=== PATIENT | male | born 1935 | race Caucasian/White ===

== ENCOUNTER → 2016-09-16 | Outpatient (CLI) | payer OTHER ==
[~2016-09-16] MED LIST: ALBU0.5N2 NEB; ASPEC81 PO; ASTNS; ATRINSX INH; FISHOIL PO; LPT40 PO; MAGN400T6 PO; MULT-506 PO; PRLSR20 PO
--- NOTE | 2016-09-16 09:44 | DIAGNOSTIC IMAGING REPORT ---
CHEST 2 VIEWS ROUTINE CLINICAL HISTORY: Cough COMPARISON STUDY: Outside chest x-ray dated 07/06/2016 FINDINGS: The cardiac and mediastinal contours are normal. There is no evidence of focal pulmonary consolidation. There is no evidence of failure. No pleural effusions are visualized.[ There is a calcified left lower lobe granuloma. IMPRESSION: No active disease in the chest. Electronically signed by: Gallito Salinas M.D. 09/16/2016 9:43 AM Dictated Date/Time: 09/16/2016 9:42 AM
== END | disposition home or self-care (01) ==
LOC: C.RAD1850 09:28
PROVIDERS: ATTEND Internal Medicine Pulmonary Disease
DX: R05 Cough (principal)

== ENCOUNTER → 2016-10-13 | Outpatient (CLI) | payer OTHER ==
--- NOTE | 2016-10-28 03:53 | PULMONARY FUNCTION TEST ---
INTERPRETATION: Spirometry shows severe obstructive ventilatory disease with significant reversibility based off FVC. Lung volumes: Signs of hyperinflation with RV at 222% as well as total lung capacity of 159% predicted. Diffusion capacity: Within normal limits.
== END | disposition home or self-care (01) ==
LOC: C.RC 09:42
PROVIDERS: ATTEND Internal Medicine Pulmonary Disease
DX: R05 Cough (principal)

== ENCOUNTER → 2016-12-05 | Outpatient (CLI) | payer OTHER ==
[~2016-12-05] MED LIST changes: +ACET-749 PO; +ARTISOL OPB; +ATOR-24 PO; +AZEL0.15 NAE; +CYCL0.052 OPB; +GABA-113 PO; +IPRA1AER2 INH; +IPRASOL4 INH; +LORA-741 PO; +OXGN; +SYMIN160 INH
[2016-12-05 12:24] LABS: BLOOD UREA NITROGEN 13 mg/dl (7-18); GLUCOSE 102 mg/dl (70-99)
[2016-12-05 12:28] LABS: ESTIMATED AVERAGE GLUCOSE 117 mg/dl; HA1C FLAG Normal (Normal)
[2016-12-05 12:34] LABS: RHEUMATOID FACTOR < 10.0 U/mL (0-15)
--- NOTE | 2016-12-09 12:51 | CODING QUERY MEDICAL NECESSITY ---
CQSUPPORTING DIAGNOSIS NEEDED A supporting diagnosis is required for the test/procedure performed on this patient in order for us to be reimbursed by the patient's insurance. Please provide a supporting diagnosis for the following test/procedure listed below next to the test name along with your signature. *If there is no additional diagnosis for this patient that would support the following test/procedure please document that below next to the test/procedure. Test(s)/Procedure(s) that require a supporting diagnosis: DOS 12/05/16 BLOOD GLUCOSE VITAMIN B12 GLYCATED HEMOGLOBIN Provider Signature: Date: Thank you Asia Lucas [facility] Information Management Once completed, please kindly fax back to [phone] For questions please call [phone]
== END | disposition home or self-care (01) ==
LOC: C.LAB1850 10:53
PROVIDERS: ATTEND Podiatrist Foot & Ankle Surgery
DX: L03.032 Cellulitis of left toe (principal); L03.031 Cellulitis of right toe; M79.675 Pain in left toe(s); M79.674 Pain in right toe(s); B35.1 Tinea unguium; M79.672 Pain in left foot; M79.671 Pain in right foot

== ENCOUNTER → 2016-12-23 | Outpatient (CLI) | payer OTHER | END | disposition home or self-care (01) | LOC: C.LABSPEC 16:55 | PROVIDERS: ATTEND Podiatrist Foot & Ankle Surgery | DX: L60.0 Ingrowing nail (principal) ==

== ENCOUNTER → 2017-01-26 | Day surgery (SDC) | payer OTHER ==
[2017-01-26] VITALS (14 sets, daily range): BP systolic 121–193; BP diastolic 67–98; PULSE 54–71; TEMP 36.5–36.8; O2SAT 93–99; Ht 177.8 cm; Wt 90.0 kg
[~2017-01-26] VITALS: Ht 177.8 cm; Wt 90.0 kg
[~2017-01-26] MED LIST changes: -ACET-749 PO; -ARTISOL OPB; -ATOR-24 PO; -AZEL0.15 NAE; -CYCL0.052 OPB; +FENTANYL CITRATE 100 MCG 2 ML CARP IV ONE; +FENTANYL CITRATE INJ 50 MCG/1 ML 2 ML VIAL IV ONE; -GABA-113 PO; -IPRA1AER2 INH; -IPRASOL4 INH; +LIDOCAINE HCL 2% LOCAL 50ML VIAL INFIL ONE; -LORA-741 PO; +MIDAZOLAM HCL 5 MG/ML 1 ML VIAL IV ONE; +MIDAZOLAM HCL 5 MG/ML 2ML VIAL IV ONE; +NURSING VERBAL MED ORDER ONE; -OXGN; -SYMIN160 INH
--- NOTE | 2017-01-26 09:39 | History and Physical ---
History & Physical Date Jan 26, 2017. Chief Complaint Chronic Bronchiectasis History of Present Illness The patient is a 81 year old male with complaints of chronic bronchiectasis with sputum production: 81y/o male with sever COPD FEV1: 36% and recent stent in pulmonary rehab but continues to have difficulty clearing increasing mucus secretions. We have decided to move forward with bronchoscopy for mechanical clearance and to help determine a possible secondary etiology of his chronic cough/progressive sputum production such as infection or foreign body. Active Problems 1. Actinic keratosis 2. Anxiety 3. Benign colonic polyp 4. Benign prostatic hypertrophy with urinary obstruction 5. Candidiasis of mouth 7. Chronic obstructive pulmonary disease (FEV1: 36%)) 8. Cough -9-.- -K-m-l-r-e-n-t- -d-n-m-k-e-r- 11. Diverticulitis of colon 12. Dry eye syndrome -1-3-.- -F-p-d-m-e-r- -j-c-t-k-e-r- 14. GERD without esophagitis 15. History of basal cell carcinoma 16. Hyperlipidemia 17. Hypertension 18. Impaired fasting glucose 19. Impingement syndrome of left shoulder 20. Lyme disease 21. Myalgia and myositis 22. Neoplasm of uncertain behavior of skin 23. Oxygen desaturation during sleep 24. Peripheral edema 25. Peripheral neuropathy 26. Restless legs syndrome 27. Rhinitis 28. Seborrheic keratosis 30. Solitary pulmonary nodule Surgical History 1. Complete Colonoscopy 2. Hemorrhoidectomy 3. Hernia Repair 4. Prostate Surgery 5. Repair Of Forearm 6. Sinus Surgery 7. Transurethral Resection Of Prostate (TURP) Family History 1. Family history of Mother At Age 84 2. Family history of Father At Age 83 3. Family history of Colon Cancer Social History Being A Social Drinker Current smoker Former smoker Marital History - Currently Retired From Work Uses Safety Equipment - Seatbelts Current Meds 1. LORazepam 0.5 MG Oral Tablet; TAKE 1 TABLET BY MOUTH 3 TIMES A DAY NEEDED ; 2. Nystatin 562407 UNIT/ML SWISH AND SWALLOW 5 ML 3 Last Rx:[id number] Ordered 3. Magnesium Oxide 400 MG Oral Tablet; TAKE 1 TABLET DAILY; 4. Combivent Respimat 20-100 MCG/ACT EVERY 4 HOURS NOT TO EXCEED 6 PUFFS IN 24 HOURS 5. Ipratropium-Albuterol NEBULIZER EVERY 4 HOURS NEEDED 6. Symbicort 160-4.5 MCG/ACT Inhalation Aerosol; INHALE 2 PUFFS TWICE DAILY. 7. Sodium Chloride 7 % Inhalation Nebulization Solution; 7 % NORMAL SALINE. USE 1 8. Azelastine HCl - 0.1 % Nasal Solution; SPRAY 2 SPRAYS IN EACH NOSTRIL TWICE A 9. Restasis 0.05 % Ophthalmic Emulsion 10. Omeprazole 20 MG Oral Capsule Delayed Release; TAKE 2 CAPSULE DAILY 11. Atorvastatin Calcium 40 MG Oral Tablet; Take 1 tablet daily; 12. Gabapentin 100 MG Oral Capsule; TAKE 2 CAPSULE Bedtime; 13. Cheratussin AC 100-10 MG/5ML Oral Syrup; TAKE 5 ML EVERY 4 HOURS NEEDED 14. Mometasone Furoate 50 MCG/ACT Nasal Suspension; USE 2 SPRAYS 15. Multiple Vitamin TABS; TAKE 1 TABLET DAILY 16. Oxygen; 2 LPM at night time 17. Tears Naturale Free 0.1-0.3 % Ophthalmic Solution; INSTILL 1 DROP IN THE AFFECTED Allergies 1. Penicillins 2. Ciprofloxacin HCl TABS 3. Erythromycin Derivatives 4. Gabapentin TABS 5. Mirapex ER TB24 6. Protonix TBEC 7. Requip TABS Past Medical/Surgical History Medical Problems: (1) COPD (chronic obstructive pulmonary disease) Additional History Hepatic Disease: No Endocrine Disorder: No Kidney Disease: No Hypertension: Yes Heart Disease: No Bleeding Tendencies: No Infectious Diseases: No Allergies Coded Allergies: Ciprofloxacin (Verified Allergy, Unknown, SWELLING, 01/26/17) Erythromycin (Verified Allergy, Unknown, HIVES, 01/26/17) Lisinopril (Verified Allergy, Unknown, COUGH, 01/26/17) Penicillins (Verified Allergy, Unknown, 01/26/17) Pramipexole (Verified Allergy, Unknown, RASH, 01/26/17) Ropinirole (Verified Allergy, Unknown, RASH, 01/26/17) Pantoprazole (Verified Adverse Reaction, Intermediate, GI SYMPTOMS, 01/26/17 ) Gabapentin (Verified Adverse Reaction, Unknown, SYNCOPE, 01/26/17) Home Medications Scheduled Albuterol 0.5% Soln (Ventolin 0.5% Soln), 1 INHA NEB UD Aspirin Enteric Coated (Ecotrin Or Generic *), 81 MG PO DAILY Atorvastatin (Atorvastatin Calcium), 40 MG PO DAILY Azelastine Hcl (Astelin Nasal [place] *), 2 SPRAYS NA BID Fish Oil ([employer]-3), 1 CAP PO DAILY Ipratropium [place] (Atrovent 0.02% Soln), 2.5 ML INH TID Magnesium Oxide (Mag-Ox), 400 MG PO DAILY Multivitamin (Multivitamin), 1 TAB PO DAILY Omeprazole (Prilosec), 20 MG PO DAILY Physical Examination Skin: warm/dry, no rash Eyes: normal inspection, EOMI, sclerae normal ENT: normal ENT inspection, pharynx normal Head: normocephalic, atraumatic Neck: supple, no adenopathy, trachea midline Respiratory/Chest: + pertinent finding (mild rhonchi bilaterally ) Cardiovascular: regular rate, rhythm, no edema, no murmur Abdomen / GI: normal bowel sounds, non tender Back: normal inspection Extremities: normal inspection, normal range of motion Neurologic/Psych: no motor/sensory deficits, alert, normal reflexes, oriented x 3 Diagnosis Chronic Bronchitis ASA Classification: ASA Class III Plan of Treatment Bronchoscopy with BAL
--- NOTE | 2017-01-26 09:52 | History & Physical Bridge Note ---
H&P Re-Evaluation Bridge Note: I have examined the patient, reviewed the History & Physical and in the interval since the performance of the History & Physical I have noted the following changes of clinical significance: No changes noted
--- NOTE | 2017-01-26 09:53 | Procedure Note ---
Pre-Mod Sedation Assessment General Date of Moderate Sedation: Jan 26, 2017. Vital Signs: Vital Signs Past 12 Hours Date Time Temp Pulse Resp B/P (MAP) Pulse Ox O2 Delivery O2 Flow Rate FiO2 01/26/17 09:15 36.5 22 177/91 96 Room Air 01/26/17 09:05 36.5 59 22 177/91 (119) 96 Room Air Review Cardiovascular: regular rate, rhythm, no edema, no gallop, no JVD, no murmur, normal peripheral pulses Abdomen: normal bowel sounds, non tender, soft, no organomegaly, no pulsatile mass Lungs: chest non-tender, lungs clear, normal breath sounds, no respiratory distress, no accessory muscle use Airway Class: II Pre-Sedation Airway Assessment Oral Cavity: Dentures Able to Visualize Vocal Cords: Yes Short Thick Neck: Yes Hx of Sleep Apnea: Yes Smoking Status: Former Smoker Mallampati Classification: Class II ASA Classification: Class II Procedure Planning Contraindications-for Mod Sed: None Yes Notes The planned sedation has been discussed with the patient and consent obtained. I have identified the patient, determined the appropriateness of sedation and have assessed the patient immediately prior to the procedure. All medicine(s) and interventions are by my order.
--- NOTE | 2017-01-26 10:47 | Discharge Instructions ---
Discharge Instructions Date of Service Jan 26, 2017. Admission Reason for Admission: *David To Do* Chronic Bronchitis,Copd,Sob Discharge Discharge Diagnosis / Problem: Chronic Bronchiectasis Discharge Goals Goal(s): Improve function, Diagnostic testing Activity Recommendations Activity Limitations: resume your previous activity . Instructions / Follow-Up Instructions / Follow-Up Follow-Up at the [facility] Current Hospital Diet Patient's current hospital diet: Discharge Diet Recommended Diet: Regular Diet Procedures Procedures Performed: Bornchoscopy with Bronchial Lavage of the left upper lobe Pending Studies Studies pending at discharge: no Laboratory Results Hemoglobin A1c Test 12/05/16 10:59 Range/Units Estimated Average Glucose 117 mg/dl Hemoglobin A1c 5.7 H 4.5-5.6 % Medical Emergencies . Who to Call and When: Medical Emergencies: If at any time you feel your situation is an emergency, please call 911 immediately. . Non-Emergent Contact Non-Emergency issues call your: Alumni Relations Manager Call Non-Emergent contact if: temperature is above 101.5 . . "Provider Documentation" section prepared by Filippo Hernandez. . VTE Core Measure Inpt VTE Proph given/why not?: Treatment not indicated
--- NOTE | 2017-01-26 10:53 | Bronchoscopy Procedure Note ---
Bronchoscopy Procedure Note Procedure: Bronchoscopy, conscious sedation, BAL (SUNNY) Consent: Obtained through the patient placed into the chart Pre-procedural diagnosis: Chronic Bronchiectasis Post-procedural diagnosis: Chronic Bronchiectasis with acute flare Start time: 1022 End time: 1039 Total time: 16 minutes Analgesia: 2% liquid lidocaine: Via nebulizer 4% gel lidocaine: Via right naris 2% liquid lidocaine: Via bronchoscopy Sedation: Versed IV: 4 mg Fentanyl IV: 100 g Procedure: The Olympus video bronchoscope was used for this procedure and passed down through the right naris Initially the bronchoscope was passed through the oral cavity and retro-flexed off the soft palate Bilateral Posterior Batsheva: notable erythema and edema of the turbinates The bronchoscope was then passed through the right naris Right naris/posterior naris/posterior oropharynx: Anatomically within normal limits Glottis: Anatomically within normal limits Vocal cords: Proper abduction and abduction, anatomically within normal limits Subglottis/trachea/Nadia: Anatomically within normal limits, but a large mucus string crossing over the nadia and passing into the right and left mainstem Right bronchial tree: Right mainstem bronchus: Anatomically within normal limits Right upper lobe: Anatomically within normal limits Bronchus intermedius: Anatomically within normal limits Right middle lobe: Anatomically within normal limits Right lower lobe: Anatomically within normal limits Findings: moderate diffuse secretions Left bronchial tree: Left mainstem bronchus: Anatomically within normal limits Left upper lobe: Anatomically within normal limits Lingula: Anatomically within normal limits Left lower lobe: Anatomically within normal limits Findings: moderate diffuse secretions Bronchial alveolar lavage: SUNNY EBL: none Complications: None Follow-up: In the [facility]
--- NOTE | 2017-01-26 10:53 | Procedure Note ---
Post-Moderate Sedation Plan General Date of Moderate Sedation Jan 26, 2017. Vital Signs: Vital Signs Past 12 Hours Date Time Temp Pulse Resp B/P (MAP) Pulse Ox O2 Delivery O2 Flow Rate FiO2 01/26/17 10:45 65 20 127/80 96 Mask 8.0 01/26/17 10:40 65 19 130/91 95 Mask 8.0 01/26/17 10:35 66 19 143/83 95 Mask 8.0 01/26/17 10:30 64 18 121/81 97 Mask 8.0 01/26/17 10:25 61 20 148/82 97 Mask 8.0 01/26/17 10:20 62 20 182/88 99 Mask 8.0 01/26/17 10:02 54 22 193/98 99 Mask 10.0 01/26/17 09:15 36.5 22 177/91 96 Room Air 01/26/17 09:05 36.5 59 22 177/91 (119) 96 Room Air Review - Discharge Plan Post Moderate Sedation Plan: On clinical assessment, the patient appears to have tolerated the conscious sedation without complications. Patient is recovering as anticipated. Patient will continue to be monitored by nursing and may be discharged when conscious sedation discharge criteria are met.
== END | disposition home or self-care (01) ==
LOC: C.ACU 08:05
PROVIDERS: ATTEND Internal Medicine Critical Care Medicine
DX: J47.9 Bronchiectasis, uncomplicated (principal); J44.9 Chronic obstructive pulmonary disease, unspecified; K21.9 Gastro-esophageal reflux disease without esophagitis; F41.9 Anxiety disorder, unspecified; N40.1 Benign prostatic hyperplasia with lower urinary tract symptoms; N13.8 Other obstructive and reflux uropathy; I10 Essential (primary) hypertension; E78.5 Hyperlipidemia, unspecified; G25.81 Restless legs syndrome; G62.9 Polyneuropathy, unspecified; Z99.81 Dependence on supplemental oxygen; Z79.899 Other long term (current) drug therapy

== ENCOUNTER → 2017-05-17 | Day surgery (SDC) | payer OTHER ==
[2017-05-16 12:19] VITALS: Ht 177.8 cm; Wt 84.1 kg
[~2017-05-17] VITALS: Ht 177.8 cm; Wt 84.1 kg
[~2017-05-17] MED LIST changes: +ACET-749 PO; +ACETAMINOPHEN/CODEINE 300/30MG TAB PO PRN; +ARTISOL OPB; -ASPEC81 PO; -ASTNS; +ATOR-24 PO; +ATROPINE SULFATE 0.1 MG/ML 5ML SYR IV PRN; +AZEL0.15 NAE; +BUPIVACAINE 0.5 % 5 MG/1 ML MPF 30ML VIAL ONE; +CEFAZOLIN 1000MG IV PUSH 5 ML IV SCH; +CEFAZOLIN 2000MG IV PUSH 10 ML IV SCH; +CEFAZOLIN SOD 2000MG/10 ML IV PUSH IV ONE; +CYCL0.052 OPB; +EpHEDrine SULFATE INJ 50 MG/ML AMP IV PRN; -FENTANYL CITRATE 100 MCG 2 ML CARP IV ONE; -FENTANYL CITRATE INJ 50 MCG/1 ML 2 ML VIAL IV ONE; +FENTANYL CITRATE INJ 50 MCG/1 ML 2 ML VIAL IV PRN; -FISHOIL PO; +GABA-113 PO; +IPRA1AER2 INH; +IPRASOL4 INH; +LACTATED RINGER'S 1000ML 1,000 ML IV SCH; +LIDOCAINE HCL 2% LOCAL 20 ML VIAL ONE; -LIDOCAINE HCL 2% LOCAL 50ML VIAL INFIL ONE; +LORA-741 PO; -LPT40 PO; +MIDAZOLAM HCL 1 MG/ML 2ML VIAL ONE; -MIDAZOLAM HCL 5 MG/ML 1 ML VIAL IV ONE; -MIDAZOLAM HCL 5 MG/ML 2ML VIAL IV ONE; -NURSING VERBAL MED ORDER ONE; +ONDANSETRON INJ 2 MG/ML 2 ML VIAL IV PRN; +OXGN; +PROPOFOL IV EMULSION 10 MG/ML 20 ML VIAL IV ONE; +SODIUM CHLORIDE 0.9% 1000ML 1,000 ML IV SCH; +SYMIN160 INH
--- NOTE | 2017-05-17 13:49 | [facility] Post Operative Brief Note ---
Immediate Operative Summary Operative Date May 17, 2017. Pre-Operative Diagnosis Right ring and right long trigger finger Post-Operative Diagnosis Same as pre-op Procedure(s) Performed Right Ring And Right Long Trigger Finger Release Surgeon Tank Wagon Driver Surgeon(s) Sim Andrew PA-C Estimated Blood Loss Minimal Findings Right Ring and Long Finger Trigger Finger. Specimens None Anesthesia Local with IV Sedation Complication(s) None Disposition Recovery Room / PACU
--- NOTE | 2017-05-17 13:50 | Discharge Instructions-SurgCtr ---
Discharge Instructions Date of Service May 17, 2017. Visit Reason for Visit: Right Ring And Right Long Trigger Fingers Discharge Discharge Diagnosis / Problem: right ring and long trigger fingers Discharge Goals Goal(s): Decrease discomfort, Improve function, Therapeutic intervention Activity Recommendations Activity Limitations: per Instructions/Follow-up section Anesthesia . Post Anesthesia Instructions: If you have had General Anesthesia or IV Sedation: * Do not drive today. * Resume driving when surgeon permits. * Do not make important decisions or sign legal documents today. * Call surgeon for: 1. Temperature elevations greater than 101 degrees F. 2. Uncontrollable pain. 3. Excessive bleeding. 4. Persistent nausea and vomiting. 5. Medication intolerance (nausea, vomiting or rash). * For nausea and vomiting use only clear liquids such as: tea, soda, bouillon until nausea subsides, then gradually increase diet as tolerated. * If you have any concerns or questions, call your surgeon's office. If physician is unavailable and it is an emergency, call 911 or go to the nearest emergency room. . Instructions / Follow-Up Instructions / Follow-Up MEDICATIONS: * Resume previous medications unless instructed otherwise by your surgeon. * Always take pain medication on a full stomach or with food to avoid upset stomach. * Do not drink alcohol or drive while taking narcotics. * Ibuprofen or Tylenol may be taken if narcotic not needed. SPECIAL CARE INSTRUCTIONS: __ None __ Keep extremity elevated and iced x 48 hours; apply ice 20-30 minutes 8-10 times/day. May remove at night. __ Sling __24 hrs/day __ Remove at night __ Shoulder Immobilizer __ 24 hrs/day __ Remove at night _x_ Dressing _x_ Maintain until seen in office, may shower with plastic over site __ Remove dressings in 24-48 hours and then may shower __ Cover incisions with band-aids after showering __ Do not remove steri-strips Call physician if chills or temperature rises above 102 degrees or pain unrelieved by prescribed pain medications at . follow up in 2 weeks . Diet Recommendations Home Diet: resume previous diet Procedures Procedures Performed: Right Ring And Right Long Trigger Finger Release Pending Studies Studies pending at discharge: no Medical Emergencies . Who to Call and When: Medical Emergencies: If at any time you feel your situation is an emergency, please call 911 immediately. . Non-Emergent Contact Non-Emergency issues call your: Surgeon . . "Provider Documentation" section prepared by Sergio Andrew. .
[2017-05-17 13:51] VITALS: TEMP 36.7
--- NOTE | 2017-05-17 14:01 | Anesthesiology Progress Note ---
Anesthesia Post Op Note Date & Time May 17, 2017 at 14:01 Vital Signs Pain Intensity: 0 Vital Signs Past 12 Hours Date Time Temp Pulse Resp B/P (MAP) Pulse Ox O2 Delivery O2 Flow Rate FiO2 05/17/17 13:51 36.7 67 16 118/80 (93) 97 Room Air 05/17/17 12:04 36.7 77 18 112/96 (101) 94 Room Air Notes Mental Status: alert / awake / arousable, participated in evaluation Pt Amnestic to Procedure: Yes Nausea / Vomiting: adequately controlled Pain: adequately controlled Airway Patency, RR, SpO2: stable & adequate BP & HR: stable & adequate Hydration State: stable & adequate Anesthetic Complications: no major complications apparent
[2017-05-17 14:18] VITALS: O2SAT 99
[2017-05-17 14:57] VITALS: BP 167/88; PULSE 59
--- NOTE | 2017-05-17 15:52 | OPERATIVE REPORT ---
DATE OF OPERATION: 05/17/2017 PREOPERATIVE DIAGNOSIS: 1. Right ring trigger finger. 2. Right long trigger finger. POSTOPERATIVE DIAGNOSIS: Same. PROCEDURE PERFORMED: 1. Right ring trigger finger/A1 priya release. 2. Right long trigger finger/A1 priya release. SURGEON: Dr. Davi Bashir. FLOOR CARE SPECIALIST: Sim Andrew PA-C. COMPLICATIONS: None. ESTIMATED BLOOD LOSS: Minimal. TOURNIQUET TIME: Six minutes at 250 mmHg. OPERATIVE INDICATIONS: The patient is an 81-year-old gentleman who has had a 1 + year history of right long and ring trigger finger catching and locking. He had an injection about a year ago which provided some temporary relief only. It has gotten significantly worse to the point where his fingers get stuck down and it is not until lat in the day until he can straighten them. He did not want any further injections and elected to proceed with surgical treatment. OPERATIVE PROCEDURE: The patient taken to the operating room, identified and placed on the operating table in supine position. All contact areas were appropriately padded. IV antibiotics were provided by anesthesia team. Some IV sedation was provided. A right forearm tourniquet was placed. The right hand was then cleaned with alcohol and a total of 12 mL of 50:50 combination of 0.5% Marcaine and 2% lidocaine were then injected in and around the proposed incision sites. The right hand was then prepped and draped in usual sterile fashion. The right arm was elevated and exsanguinated with Esmarch and tourniquet was placed at 250 mmHg. A transverse incision was made just distal to the distal palmar crease at the base of the long and ring fingers. We made a single incision. Attention was first drawn to the ring finger. Blunt dissection was carried out directly down to the A1 priya and the flexor tendon sheath. The A1 priya was identified and transected with the use of scissors. The finger was taken through an active and active assisted range of motion was no further catching or locking. Attention was then drawn to the long finger. Blunt dissection was carried out directly over the flexor tendon to the long finger. The A1 priya was cleaned of soft tissues identified and transected with the use of scissors. The finger was taken through an active and active assisted range of motion. There was no further catching or locking. The wound was irrigated with copious amounts of normal saline. The tourniquet was let down for a tourniquet time of 6 minutes. Hemostasis was assured with use of electrocautery. The wound was once again irrigated. The skin was closed with 5-0 nylon suture in a horizontal mattress fashion. The hand was then cleaned and dried and a sterile dressing of Xeroform, 4 x 4, sterile cast padding and an Grady bandage were applied. The patient then transferred to the recovery room in stable condition. The patient tolerated the procedure well with no complications. All needle and sponge counts were correct at the end of the operation. I attest to the content of the Intraoperative Record and any orders documented therein. Any exceptions are noted below. BREANNA
== END | disposition home or self-care (01) ==
LOC: X.SURG 10:54
PROVIDERS: ATTEND Orthopaedic Surgery Sports Medicine
DX: M65.331 Trigger finger, right middle finger (principal); M65.341 Trigger finger, right ring finger; J44.9 Chronic obstructive pulmonary disease, unspecified; E78.00 Pure hypercholesterolemia, unspecified; K21.9 Gastro-esophageal reflux disease without esophagitis; Z79.82 Long term (current) use of aspirin; G47.33 Obstructive sleep apnea (adult) (pediatric); E78.5 Hyperlipidemia, unspecified; Z87.891 Personal history of nicotine dependence

== ENCOUNTER → 2017-07-28 | Outpatient (CLI) | payer OTHER ==
[~2017-07-28] MED LIST changes: -ACET-749 PO; +ACET300T3 PO; -ACETAMINOPHEN/CODEINE 300/30MG TAB PO PRN; +ASPCH81X PO; -ATROPINE SULFATE 0.1 MG/ML 5ML SYR IV PRN; -BUPIVACAINE 0.5 % 5 MG/1 ML MPF 30ML VIAL ONE; -CEFAZOLIN 1000MG IV PUSH 5 ML IV SCH; -CEFAZOLIN 2000MG IV PUSH 10 ML IV SCH; -CEFAZOLIN SOD 2000MG/10 ML IV PUSH IV ONE; +CEFD1CAP14 PO; +CHOL1000 PO; +CYM/30 PO; -EpHEDrine SULFATE INJ 50 MG/ML AMP IV PRN; -FENTANYL CITRATE INJ 50 MCG/1 ML 2 ML VIAL IV PRN; +FLM4 PO; +GABA-112 PO; +GABA-1220 PO; +IPRA-64 INH; -IPRASOL4 INH; -LACTATED RINGER'S 1000ML 1,000 ML IV SCH; -LIDOCAINE HCL 2% LOCAL 20 ML VIAL ONE; -MIDAZOLAM HCL 1 MG/ML 2ML VIAL ONE; +OMEG10007 PO; -ONDANSETRON INJ 2 MG/ML 2 ML VIAL IV PRN; +PRD20 PO; -PROPOFOL IV EMULSION 10 MG/ML 20 ML VIAL IV ONE; +SACC250C PO; -SODIUM CHLORIDE 0.9% 1000ML 1,000 ML IV SCH; +SULF800T23 PO; +TAMS0.4C38 PO
--- NOTE | 2017-07-28 08:56 | DIAGNOSTIC IMAGING REPORT ---
CHEST 2 VIEWS ROUTINE HISTORY: 81 years-old Male J44.9 Chronic obstructive pulmonary [id number] COMPARISON: Chest radiographs to 09/16/2016, chest CT 07/10/2015 TECHNIQUE: PA and lateral views of the chest FINDINGS: Cardiomediastinal and hilar silhouettes are within normal limits. Mild atherosclerosis of the aorta. There is chronic blunting of the costophrenic angles suggesting scarring with hyperinflation and emphysema. There is no pneumothorax, large pleural effusion or overt pulmonary edema. Calcified granuloma of the left lower lobe. The bones appear grossly intact. Multilevel endplate degenerative changes of the spine. IMPRESSION: 1. Emphysema without acute process. 2. Prior granulomatous disease. The above report was generated using voice recognition software. It may contain grammatical, syntax or spelling errors. Electronically signed by: Chris Diaz M.D. 07/28/2017 8:54 AM Dictated Date/Time: 07/28/2017 8:52 AM
== END | disposition home or self-care (01) ==
LOC: C.RAD1850 08:35
PROVIDERS: ATTEND Family Medicine Adult Medicine
DX: J44.9 Chronic obstructive pulmonary disease, unspecified (principal); R05 Cough

== ENCOUNTER → 2017-07-28 | Outpatient (CLI) | payer OTHER ==
[2017-07-28 12:53] LABS: INFLUENZA B ANTIGEN Neg for Influ B (NEG)
== END | disposition home or self-care (01) ==
LOC: C.LAB1850 10:14
PROVIDERS: ATTEND Internal Medicine Critical Care Medicine
DX: R06.89 Other abnormalities of breathing (principal); R05 Cough; J44.9 Chronic obstructive pulmonary disease, unspecified

== ENCOUNTER → 2017-08-04 | Outpatient (CLI) | payer OTHER ==
[~2017-08-04] MED LIST changes: +ACET-749 PO; -ACET300T3 PO; -ASPCH81X PO; -CEFD1CAP14 PO; -CHOL1000 PO; -CYM/30 PO; -FLM4 PO; -GABA-112 PO; -GABA-1220 PO; -IPRA-64 INH; +IPRASOL4 INH; -OMEG10007 PO; -PRD20 PO; -SACC250C PO; -SULF800T23 PO; -TAMS0.4C38 PO
== END | disposition home or self-care (01) ==
LOC: C.LABBC 14:24
PROVIDERS: ATTEND Family Medicine Adult Medicine
DX: R39.11 Hesitancy of micturition (principal)

== ENCOUNTER 2017-08-22 10:53 | Inpatient (IN) | payer OTHER ==
[~2017-08-22] VITALS: Ht 177.8 cm; Wt 81.6 kg
[2017-08-22] MEDS ORDERED: SODIUM CHLORIDE 0.9% 1000ML 500 ML IV STA (11:30)
[2017-08-22 11:54] LABS: BASO % 0.2 %; BASO ABS # 0.03 K/uL (0-0.2); EOS % 0.5 %; EOS ABS # 0.07 K/uL (0-0.5); HEMATOCRIT 39.5 % (42-52); HEMOGLOBIN 13.1 g/dL (14.0-18.0); IG# 0.04 K/uL (0.00-0.02); LYMPH % 6.6 %; LYMPH ABS # 0.96 K/uL (1.2-3.4); MEAN CELL VOLUME 96.6 fL (80-100); MEAN CORPUSCULAR HGB CONC 33.2 g/dl (32-36); MEAN PLATELET VOLUME 10.3 fL (7.4-10.4); MONO % 7.7 %; MONO ABS # 1.12 K/uL (0.11-0.59); NEUT % 84.7 %; NEUT ABS # 12.24 K/uL (1.4-6.5); PLATELET COUNT 159 K/uL (130-400); RED CELL DISTRIBUTION WIDTH CV 13.6 % (11.5-14.5); RED CELL DISTRIBUTION WIDTH SD 47.8 fL (36.4-46.3); WHITE BLOOD COUNT 14.46 K/uL (4.8-10.8)
[2017-08-22 11:59] LABS: PTT PATIENT 25.4 SECONDS (21.0-31.0)
--- NOTE | 2017-08-22 12:00 | DIAGNOSTIC IMAGING REPORT ---
CHEST ONE VIEW PORTABLE CLINICAL HISTORY: Chest pain. COMPARISON STUDY: Chest radiograph July 28, 2017. FINDINGS: Calcified left lower lobe granuloma and calcified thoracic lymph nodes are noted. There is no pneumothorax or pleural effusion. Cardiomediastinal silhouette is stable. There is no evidence for pulmonary edema. There is no consolidation to suggest pneumonia. IMPRESSION: No acute cardiopulmonary findings. Electronically signed by: Dimitri Reyes M.D. 08/22/2017 11:59 AM Dictated Date/Time: 08/22/2017 11:57 AM
[2017-08-22 12:03] LABS: ALBUMIN 3.6 gm/dl (3.4-5.0); CALCIUM 9.2 mg/dl (8.5-10.1); POTASSIUM 4.5 mmol/L (3.5-5.1)
[2017-08-22 12:08] LABS: TOTAL PROTEIN 7.1 gm/dl (6.4-8.2)
--- NOTE | 2017-08-22 12:54 | DIAGNOSTIC IMAGING REPORT ---
CT OF THE HEAD WITHOUT CONTRAST CLINICAL HISTORY: dizzy COMPARISON STUDY: Head CT November 14, 2013. CT DOSE: 638.56 mGycm TECHNIQUE: Helical axial images of the head were obtained without IV contrast. Automated exposure control was utilized for the study. A dose lowering technique was utilized adhering to the principles of ALARA. FINDINGS: No acute intracranial hemorrhage, midline shift or mass effect is present. Ventricular system is normal. Basilar cisterns are patent. There are no extra-axial collections. White matter hypodensities suggest moderate small vessel disease. There are no findings to suggest acute dural sinus thrombosis or acute territorial infarct. There are no significant calvarial abnormalities. There is trace fluid within left mastoid air cells. There are postoperative findings within the sinuses. IMPRESSION: 1. No acute intracranial findings. 2. Trace fluid within left mastoid air cells. Electronically signed by: Dimitri Reyes M.D. 08/22/2017 12:53 PM Dictated Date/Time: 08/22/2017 12:50 PM
--- NOTE | 2017-08-22 13:03 | DIAGNOSTIC IMAGING REPORT ---
ABD/PELVIS NO IV OR ORAL CONT CLINICAL HISTORY: 81 years-old Male presenting with eval for diverticulitis. TECHNIQUE: Multidetector CT of the abdomen and pelvis was performed without the use of intravenous contrast. IV contrast: None. A dose lowering technique was used consistent with the principles of ALARA (as low as reasonably achievable). COMPARISON: None. CT DOSE (mGy.cm): The estimated cumulative dose is 754.92 mGycm. FINDINGS: Fuel Operator topogram: Unremarkable. Lung bases: Minimal dependent changes at the right lung base, likely scarring or atelectasis. Normal heart size. No pericardial or pleural effusion. Liver: Normal morphology. Normal density. Somewhat ill-defined 8 mm lesion at the right hepatic dome is indeterminate but may represent a hepatic cyst. Biliary: No gross biliary ductal dilatation allowing for noncontrast technique. Minimal cholelithiasis versus trace gallbladder wall calcification (series 4 image 143). Pancreas: Mild parenchymal atrophy. Spleen: Normal noncontrast appearance. Splenule noted. Adrenal glands: Normal noncontrast appearance. Kidneys and ureters: Nonobstructing 2 mm calculus in the lower pole the left kidney. Hypodensity in the right kidney indeterminate but likely simple cyst (series 4 image 188). No hydronephrosis. Mild urothelial thickening may be present ureters otherwise normal. Bladder: Significant circumferential bladder wall thickening. Pelvic organs: Prostate enlargement likely secondary to benign prostatic hyperplasia. Bowel: Limited diverticulosis of the proximal sigmoid colon. No pericolonic inflammatory change. Allowing for the absence of oral and intravenous contrast, the small bowel is grossly normal. Large duodenal diverticulum along the horizontal segment. No associated inflammatory change. Peritoneal cavity: Trace free fluid in the pelvis. Trace inflammatory changes suggested along the anterior mesorectal fascia and emanating from the seminal vesicles and posterior bladder wall. Lymph nodes: No gross lymphadenopathy allowing for noncontrast technique. Vasculature: Fusiform aneurysmal dilatation of the infrarenal abdominal aorta measuring up to 4.3 cm in diameter. Displaced intimal calcifications along the inferior portion of this could suggest a chronic short segment dissection. This does not extend into the common iliac arteries. Abdominal wall: Normal. Musculoskeletal: Degenerative changes of the spine. Degenerative changes of the sacroiliac joints. IMPRESSION: 1. Inflammatory changes centered at the rectovesical recess. This is associated with significant circumferential bladder wall thickening and suggestion of mild urothelial thickening. In the setting of prostatomegaly, this could be secondary to chronic bladder outlet obstruction and ureteral reflux. Superimposed infection/cystitis cannot be excluded. Correlate with urinalysis. Underlying prostate abnormality beyond benign prostatic hyperplasia is not well assessed on CT. 2. No lymphadenopathy. 3. Fusiform infrarenal abdominal aortic aneurysm measuring 4.3 cm in diameter. 4. Nonobstructing 2 mm left renal calculus. Electronically signed by: Arnulfo Maya M.D. 08/22/2017 1:02 PM Dictated Date/Time: 08/22/2017 12:51 PM
[2017-08-22] MEDS ORDERED: CEFTRIAXONE SOD INJ 1 GM ADDVIAL IV STA (13:51)
--- NOTE | 2017-08-22 14:12 | EMERGENCY ROOM VISIT NOTE ---
History Report prepared by Ac: Scar Deleon Under the Supervision of: Dr. Albin Madsen M.D. First contact with patient: 11:20 Chief Complaint: OTHER COMPLAINT Stated Complaint: DIZZY/LIGHTHEADED History of Present Illness The patient is a 81 year old male who presents to the Emergency Room with complaints of persistent generalized illness beginning this week. His symptoms include a cough, headache, urinary symptoms, dizziness, and blurred vision. His cough is generally non-productive. The patient was treated for influenza three weeks ago. He had his Gabapentin dose increased last week by his PCP, and feels that this may be responsible for his symptoms. He was originally on 300 mg, but is now on 500 mg (400 mg and 100 mg). The patient states that he experienced an episode of chest "discomfort" last night, but it had resolved by the morning. He states that he has some mild abdominal pain as well. He states that he had experienced some generalized numbness and weakness additionally. The patient denies fevers, vomiting, or abdominal distention. He is not on any blood thinners. Source of History: patient Onset: This week Position: other (generalized) Quality: other (illness) Timing: other (persistent) Associated Symptoms: + headache, + cough (non-productive), + abdominal pain , + urinary symptoms, + weakness, + numbness, No fevers, No vomiting Note: Additional symptoms: dizziness and blurred vision. He denies abdominal distention. Review of Systems See HPI for pertinent positives & negatives. A total of 10 systems reviewed and were otherwise negative. Past Medical & Surgical Medical Problems: (1) COPD (chronic obstructive pulmonary disease) Old medical records were reviewed. Nurse's notes were reviewed and I agree with. Family History Cancer Diabetes mellitus Heart disease Hypertension Social History Smoking Status: Never Smoker Alcohol Use: heavy Drug Use: none Marital Status: Occupation Status: retired Current/Historical Medications Scheduled Artificial Tear Solution (Tears Naturale), 1 DROP OPB NOON Atorvastatin (Lipitor), 40 MG PO QAM Azelastine Hcl (Astepro), 2 SPRAYS MORIAH BID Budesonide/Formoterol Fumarate (Symbicort 160/4.5 Inhaler ), 2 PUFFS INH BID Cyclosporine (Ophth) (Restasis), 1 DROP OPB BID Home O2 Therapy (Oxygen), 2 LITERS NA HS Ipratropium [place] (Atrovent 0.02% Soln), 2.5 ML INH TID Ipratropium-Albuterol (Duoneb), 1 TREATMENT INH Q4H Magnesium Oxide (Mag-Ox), 400 MG PO QPM Multivitamin (Multivitamin), 1 TAB PO QPM Omeprazole (Prilosec), 40 MG PO DAILY Scheduled PRN Acetaminophen/Codeine (Tylenol W/Codeine #3), 1-2 TAB PO Q6 PRN for Pain Ipratropium-Albuterol (Combivent Respimat), 1 PUFFS INH QID PRN for SOB/Wheezing Lorazepam (Ativan), 0.5 MG PO TID PRN for Anxiety Allergies Coded Allergies: Ciprofloxacin (Verified Allergy, Unknown, SWELLING, 08/22/17) Erythromycin (Verified Allergy, Unknown, HIVES, 08/22/17) Gabapentin (Unverified Allergy, Unknown, ., 08/22/17) Lisinopril (Verified Allergy, Unknown, COUGH, 08/22/17) Penicillins (Verified Allergy, Unknown, HIVES, 08/22/17) Pramipexole (Verified Allergy, Unknown, RASH, 08/22/17) Ropinirole (Verified Allergy, Unknown, RASH, 08/22/17) Pantoprazole (Verified Adverse Reaction, Intermediate, GI SYMPTOMS, ) Physical Exam Vital Signs Date Time Temp Pulse Resp B/P (MAP) Pulse Ox O2 Delivery O2 Flow Rate FiO2 08/22/17 14:15 75 20 124/65 96 Room Air 08/22/17 12:19 124/60 08/22/17 11:53 78 15 08/22/17 11:23 78 23 08/22/17 11:19 95 Room Air 08/22/17 11:16 74 08/22/17 11:15 36.8 98 20 110/66 95 Room Air 08/22/17 11:00 110/66 Physical Exam General: Non-ill appearing older male in no acute distress. HEENT: Normal cephalic atraumatic. Pupils are equal round and reactive to light. Extraocular movements are intact. Oropharynx is pink with moist mucous membranes. No swelling of the mouth lips or tongue. Neck: Supple with a midline trachea. No meningeal signs or stiffness, no JVD or bruits. No Stridor. Chest: Clear to auscultation bilaterally. No wheezes or rhonchi. No increased work of breathing. Heart: regular rate and rhythm. Abdomen: Soft nontender, nondistended without rebound guarding or rigidity. Extremities: No cyanosis clubbing or edema. No calf tenderness or assymetry Spine/Back. Non tender to palpation. No CVA tenderness Skin: Good turgor without rashes. Neurologic exam: Cranial nerves two through 12 are intact. Motor and sensation are intact and symmetrical throughout. Medical Decision & Procedures ER Provider Diagnostic Interpretation: Radiology results as stated below per my review and radiologist interpretation: CHEST ONE VIEW PORTABLE FINDINGS: Calcified left lower lobe granuloma and calcified thoracic lymph nodes are noted. There is no pneumothorax or pleural effusion. Cardiomediastinal silhouette is stable. There is no evidence for pulmonary edema. There is no consolidation to suggest pneumonia. IMPRESSION: No acute cardiopulmonary findings. Electronically signed by: Dimitri Reyes M.D. 08/22/2017 11:59 AM ABD/PELVIS NO IV OR ORAL CONT FINDINGS: Core Carrier topogram: Unremarkable. Lung bases: Minimal dependent changes at the right lung base, likely scarring or atelectasis. Normal heart size. No pericardial or pleural effusion. Liver: Normal morphology. Normal density. Somewhat ill-defined 8 mm lesion at the right hepatic dome is indeterminate but may represent a hepatic cyst. Biliary: No gross biliary ductal dilatation allowing for noncontrast technique. Minimal cholelithiasis versus trace gallbladder wall calcification (series 4 image 143). Pancreas: Mild parenchymal atrophy. Spleen: Normal noncontrast appearance. Splenule noted. Adrenal glands: Normal noncontrast appearance. Kidneys and ureters: Nonobstructing 2 mm calculus in the lower pole the left kidney. Hypodensity in the right kidney indeterminate but likely simple cyst (series 4 image 188). No hydronephrosis. Mild urothelial thickening may be present ureters otherwise normal. Bladder: Significant circumferential bladder wall thickening. Pelvic organs: Prostate enlargement likely secondary to benign prostatic hyperplasia. Bowel: Limited diverticulosis of the proximal sigmoid colon. No pericolonic inflammatory change. Allowing for the absence of oral and intravenous contrast, the small bowel is grossly normal. Large duodenal diverticulum along the horizontal segment. No associated inflammatory change. Peritoneal cavity: Trace free fluid in the pelvis. Trace inflammatory changes suggested along the anterior mesorectal fascia and emanating from the seminal vesicles and posterior bladder wall. Lymph nodes: No gross lymphadenopathy allowing for noncontrast technique. Vasculature: Fusiform aneurysmal dilatation of the infrarenal abdominal aorta measuring up to 4.3 cm in diameter. Displaced intimal calcifications along the inferior portion of this could suggest a chronic short segment dissection. This does not extend into the common iliac arteries. Abdominal wall: Normal. Musculoskeletal: Degenerative changes of the spine. Degenerative changes of the sacroiliac joints. IMPRESSION: 1. Inflammatory changes centered at the rectovesical recess. This is associated with significant circumferential bladder wall thickening and suggestion of mild urothelial thickening. In the setting of prostatomegaly, this could be secondary to chronic bladder outlet obstruction and ureteral reflux. Superimposed infection/cystitis cannot be excluded. Correlate with urinalysis. Underlying prostate abnormality beyond benign prostatic hyperplasia is not well assessed on CT. 2. No lymphadenopathy. 3. Fusiform infrarenal abdominal aortic aneurysm measuring 4.3 cm in diameter. 4. Nonobstructing 2 mm left renal calculus. Electronically signed by: Arnulfo Maya M.D. 08/22/2017 1:[address] OF THE HEAD WITHOUT CONTRAST FINDINGS: No acute intracranial hemorrhage, midline shift or mass effect is present. Ventricular system is normal. Basilar cisterns are patent. There are no extra-axial collections. White matter hypodensities suggest moderate small vessel disease. There are no findings to suggest acute dural sinus thrombosis or acute territorial infarct. There are no significant calvarial abnormalities. There is trace fluid within left mastoid air cells. There are postoperative findings within the sinuses. IMPRESSION: 1. No acute intracranial findings. 2. Trace fluid within left mastoid air cells. Electronically signed by: Dimitri Reyes M.D. 08/22/2017 12:53 PM Laboratory Results 08/22/17 11:09 Red Blood Count 4.09, Mean Corpuscular Volume 96.6, Mean Corpuscular Hemoglobin 32.0, Mean Corpuscular Hemoglobin Concent 33.2, Mean Platelet Volume 10.3, Neutrophils (%) (Auto) 84.7, Lymphocytes (%) (Auto) 6.6, Monocytes (%) (Auto) 7.7, Eosinophils (%) (Auto) 0.5, Basophils (%) (Auto) 0.2, Neutrophils # (Auto) 12.24, Lymphocytes # (Auto) 0.96, Monocytes # (Auto) 1.12, Eosinophils # (Auto) 0.07, Basophils # (Auto) 0.03 08/22/17 11:09 Test 08/22/17 11:09 08/22/17 11:46 08/22/17 12:55 White Blood Count 14.46 K/uL (4.8-10.8) Red Blood Count 4.09 M/uL (4.7-6.1) Hemoglobin 13.1 g/dL (14.0-18.0) Hematocrit 39.5 % (42-52) Mean Corpuscular Volume 96.6 fL (80-100) Mean Corpuscular Hemoglobin 32.0 pg (25-34) Mean Corpuscular Hemoglobin Concent 33.2 g/dl (32-36) Platelet Count 159 K/uL (130-400) Mean Platelet Volume 10.3 fL (7.4-10.4) Neutrophils (%) (Auto) 84.7 % Lymphocytes (%) (Auto) 6.6 % Monocytes (%) (Auto) 7.7 % Eosinophils (%) (Auto) 0.5 % Basophils (%) (Auto) 0.2 % Neutrophils # (Auto) 12.24 K/uL (1.4-6.5) Lymphocytes # (Auto) 0.96 K/uL (1.2-3.4) Monocytes # (Auto) 1.12 K/uL (0.11-0.59) Eosinophils # (Auto) 0.07 K/uL (0-0.5) Basophils # (Auto) 0.03 K/uL (0-0.2) RDW Standard Deviation 47.8 fL (36.4-46.3) RDW Coefficient of Variation 13.6 % (11.5-14.5) Immature Granulocyte % (Auto) 0.3 % Immature Granulocyte # (Auto) 0.04 K/uL (0.00-0.02) Prothrombin Time 10.2 SECONDS (9.0-12.0) Prothromb Time International Ratio 1.0 (0.9-1.1) Activated Partial Thromboplast Time 25.4 SECONDS (21.0-31.0) Partial Thromboplastin Ratio 1.0 Anion Gap 8.0 mmol/L (3-11) Est Creatinine Clear Calc Drug Dose 59.8 ml/min Estimated GFR () 81.4 Estimated GFR (Non- 70.3 BUN/Creatinine Ratio 12.2 (10-20) Calcium Level 9.2 mg/dl (8.5-10.1) Total Bilirubin 0.8 mg/dl (0.2-1) Direct Bilirubin 0.2 mg/dl (0-0.2) Aspartate Amino Transf (AST/SGOT) 23 U/L (15-37) Alanine Aminotransferase (ALT/SGPT) 37 U/L (12-78) Alkaline Phosphatase 149 U/L (45-117) Total Creatine Kinase 151 U/L (39-308) Creatine Kinase MB 6.0 ng/ml (0.5-3.6) Creatine Kinase MB Ratio 4.0 (0-3.0) Total Protein 7.1 gm/dl (6.4-8.2) Albumin 3.6 gm/dl (3.4-5.0) Lipase 105 U/L (73-393) Bedside Troponin I < 0.030 ng/ml (0-0.045) Urine Color YELLOW Urine Appearance TURBID (CLEAR) Urine pH 8.0 (4.5-7.5) Urine Specific [place] 1.006 (1.000-1.030) Urine Protein 2+ (NEG) Urine Glucose (UA) NEG (NEG) Urine Ketones NEG (NEG) Urine Occult Blood 2+ (NEG) Urine Nitrite POS (NEG) Urine Bilirubin NEG (NEG) Urine Urobilinogen NEG (NEG) Urine Leukocyte Esterase LARGE (NEG) Urine WBC (Auto) >30 /hpf (0-5) Urine RBC (Auto) 10-30 /hpf (0-4) Urine Hyaline Casts (Auto) 0 /lpf (0-5) Urine Epithelial Cells (Auto) 5-10 /lpf (0-5) Urine Bacteria (Auto) 4+ (NEG) Laboratory studies as stated above per my review. Medications Administered Medications (Trade) Dose Ordered Sig/Nelsy Route Start Time Stop Time Status Last Admin Dose Admin Sodium Chloride 500 ml @ 999 mls/hr Q31M STAT IV 08/22/17 11:30 08/22/17 12:00 DC 08/22/17 11:46 999 MLS/HR Ceftriaxone Sodium (Rocephin Inj) 1 gm NOW STAT IV 08/22/17 13:51 08/22/17 13:52 DC 08/22/17 14:29 1 GM ECG Indication: other (dizziness) Rate (beats per minute): 72 Rhythm: normal sinus Findings: left axis deviation, other (Non-specific ST abnormalities) Comparison ECG Date: Jul 10, 2015 Change: no significant change (Non-specific ST abnormality has improved. ) ED Course 1121: Past medical records reviewed. The patient was evaluated in room C5, and a complete history and physical examination were performed. 1130: Ordered Sodium Chloride 500 ml @ 999 mls/hr IV. 1340: I reassessed the patient. We discussed his test results and possible treatment plan. 1351: Ordered Rocephin Inj 1 gm IV. 1402: Upon reevaluation, the patient is resting comfortably. I discussed the results and treatment plan with the patient. He verbalized agreement of the treatment plan. The patient will be evaluated for further management. Medical Decision Differentials include, but are not limited to; medication reaction, cardiac sources, intracranial process, pneumonia, bronchitis, and electrolyte or metabolic abnormality. This patient comes in as described above. He was placed in room C5. He does have a constellation of symptoms. He's felt dizzy and tired he's had urinary symptoms and just is felt unwell. This started recently and he checked changes gabapentin at the time it was increased. He also has had some underlying prostate/urinary symptoms and recently finished a course of Bactrim as well. He has no flank tenderness on exam to suggest pyelonephritis he is afebrile here and denies fever home. He has been dizzy but has had no syncope although his said that he almost passed out last night looked pale. His white count was found to be elevated at 14. CAT scan of his head was unremarkable. CAT scan of his abdomen shows some inflammation around the bladder/prostate which could be infectious. He has no acute electrolyte or metabolic abnormalities. I have our ED pharmacist review his medications as he has multiple allergies to antibiotics. We did give him Rocephin IV and he has had this before. Given the fact that he has a significant urinary infection on his urinalysis , and elevated white count, he's been weak and tired and dizzy with near syncope, as well as other comorbidities, I do think he needs to be admitted /observed for further treatment and evaluation of consulted the [facility] hospitalist to see him in the ER. Medication Reconcilliation Current Medication List: was personally reviewed by me Blood Pressure Screening Patient's blood pressure: Normal blood pressure Blood pressure disposition: Did not require urgent referral Consults Time Called: 1403 Consulting Physician: Dr. Nevin ANDERSON Hospitalist Returned Call: [phone] Discussed the patient's case. The patient will be evaluated for further management. Impression Primary Impression: UTI (urinary tract infection) Additional Impressions: Sepsis Prostatitis Scribe Attestation The scribe's documentation has been prepared under my direction and personally reviewed by me in its entirety. I confirm that the note above accurately reflects all work, treatment, procedures, and medical decision making performed by me. Departure Information Dispostion Being Evaluated By Hospitalist Referrals Arnulfo Cleary M.D. (PCP) Patient Instructions My [facility] Problem Qualifiers
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
[2017-08-22] MEDS ORDERED: LORAZEPAM 0.5 MG TAB PO PRN (15:15)
[2017-08-22] MEDS ORDERED: ALUMINUM/MAGNESIUM/SIMETH (MAALOX MAX) 30 ML UDC PO PRN (15:15)
[2017-08-22] MEDS ORDERED: MAGNESIUM HYDROXIDE SUSP 30 ML UDC PO PRN (15:15)
[2017-08-22] MEDS ORDERED: ACETAMINOPHEN 325 MG TAB PO PRN (15:15)
[2017-08-22] MEDS ORDERED: ARTIFICIAL TEARS OP SOLN OP PRN (15:15)
[2017-08-22] MEDS ORDERED: ONDANSETRON INJ 2 MG/ML 2 ML VIAL IV PRN (15:15)
[2017-08-22] MEDS: ALBUT/IPRATROP 3MG/0.5MG NEB 3 ML VIAL INH SCH ×3 (16:00→23:30)
[2017-08-22] MEDS: SODIUM CHLORIDE 0.9% 1000ML 1,000 ML IV SCH (18:03)
[2017-08-22] MEDS: LACTOBACILLUS ACIDOPHILUS (FLORANEX) TAB PO SCH (18:04)
[2017-08-22] MEDS: ENOXAPARIN 40 MG/0.4 ML SYR SC SCH (18:04)
[2017-08-22 18:14] VITALS: BP 102/69; PULSE 95; TEMP 38; O2SAT 90
[2017-08-22 18:26] VITALS: O2SAT 90; Ht 177.8 cm; Wt 81.6 kg
[2017-08-22 18:26] LABS: INFLUENZA B ANTIGEN Neg for Influ B (NEG)
[2017-08-22 20:00] VITALS: PULSE 87; O2SAT 98
[2017-08-22] MEDS: BUDESONIDE/FORMOTEROL FUMARATE 160/4.5 60 PUFFS/INHALER INH SCH (20:26)
[2017-08-22] MEDS: GUAIFENESIN 600 MG TABCR PO SCH (20:27)
[2017-08-22] MEDS: MULTIVITAMIN TAB PO SCH (20:28)
[2017-08-22] MEDS: MAGNESIUM OXIDE 400 MG TAB PO SCH (20:28)
[2017-08-22] MEDS: GABAPENTIN 300 MG CAP PO SCH (21:00)
[2017-08-22] MEDS ORDERED: NON-FORMULARY MEDICATION (Cyclosporine (Ophth) (Restasis) 1 DROP) OPB SCH (21:00)
[2017-08-22] MEDS: RESTASIS-ORDER AWAITING ACTION SCH (22:35)
[2017-08-22 23:30] VITALS: PULSE 75; O2SAT 99
[2017-08-23] VITALS (15 sets, daily range): BP systolic 90–119; BP diastolic 45–73; PULSE 62–79; TEMP 36.6–37.4; O2SAT 93–100
[2017-08-23] MEDS: SODIUM CHLORIDE 0.9% 1000ML 1,000 ML IV SCH (03:09)
[2017-08-23] MEDS: ALBUT/IPRATROP 3MG/0.5MG NEB 3 ML VIAL INH SCH ×6 (03:42→22:55)
[2017-08-23 07:36] LABS: CALCIUM 8.1 mg/dl (8.5-10.1); CREATININE 0.93 mg/dl (0.60-1.40); POTASSIUM 3.9 mmol/L (3.5-5.1)
[2017-08-23] MEDS: RESTASIS-ORDER AWAITING ACTION SCH ×3 (08:00→22:57)
[2017-08-23] MEDS: BUDESONIDE/FORMOTEROL FUMARATE 160/4.5 60 PUFFS/INHALER INH SCH ×2 (08:07→20:44)
[2017-08-23] MEDS: TAMSULOSIN HCL 0.4 MG CAP PO SCH (08:08)
[2017-08-23] MEDS: GUAIFENESIN 600 MG TABCR PO SCH ×2 (08:08→20:45)
[2017-08-23] MEDS: PANTOprazole SOD 40 MG TAB PO SCH (08:08)
[2017-08-23] MEDS: ATORVASTATIN 20 MG TAB PO SCH (08:08)
[2017-08-23] MEDS: LACTOBACILLUS ACIDOPHILUS (FLORANEX) TAB PO SCH ×3 (08:09→16:41)
[2017-08-23 09:27] LABS: HEMATOCRIT 32.2 % (42-52); HEMOGLOBIN 10.6 g/dL (14.0-18.0); MEAN CELL VOLUME 96.4 fL (80-100); MEAN CORPUSCULAR HEMOGLOBIN 31.7 pg (25-34); MEAN CORPUSCULAR HGB CONC 32.9 g/dl (32-36); MEAN PLATELET VOLUME 9.7 fL (7.4-10.4); PLATELET COUNT 114 K/uL (130-400); RED CELL DISTRIBUTION WIDTH CV 13.8 % (11.5-14.5); RED CELL DISTRIBUTION WIDTH SD 48.5 fL (36.4-46.3); WHITE BLOOD COUNT 9.14 K/uL (4.8-10.8)
--- NOTE | 2017-08-23 12:20 | Hospitalist Progress Note ---
Hospitalist Progress Note Date of Service Aug 23, 2017. (Shari Douglass ., NIKKIC) Subjective Pt evaluation today including: conversation w/ patient, physical exam, chart review, lab review, review of studies, review of inpatient medication list Pain: None PO Intake: Tolerating PO diet Voiding: voiding difficulty (dysuria, increased urinary frequency) Patient reports feeling better. He ambulated in the hallway with physical therapy without issue. He does report dysuria and increased urinary frequency. He notes that prior to arrival he did have malodorous urine, but he has not necessarily noticed that today. The patient denies fevers, chills, sweats, chest pain, palpitations, claudication, cough, wheezing, shortness of breath, nausea, vomiting, abdominal pain, hematuria, urinary retention, paralysis, weakness, numbness and tingling. Additional Comments: See HPI for pertinent positives and negatives. All other systems reviewed and negative. (Shari Douglass ., NIKKIC) Objective Vital Signs Date Time Temp Pulse Resp B/P (MAP) Pulse Ox O2 Delivery O2 Flow Rate FiO2 08/23/17 11:44 36.6 66 18 119/73 (88) 100 Room Air 08/23/17 11:03 72 16 96 Room Air 08/23/17 07:43 37.0 64 18 90/45 (60) 94 91/52 (65) 08/23/17 07:43 94 Room Air Nasal Cannula 08/23/17 07:13 64 16 93 Room Air 08/23/17 04:00 99 Room Air 2.0 Nasal Cannula 08/23/17 04:00 37.4 71 20 101/56 (71) 97 2.0 08/23/17 03:44 62 16 93 Nasal Cannula 2.0 08/23/17 00:20 37.0 74 20 102/51 (68) 97 3.0 08/23/17 00:00 99 Room Air 2.0 Nasal Cannula 08/23/17 00:00 99 Room Air 2.0 08/22/17 23:30 75 16 99 Nasal Cannula 3.0 08/22/17 20:00 98 Room Air 2.0 Nasal Cannula 08/22/17 20:00 87 18 98 Nasal Cannula 1.0 08/22/17 18:26 90 Room Air 08/22/17 18:14 38.0 95 18 102/69 (80) 90 Room Air 08/22/17 16:32 68 20 134/76 96 Room Air 08/22/17 15:08 72 20 134/72 96 Room Air 08/22/17 14:15 75 20 124/65 96 Room Air 08/22/17 12:19 124/60 (Shari Douglass, PA-C) Physical Exam Notes: General appearance: Well-developed, well-nourished, no apparent distress Head: Normocephalic, atraumatic Eyes: Normal inspection, PERRL, EOMI ENT: Normal ENT inspection, hearing grossly normal, pharynx normal Neck: Supple, no JVD, trachea midline Respiratory/Chest: Lungs clear to auscultation, normal breath sounds, no respiratory distress Cardiovascular: Regular rate & rhythm, no gallop, no murmur Abdomen/GI: +Suprapubic area TTP. Normal bowel sounds, soft Extremities/Musculoskeletal: Normal inspection, no calf tenderness, no pedal edema Neurological/Psych: Alert, normal mood/affect, oriented x 3 Skin: Normal color, warm/dry, no rash (Shari Douglass ., PA-C) Laboratory Results Last 24 Hours Test 08/22/17 12:55 08/22/17 17:44 08/22/17 17:45 08/23/17 00:15 Urine Color YELLOW Urine Appearance TURBID Urine pH 8.0 Urine Specific [place] 1.006 Urine Protein 2+ Urine Glucose (UA) NEG Urine Ketones NEG Urine Occult Blood 2+ Urine Nitrite POS Urine Bilirubin NEG Urine Urobilinogen NEG Urine Leukocyte Esterase LARGE Urine WBC (Auto) >30 /hpf Urine RBC (Auto) 10-30 /hpf Urine Hyaline Casts (Auto) 0 /lpf Urine Epithelial Cells (Auto) 5-10 /lpf Urine Bacteria (Auto) 4+ Magnesium Level 2.0 mg/dl Troponin I < 0.015 ng/ml < 0.015 ng/ml Influenza Type A Antigen Neg for Influ A Influenza Type B Antigen Neg for Influ B Test 08/23/17 06:21 08/23/17 09:13 Sodium Level 138 mmol/L Potassium Level 3.9 mmol/L Chloride Level 106 mmol/L Carbon Dioxide Level 27 mmol/L Anion Gap 5.0 mmol/L Blood Urea Nitrogen 13 mg/dl Creatinine 0.93 mg/dl Est Creatinine Clear Calc Drug Dose 64.3 ml/min Estimated GFR () 88.9 Estimated GFR (Non- 76.7 BUN/Creatinine Ratio 14.0 Random Glucose 90 mg/dl Calcium Level 8.1 mg/dl White Blood Count 9.14 K/uL Red Blood Count 3.34 M/uL Hemoglobin 10.6 g/dL Hematocrit 32.2 % Mean Corpuscular Volume 96.4 fL Mean Corpuscular Hemoglobin 31.7 pg Mean Corpuscular Hemoglobin Concent 32.9 g/dl RDW Standard Deviation 48.5 fL RDW Coefficient of Variation 13.8 % Platelet Count 114 K/uL Mean Platelet Volume 9.7 fL (Shari Douglass, MANDY) Assessment and Plan 81 y/o male with a history of 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 Sepsis secondary UTI/prostatitis--improving, no longer tachycardic, leukocytosis resolving -Admit to telemetry. No acute events overnight, pt in SR with HR 60s-90s -CT abdomen/pelvis findings suggestive of chronic bladder outlet obstruction and ureteral reflux, superimposed infection/cystitis. -Continue Rocephin for now. Will need 6 weeks abx -Urine culture positive for E. Coli, sensitivities pending -BCx pending -Leukocytosis resolving, WBC 9.14 on 08/23, down from 14.46 -Afebrile since last night, Tmax 38C at 1800 BPH with LUTS--stable -Continue Flomax 0.4 mg PO qd -F/u with urology outpatient COPD--stable, no acute exacerbation -Continue Symbicort BID, DuoNEb q4h -Rapid flu negative -Nighttime O2 Dizziness--secondary to acute infection vs Flomax vs gabapentin vs other -No complaints today, was walking in hallway w/o dizziness -Gabapentin dose lowered to 300 mg PO hs -Continue Flomax given presence of LUTS -Check orthostatics -BP low this morning -D/C IVF Chest pain--resolved -Troponin negative x 3, no events on tele Recent weight loss, fatigue--could be secondary to acute infection -If persist after UTI/prostatitis improving, consider outpatient CT chest to r/ u lung malignancy -F/u with PCP regarding this HLD -Continue Lipitor 40 mg PO qd Anxiety -Continue Ativan 0.5 mg PO TID prn DVT prophylaxis -Enoxaparin 40 mg SC q24h Code Status -Level I, FULL RESUSCITATION STATUS Dispo -From home -PT/OT evals pending (Shari Douglass ., PA-C) Supervising Note Dr. Woodard I performed a history and physical examination on the patient. I reviewed above note and agree with it. I discussed plan with APC and patient. During my face to face encounter with the patient, I answered all of the patient's questions. (Filiberto Woodard M.D.)
[2017-08-23] MEDS ORDERED: CEFTRIAXONE SOD INJ 1 GM in DEXTROSE 5% ADD-VANTAGE 50ML 50 ML IV SCH (14:00)
[2017-08-23] MEDS: ENOXAPARIN 40 MG/0.4 ML SYR SC SCH (17:45)
[2017-08-23] MEDS: MULTIVITAMIN TAB PO SCH (20:45)
[2017-08-23] MEDS: GABAPENTIN 300 MG CAP PO SCH (20:46)
[2017-08-23] MEDS: MAGNESIUM OXIDE 400 MG TAB PO SCH (20:46)
[2017-08-24] VITALS (8 sets, daily range): BP systolic 107–122; BP diastolic 54–67; PULSE 69–79; TEMP 36.7–37; O2SAT 93–99
[2017-08-24] MEDS: ALBUT/IPRATROP 3MG/0.5MG NEB 3 ML VIAL INH SCH ×3 (03:20→11:14)
[2017-08-24 07:22] LABS: HEMATOCRIT 35.6 % (42-52); HEMOGLOBIN 11.9 g/dL (14.0-18.0); MEAN CELL VOLUME 95.7 fL (80-100); MEAN CORPUSCULAR HGB CONC 33.4 g/dl (32-36); PLATELET COUNT 127 K/uL (130-400); RED CELL DISTRIBUTION WIDTH CV 13.8 % (11.5-14.5); RED CELL DISTRIBUTION WIDTH SD 47.8 fL (36.4-46.3); WHITE BLOOD COUNT 8.21 K/uL (4.8-10.8)
[2017-08-24] MEDS: RESTASIS-ORDER AWAITING ACTION SCH (07:47)
[2017-08-24] MEDS: TAMSULOSIN HCL 0.4 MG CAP PO SCH (07:48)
[2017-08-24] MEDS: BUDESONIDE/FORMOTEROL FUMARATE 160/4.5 60 PUFFS/INHALER INH SCH (07:48)
[2017-08-24] MEDS: GUAIFENESIN 600 MG TABCR PO SCH (07:48)
[2017-08-24] MEDS: PANTOprazole SOD 40 MG TAB PO SCH (07:48)
[2017-08-24] MEDS: ATORVASTATIN 20 MG TAB PO SCH (07:48)
[2017-08-24] MEDS: LACTOBACILLUS ACIDOPHILUS (FLORANEX) TAB PO SCH ×2 (07:49→12:07)
[2017-08-24 07:52] LABS: CALCIUM 8.7 mg/dl (8.5-10.1); CREATININE 0.95 mg/dl (0.60-1.40)
[2017-08-24] MEDS ORDERED: FLM4 PO (11:22)
[2017-08-24] MEDS ORDERED: SULF800T23 PO (11:22)
[2017-08-24] MEDS ORDERED: SACC250C PO (11:23)
--- NOTE | 2017-08-24 11:31 | Discharge Instructions ---
Discharge Instructions Date of Service Aug 24, 2017. Admission Reason for Admission: Prostatitis, Uti Discharge Discharge Diagnosis / Problem: Prostatitis, urinary tract infection Discharge Goals Goal(s): Decrease discomfort, Improve function, Diagnostic testing, Therapeutic intervention Activity Recommendations Activity Limitations: resume your previous activity (as tolerated) . Instructions / Follow-Up Instructions / Follow-Up You were admitted to the hospital after presenting with urinary symptoms. You were found to have a urinary tract infection as well as infection of the prostate. You were initially treated with an IV antibiotic with good response. As you are now feeling better and the urine culture has come back, you are medically stable for discharge. Due to the infection of the prostate, you will require a prolonged course of antibiotics. Medications: *Please take Bactrim DS 1 tablet twice a day for 6 weeks. This is an antibiotic to treat the infection in the urinary tract and prostate. *You may take Florastor 250 mg once daily for the next 6 weeks. This is a probiotic to help protect your gastrointestinal tract from the antibiotic. *Continue taking Flomax (tamsulosin) 0.4 mg at nighttime. This is the medication that was started by the urologist for your prostate/urinary symptoms. This prescription has been renewed for you. *Continue your home medications as prescribed. Follow up: *You have been scheduled to follow up with Dr. Arnulfo Cleary on August 30 at 4:15 pm. Please seek medical attention if you experience fevers, chills, sweats, dizziness/lightheadedness, loss of consciousness, chest pain, shortness of breath, nausea, vomiting, numbness or tingling. Current Hospital Diet Patient's current hospital diet: Regular Diet Discharge Diet Recommended Diet: AHA Diet (Heart Healthy) Pending Studies Studies pending at discharge: no Medical Emergencies . Who to Call and When: Medical Emergencies: If at any time you feel your situation is an emergency, please call 911 immediately. . Non-Emergent Contact Non-Emergency issues call your: Primary Care Provider, Urologist Call Non-Emergent contact if: you have a fever, you have any medication questions . Past History Medical & Surgical History: (1) UTI (urinary tract infection) (2) Prostatitis . "Provider Documentation" section prepared by Shari Douglass. . VTE Core Measure Inpt VTE Proph given/why not?: Enoxaparin (Lovenox)SQ
--- NOTE | 2017-08-24 11:42 | Discharge Summary ---
Discharge Summary Date of Service Aug 24, 2017. 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 TECHNIQUE: Multidetector CT of the abdomen and pelvis was performed without the use of intravenous contrast. IV contrast: None. A dose lowering technique was used consistent with the principles of ALARA (as low as reasonably achievable). COMPARISON: None. CT DOSE (mGy.cm): The estimated cumulative dose is 754.92 mGycm. FINDINGS: Botany Technician topogram: Unremarkable. Lung bases: Minimal dependent changes at the right lung base, likely scarring or atelectasis. Normal heart size. No pericardial or pleural effusion. Liver: Normal morphology. Normal density. Somewhat ill-defined 8 mm lesion at the right hepatic dome is indeterminate but may represent a hepatic cyst. Biliary: No gross biliary ductal dilatation allowing for noncontrast technique. Minimal cholelithiasis versus trace gallbladder wall calcification (series 4 image 143). Pancreas: Mild parenchymal atrophy. Spleen: Normal noncontrast appearance. Splenule noted. Adrenal glands: Normal noncontrast appearance. Kidneys and ureters: Nonobstructing 2 mm calculus in the lower pole the left kidney. Hypodensity in the right kidney indeterminate but likely simple cyst (series 4 image 188). No hydronephrosis. Mild urothelial thickening may be present ureters otherwise normal. Bladder: Significant circumferential bladder wall thickening. Pelvic organs: Prostate enlargement likely secondary to benign prostatic hyperplasia. Bowel: Limited diverticulosis of the proximal sigmoid colon. No pericolonic inflammatory change. Allowing for the absence of oral and intravenous contrast, the small bowel is grossly normal. Large duodenal diverticulum along the horizontal segment. No associated inflammatory change. Peritoneal cavity: Trace free fluid in the pelvis. Trace inflammatory changes suggested along the anterior mesorectal fascia and emanating from the seminal vesicles and posterior bladder wall. Lymph nodes: No gross lymphadenopathy allowing for noncontrast technique. Vasculature: Fusiform aneurysmal dilatation of the infrarenal abdominal aorta measuring up to 4.3 cm in diameter. Displaced intimal calcifications along the inferior portion of this could suggest a chronic short segment dissection. This does not extend into the common iliac arteries. Abdominal wall: Normal. Musculoskeletal: Degenerative changes of the spine. Degenerative changes of the sacroiliac joints. IMPRESSION: 1. Inflammatory changes centered at the rectovesical recess. This is associated with significant circumferential bladder wall thickening and suggestion of mild urothelial thickening. In the setting of prostatomegaly, this could be secondary to chronic bladder outlet obstruction and ureteral reflux. Superimposed infection/cystitis cannot be excluded. Correlate with urinalysis. Underlying prostate abnormality beyond benign prostatic hyperplasia is not well assessed on CT. 2. No lymphadenopathy. 3. Fusiform infrarenal abdominal aortic aneurysm measuring 4.3 cm in diameter. 4. Nonobstructing 2 mm left renal calculus. Medication Reconciliation New Medications: Saccharomyces Boulardii (Florastor) 250 Mg Cap 250 MG PO DAILY for 42 Days, #42 CAP Sulfamethoxazole-Trimethoprim (Bactrim Ds 800MG/160MG) 1 Tab Tab 1 TAB PO BID for 42 Days, #84 TAB Tamsulosin HCl (Tamsulosin HCl) 0.4 Mg Cap 0.4 MG PO HS for 30 Days, #30 CAP Continued Medications: Acetaminophen/Codeine (Tylenol W/Codeine #3) 300 Mg/30 Mg Tab 1-2 TAB PO Q6 PRN for Pain, #30 TAB Artificial Tear Solution (Tears Naturale) 1 Ventia Venita 1 DROP OPB NOON Atorvastatin (Lipitor) 40 Mg Tab 40 MG PO QAM Azelastine Hcl (Astepro) 0.15 % Spr 2 SPRAYS MORIAH BID Budesonide/Formoterol Fumarate (Symbicort 160/4.5 Inhaler ) Aero 2 PUFFS INH BID Cyclosporine (Ophth) (Restasis) 0.05 % Emu 1 DROP OPB BID Home O2 Therapy (Oxygen) Gas 2 LITERS NA HS Ipratropium [place] (Atrovent 0.02% Soln) 2.5 Ml Nebu 2.5 ML INH TID, #1313 MIX WITH ALBUTEROL FOR EACH TREATMENT. USE 3X DAILY. MAY USE UP TO 5X DAILY IF NEEDED Ipratropium-Albuterol (Combivent Respimat) 1 Aer Aer 1 PUFFS INH QID PRN for SOB/Wheezing Ipratropium-Albuterol (Duoneb) 3 Ml Nebu 1 TREATMENT INH Q4H, INHA Lorazepam (Ativan) 0.5 Mg Tab 0.5 MG PO TID PRN for Anxiety Magnesium Oxide (Mag-Ox) 400 Mg Tab 400 MG PO QPM Multivitamin (Multivitamin) Tab 1 TAB PO QPM Omeprazole (Prilosec) 20 Mg Capcr 40 MG PO DAILY Discharge Exam The patient reports feeling well. He states that his dysuria continues to improve and is almost completely resolved. He denies any fevers, chills, sweats , or abdominal pain. He was ambulating in the hallway yesterday without dizziness/lightheadedness or weakness. He does admit to dyspnea on exertion, but this is chronic for the last several years. He does report a mild cough that is non-productive. The patient denies fevers, chills, sweats, chest pain, palpitations, claudication, wheezing, shortness of breath, nausea, vomiting, abdominal pain, hematuria, urinary retention, paralysis, weakness, numbness and tingling. Constitutional: No fever, No chills, No sweats Eyes: No worsening of vision, No eye pain, No diplopia ENT: No hearing loss, No nasal symptoms, No trouble swallowing Respiratory: +Cough, LALEN. No wheezing Cardiovascular: No chest pain, No claudication, No palpitations Abdomen: No pain, No nausea, No vomiting Musculoskeletal: No joint pain, No muscle pain, No swelling Genitourinary - Male: +Dysuria. No urinary retention, No hematuria Neurologic: No paralysis, No weakness, No numbness/tingling Integumentary: No rash, No itch, No color change General appearance: Well-developed, well-nourished, no apparent distress Head: Normocephalic, atraumatic Eyes: Normal inspection, PERRL, EOMI ENT: Normal ENT inspection, hearing grossly normal, pharynx normal Neck: Supple, no JVD, trachea midline Respiratory/Chest: Lungs clear to auscultation, normal breath sounds, no respiratory distress Cardiovascular: Regular rate & rhythm, no gallop, no murmur Abdomen/GI: Normal bowel sounds, non-tender, soft Extremities/Musculoskeletal: Normal inspection, no calf tenderness, no pedal edema Neurological/Psych: Alert, normal mood/affect, oriented x 3 Skin: Normal color, warm/dry, no rash Hospital Course 81 y/o male with a history of 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 Sepsis secondary UTI/prostatitis--improving, no longer tachycardic, leukocytosis resolved -Admit to telemetry. No acute events overnight, pt in SR with HR 60s-90s. Transferred med/surg -CT abdomen/pelvis findings suggestive of chronic bladder outlet obstruction and ureteral reflux, superimposed infection/cystitis. -Urine culture positive for pansensitive E. Coli -Rocephin IV while inpatient, will d/c with Bactrim DS BID x 6 weeks given prostatitis. Provided w/probiotic. -BCx NGTD x2 -Leukocytosis resolved -Afebrile BPH with LUTS--stable -Continue Flomax 0.4 mg PO qd -F/u with urology outpatient. Scheduled to see in 2 months COPD--stable, no acute exacerbation -Continue Symbicort BID, DuoNEb q4h -Rapid flu negative -Nighttime O2 Dizziness--likely secondary to acute infection -Head CT no acute disease -No complaints of dizziness here, was walking in hallway w/o dizziness, tolerating Flomax and gabapentin -BP stable -D/C IVF Chest pain--resolved -Troponin negative x 3, no events on tele Recent weight loss, fatigue--could be secondary to acute infection -If persist after UTI/prostatitis improving, consider outpatient CT chest to r/ u lung malignancy -F/u with PCP regarding this HLD -Continue Lipitor 40 mg PO qd Anxiety -Continue Ativan 0.5 mg PO TID prn DVT prophylaxis -Enoxaparin 40 mg SC q24h Code Status -Level I, FULL RESUSCITATION STATUS Dispo -From home -PT/OT recommend return home Supervising Note Dr. Woodard I performed a history and physical examination on the patient. I reviewed above note and agree with it. I discussed plan with APC and patient. During my face to face encounter with the patient, I answered all of the patient's questions. Total Time Spent: Greater than 30 minutes This includes examination of the patient, discharge planning, medication reconciliation, and communication with other providers. Discharge Instructions Please refer to the electronic Patient Visit Report (Discharge Instructions) for additional information. Additional Copies To Arnulfo Cleary M.D.
== END 2017-08-24 13:20 | disposition home or self-care (01) | DRG 690 ==
LOC: C.EDC 10:53 → EDBD 10:53 → C.MED 15:10 → ENRESERV 16:20
PROVIDERS: ADMIT Internal Medicine; ATTEND Internal Medicine
DX: N39.0 Urinary tract infection, site not specified (principal); N41.9 Inflammatory disease of prostate, unspecified; J44.9 Chronic obstructive pulmonary disease, unspecified; A49.8 Other bacterial infections of unspecified site; G25.81 Restless legs syndrome; E78.5 Hyperlipidemia, unspecified; N40.1 Benign prostatic hyperplasia with lower urinary tract symptoms; R42 Dizziness and giddiness; F41.9 Anxiety disorder, unspecified; G62.9 Polyneuropathy, unspecified; Z87.891 Personal history of nicotine dependence; Z99.81 Dependence on supplemental oxygen; Z88.0 Allergy status to penicillin; Z80.9 Family history of malignant neoplasm, unspecified; Z83.3 Family history of diabetes mellitus; Z82.49 Family history of ischemic heart disease and other diseases of the circulatory system

== ENCOUNTER 2017-10-24 00:54 | Inpatient (IN) | payer OTHER ==
[~2017-10-24] VITALS: Ht 175.3 cm; Wt 82.4 kg
[2017-10-24] VITALS (11 sets, daily range): BP systolic 89–119; BP diastolic 47–68; PULSE 58–93; TEMP 36.4–38.3; O2SAT 93–97; Ht 175.3 cm; Wt 82.4 kg
[~2017-10-24 00:54] MED LIST changes: -ALBU0.5N2 NEB; +FLM4 PO; -GABA-113 PO; +SACC250C PO
[2017-10-24] MEDS ORDERED: FENTANYL CITRATE INJ 50 MCG/1 ML 2 ML VIAL IV STA (01:10)
[2017-10-24] MEDS ORDERED: SODIUM CHLORIDE 0.9% 1000ML 1,000 ML IV STA (01:10)
[2017-10-24] MEDS ORDERED: ALBUT/IPRATROP 3MG/0.5MG NEB 3 ML VIAL INH STA (01:10)
[2017-10-24 01:34] LABS: HEMATOCRIT 35.9 % (42-52); HEMOGLOBIN 12.3 g/dL (14.0-18.0); MEAN CORPUSCULAR HEMOGLOBIN 32.9 pg (25-34); MEAN CORPUSCULAR HGB CONC 34.3 g/dl (32-36); MEAN PLATELET VOLUME 10.1 fL (7.4-10.4); PLATELET COUNT 188 K/uL (130-400); RED CELL DISTRIBUTION WIDTH CV 14.6 % (11.5-14.5); RED CELL DISTRIBUTION WIDTH SD 51.4 fL (36.4-46.3); WHITE BLOOD COUNT 19.38 K/uL (4.8-10.8)
--- NOTE | 2017-10-24 01:34 | EMERGENCY ROOM VISIT NOTE ---
History Report prepared by Ac: Rebecca Renteria Under the Supervision of: Dr. Bernardo Britton M.D. First contact with patient: 01:02 Chief Complaint: SHORTNESS OF BREATH Stated Complaint: SOB-PAIN LOWER LEFT SIDE-COUGH History of Present Illness The patient is an 82 year old male who presents to the Emergency Room with complaints of worsening shortness of breath starting today. The patient states that he is normally on 2 liters of oxygen at night and uses nebulizers 3x a day. He states that he has tried to use his inhalers with little relief. The patient complains of abdominal pain on the left side that is worse when he coughs starting yesterday. He notes that sometimes he coughs up white phlegm. He notes that the pain feels similar to when he had a prostate infection. The patient complains of not being able to sleep well. The patient denies taking any medications for his pain, a history of kidney stones, history of a PE, use of blood thinners, rash, and leg swelling. The patient notes a history of COPD. Source of History: patient Onset: today Position: other (global) Quality: other (shortness of breath) Timing: worsening Modifying Factors (Relieving): other (inhalers) Associated Symptoms: + cough, + abdominal pain, No rash Note: The patient complains of not being able to sleep well. The patient denies leg swelling. Review of Systems See HPI for pertinent positives & negatives. A total of 10 systems reviewed and were otherwise negative. Past Medical & Surgical Medical Problems: (1) COPD (chronic obstructive pulmonary disease) (2) UTI (urinary tract infection) Family History Cancer Diabetes mellitus Heart disease Hypertension Social History Smoking Status: Former Smoker Alcohol Use: heavy Drug Use: none Marital Status: Housing Status: lives with significant other Occupation Status: retired Current/Historical Medications Scheduled Artificial Tear Solution (Tears Naturale), 1 DROP OPB NOON Aspirin (Aspirin Chewable), 81 MG PO DAILY Atorvastatin (Lipitor), 40 MG PO QAM Azelastine Hcl (Astepro), 2 SPRAYS MORIAH BID Budesonide/Formoterol Fumarate (Symbicort 160/4.5 Inhaler ), 2 PUFFS INH BID Cholecalciferol (Vitamin D3), 5,000 MG PO TIDM Fish Oil ([place]-3), 1 CAP PO DAILY Gabapentin (Neurontin), 400 MG PO HS Gabapentin (Neurontin), 100 MG PO QAM Home O2 Therapy (Oxygen), 2 LITERS NA HS Ipratropium [place] (Atrovent 0.02% Soln), 2.5 ML INH TID Ipratropium-Albuterol (Duoneb), 1 TREATMENT INH Q4H Multivitamin (Multivitamin), 1 TAB PO QPM Omeprazole (Prilosec), 40 MG PO DAILY Tamsulosin Hcl (Flomax), 0.4 MG PO HS Scheduled PRN Ipratropium-Albuterol (Combivent Respimat), 1 PUFFS INH QID PRN for SOB/Wheezing Lorazepam (Ativan), 0.5 MG PO TID PRN for Anxiety Allergies Coded Allergies: Ciprofloxacin (Verified Allergy, Unknown, SWELLING, 10/24/17) Erythromycin (Verified Allergy, Unknown, HIVES, 10/24/17) Lisinopril (Verified Allergy, Unknown, COUGH, 10/24/17) Penicillins (Verified Allergy, Unknown, HIVES, 10/24/17) Pramipexole (Verified Allergy, Unknown, RASH, 10/24/17) Ropinirole (Verified Allergy, Unknown, RASH, 10/24/17) Pantoprazole (Verified Adverse Reaction, Intermediate, GI SYMPTOMS, 10/24/17 ) Gabapentin (Verified Adverse Reaction, Unknown, ? PT TAKES AT HOME, 10/24/17 ) Physical Exam Vital Signs Date Time Temp Pulse Resp B/P (MAP) Pulse Ox O2 Delivery O2 Flow Rate FiO2 10/24/17 04:01 88 20 120/63 95 Nasal Cannula 2.0 10/24/17 03:22 88 22 117/68 98 Nasal Cannula 2.0 10/24/17 02:55 90 16 98/64 95 Room Air 10/24/17 02:07 82 19 115/59 94 Nasal Cannula 2.0 10/24/17 01:29 98 Nasal Cannula 10/24/17 01:14 96 Nasal Cannula 2.0 10/24/17 01:13 93 10/24/17 00:57 37.5 99 24 102/56 86 Room Air Physical Exam GENERAL: Patient is chronically unwell appearing and in moderate distress. EYES: No scleral icterus, unremarkable pupils. ENT: Mucous membranes dry, no nasal congestion. NECK: No masses appreciated, no meningismus, trachea is midline. RESPIRATORY: Dyspneic. Diffuse crackles with constrictive lung sounds throughout. No wheeze, no rhonchi. CARDIOVASCULAR: Tachycardic rate and regular rhythm. No murmurs, rubs, gallops appreciated. GASTROINTESTINAL: Abdomen soft, no peritonitis. Bowel sounds positive. No masses appreciated. Tenderness to palpation over the left flank. BACK: No midline tenderness, no CVA tenderness EXTREMITIES: Normal motion all extremities, no cyanosis, no edema. NEUROLOGIC: Alert and oriented, no acute motor or sensory deficits, no focal weakness, cranial nerves grossly intact. SKIN: No rash, no jaundice, no diaphoresis. Medical Decision & Procedures ER Provider Diagnostic Interpretation: CHEST X-RAY: The results were interpreted by me. Left lower lobe infiltrate new from previous. Chronic lung disease throughout. No pneumothorax. Laboratory Results 10/24/17 01:23 Red Blood Count 3.74, Mean Corpuscular Volume 96.0, Mean Corpuscular Hemoglobin 32.9, Mean Corpuscular Hemoglobin Concent 34.3, Mean Platelet Volume 10.1, Neutrophils (%) (Auto) 86.9, Lymphocytes (%) (Auto) 5.0, Monocytes (%) (Auto) 7.6, Eosinophils (%) (Auto) 0.0, Basophils (%) (Auto) 0.1, Neutrophils # (Auto) 16.83, Lymphocytes # (Auto) 0.97, Monocytes # (Auto) 1.48, Eosinophils # (Auto) 0.00, Basophils # (Auto) 0.02 10/24/17 01:23 Test 10/24/17 01:23 10/24/17 01:28 White Blood Count 19.38 K/uL (4.8-10.8) Red Blood Count 3.74 M/uL (4.7-6.1) Hemoglobin 12.3 g/dL (14.0-18.0) Hematocrit 35.9 % (42-52) Mean Corpuscular Volume 96.0 fL (80-100) Mean Corpuscular Hemoglobin 32.9 pg (25-34) Mean Corpuscular Hemoglobin Concent 34.3 g/dl (32-36) Platelet Count 188 K/uL (130-400) Mean Platelet Volume 10.1 fL (7.4-10.4) Neutrophils (%) (Auto) 86.9 % Lymphocytes (%) (Auto) 5.0 % Monocytes (%) (Auto) 7.6 % Eosinophils (%) (Auto) 0.0 % Basophils (%) (Auto) 0.1 % Neutrophils # (Auto) 16.83 K/uL (1.4-6.5) Lymphocytes # (Auto) 0.97 K/uL (1.2-3.4) Monocytes # (Auto) 1.48 K/uL (0.11-0.59) Eosinophils # (Auto) 0.00 K/uL (0-0.5) Basophils # (Auto) 0.02 K/uL (0-0.2) RDW Standard Deviation 51.4 fL (36.4-46.3) RDW Coefficient of Variation 14.6 % (11.5-14.5) Immature Granulocyte % (Auto) 0.4 % Immature Granulocyte # (Auto) 0.08 K/uL (0.00-0.02) Red Blood Cell Morphology Unremarkable Anion Gap 8.0 mmol/L (3-11) Est Creatinine Clear Calc Drug Dose 43.7 ml/min Estimated GFR () 63.6 Estimated GFR (Non- 54.9 BUN/Creatinine Ratio 15.6 (10-20) Calcium Level 8.9 mg/dl (8.5-10.1) Total Bilirubin 1.2 mg/dl (0.2-1) Direct Bilirubin 0.2 mg/dl (0-0.2) Aspartate Amino Transf (AST/SGOT) 15 U/L (15-37) Alanine Aminotransferase (ALT/SGPT) 27 U/L (12-78) Alkaline Phosphatase 118 U/L (45-117) Troponin I < 0.015 ng/ml (0-0.045) Total Protein 7.2 gm/dl (6.4-8.2) Albumin 3.5 gm/dl (3.4-5.0) Lipase 88 U/L (73-393) Bedside Lactic Acid Venous 1.62 mmol/L (0.90-1.70) Laboratory results as reviewed by me. Medications Administered Medications (Trade) Dose Ordered Sig/Nelsy Route Start Time Stop Time Status Last Admin Dose Admin Sodium Chloride 1,000 ml @ 75 mls/hr [id number] STAT IV 10/24/17 01:10 10/24/17 14:29 10/24/17 01:17 75 MLS/HR Fentanyl Citrate (Fentanyl Inj) 25 mcg NOW STAT IV 10/24/17 01:10 10/24/17 01:11 DC 10/24/17 01:17 25 MCG Albuterol/ Ipratropium (Duoneb) 3 ml NOW STAT INH 10/24/17 01:10 10/24/17 01:11 DC 10/24/17 01:17 3 ML Cefepime HCl 2000 mg/Dextrose 112.5 ml @ 200 mls/hr NOW STAT IV 10/24/17 02:52 10/24/17 03:25 DC 10/24/17 02:52 200 MLS/HR Sodium Chloride 500 ml @ 999 mls/hr Q31M STAT IV 10/24/17 02:55 10/24/17 03:25 DC 10/24/17 02:55 999 MLS/HR Morphine Sulfate (MoRPHine SULFATE INJ) 4 mg NOW STAT IV 10/24/17 03:12 10/24/17 03:14 DC 10/24/17 03:20 4 MG Vancomycin HCl 1500 mg/Sodium Chloride 530 ml @ 200 mls/hr ONE STAT IV 10/24/17 03:39 10/24/17 06:17 10/24/17 03:39 200 MLS/HR ECG Per My Interpretation Indication: SOB/dyspnea Rate (beats per minute): 88 Rhythm: sinus rhythm Findings: nonspecific-ST abn (Non psecific, Lateral), PAC, other (no STEM-I, QT -c 416) ED Course 0104: The patient was evaluated in room A2. A complete history and physical exam was performed. 0110: Ordered DuoNeb 3 ml INH, Fentanyl Inj 25 mcg IV, NSS 1000 ml @ 75 mls/hr IV. 0250: I reevaluated the patient and he is soundly sleeping. 0252: Ordered Cefepime HCl 2000 mg/Dextrose 112.5 ml @ 200 mls/hr IV. 0255: Ordered NSS 500 ml @ 999 mls/hr IV. 0312: Ordered Morphine Sulfate 4 mg IV. 0330: Discussed the patient's case with Dr. Hop[place] - [facility] [place] We discussed the need for further imaging. He will evaluate him prior to that and asked that I add on Vancomycin. The patient will be evaluated for further treatment and disposition. 0339: Ordered Vancomycin HCL 1500 mg/ Sodium Chloride 530 ml @ 200 mls/hr IV. Medical Decision Differential: Infectious, Reactive Airway Disease, Pneumonia, Pneumothorax, COPD , CHF, ACS, Pulmonary Embolism, MSK, GI, Dissection, amongst other etiologies entertained. 82 yr old chronically unwell male who was admitted earlier in the year for prostate infection arrives with difficulty breathing, left lower chest pain ( more left upper flank) and fatigue. He is hypoxic with movement on arrival but doing well on his NC O2. Neb given along with IV fluids. CXR with new LLL infiltrate compared to previous. This is consistent with location of discomfort and explains his WBC elevation and ill appearance. He doesn't appear to be PE though I did discuss this with hospitalist and given likely other diagnosis will hold on imaging at this time. Did have small stone left kidney 2 months ago though this was only 2 mm and his location of pain doesn't seem quite consistent with stone. He notes concern for prostate re-infection though again, symptoms don't seem much like that. He is not in septic shock though with WBC and symptoms and LLL infitrate he is entering sepsis, and with recent admission Cefepime/Vanco ordered (PNC, Cipro allergic). Patient given IV narcotics for discomfort. No evidence this was ACS and exam not consistent with COPD nor CHF exacerbations. Medication Reconcilliation Current Medication List: was personally reviewed by me Blood Pressure Screening Patient's blood pressure: Normal blood pressure Will be monitored by the hospitalist. Consults Time Called: 312 Consulting Physician: Dr. Emiliana ANDERSON Hospitalist Returned Call: 0330 Discussed the patient's case with Dr. Emiliana ANDERSON Hospitalist. We discussed the need for further imaging. He will evaluate him prior to that and asked that I add on Vancomycin. The patient will be evaluated for further treatment and disposition. Impression Primary Impression: Sepsis Additional Impressions: Pneumonia Hypoxia Scribe Attestation The scribe's documentation has been prepared under my direction and personally reviewed by me in its entirety. I confirm that the note above accurately reflects all work, treatment, procedures, and medical decision making performed by me. Departure Information Dispostion Being Evaluated By Hospitalist Referrals Arnulfo Cleary M.D. (PCP) Patient Instructions My [facility] Problem Qualifiers
[2017-10-24 01:50] LABS: ALBUMIN 3.5 gm/dl (3.4-5.0); ALT/SGPT 27 U/L (12-78); AST/SGOT 15 U/L (15-37); BLOOD UREA NITROGEN 19 mg/dl (7-18); CALCIUM 8.9 mg/dl (8.5-10.1); CARBON DIOXIDE 26 mmol/L (21-32); CREATININE 1.22 mg/dl (0.60-1.40); GLUCOSE 133 mg/dl (70-99); LIPASE 88 U/L (73-393); POTASSIUM 4.3 mmol/L (3.5-5.1); SODIUM 138 mmol/L (136-145)
[2017-10-24 01:51] LABS: BASO % 0.1 %; BASO ABS # 0.02 K/uL (0-0.2); IG# 0.08 K/uL (0.00-0.02); LYMPH ABS # 0.97 K/uL (1.2-3.4); MONO % 7.6 %; MONO ABS # 1.48 K/uL (0.11-0.59); NEUT % 86.9 %; NEUT ABS # 16.83 K/uL (1.4-6.5)
[2017-10-24 01:55] LABS: ALKALINE PHOSPHATASE 118 U/L (45-117); TOTAL PROTEIN 7.2 gm/dl (6.4-8.2)
[2017-10-24] MEDS ORDERED: TAMS0.4C38 PO (02:18)
[2017-10-24] MEDS ORDERED: ASPCH81X PO (02:19)
[2017-10-24] MEDS ORDERED: GABA-112 PO (02:20)
[2017-10-24] MEDS ORDERED: GABA-1220 PO (02:20)
[2017-10-24] MEDS ORDERED: OMEG10007 PO (02:21)
[2017-10-24] MEDS ORDERED: CHOL1000 PO (02:23)
[2017-10-24] MEDS ORDERED: CEFEPIME IV 2,000 MG in DEXTROSE 5% 100ML 100 ML IV STA (02:52)
[2017-10-24] MEDS ORDERED: SODIUM CHLORIDE 0.9% 500ML 500 ML IV STA (02:55)
[2017-10-24] MEDS ORDERED: MoRPHine SULFATE 4 MG/ML 1 ML CARP\\VIAL IV STA (03:12)
[2017-10-24] MEDS ORDERED: VANCOMYCIN IV 1,500 MG in SODIUM CHLORIDE 0.9% 500ML 500 ML IV STA (03:39)
[2017-10-24] MEDS ORDERED: VANCOMYCIN CONSULT ACTIVE PRN ×2 (03:45→04:30)
[2017-10-24] MEDS ORDERED: POLYETHYLENE (MIRALAX) 17 GM PACK PO PRN (04:15)
[2017-10-24] MEDS ORDERED: ALUMINUM/MAGNESIUM/SIMETH (MAALOX MAX) 30 ML UDC PO PRN (04:15)
[2017-10-24] MEDS ORDERED: MAGNESIUM HYDROXIDE SUSP 30 ML UDC PO PRN (04:15)
[2017-10-24] MEDS ORDERED: NITROGLYCERIN 0.4 MG SL PER TAB CHARGE SL PRN (04:15)
[2017-10-24] MEDS ORDERED: VANCOMYCIN IV 1,000 MG in SODIUM CHLORIDE 0.9% 250ML 250 ML IV STA (04:18)
[2017-10-24] MEDS ORDERED: CEFEPIME IV 2,000 MG in DEXTROSE 5% 100ML 100 ML IV SCH (04:30)
[2017-10-24] MEDS ORDERED: ONDANSETRON 8MG OD TAB PO PRN (04:30)
[2017-10-24] MEDS ORDERED: ONDANSETRON INJ 2 MG/ML 2 ML VIAL IV PRN (04:30)
[2017-10-24] MEDS ORDERED: IPRATROPIUM BROMIDE NEB SOLN 0.02% 2.5 ML VIAL INH PRN (04:45)
[2017-10-24] MEDS ORDERED: LEVALBUTEROL 1.25MG/0.5ML NEB INH PRN (04:45)
--- NOTE | 2017-10-24 05:22 | History and Physical ---
History & Physical Date & Time of Service: Oct 24, 2017 at 05:15 Chief Complaint: Sob-Pain Lower Left Side-Cough Primary Care Physician: Arnulfo Cleary M.D. History of Present Illness Source: patient, spouse, hospital records The patient presents to emergency department with complaint of 2 days of worsening left lower quadrant chest pain, shortness of breath with dyspnea on exertion and left lower quadrant suprapubic pain with urinary frequency. His most recently in the hospital from August 22 - August 24 for a UTI, then completed 3 weeks of oral antibiotics, which was stopped by Dr. Calle, and at that time was started on tamsulosin 0.4 mg at bedtime. His symptoms on this occasion worsened after a trip to his daughter's house for [place] which was an hour trip in the car. He has been having larger volumes of discolored sputum as well. Past Medical/Surgical History Medical Problems: (1) Bronchiectasis (2) COPD (chronic obstructive pulmonary disease) (3) COPD (chronic obstructive pulmonary disease) (4) COPD exacerbation (5) Cough (6) Cough (7) Head contusion (8) Head injury (9) Near syncope (10) Precordial chest pain (11) Prostatitis (12) Sepsis (13) Shortness of breath (14) Shoulder dislocation (15) SOB (shortness of breath) (16) SOB (shortness of breath) (17) UTI (urinary tract infection) (18) UTI (urinary tract infection) Family History Cancer Diabetes mellitus Heart disease Hypertension Social History Smoking Status: Former Smoker Drug Use: none Marital Status: Housing status: lives with family Occupational Status: retired Immunizations History of Influenza Vaccine: N/A History of Tetanus Vaccine?: Yes History of Pneumococcal: Yes History of Hepatitis B Vaccine: No Allergies Coded Allergies: Ciprofloxacin (Verified Allergy, Unknown, SWELLING, 10/24/17) Erythromycin (Verified Allergy, Unknown, HIVES, 10/24/17) Lisinopril (Verified Allergy, Unknown, COUGH, 10/24/17) Penicillins (Verified Allergy, Unknown, HIVES, 10/24/17) Pramipexole (Verified Allergy, Unknown, RASH, 10/24/17) Ropinirole (Verified Allergy, Unknown, RASH, 10/24/17) Pantoprazole (Verified Adverse Reaction, Intermediate, GI SYMPTOMS, 10/24/17 ) Gabapentin (Verified Adverse Reaction, Unknown, ? PT TAKES AT HOME, 10/24/17 ) Home Medications Scheduled Artificial Tear Solution (Tears Naturale), 1 DROP OPB NOON Aspirin (Aspirin Chewable), 81 MG PO DAILY Atorvastatin (Lipitor), 40 MG PO QAM Azelastine Hcl (Astepro), 2 SPRAYS MORIAH BID Budesonide/Formoterol Fumarate (Symbicort 160/4.5 Inhaler ), 2 PUFFS INH BID Cholecalciferol (Vitamin D3), 5,000 MG PO TIDM Fish Oil ([place]-3), 1 CAP PO DAILY Gabapentin (Neurontin), 400 MG PO HS Gabapentin (Neurontin), 100 MG PO QAM Home O2 Therapy (Oxygen), 2 LITERS NA HS Ipratropium [place] (Atrovent 0.02% Soln), 2.5 ML INH TID Ipratropium-Albuterol (Duoneb), 1 TREATMENT INH Q4H Multivitamin (Multivitamin), 1 TAB PO QPM Omeprazole (Prilosec), 40 MG PO DAILY Tamsulosin Hcl (Flomax), 0.4 MG PO HS Scheduled PRN Ipratropium-Albuterol (Combivent Respimat), 1 PUFFS INH QID PRN for SOB/Wheezing Lorazepam (Ativan), 0.5 MG PO TID PRN for Anxiety Review of Systems The patient denies palpitations, lower extremity swelling, sore throat, weight change, nausea, vomiting, diarrhea , constipation, blood in urine or stool, lightheadedness, dizziness, headache, memory loss, loss of consciousness, rash, abnormal bruising or bleeding, imbalance, focal or generalized weakness, numbness or tingling in arms or legs, generalized arthralgias or myalgias, back or neck pain, or night sweats. The review of systems is otherwise negative other than for that already noted above, and at least 10 systems have been reviewed. Physical Exam Vital Signs Date Time Temp Pulse Resp B/P (MAP) Pulse Ox O2 Delivery O2 Flow Rate FiO2 10/24/17 05:09 88 10/24/17 04:01 88 20 120/63 95 Nasal Cannula 2.0 10/24/17 03:22 88 22 117/68 98 Nasal Cannula 2.0 10/24/17 02:55 90 16 98/64 95 Room Air 10/24/17 02:07 82 19 115/59 94 Nasal Cannula 2.0 10/24/17 01:29 98 Nasal Cannula 10/24/17 01:14 96 Nasal Cannula 2.0 10/24/17 01:13 93 10/24/17 00:57 37.5 99 24 102/56 86 Room Air The patient is awake, alert and oriented 3, appears fatigued, normocephalic and atraumatic, lying in bed and in no acute distress. HEENT--PERRL, EOMI, mucous membranes and oropharynx dry. Neck--supple. No JVD. No bruits. Thyroid normal, trachea midline, no adenopathy. Heart--normal S1 and S2. No murmurs, rubs or gallops. Lungs--decreased breath sounds throughout, with scattered wheezes. Abdomen--normal bowel sounds and soft. Nontender. Nondistended, no hernias or masses, no organomegaly. Extremities--no cyanosis or clubbing. No edema. There are good distal pulses b/ l. Dermatologic--normal skin turgor, normal color, no abnormal lymph nodes, no rash. Neurologic--cranial nerves II through XII grossly intact. Rheumatologic--normal range of motion. Psychiatric--normal affect. Diagnostics Laboratory Results Results Past 24 Hours Test 10/24/17 01:23 10/24/17 01:28 Range/Units White Blood Count 19.38 4.8-10.8 K/uL Red Blood Count 3.74 4.7-6.1 M/uL Hemoglobin 12.3 14.0-18.0 g/dL Hematocrit 35.9 42-52 % Mean Corpuscular Volume 96.0 80-100 fL Mean Corpuscular Hemoglobin 32.9 25-34 pg Mean Corpuscular Hemoglobin Concent 34.3 32-36 g/dl Platelet Count 188 130-400 K/uL Mean Platelet Volume 10.1 7.4-10.4 fL Neutrophils (%) (Auto) 86.9 % Lymphocytes (%) (Auto) 5.0 % Monocytes (%) (Auto) 7.6 % Eosinophils (%) (Auto) 0.0 % Basophils (%) (Auto) 0.1 % Neutrophils # (Auto) 16.83 1.4-6.5 K/uL Lymphocytes # (Auto) 0.97 1.2-3.4 K/uL Monocytes # (Auto) 1.48 0.11-0.59 K/uL Eosinophils # (Auto) 0.00 0-0.5 K/uL Basophils # (Auto) 0.02 0-0.2 K/uL RDW Standard Deviation 51.4 36.4-46.3 fL RDW Coefficient of Variation 14.6 11.5-14.5 % Immature Granulocyte % (Auto) 0.4 % Immature Granulocyte # (Auto) 0.08 0.00-0.02 K/uL Red Blood Cell Morphology Unremarkable Sodium Level 138 136-145 mmol/L Potassium Level 4.3 3.5-5.1 mmol/L Chloride Level 104 98-107 mmol/L Carbon Dioxide Level 26 21-32 mmol/L Anion Gap 8.0 3-11 mmol/L Blood Urea Nitrogen 19 7-18 mg/dl Creatinine 1.22 0.60-1.40 mg/dl Est Creatinine Clear Calc Drug Dose 43.7 ml/min Estimated GFR () 63.6 Estimated GFR (Non- 54.9 BUN/Creatinine Ratio 15.6 10-20 Random Glucose 133 70-99 mg/dl Calcium Level 8.9 8.5-10.1 mg/dl Total Bilirubin 1.2 0.2-1 mg/dl Direct Bilirubin 0.2 0-0.2 mg/dl Aspartate Amino Transf (AST/SGOT) 15 15-37 U/L Alanine Aminotransferase (ALT/SGPT) 27 12-78 U/L Alkaline Phosphatase 118 45-117 U/L Troponin I < 0.015 0-0.045 ng/ml Total Protein 7.2 6.4-8.2 gm/dl Albumin 3.5 3.4-5.0 gm/dl Lipase 88 73-393 U/L Bedside Lactic Acid Venous 1.62 0.90-1.70 mmol/L Microbiology Results 10/24/17 Blood Culture, Received Pending 10/24/17 Blood Culture, Received Pending EKG EKG shows normal sinus rhythm at 80 bpm, nonspecific ST-T changes, and PACs. Impression Assessment and Plan Left lower lobe pneumonia- Vancomycin IV per pharmacokinetic monitoring Cefepime 2 g IV every 8 hours Duonebs every 4 hours while awake and every 2 hours when necessary. Solu-Medrol 40 mg IV every 8 hours Guaifenesin extended release 600 mg by mouth twice a day Nasal cannula oxygen titrate to keep pulse ox greater than or equal to 92% Sputum Gram stain and culture. Recurrent UTI/BPH-- Antibiotics as above. Increase tamsulosin from 0.4-0.8 mg at bedtime. Follow urine culture and sensitivity. Hyperlipidemia-- Continue atorvastatin 40 mg in the morning. GERD-- Change omeprazole to pantoprazole. Peripheral neuropathy-- Continue gabapentin. Advanced Directives Existing Advance Directive: No Existing Living Will: No Existing Power of Tack Driller: No Resuscitation Status VTE Prophylaxis Will order VTE Prophylaxis: Yes Social Service Consult None Apply
[2017-10-24] MEDS ORDERED: CEFEPIME CONSULT ACTIVE PRN (06:15)
[2017-10-24] MEDS: METHYLPREDNISOLONE IV 60 MG in SYRINGE 0 ML IV SCH ×3 (06:22→17:27)
[2017-10-24] MEDS: NSS + 20MEQ KCL 1000ML 1,000 ML IV SCH ×2 (06:22→20:12)
[2017-10-24 06:46] LABS: CKMB 1.3 ng/ml (0.5-3.6)
[2017-10-24 06:49] LABS: INR 1.1 (0.9-1.1)
[2017-10-24] MEDS: IPRATROPIUM BROMIDE NEB SOLN 0.02% 2.5 ML VIAL INH SCH ×3 (07:11→18:51)
[2017-10-24] MEDS: LEVALBUTEROL 1.25MG/0.5ML NEB INH SCH ×3 (07:11→18:51)
--- NOTE | 2017-10-24 07:28 | DIAGNOSTIC IMAGING REPORT ---
SINGLE VIEW CHEST CLINICAL HISTORY: Atypical chest pain. FINDINGS: An AP, portable, upright chest radiograph is compared to study dated 08/22/2017 and correlated with chest CT dated 07/10/2015. The examination is significantly degraded by portable technique and patient rotation. The cardiomediastinal heart is enlarged and there is atherosclerotic calcification of the thoracic aorta. The pulmonary vasculature is noncongested. Emphysema and chronic interstitial thickening are similar to previous. There are patchy airspace opacities at the left lung base. The right lung appears clear and no large pleural effusion is identified. No pneumothorax is seen. The skeletal structures are osteopenic. The bony thorax is grossly intact. IMPRESSION: 1. Cardiomegaly without radiographic evidence of congestive failure. 2. Emphysema. 3. Patchy airspace opacities are seen at the left lung base. This could represent atelectasis versus an infectious/inflammatory pneumonitis. Clinical correlation will be required and radiographic follow-up to resolution is recommended. Electronically signed by: Andrea Deluna M.D. 10/24/2017 7:27 AM Dictated Date/Time: 10/24/2017 7:26 AM
[2017-10-24] MEDS: ACETAMINOPHEN 325 MG TAB PO PRN (08:07)
[2017-10-24] MEDS: GUAIFENESIN 200 MG TAB PO SCH ×2 (08:08→20:16)
[2017-10-24] MEDS: CHOLECALCIFEROL 1000 INTER.UNIT TAB PO SCH ×3 (08:10→17:27)
[2017-10-24] MEDS: ATORVASTATIN 20 MG TAB PO SCH (08:12)
[2017-10-24] MEDS: ASPIRIN 81 MG CHEW PO SCH (08:12)
[2017-10-24] MEDS: PANTOprazole SOD 40 MG TAB PO SCH (08:12)
[2017-10-24] MEDS: GABAPENTIN 100 MG CAP PO SCH (08:13)
[2017-10-24] MEDS: OMEGA-3 (PURIFIED FISH OIL) 1 GM CAP PO SCH (08:13)
[2017-10-24] MEDS: HEPARIN SOD 5000 UNIT/0.5 ML CARP SQ SCH ×2 (08:15→20:20)
[2017-10-24] MEDS ORDERED: LEVALBUTEROL/IPRATROPIUM NEB INH SCH (09:00)
--- NOTE | 2017-10-24 09:06 | Hospitalist Progress Note ---
Hospitalist Progress Note Date of Service Oct 24, 2017. (Vangie Zavala PA-C) Subjective Pt evaluation today including: conversation w/ patient, physical exam, chart review, lab review, review of studies Pain: None PO Intake: Poor Voiding: no voiding problems The patient was seen and examined this morning. Pt reports not feeling great. He was unable to eat his lunch. Pt still has a cough, nonproductive of mucous, feels short of breath with minimal exertion. + Fever this morning at 38.3, + sweats/chills this morning. He denies urinary complaints although does note a hx of frequent UTIs. Additional Comments: Constitutional: No fever, sweats or chills Eyes: No diplopia, no worsening or blurred vision ENT: normal hearing, no trouble swallowing Respiratory: No cough, sputum, dyspnea at rest or on exertion Cardiovascular: No chest pain, tightness or palpitations Abdomen: No pain, nausea, vomiting, diarrhea or constipation Musculoskeletal: No joint pain, calf pain, swelling Neurologic: No weakness, numbness/tingling, or balance problems Psychiatric: No anxiety or depression Skin: No rash or itch (Vangie Zavala PA-C) Objective Vital Signs Date Time Temp Pulse Resp B/P (MAP) Pulse Ox O2 Delivery O2 Flow Rate FiO2 10/24/17 07:16 84 16 94 Nasal Cannula 1.0 10/24/17 05:35 37.6 93 20 119/68 96 Room Air 10/24/17 05:21 89 22 106/57 94 Room Air 10/24/17 05:09 88 10/24/17 04:01 88 20 120/63 95 Nasal Cannula 2.0 10/24/17 03:22 88 22 117/68 98 Nasal Cannula 2.0 10/24/17 02:55 90 16 98/64 95 Room Air 10/24/17 02:07 82 19 115/59 94 Nasal Cannula 2.0 10/24/17 01:29 98 Nasal Cannula 10/24/17 01:14 96 Nasal Cannula 2.0 10/24/17 01:13 93 10/24/17 00:57 37.5 99 24 102/56 86 Room Air (Vangie Zavala PA-C) Physical Exam General Appearance: WD/WN, no apparent distress Eyes: PERRL, EOMI ENT: hearing grossly normal, pharynx normal Neck: supple, no JVD Respiratory/Chest: + pertinent finding (diminshed breath sounds throughout, + coarse cough, nonproductive of sputum, no wheeze or rhonchi) Cardiovascular: regular rate, rhythm, no murmur Abdomen: normal bowel sounds, non tender, soft Extremities: non-tender, no pedal edema, no calf tenderness Neurologic/Psychiatric: alert, normal mood/affect, oriented x 3 Skin: normal color, + diaphoresis (Vangie Zavala PA-C) Laboratory Results Last 24 Hours Test 10/24/17 01:23 10/24/17 01:28 10/24/17 06:10 10/24/17 06:24 White Blood Count 19.38 K/uL Red Blood Count 3.74 M/uL Hemoglobin 12.3 g/dL Hematocrit 35.9 % Mean Corpuscular Volume 96.0 fL Mean Corpuscular Hemoglobin 32.9 pg Mean Corpuscular Hemoglobin Concent 34.3 g/dl Platelet Count 188 K/uL Mean Platelet Volume 10.1 fL Neutrophils (%) (Auto) 86.9 % Lymphocytes (%) (Auto) 5.0 % Monocytes (%) (Auto) 7.6 % Eosinophils (%) (Auto) 0.0 % Basophils (%) (Auto) 0.1 % Neutrophils # (Auto) 16.83 K/uL Lymphocytes # (Auto) 0.97 K/uL Monocytes # (Auto) 1.48 K/uL Eosinophils # (Auto) 0.00 K/uL Basophils # (Auto) 0.02 K/uL RDW Standard Deviation 51.4 fL RDW Coefficient of Variation 14.6 % Immature Granulocyte % (Auto) 0.4 % Immature Granulocyte # (Auto) 0.08 K/uL Red Blood Cell Morphology Unremarkable Sodium Level 138 mmol/L Potassium Level 4.3 mmol/L Chloride Level 104 mmol/L Carbon Dioxide Level 26 mmol/L Anion Gap 8.0 mmol/L Blood Urea Nitrogen 19 mg/dl Creatinine 1.22 mg/dl Est Creatinine Clear Calc Drug Dose 43.7 ml/min Estimated GFR () 63.6 Estimated GFR (Non- 54.9 BUN/Creatinine Ratio 15.6 Random Glucose 133 mg/dl Calcium Level 8.9 mg/dl Total Bilirubin 1.2 mg/dl Direct Bilirubin 0.2 mg/dl Aspartate Amino Transf (AST/SGOT) 15 U/L Alanine Aminotransferase (ALT/SGPT) 27 U/L Alkaline Phosphatase 118 U/L Troponin I < 0.015 ng/ml < 0.015 ng/ml Total Protein 7.2 gm/dl Albumin 3.5 gm/dl Lipase 88 U/L Bedside Lactic Acid Venous 1.62 mmol/L Total Creatine Kinase 105 U/L Creatine Kinase MB 1.3 ng/ml Creatine Kinase MB Ratio 1.2 Prothrombin Time 12.0 SECONDS Prothromb Time International Ratio 1.1 Test 10/24/17 08:50 (Vangie Zavala PA-C) Assessment and Plan Left lower lobe pneumonia- - Cont Cefepime and vanc (started 10/24) - Febrile this am with Tmax 38.3, BP runnin g100s/60s, continue IVFs at 75 ml/ hr unless continues to have poor oral intake - then increase to 100ml/hr. - Add incentive spirometry/flutter valve. - Cont duonebs Q4H and Q2H prn sob, Solu-Medrol 40 mg IV q8h, mucinex, O2 and wean as tolerated - Follow sputum Gram stain and culture. Recurrent UTI/BPH-- Antibiotics as above. - Increase tamsulosin from 0.4-0.8 mg at bedtime. - Follow urine culture and sensitivity. Hyperlipidemia-- Continue atorvastatin 40 mg in the morning. GERD-- Change omeprazole to pantoprazole Peripheral neuropathy- Continue gabapentin Code: Full Disposition: From home, lives with - possible dc in 2 days (Vangie Zavala, MANDY) Reviewed: Pt Seen/Exam by Me (Eloise Tan DO) History Pt is still not feeling well, but maybe a bit better than [employer]. Still with SOB and poor appetite. His suprapubic pain is mostly resolved though. Tolerating the PO he does take without issue. Agree with HPI/ROS as noted by PA. (Eloise Tan DO) General Appearance: WD/WN, no apparent distress Eye Exam: bilateral eye normal inspection, bilateral eye other (nml sclera) Respiratory: normal breath sounds, no respiratory distress Cardiovascular: normal peripheral pulses, regular rate, rhythm Gastrointestinal: non tender, soft Extremities: non-tender, no pedal edema Neurologic/Psychiatric: alert, normal mood/affect, oriented x 3 Skin Characteristics: normal color, warm/dry (Eloise Tan, DO) Assessment/Plan Agree with plan as outlined above PNA/UTI with hx of recurrent UTI Monitor on vanc/cefepime (Eloise Tan, DO)
[2017-10-24] MEDS: ARTIFICIAL TEARS OP SOLN OPB SCH (11:46)
[2017-10-24 14:27] LABS: CKMB 1.9 ng/ml (0.5-3.6)
--- NOTE | 2017-10-24 15:20 | Pharmacy Progress Note ---
Pharmacy Antibiotic Consult Date of Service: Oct 24, 2017. Pharmacy Dosing Scope Pharmacy is consulted to initiate vancomycin IV dosing therapy, order appropriate labs and adjust drug dose/frequency. Subjective The patient is a 82 year old male admitted on Oct 24, 2017 at 04:23. Objective Height (Feet): 5 Height (Inches): 9.00 Weight (Kilograms): 79.400 Lab Results (24hrs): Test 10/24/17 01:23 10/24/17 01:28 10/24/17 06:10 10/24/17 06:24 White Blood Count 19.38 K/uL (4.8-10.8) Red Blood Count 3.74 M/uL (4.7-6.1) Hemoglobin 12.3 g/dL (14.0-18.0) Hematocrit 35.9 % (42-52) Mean Corpuscular Volume 96.0 fL (80-100) Mean Corpuscular Hemoglobin 32.9 pg (25-34) Mean Corpuscular Hemoglobin Concent 34.3 g/dl (32-36) Platelet Count 188 K/uL (130-400) Mean Platelet Volume 10.1 fL (7.4-10.4) Neutrophils (%) (Auto) 86.9 % Lymphocytes (%) (Auto) 5.0 % Monocytes (%) (Auto) 7.6 % Eosinophils (%) (Auto) 0.0 % Basophils (%) (Auto) 0.1 % Neutrophils # (Auto) 16.83 K/uL (1.4-6.5) Lymphocytes # (Auto) 0.97 K/uL (1.2-3.4) Monocytes # (Auto) 1.48 K/uL (0.11-0.59) Eosinophils # (Auto) 0.00 K/uL (0-0.5) Basophils # (Auto) 0.02 K/uL (0-0.2) RDW Standard Deviation 51.4 fL (36.4-46.3) RDW Coefficient of Variation 14.6 % (11.5-14.5) Immature Granulocyte % (Auto) 0.4 % Immature Granulocyte # (Auto) 0.08 K/uL (0.00-0.02) Red Blood Cell Morphology Unremarkable Sodium Level 138 mmol/L (136-145) Potassium Level 4.3 mmol/L (3.5-5.1) Chloride Level 104 mmol/L (98-107) Carbon Dioxide Level 26 mmol/L (21-32) Anion Gap 8.0 mmol/L (3-11) Blood Urea Nitrogen 19 mg/dl (7-18) Creatinine 1.22 mg/dl (0.60-1.40) Est Creatinine Clear Calc Drug Dose 43.7 ml/min Estimated GFR () 63.6 Estimated GFR (Non- 54.9 BUN/Creatinine Ratio 15.6 (10-20) Random Glucose 133 mg/dl (70-99) Calcium Level 8.9 mg/dl (8.5-10.1) Total Bilirubin 1.2 mg/dl (0.2-1) Direct Bilirubin 0.2 mg/dl (0-0.2) Aspartate Amino Transf (AST/SGOT) 15 U/L (15-37) Alanine Aminotransferase (ALT/SGPT) 27 U/L (12-78) Alkaline Phosphatase 118 U/L (45-117) Total Protein 7.2 gm/dl (6.4-8.2) Albumin 3.5 gm/dl (3.4-5.0) Lipase 88 U/L (73-393) Bedside Lactic Acid Venous 1.62 mmol/L (0.90-1.70) Total Creatine Kinase 105 U/L (39-308) Creatine Kinase MB 1.3 ng/ml (0.5-3.6) Creatine Kinase MB Ratio 1.2 (0-3.0) Troponin I < 0.015 ng/ml (0-0.045) Prothrombin Time 12.0 SECONDS (9.0-12.0) Prothromb Time International Ratio 1.1 (0.9-1.1) Test 10/24/17 08:50 10/24/17 13:36 10/24/17 15:12 Urine Color DK YELLOW Urine Appearance CLOUDY (CLEAR) Urine pH 6.5 (4.5-7.5) Urine Specific [place] 1.024 (1.000-1.030) Urine Protein 1+ (NEG) Urine Glucose (UA) NEG (NEG) Urine Ketones TRACE (NEG) Urine Occult Blood TRACE (NEG) Urine Nitrite NEG (NEG) Urine Bilirubin NEG (NEG) Urine Urobilinogen NEG (NEG) Urine Leukocyte Esterase SMALL (NEG) Urine WBC (Auto) 5-10 /hpf (0-5) Urine RBC (Auto) 5-10 /hpf (0-4) Urine Hyaline Casts (Auto) 5-10 /lpf (0-5) Urine Epithelial Cells (Auto) >30 /lpf (0-5) Urine Bacteria (Auto) NEG (NEG) Total Creatine Kinase 138 U/L (39-308) Creatine Kinase MB 1.9 ng/ml (0.5-3.6) Creatine Kinase MB Ratio 1.4 (0-3.0) Troponin I < 0.015 ng/ml (0-0.045) Assessment & Plan Assessment * 82 yo M admitted with LLL PNA and recurrent UTI. Recent hospital stay July -August 2017 for UTI. * Recent urine culture history with E. coli. Nasal swab negative this admission * Currently on cefepime and vancomycin. Confirmed w Kenya Zavala PA-C that both should be continued at this time 2nd severity of illness - may consider d/ c vancomycin tomorrow depending on patient improvement * SCr elevated from baseline of 0.9 mg/dL and is now 1.22 mg/dL Vancomycin * Goal vancomycin trough 15-20 mcg/mL * Unclear if clearance of vancomycin will be impaired based on slight elevation in SCr * Random level ordered and drawn ~ 12 hours after loading dose of 19.4 mg/kg this AM - level subtherapeutic at 9.8 mcg/mL and will therefore re-dose at 15 mg /kg IV x1. * Repeat level in AM, ~ 12 hours after administration of one-time dose today Plan * Vancomycin 1250 mg IV x1 * Random level with AM labs 10/25 Pharmacy will continue to follow and will adjust dose/frequency as necessary. Thank you
[2017-10-24] MEDS ORDERED: VANCOMYCIN IV 1,250 MG in SODIUM CHLORIDE 0.9% 250ML 250 ML IV ONE (16:45)
[2017-10-24] MEDS: TAMSULOSIN HCL 0.4 MG CAP PO SCH (20:13)
[2017-10-24] MEDS: GABAPENTIN 400 MG CAP PO SCH (20:14)
[2017-10-24] MEDS: MULTIVITAMIN TAB PO SCH (20:14)
[2017-10-24 22:42] LABS: CKMB 3.9 ng/ml (0.5-3.6)
[2017-10-25] VITALS (9 sets, daily range): BP systolic 93–131; BP diastolic 52–69; PULSE 57–72; TEMP 36.4–36.9; O2SAT 90–99
[2017-10-25] MEDS: METHYLPREDNISOLONE IV 60 MG in SYRINGE 0 ML IV SCH ×3 (00:27→11:33)
[2017-10-25] MEDS: LEVALBUTEROL 1.25MG/0.5ML NEB INH SCH ×4 (02:01→19:18)
[2017-10-25] MEDS: IPRATROPIUM BROMIDE NEB SOLN 0.02% 2.5 ML VIAL INH SCH ×4 (02:01→19:18)
[2017-10-25 06:12] LABS: BASO % 0.1 %; BASO ABS # 0.01 K/uL (0-0.2); HEMATOCRIT 34.4 % (42-52); HEMOGLOBIN 11.1 g/dL (14.0-18.0); IG# 0.03 K/uL (0.00-0.02); LYMPH % 4.5 %; LYMPH ABS # 0.66 K/uL (1.2-3.4); MEAN CELL VOLUME 95.8 fL (80-100); MEAN CORPUSCULAR HEMOGLOBIN 30.9 pg (25-34); MEAN CORPUSCULAR HGB CONC 32.3 g/dl (32-36); MEAN PLATELET VOLUME 10.4 fL (7.4-10.4); MONO % 4.8 %; NEUT % 90.4 %; NEUT ABS # 13.25 K/uL (1.4-6.5); PLATELET COUNT 146 K/uL (130-400); RED CELL DISTRIBUTION WIDTH CV 14.3 % (11.5-14.5); RED CELL DISTRIBUTION WIDTH SD 50.7 fL (36.4-46.3); WHITE BLOOD COUNT 14.65 K/uL (4.8-10.8)
[2017-10-25 06:32] LABS: PTT PATIENT 31.1 SECONDS (21.0-31.0)
[2017-10-25 06:55] LABS: CALCIUM 8.8 mg/dl (8.5-10.1); CREATININE 1.01 mg/dl (0.60-1.40); POTASSIUM 4.5 mmol/L (3.5-5.1)
[2017-10-25] MEDS: ATORVASTATIN 20 MG TAB PO SCH (08:01)
[2017-10-25] MEDS: ASPIRIN 81 MG CHEW PO SCH (08:01)
[2017-10-25] MEDS: GABAPENTIN 100 MG CAP PO SCH (08:01)
[2017-10-25] MEDS: GUAIFENESIN 200 MG TAB PO SCH ×2 (08:02→20:14)
[2017-10-25] MEDS: CHOLECALCIFEROL 1000 INTER.UNIT TAB PO SCH ×3 (08:02→16:45)
[2017-10-25] MEDS: OMEGA-3 (PURIFIED FISH OIL) 1 GM CAP PO SCH (08:03)
[2017-10-25] MEDS: PANTOprazole SOD 40 MG TAB PO SCH (08:03)
[2017-10-25] MEDS: HEPARIN SOD 5000 UNIT/0.5 ML CARP SQ SCH ×2 (08:06→20:16)
[2017-10-25] MEDS ORDERED: VANCOMYCIN IV 1,000 MG in SODIUM CHLORIDE 0.9% 250ML 250 ML IV SCH (08:30)
--- NOTE | 2017-10-25 08:50 | Hospitalist Progress Note ---
Hospitalist Progress Note Date of Service Oct 25, 2017. (Vangie Zavala PA-C) Subjective Pt evaluation today including: conversation w/ patient, conversation w/ family , physical exam, chart review, lab review, review of studies Pain: None PO Intake: Good Voiding: no voiding problems The patient was seen and examined this morning. Pt reports doing better today compared to yesterday. He notes he is not feeling short of breath with at rest or with minimal exertion. Patient does have a cough with minimal production of white/yellow sputum. He has not yet been up and walking about the [place]. The patient is tolerating increased oral intake without difficulty. His blood pressure has also improved compared to the yesterday. Additional Comments: Constitutional: No fever, sweats or chills Eyes: No diplopia, no worsening or blurred vision ENT: normal hearing, no trouble swallowing Respiratory: See HPI. Cardiovascular: No chest pain, tightness or palpitations Abdomen: No pain, nausea, vomiting, diarrhea or constipation Musculoskeletal: No joint pain, calf pain, swelling Neurologic: No weakness, numbness/tingling, or balance problems (Vangie Zavala PA-C) Objective Vital Signs Date Time Temp Pulse Resp B/P (MAP) Pulse Ox O2 Delivery O2 Flow Rate FiO2 10/25/17 07:50 36.8 63 18 108/63 (78) 99 10/25/17 07:17 66 16 90 Room Air 10/25/17 04:00 Room Air 10/25/17 03:44 36.8 66 18 93/52 (66) 95 Room Air 10/25/17 00:00 Room Air 10/24/17 23:56 36.8 65 18 93/47 (62) 97 Room Air 10/24/17 20:00 Room Air 10/24/17 19:23 36.6 58 16 103/65 (78) 93 Room Air 10/24/17 18:54 59 16 93 Room Air 10/24/17 16:21 36.4 64 16 102/61 (75) 94 Room Air 10/24/17 16:00 Room Air 10/24/17 14:06 67 16 93 Room Air 10/24/17 12:00 Room Air 10/24/17 11:35 63 98/61 (73) 10/24/17 11:29 36.6 64 16 89/54 (66) 94 10/24/17 09:30 37.7 (Vangie Zavala PA-C) Physical Exam Notes: General Appearance: WD/WN, no apparent distress Eyes: PERRL, EOMI ENT: hearing grossly normal, pharynx normal Neck: supple, no JVD Respiratory/Chest: + pertinent finding (on room air, slightly diminished breath sounds throughout-improved aeration compared to yesterday, minimal cough , nonproductive of sputum, no wheeze or rhonchi) Cardiovascular: regular rate, rhythm, no murmur Abdomen: normal bowel sounds, non tender, soft Extremities: non-tender, no pedal edema, no calf tenderness Neurologic/Psychiatric: alert, normal mood/affect, oriented x 3 Skin: normal color, not diaphoretic (Vangie Zavala PA-C) Laboratory Results Last 24 Hours Test 10/24/17 08:50 10/24/17 13:36 10/24/17 14:59 10/24/17 22:09 Urine Color DK YELLOW Urine Appearance CLOUDY Urine pH 6.5 Urine Specific [place] 1.024 Urine Protein 1+ Urine Glucose (UA) NEG Urine Ketones TRACE Urine Occult Blood TRACE Urine Nitrite NEG Urine Bilirubin NEG Urine Urobilinogen NEG Urine Leukocyte Esterase SMALL Urine WBC (Auto) 5-10 /hpf Urine RBC (Auto) 5-10 /hpf Urine Hyaline Casts (Auto) 5-10 /lpf Urine Epithelial Cells (Auto) >30 /lpf Urine Bacteria (Auto) NEG Total Creatine Kinase 138 U/L 156 U/L Creatine Kinase MB 1.9 ng/ml 3.9 ng/ml Creatine Kinase MB Ratio 1.4 2.5 Troponin I < 0.015 ng/ml < 0.015 ng/ml Random Vancomycin Level 9.8 mcg/ml Test 10/25/17 05:42 White Blood Count 14.65 K/uL Red Blood Count 3.59 M/uL Hemoglobin 11.1 g/dL Hematocrit 34.4 % Mean Corpuscular Volume 95.8 fL Mean Corpuscular Hemoglobin 30.9 pg Mean Corpuscular Hemoglobin Concent 32.3 g/dl Platelet Count 146 K/uL Mean Platelet Volume 10.4 fL Neutrophils (%) (Auto) 90.4 % Lymphocytes (%) (Auto) 4.5 % Monocytes (%) (Auto) 4.8 % Eosinophils (%) (Auto) 0.0 % Basophils (%) (Auto) 0.1 % Neutrophils # (Auto) 13.25 K/uL Lymphocytes # (Auto) 0.66 K/uL Monocytes # (Auto) 0.70 K/uL Eosinophils # (Auto) 0.00 K/uL Basophils # (Auto) 0.01 K/uL RDW Standard Deviation 50.7 fL RDW Coefficient of Variation 14.3 % Immature Granulocyte % (Auto) 0.2 % Immature Granulocyte # (Auto) 0.03 K/uL Prothrombin Time 10.6 SECONDS Prothromb Time International Ratio 1.0 Activated Partial Thromboplast Time 31.1 SECONDS Partial Thromboplastin Ratio 1.2 Sodium Level 137 mmol/L Potassium Level 4.5 mmol/L Chloride Level 106 mmol/L Carbon Dioxide Level 24 mmol/L Anion Gap 7.0 mmol/L Blood Urea Nitrogen 26 mg/dl Creatinine 1.01 mg/dl Est Creatinine Clear Calc Drug Dose 56.4 ml/min Estimated GFR () 79.9 Estimated GFR (Non- 68.9 BUN/Creatinine Ratio 25.9 Random Glucose 138 mg/dl Calcium Level 8.8 mg/dl Magnesium Level 2.5 mg/dl Random Vancomycin Level 13.1 mcg/ml (Vangie Zavala, PASheldonC) Assessment and Plan Left lower lobe pneumonia- Acute on Chronic Respiratory failure with hypoxia - Cont Cefepime (started 10/24) dc vanc today. - Afebrile overnight, BP slightly improved to low 100s/63s, continue IVFs at 75 ml/hr for now, patient p.o. intake has improved compared to yesterday. Likely can turn off IVF's later today as long as his oral intake remains improved and his blood pressure continues to improve. - Initially required supplemental O2, now on room air. - Add incentive spirometry/flutter valve. - Cont duonebs Q4H and Q2H prn sob, reduce Solu-Medrol to 40 mg every 12 IV today- will decrease to prednisone 60 mg starting tomorrow, mucinex, O2 and wean as tolerated - Follow sputum Gram stain and culture. - BCx NGTD Recurrent UTI/BPH-- Antibiotics as above. - Increase tamsulosin from 0.4-0.8 mg at bedtime. - Follow urine culture and sensitivity. Hyperlipidemia-- Continue atorvastatin 40 mg QAM GERD-- Change omeprazole to pantoprazole Peripheral neuropathy- Continue gabapentin Code: Full Disposition: From home, lives with - possible dc in 2 days (Vangie Zavala PA-C) Attending Attestation - Pt seen/examined, chart reviewed, care plan d/w ANDRES Zavala. I agree w/ the gordon components of her documentation. Pt feels better Cough improved Less dyspnea Appetite ok - ate entire piece of chocolate cake his brought afebrile, VSS gen - looks good neck - no JVD heart - RRR, s1, s2 lungs - minimal rales bases, no wheeze or rhonchi abd - soft, NT ext - no edema A/P: 1. LLL pneumonia - need to cover for gram negative etiology as he was hospitalized at [facility] <3 months ago 2. COPD w/ exacerbation - wean steroids; improving 3. ?UTI - await cultures 4. BPH - managed by urology as outpatient - ongoing updated at bedside Binu ROONEY MD (Quinn Rooney MD)
[2017-10-25] MEDS: NSS + 20MEQ KCL 1000ML 1,000 ML IV SCH (11:33)
[2017-10-25] MEDS: ARTIFICIAL TEARS OP SOLN OPB SCH (11:33)
[2017-10-25] MEDS: CEFEPIME IV 2,000 MG in SYRINGE 7.5 ML IV SCH (14:43)
[2017-10-25] MEDS: GABAPENTIN 400 MG CAP PO SCH (20:13)
[2017-10-25] MEDS: TAMSULOSIN HCL 0.4 MG CAP PO SCH (20:14)
[2017-10-25] MEDS: MULTIVITAMIN TAB PO SCH (20:15)
[2017-10-25] MEDS ORDERED: METHYLPREDNISOLONE IV 40 MG in SYRINGE 0 ML IV SCH (21:00)
[2017-10-26] MEDS: NSS + 20MEQ KCL 1000ML 1,000 ML IV SCH (01:38)
[2017-10-26] MEDS: CEFEPIME IV 2,000 MG in SYRINGE 7.5 ML IV SCH ×2 (01:39→13:44)
[2017-10-26] MEDS: ACETAMINOPHEN 325 MG TAB PO PRN (01:39)
[2017-10-26] MEDS: IPRATROPIUM BROMIDE NEB SOLN 0.02% 2.5 ML VIAL INH SCH ×2 (01:54→07:24)
[2017-10-26] MEDS: LEVALBUTEROL 1.25MG/0.5ML NEB INH SCH ×2 (01:54→07:24)
[2017-10-26 01:55] VITALS: PULSE 60; O2SAT 98
[2017-10-26 04:24] VITALS: BP 101/50; PULSE 64; TEMP 36.7; O2SAT 96
[2017-10-26 05:53] LABS: HEMATOCRIT 32.6 % (42-52); HEMOGLOBIN 10.5 g/dL (14.0-18.0); IG# 0.02 K/uL (0.00-0.02); LYMPH ABS # 0.32 K/uL (1.2-3.4); MEAN CELL VOLUME 94.8 fL (80-100); MEAN CORPUSCULAR HEMOGLOBIN 30.5 pg (25-34); MEAN CORPUSCULAR HGB CONC 32.2 g/dl (32-36); MEAN PLATELET VOLUME 10.2 fL (7.4-10.4); MONO % 4.2 %; MONO ABS # 0.44 K/uL (0.11-0.59); NEUT % 92.6 %; NEUT ABS # 9.72 K/uL (1.4-6.5); PLATELET COUNT 164 K/uL (130-400); RED CELL DISTRIBUTION WIDTH CV 14.5 % (11.5-14.5); RED CELL DISTRIBUTION WIDTH SD 50.2 fL (36.4-46.3)
[2017-10-26 06:01] LABS: INR 0.9 (0.9-1.1); PTT PATIENT 27.8 SECONDS (21.0-31.0)
[2017-10-26 06:22] LABS: CALCIUM 8.5 mg/dl (8.5-10.1); CREATININE 1.07 mg/dl (0.60-1.40)
[2017-10-26 07:25] VITALS: BP 132/68; PULSE 61; TEMP 36.7; O2SAT 95; O2SAT 96
[2017-10-26] MEDS: ATORVASTATIN 20 MG TAB PO SCH (07:59)
[2017-10-26] MEDS: CHOLECALCIFEROL 1000 INTER.UNIT TAB PO SCH ×2 (07:59→11:30)
[2017-10-26] MEDS: PANTOprazole SOD 40 MG TAB PO SCH (07:59)
[2017-10-26] MEDS: ASPIRIN 81 MG CHEW PO SCH (08:00)
[2017-10-26] MEDS: GUAIFENESIN 200 MG TAB PO SCH (08:00)
[2017-10-26] MEDS: OMEGA-3 (PURIFIED FISH OIL) 1 GM CAP PO SCH (08:00)
[2017-10-26] MEDS: GABAPENTIN 100 MG CAP PO SCH (08:01)
[2017-10-26] MEDS: HEPARIN SOD 5000 UNIT/0.5 ML CARP SQ SCH (08:02)
--- NOTE | 2017-10-26 08:38 | Hospitalist Progress Note ---
Hospitalist Progress Note Date of Service Oct 26, 2017. Objective Vital Signs Date Time Temp Pulse Resp B/P (MAP) Pulse Ox O2 Delivery O2 Flow Rate FiO2 10/26/17 07:25 61 16 96 Room Air 10/26/17 07:25 36.7 61 18 132/68 (89) 95 Room Air 10/26/17 04:46 Room Air 10/26/17 04:24 36.7 64 16 101/50 (67) 96 Room Air 10/26/17 01:55 60 16 98 Room Air 10/26/17 00:05 Room Air 10/25/17 23:18 36.7 64 20 118/62 (80) 92 Room Air 10/25/17 19:18 70 16 96 Room Air 10/25/17 19:15 36.4 65 18 131/69 (89) 96 Room Air 10/25/17 16:00 Room Air 10/25/17 15:20 36.9 72 18 118/64 (82) 94 Room Air 10/25/17 14:28 68 16 98 Room Air 10/25/17 12:00 Room Air 10/25/17 11:41 36.9 57 16 110/63 (79) 96 Laboratory Results Last 24 Hours Test 10/26/17 05:35 White Blood Count 10.50 K/uL Red Blood Count 3.44 M/uL Hemoglobin 10.5 g/dL Hematocrit 32.6 % Mean Corpuscular Volume 94.8 fL Mean Corpuscular Hemoglobin 30.5 pg Mean Corpuscular Hemoglobin Concent 32.2 g/dl Platelet Count 164 K/uL Mean Platelet Volume 10.2 fL Neutrophils (%) (Auto) 92.6 % Lymphocytes (%) (Auto) 3.0 % Monocytes (%) (Auto) 4.2 % Eosinophils (%) (Auto) 0.0 % Basophils (%) (Auto) 0.0 % Neutrophils # (Auto) 9.72 K/uL Lymphocytes # (Auto) 0.32 K/uL Monocytes # (Auto) 0.44 K/uL Eosinophils # (Auto) 0.00 K/uL Basophils # (Auto) 0.00 K/uL RDW Standard Deviation 50.2 fL RDW Coefficient of Variation 14.5 % Immature Granulocyte % (Auto) 0.2 % Immature Granulocyte # (Auto) 0.02 K/uL Prothrombin Time 9.4 SECONDS Prothromb Time International Ratio 0.9 Activated Partial Thromboplast Time 27.8 SECONDS Partial Thromboplastin Ratio 1.1 Sodium Level 139 mmol/L Potassium Level 4.0 mmol/L Chloride Level 109 mmol/L Carbon Dioxide Level 23 mmol/L Anion Gap 7.0 mmol/L Blood Urea Nitrogen 27 mg/dl Creatinine 1.07 mg/dl Est Creatinine Clear Calc Drug Dose 53.3 ml/min Estimated GFR () 74.5 Estimated GFR (Non- 64.3 BUN/Creatinine Ratio 25.3 Random Glucose 177 mg/dl Calcium Level 8.5 mg/dl Magnesium Level 2.3 mg/dl Assessment and Plan Left lower lobe pneumonia- Acute on Chronic Respiratory failure with hypoxia - Cont Cefepime (started 10/24) dc vanc today. - Afebrile overnight, BP slightly improved to 130s/60s, continue IVFs at 75 ml/ hr for now, patient p.o. intake has improved compared to yesterday. Likely can turn off IVF's later today as long as his oral intake remains improved and his blood pressure continues to improve. - Initially required supplemental O2, now on room air. - Add incentive spirometry/flutter valve. - Cont duonebs Q4H and Q2H prn sob, reduce Solu-Medrol to 40 mg every 12 IV today- will decrease to prednisone 60 mg starting tomorrow, mucinex, O2 and wean as tolerated - Follow sputum Gram stain and culture. - BCx NGTD Recurrent UTI/BPH-- Antibiotics as above. - Increase tamsulosin from 0.4-0.8 mg at bedtime. - No urine culture, pt asymptomatic. Hyperlipidemia-- Continue atorvastatin 40 mg QAM GERD-- Change omeprazole to pantoprazole Peripheral neuropathy- Continue gabapentin Code: Full Disposition: From home, lives with - possible dc in 2 days
[2017-10-26] MEDS ORDERED: PRD20 PO (10:55)
[2017-10-26] MEDS ORDERED: CYM/30 PO (10:55)
--- NOTE | 2017-10-26 11:02 | Discharge Instructions ---
Discharge Instructions Date of Service Oct 26, 2017. Admission Reason for Admission: Sepsis Discharge Discharge Diagnosis / Problem: Left lower lobe pneumonia, Sepsis Discharge Goals Goal(s): Decrease discomfort, Improve function, Increase independence Activity Recommendations Activity Limitations: resume your previous activity Lifting Limitations: no more than 25 pounds, gradually increase as tolerated Exercise/Sports Limitations: rest today, gradually increase as tolerated May Resume Sexual Activity: when tolerated Shower/Bathe: no limitations Driving or Machine Use: no limitations . Instructions / Follow-Up Instructions / Follow-Up You were admitted to [facility] with shortness of breath and diagnosed with sepsis secondary to pneumonia. During your stay here you were treated with supportive care including oxygen, antibiotics, and steroids. You did not have a urinary tract infection as initially was thought possible. Imaging studies which were completed include CXR, and were abnormal showing pneumonia. Medications: Continue taking your medications as prescribed. Continue taking antibiotics as prescribed for pneumonia. Continue taking the prednisone taper as directed: Take 60 mg (3 tabs) x 1day, 40 mg (2 tabs) x 2 days, 20 mg (1 tab) x 2 days, and then 10 mg (1/2 tab) x 2 days and stop. Finish on 11/02. You were started on cymbalta 30 mg daily for peripheral neuropathy ( burning sensation in your feet) please follow up with your PCP. Continue taking gabapentin as you normally do. Appointments: Follow up with PCP within 1-2 weeks, an appointment has been requested for you. Current Hospital Diet Patient's current hospital diet: Regular Diet Discharge Diet Recommended Diet: Regular Diet Pending Studies Studies pending at discharge: no Medical Emergencies . Who to Call and When: Medical Emergencies: If at any time you feel your situation is an emergency, please call 911 immediately. . Non-Emergent Contact Non-Emergency issues call your: Primary Care Provider Call Non-Emergent contact if: you have a fever, temperature is above 100.5, your pain is not controlled, your pain is worsening, your pain is unusual for you, your pain is concerning you, you have any medication questions other concerns with your health. Call 911 or go directly to the Emergency Department if you experience any of the following: Chest pain, chest tightness, shortness of breath, abdominal pain , lightheadedness, dizziness, gastrointestinal bleeding, or have any other concerns regarding your health. . Past History Medical & Surgical History: (1) Pneumonia (2) Sepsis . "Provider Documentation" section prepared by Kenya Zavala. . [place] Drug Monitoring Program Search Results: no issues identified
[2017-10-26 11:25] VITALS: BP 126/63; PULSE 65; TEMP 36.5; O2SAT 97
[2017-10-26] MEDS: ARTIFICIAL TEARS OP SOLN OPB SCH (11:30)
[2017-10-26] MEDS ORDERED: CEFD1CAP14 PO (12:07)
[2017-10-26 12:44] VITALS: BP 126/63; PULSE 65; TEMP 36.5; O2SAT 97
--- NOTE | 2017-10-26 15:23 | Discharge Summary ---
Discharge Summary Date of Service Oct 26, 2017. Discharge Summary Admission Date: Oct 24, 2017 at 04:23 Discharge Date: Oct 26, 2017 Discharge Disposition: Home Principal Diagnosis: LLL pneumonia Problems/Secondary Diagnoses: Medical Problems: (1) Bronchiectasis (2) COPD (chronic obstructive pulmonary disease) with exacerbation (3) BPH (4) GERD (gastroesophageal reflux disease) (5) HLD (hyperlipidemia) (6) Peripheral neuropathy (7) sepsis 2nd to LLL pneumonia Immunizations: Have You Had Influenza Vaccine: N/A History of Tetanus Vaccine?: Yes History of Pneumococcal: Yes History of Hepatitis B Vaccine: No Procedures: CXR 1 view 10/24/17 IMPRESSION: 1. Cardiomegaly without radiographic evidence of congestive failure. 2. Emphysema. 3. Patchy airspace opacities are seen at the left lung base. This could represent atelectasis versus an infectious/inflammatory pneumonitis. Clinical correlation will be required and radiographic follow-up to resolution is recommended. Consultations: None Medication Reconciliation New Medications: Cefdinir (Omnicef) 300 Mg Cap 300 MG PO Q12H for 5 Days, #10 CAP Duloxetine HCl (Cymbalta) 30 Mg Cap 1 CAP PO DAILY for 30 Days, #30 CAP 0 Refills Prednisone (Prednisone) 20 Mg Tab 20 MG PO UD for 7 Days, #10 TAB Take 60 mg x 1day, 40 mg x 2 days, 20 mg x 2 days, and then 10 mg x 2 days and stop. Finish on 11/02. Continued Medications: Artificial Tear Solution (Tears Naturale) 1 Venita Venita 1 DROP OPB NOON Aspirin (Aspirin Chewable) 81 Mg Chew 81 MG PO DAILY Atorvastatin (Lipitor) 40 Mg Tab 40 MG PO QAM Azelastine Hcl (Astepro) 0.15 % Spr 2 SPRAYS MORIAH BID Budesonide/Formoterol Fumarate (Symbicort 160/4.5 Inhaler ) Aero 2 PUFFS INH BID Cholecalciferol (Vitamin D3) 1,000 Unit Tab 5000 MG PO TIDM for 90 Days, TAB 3 Refills Fish Oil ([place]-3) 1 Ea Cap 1 CAP PO DAILY, CAP Gabapentin (Neurontin) 400 Mg Cap 400 MG PO HS, CAP Gabapentin (Neurontin) 100 Mg Cap 100 MG PO QAM, CAP Home O2 Therapy (Oxygen) Gas 2 LITERS NA HS Ipratropium [place] (Atrovent 0.02% Soln) 2.5 Ml Nebu 2.5 ML INH TID, #1313 MIX WITH ALBUTEROL FOR EACH TREATMENT. USE 3X DAILY. MAY USE UP TO 5X DAILY IF NEEDED Ipratropium-Albuterol (Combivent Respimat) 1 Aer Aer 1 PUFFS INH QID PRN for SOB/Wheezing Ipratropium-Albuterol (Duoneb) 3 Ml Nebu 1 TREATMENT INH Q4H, INHA Lorazepam (Ativan) 0.5 Mg Tab 0.5 MG PO TID PRN for Anxiety Multivitamin (Multivitamin) Tab 1 TAB PO QPM Omeprazole (Prilosec) 20 Mg Capcr 40 MG PO DAILY Tamsulosin Hcl (Flomax) 0.4 Mg Cap 0.4 MG PO HS, CAP Discharge Exam The patient was seen and examined this morning. Pt reports doing well today and that his breathing has significantly improved. He is coughing occasionally but not bringing much up anymore. He denies fever, chills or sweats. Denies any sob with exertion. He has been ambulating without difficulty. Pt is hopeful for discharge home today. ROS: Constitutional: No fever, sweats or chills Eyes: No diplopia, no worsening or blurred vision ENT: normal hearing, no trouble swallowing Respiratory: See HPI. Cardiovascular: No chest pain, tightness or palpitations Abdomen: No pain, nausea, vomiting, diarrhea or constipation Musculoskeletal: No joint pain, calf pain, swelling Neurologic: No weakness, numbness/tingling, or balance problems PE: General Appearance: WD/WN, no apparent distress Eyes: PERRL, EOMI ENT: hearing grossly normal, pharynx normal Neck: supple, no JVD Respiratory/Chest: + pertinent finding (on room air, good aeration throughout, no adventitious breath sounds, no cough) Cardiovascular: regular rate, rhythm, no murmur Abdomen: normal bowel sounds, non tender, soft Extremities: non-tender, no pedal edema, no calf tenderness Neurologic/Psychiatric: alert, normal mood/affect, oriented x 3 Skin: normal color, not diaphoretic Hospital Course Left lower lobe pneumonia- Acute on Chronic Respiratory failure with hypoxia - Cont Cefepime (started 10/24) dc vanc on 10/25 - transition to omnicef 300 mg Q12H x 5 more days to complete a 7 d course - Afebrile overnight, BP much improved to 130s/60s, dc IVFs, patient p.o. intake at his baseline. - Initially required supplemental O2, now on room air. - Pt using incentive spirometry/flutter valve. - Cont duonebs Q4H and Q2H prn sob, reduce Solu-Medrol to PO- continue prednisone 60 mg x 1 day, 40 mg x 2d, 20 mg x 2 days, and 10 mg x 2 days then stop. Finish on 11/02. - Follow sputum Gram stain and culture. - BCx NGTD Recurrent UTI/BPH-- Antibiotics as above. - Increase tamsulosin from 0.4-0.8 mg at bedtime. - No urine culture, pt asymptomatic. Hyperlipidemia-- Continue atorvastatin 40 mg QAM GERD-- Change omeprazole to pantoprazole Peripheral neuropathy- Continue gabapentin Code: Full Disposition: From home, lives with - discharge to home today. Attending Attestation & Discharge Summary: Pt seen/examined, chart reviewed, discharge care plan d/w ANDRES Zavala. I agree w/ the gordon components of her discharge summary. 82yo male with h/o COPD and bronchiectasis who presented with 2 days of worsening cough, left lower chest pain, shortness of breath with dyspnea on exertion, purulent sputum production, and mild suprapubic pain with urinary frequency. Admission chest x-ray revealed LLL pneumonia. Patient was treated for LLL pneumonia. Since he was hospitalized <90 days prior he was covered for gram negative etiology with cefepime. At discharge he was transitioned to oral omnicef. The patient was hemodynamically stable throughout his stay and improved nicely with the above. Blood cultures and sputum culture were negative. He also received IV/PO steroids for COPD exacerbation. Discharge exam - gen - nad neck - no JVD heart - RRR, s1, s2 lungs - mild rales left base, minimal rales right base, scant wheeze b/l abd - soft, NT, BS+ ext - no edema He will complete a course of prednisone & omnicef after d/c. He was also started on cymbalta 30mg once a day for recalcitrant peripheral neuropathy despite use of gabapentin. Quinn Rooney MD Total Time Spent: Greater than 30 minutes This includes examination of the patient, discharge planning, medication reconciliation, and communication with other providers. Discharge Instructions Please refer to the electronic Patient Visit Report (Discharge Instructions) for additional information. Follow-Up Follow up with your Primary Care Provider within 1-2 weeks. Additional Copies To Arnulfo Cleary M.D.
== END 2017-10-26 14:15 | disposition home or self-care (01) | DRG 871 ==
LOC: C.EDB 00:55 → C.MED 04:23 → ENRESERV 05:12
PROVIDERS: ADMIT Hospitalist; ATTEND Internal Medicine
DX: A41.9 Sepsis, unspecified organism (principal); J18.9 Pneumonia, unspecified organism; J96.21 Acute and chronic respiratory failure with hypoxia; J44.1 Chronic obstructive pulmonary disease with (acute) exacerbation; N39.0 Urinary tract infection, site not specified; E78.5 Hyperlipidemia, unspecified; K21.9 Gastro-esophageal reflux disease without esophagitis; N40.1 Benign prostatic hyperplasia with lower urinary tract symptoms; G62.9 Polyneuropathy, unspecified; Z87.440 Personal history of urinary (tract) infections; Z87.891 Personal history of nicotine dependence; Z99.81 Dependence on supplemental oxygen; Z79.82 Long term (current) use of aspirin; Z88.0 Allergy status to penicillin; Z88.1 Allergy status to other antibiotic agents; Z88.8 Allergy status to other drugs, medicaments and biological substances; Z80.9 Family history of malignant neoplasm, unspecified; Z83.3 Family history of diabetes mellitus; Z82.49 Family history of ischemic heart disease and other diseases of the circulatory system

== ENCOUNTER → 2017-12-05 | Outpatient (CLI) | payer OTHER ==
[~2017-12-05] MED LIST changes: -ACET-749 PO; +ASPCH81X PO; +CHOL1000 PO; -CYCL0.052 OPB; +CYM/30 PO; -FLM4 PO; +GABA-112 PO; +GABA-1220 PO; -MAGN400T6 PO; +OMEG10007 PO; +PRD20 PO; -SACC250C PO; +TAMS0.4C38 PO
--- NOTE | 2017-12-05 10:24 | DIAGNOSTIC IMAGING REPORT ---
TWO VIEW CHEST CLINICAL HISTORY: Left lower lobe pneumonia. FINDINGS: PA and lateral chest radiographs are compared to study dated 10/24/2017 and correlated with chest CT dated 07/10/2015. The PA view is degraded by patient rotation. The heart is enlarged and there is atherosclerotic calcification of the thoracic aorta. The pulmonary vasculature is noncongested. Emphysema and chronic interstitial thickening are similar to previous. No airspace consolidation or pleural effusion is identified. Left basilar consolidation seen on 10/24/2017 has resolved. A large calcified granulomas again seen in the left lower lobe. There is no pneumothorax. The skeletal structures are osteopenic. Degenerative changes noted throughout the thoracic spine. IMPRESSION: 1. Cardiomegaly and emphysema with no acute cardiopulmonary abnormality. 2. Airspace consolidation at the left lung base has resolved from 10/24/2017. Electronically signed by: Andrea Deluna M.D. 12/05/2017 10:23 AM Dictated Date/Time: 12/05/2017 10:21 AM
== END | disposition home or self-care (01) ==
LOC: C.RAD1850 10:05
PROVIDERS: ATTEND Internal Medicine
DX: I51.7 Cardiomegaly (principal); J43.9 Emphysema, unspecified; J18.1 Lobar pneumonia, unspecified organism

== ENCOUNTER 2020-03-06 15:53 | Inpatient (IN) ==
[2020-03-06] MEDS ORDERED: OPTIRAY 320 125ml IV ONE (17:48)
[2020-03-06 18:16] LABS: Basophils # (auto) 0.05 K/uL (0-0.2); Basophils % (auto) 0.6 %; Eosinophils % (auto) 4.7 %; Hematocrit (blood only) 41.3 % (42-52); Hemoglobin 13.3 g/dL (14.0-18.0); Immature Granulocytes # (auto) 0.01 K/uL (0.00-0.02); Immature Granulocytes % (auto) 0.1 %; Lymphocytes # (auto) 2.11 K/uL (1.2-3.4); Lymphocytes % (auto) 24.8 %; Mean Corpuscular Hemoglobin 30.6 pg (25-34); Mean Corpuscular Hgb Conc 32.2 g/dL (32-36); Mean Corpuscular Volume 95.2 fL (80-100); Mean Platelet Volume 9.7 fL (7.4-10.4); Monocytes % (auto) 9.4 %; Neutrophils # (auto) 5.13 K/uL (1.4-6.5); Neutrophils % (auto) 60.4 %; Platelet Count 174 K/uL (130-400); RDW Coefficient of Variation 13.9 % (11.5-14.5); RDW Standard Deviation 48.6 fL (36.4-46.3); Red Blood Count 4.34 M/uL (4.7-6.1)
[2020-03-06 18:26] LABS: Partial Thromboplastin Ratio 0.9; Partial Thromboplastin Time 26.2 Seconds (21.0-31.0); Prothrombin Time 10.7 Seconds (9.0-12.0)
[2020-03-06 18:32] LABS: Alanine Aminotransferase 43 U/L (12-78); Albumin Level 3.8 gm/dl (3.4-5.0); Aspartate Aminotransferase 29 U/L (15-37); BUN Creatinine Ratio 12.8 (10-20); Blood Urea Nitrogen 14 mg/dl (7-18); Calcium 8.8 mg/dl (8.5-10.1); Carbon Dioxide 28 mmol/L (21-32); Chloride 108 mmol/L (98-107); Creatinine Clr Calc Pharmacy 52.6 ml/min; Est GFR (African American) 72.7; Est GFR (Non-African American) 62.7; Glucose 87 mg/dl (70-99); Lipase 105 U/L (73-393); Potassium 4.2 mmol/L (3.5-5.1); Sodium 141 mmol/L (136-145)
--- NOTE | 2020-03-06 18:36 | XRay Report ---
XR chest 1V portable HISTORY: 84 years-old Male Chest Pain acute atypical chest pain COMPARISON: Chest radiograph 01/15/2019 TECHNIQUE: Portable AP view of the chest FINDINGS: Cardiac silhouette is upper limits of normal in size. Calcified plaque of the thoracic aortic arch. N o pneumothorax, pleural effusion, airspace consolidation or overt pulmonary edema. Ill-defined 1.5 cm nodular opacity projects over the anterior aspect of the right fifth rib. Degenerative changes of th e shoulders and spine. IMPRESSION: 1. No acute process. 2. 1.5 cm nodular opacity projects over the anterior right fifth rib. This may reflect summation dens ity versus pulmonary nodule. ACT 112: Negative or not required by law. The above report was generated using voice recognition software. It may contain grammatical, syntax o r spelling errors. Electronically signed by: Chris Diaz M.D. 03/06/2020 6:34 PM
[2020-03-06 18:37] LABS: Albumin Globulin Ratio 1.2 (0.9-2); Alkaline Phosphatase 161 U/L (45-117); Bilirubin,Total 0.7 mg/dl (0.2-1); Creatine Kinase 311 U/L (39-308); Creatine Kinase MB 13.5 ng/ml (0.5-3.6); Globulin 3.1 gm/dl (2.5-4.0); Total Protein 6.9 gm/dl (6.4-8.2); Troponin I < 0.015 ng/ml (0-0.045)
--- NOTE | 2020-03-06 19:15 | CT Scan Report ---
CT angio chest dissec wo/w con, CT angio abdomen pelvis w con HISTORY: 84 years-old Male Pt known aneurism, severe chest pain acute severe chest and abdominal dona n with history of known thoracic aortic aneurysm COMPARISON: CTA of the chest 07/10/2015 TECHNIQUE: CTA of the chest, abdomen and pelvis was obtained following the intravenous ministration o f 118 mL Optiray 320. Noncontrast chest CT also obtained. 3-D coronal and sagittal MIPS were obtained from the axial data set and were submitted for review. All measurements were obtained according to N ASCET criteria. A dose lowering technique was used consistent with the principals of MIGUEL. FINDINGS: CTA: Mild cardiomegaly. Extensive coronary artery calcifications. Calcified aortic annular calcifications with moderate calcified plaque of the thoracic aorta. The noncontrast scan demonstrates no intramural or mediastinal hematoma. The opacified pulmonary artery is unremarkable. Note is of thromboembolic d isease. There is fusiform aneurysmal dilation of the ascending thoracic aorta redemonstrated, 4.5 x 4 .5 cm (previously measuring 4.3 x 4.3 cm). There is patency of the imaged great vessels. There is kin mayuri of the bilateral mid subclavian arteries. Calcific plaque at the origin of the left vertebral ar facundo results in at least mild stenosis. There is no thoracic dissection. Mild dilation of the distal descending thoracic aorta, 3.5 x 2.8 cm. Fusiform aneurysm dilation of the distal infrarenal abdominal aorta, 3.9 x 4.5 cm. Extensive mixed pl aque of the abdominal aorta and branch vessels. Patent common external iliac artery. Mild stenosis of the proximal left external iliac artery on image 42. The common femoral and imaged superficial femor al arteries appear patent. The splenic artery has a separate origin from the aorta. The left gastric and common hepatic arteries have a shared origin from the aorta. Mixed plaque at the origin of the carty perior mesenteric artery without high-grade stenosis. Patent renal arteries. Patent inferior mesenter ic artery. CT CHEST: Unremarkable thyroid. No adenopathy, pneumothorax, pleural effusion, overt pulmonary edema or airspac e consolidation typical for pneumonia. Linear, spiculated irregular nodule the super segment left low er lobe measures 11 x 5 mm on image 69 series 8, new from 2014. Moderate emphysema. Bronchial wall th ickening suggestive of chronic bronchitis. Scattered calcified granulomata. There are a few scattered pulmonary nodules measuring up to approximately 3 mm. Confirmation of the right lower lobe pulmonary nodule which measures 1.4 x 1.3 x 1.8 cm. There is an adjacent 8 mm satellite nodule along the anter ior inferior margin on image 172 series 8. 6 cm fissural nodule of the right lung base, image 250 ser ies 8. Mild subsegmental right greater than left bibasilar atelectasis. Central airways are patent wi th mild tracheobronchial secretions. Unremarkable soft tissues. Mild gynecomastia. Bones appear intac t. No acute fracture or suspicious bone lesion. CT ABDOMEN/PELVIS: No pneumatosis or pneumoperitoneum. Spleen is upper limits of normal in size. Mild generalized pancre atic atrophy. Unremarkable adrenal glands, gallbladder and liver. There are a few probable cyst of th e liver measuring up to 10 mm. Mild nonspecific bilateral perinephric stranding. No obstructive uropathy. Mild urinary bladder wall thickening. Prostamegaly. No adenopathy. Mild nonspecific mid and distal esophageal wall thickening. Moderate to large duodenal diverticulum. No bowel obstruction or bowel wall thickening. Colonic diverticulosis without acute diverticulitis. M ild fecal retention. The appendix appears to be noninflamed and contains a possible appendicolith. No ascites or mesenteric inflammation. Degenerative changes of the spine, pelvis and hips. IMPRESSION: 1. Fusiform aneurysmal dilation of the ascending thoracic aorta measuring 4.5 x 4.5 cm has mildly inc reased in size from the 2015 exam. No dissection or aneurysm rupture. 2. Fusiform dilation of the distal infrarenal abdominal aorta, 3.9 x 4.5 cm. 3. Extensive atherosclerotic vascular disease as above. 4. Confirmation of the solid pulmonary nodule of the right lower lobe measuring up to 1.8 cm with an adjacent 8 mm satellite nodule. This finding is suggestive of primary bronchogenic neoplasm. Pulmonar y consultation recommended. 5. Suspicious linear 11 mm solid nodule of the superior segment left lower lobe. 6. Moderate emphysema. 7. No bowel obstruction or bowel wall thickening. 8. Mild nonspecific mid and distal esophageal wall thickening. 9. Additional findings as above. ACT 112: Negative or not required by law. The above report was generated using voice recognition software. It may contain grammatical, syntax o r spelling errors. Electronically signed by: Chris Diaz M.D. 03/06/2020 7:14 PM
--- NOTE | 2020-03-06 19:19 | CT Scan Report ---
CT thoracic spine wo con HISTORY: 84 years-old Male Pt c/o severe chest pain acute severe chest and back pain COMPARISON: CTA chest, abdomen and pelvis of same day TECHNIQUE: Multiple axial CT images of the thoracic spine were obtained without the use of IV contras t. A dose lowering technique was used consistent with the principals of MIGUEL. FINDINGS: Suspicious right lower lobe and left upper lobe pulmonary nodules redemonstrated. Moderate emphysema. Tiny pulmonary nodules measuring up to 4 mm within the lung apices. Mild nonspecific mid and distal esophageal wall thickening. No paravertebral edema. Mild multilevel disc space narrowing with moderate spondylitic spurring and mild to moderate facet ar throsis. No acute fracture, subluxation or high-grade central canal stenosis. The imaged ribs appear intact. IMPRESSION: 1. No acute fracture or subluxation. 2. Suspicious left upper and right lower lobe pulmonary nodules further described on the CTA chest of same day. 3. Moderate emphysema. 4. Mid to distal esophageal wall thickening. Correlate clinically to exclude esophagitis. ACT 112: Negative or not required by law. The above report was generated using voice recognition software. It may contain grammatical, syntax o r spelling errors. Electronically signed by: Chris Diaz M.D. 03/06/2020 7:17 PM
[2020-03-06] MEDS ORDERED: NITROGLYCERIN SL 0.4 MG/TAB TAB SL STA (19:25)
--- NOTE | 2020-03-06 21:44 | History & Physical Report ---
Date of Service March 06, 2020 Assessment & Plan (1) AAA (abdominal aortic aneurysm): Kameron Henning is an 84 year old man with PMH of COPD, Peripheral Arterial disease, AAA, GERD, HLD, and BPH who presents with atypical chest pain shoulder pain and neck pain. Chest pain Patient certainly with multiple risk factors (Age, peripheral arterial disease, hyperlipidemia, smoking history, calcified arteries on imaging) But pain appears to be somewhat positional (Though non reproducible) has been happening every day multiple times over last week without elevation of troponin (CK-MB elevated), but may be exertional and ECG with possible lateral ST depressions Also possible this is simplay a muscle spasm from catching himself falling before symptoms started or GERD Most conerning cause of his symptoms would be a disseection of his ascending aortic aneurysm, though CTA suggests against active dissection Will admit patient to telemetry, start on heparin drip, trend troponins, and repeat ECG with any repeat symptoms Echo in AM cardiology consulted If patient having symptoms suggestive of dissection (Pain that moves to back and is consistent, worsening vital signs, ECG changes etc...) would repeat CT and patient would need to be urgently tranferred AAA and ascending aortic aneurysm Will need follow up with vascular surgery for discussion on stenting once stable CTA does not show evidence of active dissection. CTA nodule finding Suspicious for bronchogenic carcinoma, patient with long smoking history Pulmonology consulted will likely need outpatient workup as this is unliikely causing his symptoms Thickened esophagus finding on cta May need scope at some point to evaluate esophageal thickening COPD Stable O2 as needed for O2 >90 Continuing home inhalers DVT PPx: On heparin Drip F/E?N: REgular diet NPO at midnight Dispo: Admit to Telemetry for chest pain rule out and close monitoring DNR/DNI (2) Peripheral arterial disease: (3) Oxygen desaturation during sleep: (4) Hypertension: (5) Chronic rhinitis: (6) BPH (benign prostatic hyperplasia): (7) GERD (gastroesophageal reflux disease): (8) HLD (hyperlipidemia): (9) Peripheral neuropathy: (10) COPD (chronic obstructive pulmonary disease): (11) Chest pain, atypical: History of Present Illness Chief Complaint: Chest/Shoulder/neck pain Primary Care Provider: Arnulfo Cleary MD Mr. Kameron Henning is an 84 year old man with a past medical history of COPD, AAA, peripheral neuropathy, GERD, HLD and BPH who presents with a one week stretch of intermittent severe neck chest and shoulder pains mostly focused on the right side. He is a difficult historian but tell me that he has been having quite severe pain in his chest shoulder and neck that last for seconds to a few minutes maximum at a time that have been occurring for past week, no history of any similar issues. He tells me they are associated with shortness of breath but then in the next second tells me he is short of breath at all times with his COPD and that is actually stable. He had his worst episode with exertion today while out shopping with and when he stopped and sat down it improved. He has cardiac risk factors, hyperlipidemia, former pipe smoker for many years, age, though he has never had any personal history of heart attack or stroke. Most recent echo from 2013 showing grade I diastolic dysfunction with preserved ejection fraction. On presentation to the emergency department, patient's vitals were WNL labwork significant for an elevated D dimer, An elevated CK and an elevated CK-MB, and a normal troponin. Imaging obtained CTA chest showing 4.5 by 4.5 cm aneurysm without evidence for active dissection as well as two suspicious lesions including one nodule of the right lower lobe measuring up to 1.8 cm with an adjacent 8 mm satellite nodule. Radiology was concerned that this finding is suggestive of primary bronchogenic neoplasm CTA abdomen showing infrarenal A bdominal aortic aneurysm of 3.9 cm by 4.5 cm without evidence of active dissection. Patient tells me he was not aware of his thoracic aneurysm though it was described previously on imaging with some progression. He had two subsequent chest pain episodes while lying in bed in emergency department and was given nitro however patient's pain improved before he ever received his pill. He is currently resting comfortably. was present at bedside for first part of interview but headed home to she could make it before dark. Patient seems to under report his symptoms and is not totally clear on how long they last or what brings them about. he does tell me he had a fall about a week ago right before symptoms started and that he caught himself before falling all the way to the ground no other falls or lifting of any heavy objects. Lives with his and two cats, full code. Allergies Allergy/AdvReac Type Severity Reaction Status Date / Time erythromycin base Allergy Intermediate HIVES Verified 08/14/20 20:28 pramipexole Allergy Intermediate RASH Verified 03/06/20 20:28 ropinirole Allergy Intermediate RASH Verified 03/06/20 20:28 Cipro Allergy Unknown SWELLING Verified 10/24/17 02:25 ciprofloxacin Allergy Unknown SWELLING Verified 03/06/20 20:28 pantoprazole AdvReac Intermediate GI SYMPTOMS Verified 03/06/20 20:29 lisinopril AdvReac Mild COUGH Verified 03/06/20 20:29 Home Medications Home Medications Medication Instructions Recorded Confirmed Type PreserVision AREDS-2 1 tab PO BID 04/12/18 03/06/20 History Restasis 1 drp OPHTHALMIC (EYE) Q12H 04/12/18 03/06/20 History Restore Tears 1 drp OPHTHALMIC (EYE) Q6H PRN 04/12/18 03/06/20 History multivitamin 1 tab PO QPM 04/12/18 03/06/20 History omega 7-jhm-tvo-fish oil [Fish Oil] 1 cap PO QPM 04/12/18 03/06/20 History aspirin 81 mg tablet,delayed 81 mg PO DAILY tab 01/15/19 03/06/20 History release ipratropium 20 mcg-albuterol 100 1 puffs INHALATION Q4H PRN #1 gm 01/15/19 03/06/20 History mcg/actuation mist for inhalation theophylline 300 mg 300 mg PO DAILY #60 tab 04/22/19 03/06/20 Rx tablet,extended release,12 hr omeprazole 20 mg capsule,delayed 40 mg PO DAILY #180 cap 07/05/19 03/06/20 Rx release duloxetine 60 mg capsule,delayed 60 mg PO HS #90 cap 08/29/19 03/06/20 Rx release ipratropium 0.5 mg-albuterol 3 mg 3 ml INHALATION Q4H PRN #180 ml 08/29/19 03/06/20 Rx (2.5 mg base)/3 mL nebulization soln tamsulosin 0.4 mg capsule 0.4 mg PO DAILY #30 cap 08/29/19 03/06/20 Rx atorvastatin 40 mg tablet 40 mg PO DAILY #90 tab 09/02/19 03/06/20 Rx azelastine 137 mcg (0.1 %) nasal 2 sprays INTNAS BID #3 ea 02/06/20 03/06/20 Rx spray aerosol Advair HFA 2 puff INHALATION BID 03/06/20 03/06/20 History Daliresp 500 mcg PO DAILY 03/06/20 03/06/20 History gabapentin 600 mg PO QPM #90 cap 03/07/20 03/06/20 Rx prednisone 60 mg PO DAILY 3 Days #15 tab 03/07/20 Rx Past Med/Surg History Medical History AAA (abdominal aortic aneurysm) Abnormal liver CT Aneurysm of thoracic aorta BPH (benign prostatic hyperplasia) Cataracts, both eyes Chronic bronchitis with emphysema Chronic obstructive pulmonary disease Diverticulitis of colon GERD (gastroesophageal reflux disease) Hearing deficit History of basal cell carcinoma Hyperlipidemia Hypertension On home oxygen therapy 2 LPM VIA NC AT NIGHT Poor historian Seborrheic keratosis Surgical History H/O transurethral resection of prostate History of colonoscopy History of eye surgery right eye History of hemorrhoidectomy History of hernia repair History of prostate biopsy History of sinus surgery History of surgery on arm RIGHT Hx of cataract surgery RIGHT Family History Brother Prostate cancer Other Colorectal cancer Social History Smoking Status: Former smoker Tobacco Type: Cigarettes Age Started Using Tobacco: 16; Age Quit Using Tobacco: 78; packs per day: 1; Cigarettes Per Day: 20; Second Hand Exposure: No; Hx Alcohol Use: No Hx Substance Use: No Preferred Language: Peruvian Communication Ability: Effective Hearing Ability: Hard of Hearing Director Of Hotel Required: No Beliefs That Will Affect Care: None marital status: Current Living Situation: Spouse current occupational status: retired Feels Safe at Home: Yes Childhood Exposure to Second-Hand Smoke: No caffeine: Yes during the past year weight has: remained stable Dental Care, Regularly: Yes Physical Activity Frequency: Does not Exercise Physical Activity Frequency Comment: not physical well to exercise Seatbelt Use: always Sunscreen Use: No Review of Systems Constitutional: no fever and no chills Respiratory: + cough, + chest congestion, + dyspnea, + dyspnea on exertion and + wheezing; no pain on inspiration Cardiovascular: + chest pain, + chest pain at rest, + chest pain with activity, + radiating jaw, neck or arm pain (Not so much radiating as located in neck and shoulder alternatively) and + syncope; no orthopnea, no palpitations and no calf pain Gastrointestinal: no abdominal pain, no heartburn, no nausea, no vomiting, no constipation, no diarrhea/loose stools, no blood in stools and no melena Physical Exam Constitutional: well developed and well nourished; no acute distress and no altered mental status Eyes: PERRL, conjunctivae normal, anicteric sclerae ENMT: external ear and nose normal, oropharynx normal Neck: Unable to reproduce severe neck pain he was experiencing earlier via palpation or range of motion of neck Respiratory: + uses accessory muscles and + cough Auscultation: + diminished lung sounds (globally); no crackles and no wheezes Cardiovascular: Rate/Rhythm: regular rate and regular rhythm Heart Sounds: + murmur (Systolic best heard at left sternal border) Extremities: no calf tenderness and no edema Gastrointestinal (Abdomen): normal bowel sounds, soft, nontender, no hepatosplenomegaly Skin: no rashes, warm and dry Results & Data Results & Data ([facility]) Vital Signs (Past 12 Hours) Vital Signs Temp Pulse Pulse Resp BP BP Pulse Ox 03/06/20 21:20 64 17 96 03/06/20 21:10 111 H 17 97 03/06/20 21:01 63 14 161/86 H 94 03/06/20 21:00 64 18 03/06/20 20:50 61 16 96 03/06/20 20:40 69 19 96 03/06/20 20:31 61 14 96 03/06/20 20:30 60 17 141/81 H 96 03/06/20 20:20 63 20 95 03/06/20 20:10 63 25 H 95 03/06/20 20:01 69 18 93 03/06/20 20:00 65 15 147/79 H 93 03/06/20 19:50 72 21 92 03/06/20 19:45 61 16 164/87 H 95 03/06/20 19:40 61 14 03/06/20 19:30 62 16 03/06/20 19:20 64 14 03/06/20 19:10 65 25 H 03/06/20 19:00 65 15 03/06/20 18:50 67 16 03/06/20 18:30 68 19 145/80 H 03/06/20 17:50 65 18 149/87 H 96 03/06/20 16:12 37.0 C 78 20 115/74 93 Code Status & VTE Plan VTE Prophylaxis Plan VTE Prophylaxis will be ordered: Yes Supervising Physician Co-Signing Physician Notes Attending addendum: I have physically seen this patient, have supervised the medical residents activities, and agree with the H&P unless as otherwise noted. Assessment and Plan: Chest pain of uncertain etiology- The patient will be admitted to telemetry for serial cardiac enzymes, serial EKG's, cardiac rhythm monitoring and a 2-D echocardiogram with Dopplers. Differential includes: Ischemia, reflux, primary pulmonary, ascending aortic aneurysm, others. Consult cardiology Aortic aneurysms- Known infrarenal abdominal aortic aneurysm, 3.9 x 4.5 cm. Previously and reported a sending aortic aneurysm 4.5 x 4.5 cm. Neither appear to be causing patient symptoms at this time, but will need continued follow-up in the outpatient setting. Primary bronchogenic neoplasm/satellite lesion- Right upper lobe pulmonary nodule 1.8 cm with satellite 8 mm lesion. Left lower lobe 11 mm solid nodule. Consult pulmonology. Mid to distal esophageal wall thickening- Placed on pravastatin 40 mg daily. Will need EGD to further characterize. Enlarged prostate/mild bladder wall thickening- Will leave further assessment up to PCP. No overt symptoms at this time. Remaining orders and notations as noted Resident Activity Tracking Resident Involvement: Resident Care Provided Care Provided: Adult [facility]
[2020-03-06] MEDS ORDERED: HEPARIN SODIUM/DEXTROSE 25,000 UNITS/500 ML BAG IV SCH (21:57)
[2020-03-06] MEDS ORDERED: ALUMINUM/MAGNESIUM SUSP 30 ML UDC PO PRN (21:57)
[2020-03-06] MEDS ORDERED: ACETAMINOPHEN 325 MG TAB PO PRN (21:57)
[2020-03-06] MEDS ORDERED: POLYETHYLENE (MIRALAX) 17 GM PACK PO PRN (21:57)
[2020-03-06] MEDS ORDERED: OMEGA-3 (PURIFIED FISH OIL) 1 GM CAP PO SCH (21:57)
[2020-03-06] MEDS ORDERED: NITROGLYCERIN SL 0.4 MG/TAB TAB SL PRN (21:57)
[2020-03-06] MEDS ORDERED: ENOXAPARIN INJ 40 MG/0.4 ML SYR SQ SCH (21:57)
[2020-03-06] MEDS ORDERED: MULTIVITAMIN TAB PO SCH (21:57)
[2020-03-06] MEDS ORDERED: Heparin IV Standard *NO* Bolus IV SCH (21:57)
[2020-03-06] MEDS ORDERED: GABAPENTIN 400 MG CAP PO SCH (21:57)
[2020-03-06] MEDS ORDERED: DULOXETINE HCL 60 MG CAP PO SCH (21:57)
[2020-03-06] MEDS ORDERED: CARBOXYMETHYLCELLULOSE SODIUM 15 ML OP PRN (22:20)
[2020-03-06] MEDS ORDERED: IPRATROPIUM BROMIDE HFA INHALER INH PRN (22:32)
[2020-03-06] MEDS ORDERED: ALBUTEROL HFA INHALER 8.5 GM INH PRN (22:34)
--- NOTE | 2020-03-06 22:56 | Emergency Department Note ---
History of Present Illness General Chief complaint: Back Injury/Pain Stated complaint: R SIDE BACK PAIN Time Seen by Provider: 03/06/20 17:29 Source: patient, family (), RN notes reviewed and old records reviewed Mode of arrival: ambulatory Limitations: no limitations History of Present Illness Provider complaint: chest pain Onset (ago): day(s) 3 Location: chest Radiation: back Severity: moderate Pain Consistency: + intermittent and + now resolved Maximum Pain Intensity: 0 Current Pain Intensity: 0 Quality: + aching Relieved By: + immobilization Exacerbated By: + movement Associated symptoms: no nausea/vomiting and no shortness of breath Treatments prior to arrival: none This is an 84-year-old male who presents emergency department complaining of chest and back pain on his right side. The patient reports that the pain is muscle skeletal in nature and radiates into the back. Patient reports that the pain has been coming anytime he moves today. He has been shopping and notes that the pain goes away with rest. He reports he is currently pain-free. He reports movement seems to bring on the pain. The patient does have a history of an aneurysm. Home Medications Home Medications Medication Instructions Recorded Confirmed Type PreserVision AREDS-2 1 tab PO BID 04/12/18 03/06/20 History Restasis 1 drp OPHTHALMIC (EYE) Q12H 04/12/18 03/06/20 History Restore Tears 1 drp OPHTHALMIC (EYE) Q6H PRN 04/12/18 03/06/20 History multivitamin 1 tab PO QPM 04/12/18 03/06/20 History omega 0-aqj-ztd-fish oil [Fish Oil] 1 cap PO QPM 04/12/18 03/06/20 History aspirin 81 mg tablet,delayed 81 mg PO DAILY tab 01/15/19 03/06/20 History release ipratropium 20 mcg-albuterol 100 1 puffs INHALATION Q4H PRN #1 gm 01/15/19 03/06/20 History mcg/actuation mist for inhalation theophylline 300 mg 300 mg PO DAILY #60 tab 04/22/19 03/06/20 Rx tablet,extended release,12 hr gabapentin 400 mg capsule 400 mg PO QPM #90 cap 07/04/19 03/06/20 Rx omeprazole 20 mg capsule,delayed 40 mg PO DAILY #180 cap 07/05/19 03/06/20 Rx release duloxetine 60 mg capsule,delayed 60 mg PO HS #90 cap 08/29/19 03/06/20 Rx release ipratropium 0.5 mg-albuterol 3 mg 3 ml INHALATION Q4H PRN #180 ml 08/29/19 03/06/20 Rx (2.5 mg base)/3 mL nebulization soln tamsulosin 0.4 mg capsule 0.4 mg PO DAILY #30 cap 08/29/19 03/06/20 Rx atorvastatin 40 mg tablet 40 mg PO DAILY #90 tab 09/02/19 03/06/20 Rx azelastine 137 mcg (0.1 %) nasal 2 sprays INTNAS BID #3 ea 02/06/20 03/06/20 Rx spray aerosol fluticasone propion-salmeterol 2 puff INHALATION BID 03/06/20 03/06/20 History [Advair HFA] roflumilast [Daliresp] 500 mcg PO DAILY 03/06/20 03/06/20 History Allergies Allergy/AdvReac Type Severity Reaction Status Date / Time erythromycin base Allergy Intermediate HIVES Verified 03/06/20 20:28 pramipexole Allergy Intermediate RASH Verified 03/06/20 20:28 ropinirole Allergy Intermediate RASH Verified 03/06/20 20:28 Cipro Allergy Unknown SWELLING Verified 10/24/17 02:25 ciprofloxacin Allergy Unknown SWELLING Verified 03/06/20 20:28 pantoprazole AdvReac Intermediate GI SYMPTOMS Verified 03/06/20 20:29 lisinopril AdvReac Mild COUGH Verified 03/06/20 20:29 Past Med/Surg History Medical History Abnormal liver CT BPH (benign prostatic hyperplasia) Cataracts, both eyes Chronic bronchitis with emphysema Chronic obstructive pulmonary disease Diverticulitis of colon GERD (gastroesophageal reflux disease) Hearing deficit History of basal cell carcinoma Hyperlipidemia On home oxygen therapy 2 LPM VIA NC AT NIGHT Poor historian Seborrheic keratosis Surgical History H/O transurethral resection of prostate History of colonoscopy History of eye surgery right eye History of hemorrhoidectomy History of hernia repair History of prostate biopsy History of sinus surgery History of surgery on arm RIGHT Hx of cataract surgery RIGHT Family History Brother Prostate cancer Other Colorectal cancer Social History Smoking Status: Former smoker Tobacco Type: Cigarettes Age Started Using Tobacco: 16; Age Quit Using Tobacco: 78; packs per day: 1; Cigarettes Per Day: 20; Second Hand Exposure: No; Do You Dip or Chew Tobacco: No; Tobacco Cessation Education Requested by Patient: No Hx Alcohol Use: No Hx Substance Use: No Preferred Language: Rwandan Communication Ability: Effective Hearing Ability: Hard of Hearing [employer] Work[employer] Required: No Beliefs That Will Affect Care: None marital status: Current Living Situation: Spouse current occupational status: retired Other Information That Helps Us Care for You: No Feels Safe at Home: Yes Safety Concerns: Feels Safe At This Time Childhood Exposure to Second-Hand Smoke: No caffeine: Yes during the past year weight has: remained stable Dental Care, Regularly: Yes Physical Activity Frequency: Does not Exercise Physical Activity Frequency Comment: not physical well to exercise Seatbelt Use: always Sunscreen Use: No Review of Systems A total of 10 systems reviewed and were otherwise negative Physical Exam Vital Signs Vital Signs - 24 hr 03/06/20 16:12 03/06/20 17:50 03/06/20 18:30 Temperature 37.0 C Temperature Source Oral Pulse Rate 78 68 Pulse Rate [Left Finger] 65 Pulse Rate from SpO2 Sensor Respiratory Rate 20 18 19 Respiratory Effort / Characteristics Non-Labored Spontaneous Respiratory Depth Normal Respiratory Pattern Regular Blood Pressure 115/74 145/80 H Blood Pressure [Left Arm] 149/87 H Blood Pressure Mean 87 94 Blood Pressure Mean [Left Arm] 107 Pulse Oximetry 93 96 Oxygen Delivery Method Room Air Room Air Room Air Sepsis Recent Fever Within 48 Hours No Sepsis New/Unexplained Change in Mental Status N/A Sepsis Action Taken by Nursing No Action Required 03/06/20 18:50 03/06/20 19:00 03/06/20 19:10 Temperature Temperature Source Pulse Rate 67 65 65 Pulse Rate [Left Finger] Pulse Rate from SpO2 Sensor Respiratory Rate 16 15 25 H Respiratory Effort / Characteristics Respiratory Depth Respiratory Pattern Blood Pressure Blood Pressure [Left Arm] Blood Pressure Mean Blood Pressure Mean [Left Arm] Pulse Oximetry Oxygen Delivery Method Room Air Room Air Room Air Sepsis Recent Fever Within 48 Hours Sepsis New/Unexplained Change in Mental Status Sepsis Action Taken by Nursing 03/06/20 19:20 03/06/20 19:30 03/06/20 19:40 Temperature Temperature Source Pulse Rate 64 62 61 Pulse Rate [Left Finger] Pulse Rate from SpO2 Sensor Respiratory Rate 14 16 14 Respiratory Effort / Characteristics Respiratory Depth Respiratory Pattern Blood Pressure Blood Pressure [Left Arm] Blood Pressure Mean Blood Pressure Mean [Left Arm] Pulse Oximetry Oxygen Delivery Method Room Air Room Air Room Air Sepsis Recent Fever Within 48 Hours Sepsis New/Unexplained Change in Mental Status Sepsis Action Taken by Nursing 03/06/20 19:45 03/06/20 19:50 03/06/20 20:00 Temperature Temperature Source Pulse Rate 61 72 65 Pulse Rate [Left Finger] Pulse Rate from SpO2 Sensor 61 72 65 Respiratory Rate 16 21 15 Respiratory Effort / Characteristics Respiratory Depth Respiratory Pattern Blood Pressure 164/87 H 147/79 H Blood Pressure [Left Arm] Blood Pressure Mean 98 94 Blood Pressure Mean [Left Arm] Pulse Oximetry 95 92 93 Oxygen Delivery Method Room Air Room Air Room Air Sepsis Recent Fever Within 48 Hours Sepsis New/Unexplained Change in Mental Status Sepsis Action Taken by Nursing 03/06/20 20:01 03/06/20 20:10 03/06/20 20:20 Temperature Temperature Source Pulse Rate 69 63 63 Pulse Rate [Left Finger] Pulse Rate from SpO2 Sensor 69 63 63 Respiratory Rate 18 25 H 20 Respiratory Effort / Characteristics Respiratory Depth Respiratory Pattern Blood Pressure Blood Pressure [Left Arm] Blood Pressure Mean Blood Pressure Mean [Left Arm] Pulse Oximetry 93 95 95 Oxygen Delivery Method Room Air Room Air Room Air Sepsis Recent Fever Within 48 Hours Sepsis New/Unexplained Change in Mental Status Sepsis Action Taken by Nursing 03/06/20 20:30 03/06/20 20:31 03/06/20 20:40 Temperature Temperature Source Pulse Rate 60 61 69 Pulse Rate [Left Finger] Pulse Rate from SpO2 Sensor 60 61 62 Respiratory Rate 17 14 19 Respiratory Effort / Characteristics Respiratory Depth Respiratory Pattern Blood Pressure 141/81 H Blood Pressure [Left Arm] Blood Pressure Mean 90 Blood Pressure Mean [Left Arm] Pulse Oximetry 96 96 96 Oxygen Delivery Method Room Air Room Air Room Air Sepsis Recent Fever Within 48 Hours Sepsis New/Unexplained Change in Mental Status Sepsis Action Taken by Nursing VITAL SIGNS - Vital signs and nursing notes were reviewed. GENERAL - 84-year-old male appearing stated age who is in no acute distress. Communicates well with provider and answers questions appropriately. SKIN - Without rashes. HEAD - NC/AT. EYES - PERRL with EOMI bilaterally. Sclera anicteric. Palpebral conjunctiva pink and moist with no injection noted. EARS - No deformities of external structures noted on gross examination bilaterally. No pain elicited with palpation of the tragus bilaterally. External auditory canals without discharge or otorrhea. Tympanic membranes pearly yun without retraction or bulging. No fluid or purulent material visualized behind the TM. Handle of malleus, umbo, cone of light, pars tensa/flaccid all easily visualized. NOSE - Midline and without cyanosis. No epistaxis or purulent drainage noted. Septum midline without deviation or septal hematoma noted. MOUTH/OROPHARYNX - Without perioral cyanosis. Buccal mucosa pink and moist and without leukoplakia. Tongue midline with equal elevation of palate bilaterally. No tonsillar hypertrophy, erythema, or exudates noted. dentition noted. NECK - Neck with FROM. Supple to palpation. lymphadenopathy noted. No nuchal rigidity. LUNGS - Chest wall symmetric without accessory muscle use, intercostals retractions, or central cyanosis. Normal vesicular breath sounds CTA B/L. No wheezes, rales, or rhonchi appreciated. CARDIAC - RRR with S1/S2. No murmur, rubs, or gallops appreciated. ABDOMEN - Abdominal contour without pulsations or visible masses. BS normoac tive all four quadrants. No tenderness, palpable masses, hepatosplenomegaly, or ascites noted. EXTREMITIES - No clubbing or peripheral cyanosis. No pretibial edema present. +3/5 radial, posterior tibial, and dorsalis pedis pulses palpated throughout. +5/5 strength noted in UE/LE bilaterally. NEUROLOGIC - Cranial nerves II through XII grossly intact. Sensory intact to light touch throughout. Patellar reflexes +2/4. PSYCH - A&Ox3 and cooperates fully with examiner. Pt is very pleasant and inter acts well with examiner. Course Administered Medications Duloxetine HCl (Duloxetine Hcl 60 Mg Cap) 60 mg PO HS JULIETH Stop: 04/05/20 21:56 Last Admin: 03/06/20 22:41 Dose: 60 mg Documented by: [id number] Fish Oil ([place]-3 (Purified Fish Oil) 1 Gm Cap) 1 gm PO QPM JULIETH Stop: 04/05/20 21:56 Last Admin: 03/06/20 22:41 Dose: 1 gm Documented by: [id number] Gabapentin (Gabapentin 400 Mg Cap) 400 mg PO QPM JULIETH Stop: 04/05/20 21:56 Last Admin: 03/06/20 23:30 Dose: 400 mg Documented by: [id number] Heparin Sodium/Dextrose (Heparin Sodium/Dextrose) 25,000 units in 500 mls @ 28 mls/hr IV .[id number] [facility]; Protocol Stop: 04/05/20 21:56 Last Admin: 03/06/20 23:30 Dose: 1,400 units/hr, 28 mls/hr Documented by: [id number] Cosigned by: [id number] Miscellaneous (Azelastine: Order Awaiting Action) 1 ea N/A QS [facility] Stop: 04/06/20 00:00 Last Admin: 03/06/20 23:34 Dose: Not Given Documented by: [id number] Miscellaneous (Restasis: Order Awaiting Action) 1 ea N/A QS [facility] Stop: 04/06/20 00:00 Last Admin: 03/06/20 23:35 Dose: Not Given Documented by: [id number] Multivitamins (Multivitamin Tab) 1 tab PO QPM [facility] Stop: 04/05/20 21:56 Last Admin: 03/06/20 22:41 Dose: 1 tab Documented by: [id number] Multivitamins/Minerals (Cerovite Adv Formula Tab) 1 tab PO BID [facility] Stop: 04/05/20 21:56 Last Admin: 03/06/20 23:30 Dose: 1 tab Documented by: [id number] Discontinued Medications Enoxaparin Sodium (Enoxaparin Inj 40 Mg/0.4 Ml Syr) 40 mg SQ Q24H JULIETH Stop: 04/05/20 21:56 Last Admin: 03/06/20 23:21 Dose: Not Given Documented by: [id number] Heparin Sodium/Dextrose (Heparin Iv Standard *No* Bolus) 1 ea IV Q15M [facility]; Protocol Stop: 03/06/20 23:59 Last Admin: 03/06/20 23:21 Dose: Not Given Documented by: [id number] Ioversol (Optiray 320 125ml) 118 ml IV ONCE ONE Stop: 03/06/20 17:49 Last Admin: 03/06/20 17:48 Dose: 118 ml Documented by: [id number] Nitroglycerin (Nitroglycerin Sl 0.4 Mg/Tab Tab) 0.4 mg SL NOW STA Stop: 03/06/20 19:26 Last Admin: 03/06/20 19:45 Dose: 0.4 mg Documented by: [id number] Medical Decision Making Differential Diagnosis Cardiac ischemia, aortic dissection, pulmonary embolism, pneumothorax, pneumonia, pericarditis, myocarditis, esophageal rupture, GERD, cholecystitis, pancreatitis, musculoskeletal, as well as other pathologies. Medical Records Attestation: I reviewed the patient's medical records. Home Medications Current Medication List: was personally reviewed by me Laboratory Data Attestation: I reviewed the patient's lab results. Result diagrams: 03/06/20 18:00 03/06/20 18:00 Lab Results 03/06/20 03/06/20 03/06/20 Range/Units 18:00 18:00 18:00 WBC 8.50 (4.8-10.8) K/uL RBC 4.34 L (4.7-6.1) M/uL Hgb 13.3 L (14.0-18.0) g/dL Hct 41.3 L (42-52) % MCV 95.2 (80-100) fL MCH 30.6 (25-34) pg MCHC 32.2 (32-36) g/dL RDW Std Deviation 48.6 H (36.4-46.3) fL RDW Coeff of Aravind 13.9 (11.5-14.5) % Plt Count 174 (130-400) K/uL MPV 9.7 (7.4-10.4) fL Immature Gran % (Auto) 0.1 % Neut % (Auto) 60.4 % Lymph % (Auto) 24.8 % [place] % (Auto) 9.4 % Eos % (Auto) 4.7 % Baso % (Auto) 0.6 % Neut # (Auto) 5.13 (1.4-6.5) K/uL Lymph # (Auto) 2.11 (1.2-3.4) K/uL [place] # (Auto) 0.80 H (0.11-0.59) K/uL Eos # (Auto) 0.40 (0-0.5) K/uL Baso # (Auto) 0.05 (0-0.2) K/uL Immature Gran # (Auto) 0.01 (0.00-0.02) K/uL PT 10.7 (9.0-12.0) Seconds INR 1.0 (0.9-1.1) APTT 26.2 (21.0-31.0) Seconds PTT Ratio 0.9 POC D-Dimer (0-450) ng/mlFEU Sodium 141 (136-145) mmol/L Potassium 4.2 (3.5-5.1) mmol/L Chloride 108 H (98-107) mmol/L Carbon Dioxide 28 (21-32) mmol/L Anion Gap 5.0 (3-11) BUN 14 (7-18) mg/dl Creatinine 1.08 (0.6-1.4) mg/dl Est Cr Clr Drug Dosing 52.6 ml/min Est GFR ( Amer) 72.7 Est GFR (Non-Af Amer) 62.7 BUN/Creatinine Ratio 12.8 (10-20) Glucose 87 (70-99) mg/dl Calcium 8.8 (8.5-10.1) mg/dl Total Bilirubin 0.7 (0.2-1) mg/dl AST 29 (15-37) U/L ALT 43 (12-78) U/L Alkaline Phosphatase 161 H (45-117) U/L Total Creatine Kinase 311 H (39-308) U/L CK-MB (CK-2) 13.5 H (0.5-3.6) ng/ml CK/CKMB % Calc 4.3 H (0-3.0) Troponin I < 0.015 (0-0.045) ng/ml Total Protein 6.9 (6.4-8.2) gm/dl Albumin 3.8 (3.4-5.0) gm/dl Globulin 3.1 (2.5-4.0) gm/dl Albumin/Globulin Ratio 1.2 (0.9-2) Lipase 105 (73-393) U/L 03/06/20 03/06/20 Range/Units 18:04 20:48 WBC (4.8-10.8) K/uL RBC (4.7-6.1) M/uL Hgb (14.0-18.0) g/dL Hct (42-52) % MCV (80-100) fL MCH (25-34) pg MCHC (32-36) g/dL RDW Std Deviation (36.4-46.3) fL RDW Coeff of Aravind (11.5-14.5) % Plt Count (130-400) K/uL MPV (7.4-10.4) fL Immature Gran % (Auto) % Neut % (Auto) % Lymph % (Auto) % [place] % (Auto) % Eos % (Auto) % Baso % (Auto) % Neut # (Auto) (1.4-6.5) K/uL Lymph # (Auto) (1.2-3.4) K/uL [place] # (Auto) (0.11-0.59) K/uL Eos # (Auto) (0-0.5) K/uL Baso # (Auto) (0-0.2) K/uL Immature Gran # (Auto) (0.00-0.02) K/uL PT (9.0-12.0) Seconds INR (0.9-1.1) APTT (21.0-31.0) Seconds PTT Ratio POC D-Dimer > 450 H* (0-450) ng/mlFEU Sodium (136-145) mmol/L Potassium (3.5-5.1) mmol/L Chloride (98-107) mmol/L Carbon Dioxide (21-32) mmol/L Anion Gap (3-11) BUN (7-18) mg/dl Creatinine (0.6-1.4) mg/dl Est Cr Clr Drug Dosing ml/min Est GFR ( Amer) Est GFR (Non-Af Amer) BUN/Creatinine Ratio (10-20) Glucose (70-99) mg/dl Calcium (8.5-10.1) mg/dl Total Bilirubin (0.2-1) mg/dl AST (15-37) U/L ALT (12-78) U/L Alkaline Phosphatase (45-117) U/L Total Creatine Kinase (39-308) U/L CK-MB (CK-2) (0.5-3.6) ng/ml CK/CKMB % Calc (0-3.0) Troponin I < 0.015 (0-0.045) ng/ml Total Protein (6.4-8.2) gm/dl Albumin (3.4-5.0) gm/dl Globulin (2.5-4.0) gm/dl Albumin/Globulin Ratio (0.9-2) Lipase (73-393) U/L Imaging Data Radiologist's Impression: [place], [place] [phone] CT Scan Report Patient: HARVINDER HUSAIN Date: 03/06/20 MR#: [id number]: [address] Acct ID:[id number]: [address] Date: 6City Zip: [place] [address] Age: 84Location: ED Sex: M Room/Bed: Att Phy:Diagnosis: R SIDE BACK PAIN Charity Phy: Arnulfo Cleary MDService Date: 03/06/20 Fam Phy: Arnulfo Cleary MDInterpreting Phy: Barber Diaz Admit Phy: Ordering Phy: Willie Beth MD cc: ~ CT thoracic spine wo con HISTORY: 84 years-old Male Pt c/o severe chest pain acute severe chest and back pain COMPARISON: CTA chest, abdomen and pelvis of same day TECHNIQUE: Multiple axial CT images of the thoracic spine were obtained without the use of IV contrast. A dose lowering technique was used consistent with the principals of YAARA. FINDINGS: Suspicious right lower lobe and left upper lobe pulmonary nodules redemonstrated. Moderate emphysema. Tiny pulmonary nodules measuring up to 4 mm within the lung apices. Mild nonspecific mid and distal esophageal wall thickening. No paravertebral edema. Mild multilevel disc space narrowing with moderate spondylitic spurring and mild to moderate facet arthrosis. No acute fracture, subluxation or high-grade central canal stenosis. The imaged ribs appear intact. IMPRESSION: 1. No acute fracture or subluxation. 2. Suspicious left upper and right lower lobe pulmonary nodules further described on the CTA chest of same day. 3. Moderate emphysema. 4. Mid to distal esophageal wall thickening. Correlate clinically to exclude esophagitis. ACT 112: Negative or not required by law. The above report was generated using voice recognition software. It may contain grammatical, syntax or spelling errors. Electronically signed by: Chris Diaz M.D. 03/06/2020 7:17 PM Dictated: 03/06/201913 Transcribed: 03/06/201913 [facility] [place], [place] [phone] XRay Report Patient: HARVINDER HUSAIN Date: 03/06/20 MR#: [id number]: [address] Acct ID:[id number]: [address] Date: [address] Zip: [place] [address] Age: 84Location: ED Sex: M Room/Bed: Att Phy:Diagnosis: R SIDE BACK PAIN Charity Phy: Arnulfo Cleary MDService Date: 03/06/20 Fam Phy: Arnulfo Cleary MDInterpreting Phy: Barber Diaz Admit Phy: Ordering Phy: Willie Beth MD cc: ~ XR chest 1V portable HISTORY: 84 years-old Male Chest Pain acute atypical chest pain COMPARISON: Chest radiograph 01/15/2019 TECHNIQUE: Portable AP view of the chest FINDINGS: Cardiac silhouette is upper limits of normal in size. Calcified plaque of the thoracic aortic arch. No pneumothorax, pleural effusion, airspace consolidation or overt pulmonary edema. Ill-defined 1.5 cm nodular opacity projects over the anterior aspect of the right fifth rib. Degenerative changes of the shoulders and spine. IMPRESSION: 1. No acute process. 2. 1.5 cm nodular opacity projects over the anterior right fifth rib. This may reflect summation density versus pulmonary nodule. ACT 112: Negative or not required by law. The above report was generated using voice recognition software. It may contain grammatical, syntax or spelling errors. Electronically signed by: Chris Diaz M.D. 03/06/2020 6:34 PM Dictated: 03/06/201832 Transcribed: 03/06/20 183 [facility] [place], [place] [phone] CT Scan Report Patient: HARVINDER HUSAIN Date: 03/06/20 MR#: [id number]: [address] Acct ID:[id number]: [address] Date: [address] Zip: [place] [address] Age: 84Location: ED Sex: M Room/Bed: Att Phy:Diagnosis: R SIDE BACK PAIN Charity Phy: Arnulfo Cleary MDService Date: 03/06/20 [facility] Phy: Arnulfo Cleary MDInterpreting Phy: Barber Diaz Admit Phy: Ordering Phy: Willie Beth MD cc: ~ CT angio chest dissec wo/w con, CT angio abdomen pelvis w con HISTORY: 84 years-old Male Pt known aneurism, severe chest pain acute severe chest and abdominal pain with history of known thoracic aortic aneurysm COMPARISON: CTA of the chest 07/10/2015 TECHNIQUE: CTA of the chest, abdomen and pelvis was obtained following the intravenous ministration of 118 mL Optiray 320. Noncontrast chest CT also obtained. 3-D coronal and sagittal MIPS were obtained from the axial data set and were submitted for review. All measurements were obtained according to NASCET criteria. A dose lowering technique was used consistent with the principals of MIGUEL. FINDINGS: CTA: Mild cardiomegaly. Extensive coronary artery calcifications. Calcified aortic annular calcifications with moderate calcified plaque of the thoracic aorta. The noncontrast scan demonstrates no intramural or mediastinal hematoma. The opacified pulmonary artery is unremarkable. Note is of thromboembolic disease. There is fusiform aneurysmal dilation of the ascending thoracic aorta redemonstrated, 4.5 x 4.5 cm (previously measuring 4.3 x 4.3 cm). There is patency of the imaged great vessels. There is kinking of the bilateral mid subclavian arteries. Calcific plaque at the origin of the left vertebral artery results in at least mild stenosis. There is no thoracic dissection. Mild dilation of the distal descending thoracic aorta, 3.5 x 2.8 cm. Fusiform aneurysm dilation of the distal infrarenal abdominal aorta, 3.9 x 4.5 cm. Extensive mixed plaque of the abdominal aorta and branch vessels. Patent common external iliac artery. Mild stenosis of the proximal left external iliac artery on image 42. The common femoral and imaged superficial femoral arteries appear patent. The splenic artery has a separate origin from the aorta. The left gastric and common hepatic arteries have a shared origin from the aorta. Mixed plaque at the origin of the superior mesenteric artery without high-grade stenosis. Patent renal arteries. Patent inferior mesenteric artery. CT CHEST: Unremarkable thyroid. No adenopathy, pneumothorax, pleural effusion, overt pulmonary edema or airspace consolidation typical for pneumonia. Linear, spiculated irregular nodule the super segment left lower lobe measures 11 x 5 mm on image 69 series 8, new from 2015. Moderate emphysema. Bronchial wall thickening suggestive of chronic bronchitis. Scattered calcified granulomata. There are a few scattered pulmonary nodules measuring up to approximately 3 mm. Confirmation of the right lower lobe pulmonary nodule which measures 1.4 x 1.3 x 1.8 cm. There is an adjacent 8 mm satellite nodule along the anterior inferior margin on image 172 series 8. 6 cm fissural nodule of the right lung base, image 250 series 8. Mild subsegmental right greater than left bibasilar atelectasis. Central airways are patent with mild tracheobronchial secretions. Unremarkable soft tissues. Mild gynecomastia. Bones appear intact. No acute fracture or suspicious bone lesion. CT ABDOMEN/PELVIS: No pneumatosis or pneumoperitoneum. Spleen is upper limits of normal in size. Mild generalized pancreatic atrophy. Unremarkable adrenal glands, gallbladder and liver. There are a few probable cyst of the liver measuring up to 10 mm. Mild nonspecific bilateral perinephric stranding. No obstructive uropathy. Mild urinary bladder wall thickening. Prostamegaly. No adenopathy. Mild nonspecific mid and distal esophageal wall thickening. Moderate to large duodenal diverticulum. No bowel obstruction or bowel wall thickening. Colonic diverticulosis without acute diverticulitis. Mild fecal retention. The appendix appears to be noninflamed and contains a possible appendicolith. No ascites or mesenteric inflammation. Degenerative changes of the spine, pelvis and hips. IMPRESSION: 1. Fusiform aneurysmal dilation of the ascending thoracic aorta measuring 4.5 x 4.5 cm has mildly increased in size from the 2015 exam. No dissection or aneurysm rupture. 2. Fusiform dilation of the distal infrarenal abdominal aorta, 3.9 x 4.5 cm. 3. Extensive atherosclerotic vascular disease as above. 4. Confirmation of the solid pulmonary nodule of the right lower lobe measuring up to 1.8 cm with an adjacent 8 mm satellite nodule. This finding is suggestive of primary bronchogenic neoplasm. Pulmonary consultation recommended. 5. Suspicious linear 11 mm solid nodule of the superior segment left lower lobe. 6. Moderate emphysema. 7. No bowel obstruction or bowel wall thickening. 8. Mild nonspecific mid and distal esophageal wall thickening. 9. Additional findings as above. ACT 112: Negative or not required by law. The above report was generated using voice recognition software. It may contain grammatical, syntax or spelling errors. Electronically signed by: Chris Diaz M.D. 03/06/2020 7:14 PM Dictated: 03/06/201854 Transcribed: 03/06/201854 [place], [place] [phone] CT Scan Report Patient: HARVINDER HUSAIN Date: 03/06/20 MR#: [id number] [address] Acct ID:[id number]: [address] Date: 6City Zip: [place] [address] Age: 84Location: ED Sex: M Room/Bed: Att Phy:Diagnosis: R SIDE BACK PAIN Charity Phy: Arnulfo Cleary MDService Date: 03/06/20 Fam Phy: Arnulfo Cleary MDInterpreting Phy: Barber Diaz Admit Phy: Ordering Phy: Willie Beth MD cc: ~ CT angio chest dissec wo/w con, CT angio abdomen pelvis w con HISTORY: 84 years-old Male Pt known aneurism, severe chest pain acute severe chest and abdominal pain with history of known thoracic aortic aneurysm COMPARISON: CTA of the chest 07/10/2015 TECHNIQUE: CTA of the chest, abdomen and pelvis was obtained following the intravenous ministration of 118 mL Optiray 320. Noncontrast chest CT also obtained. 3-D coronal and sagittal MIPS were obtained from the axial data set and were submitted for review. All measurements were obtained according to NASCET criteria. A dose lowering technique was used consistent with the principals of MIGUEL. FINDINGS: CTA: Mild cardiomegaly. Extensive coronary artery calcifications. Calcified aortic annular calcifications with moderate calcified plaque of the thoracic aorta. The noncontrast scan demonstrates no intramural or mediastinal hematoma. The opacified pulmonary artery is unremarkable. Note is of thromboembolic disease. There is fusiform aneurysmal dilation of the ascending thoracic aorta redemonstrated, 4.5 x 4.5 cm (previously measuring 4.3 x 4.3 cm). There is patency of the imaged great vessels. There is kinking of the bilateral mid subclavian arteries. Calcific plaque at the origin of the left vertebral artery results in at least mild stenosis. There is no thoracic dissection. Mild dilation of the distal descending thoracic aorta, 3.5 x 2.8 cm. Fusiform aneurysm dilation of the distal infrarenal abdominal aorta, 3.9 x 4.5 cm. Extensive mixed plaque of the abdominal aorta and branch vessels. Patent common external iliac artery. Mild stenosis of the proximal left external iliac artery on image 42. The common femoral and imaged superficial femoral arteries appear patent. The splenic artery has a separate origin from the aorta. The left gastric and common hepatic arteries have a shared origin from the aorta. Mixed plaque at the origin of the superior mesenteric artery without high-grade stenosis. Patent renal arteries. Patent inferior mesenteric artery. CT CHEST: Unremarkable thyroid. No adenopathy, pneumothorax, pleural effusion, overt pulmonary edema or airspace consolidation typical for pneumonia. Linear, spiculated irregular nodule the super segment left lower lobe measures 11 x 5 mm on image 69 series 8, new from 2015. Moderate emphysema. Bronchial wall thickening suggestive of chronic bronchitis. Scattered calcified granulomata. There are a few scattered pulmonary nodules measuring up to approximately 3 mm. Confirmation of the right lower lobe pulmonary nodule which measures 1.4 x 1.3 x 1.8 cm. There is an adjacent 8 mm satellite nodule along the anterior inferior margin on image 172 series 8. 6 cm fissural nodule of the right lung base, image 250 series 8. Mild subsegmental right greater than left bibasilar atelectasis. Central airways are patent with mild tracheobronchial secretions. Unremarkable soft tissues. Mild gynecomastia. Bones appear intact. No acute fracture or suspicious bone lesion. CT ABDOMEN/PELVIS: No pneumatosis or pneumoperitoneum. Spleen is upper limits of normal in size. Mild generalized pancreatic atrophy. Unremarkable adrenal glands, gallbladder and liver. There are a few probable cyst of the liver measuring up to 10 mm. Mild nonspecific bilateral perinephric stranding. No obstructive uropathy. Mild urinary bladder wall thickening. Prostamegaly. No adenopathy. Mild nonspecific mid and distal esophageal wall thickening. Moderate to large d uodenal diverticulum. No bowel obstruction or bowel wall thickening. Colonic diverticulosis without acute diverticulitis. Mild fecal retention. The appendix appears to be noninflamed and contains a possible appendicolith. No ascites or mesenteric inflammation. Degenerative changes of the spine, pelvis and hips. IMPRESSION: 1. Fusiform aneurysmal dilation of the ascending thoracic aorta measuring 4.5 x 4.5 cm has mildly increased in size from the 2015 exam. No dissection or aneurysm rupture. 2. Fusiform dilation of the distal infrarenal abdominal aorta, 3.9 x 4.5 cm. 3. Extensive atherosclerotic vascular disease as above. 4. Confirmation of the solid pulmonary nodule of the right lower lobe measuring up to 1.8 cm with an adjacent 8 mm satellite nodule. This finding is suggestive of primary bronchogenic neoplasm. Pulmonary consultation recommended. 5. Suspicious linear 11 mm solid nodule of the superior segment left lower lobe. 6. Moderate emphysema. 7. No bowel obstruction or bowel wall thickening. 8. Mild nonspecific mid and distal esophageal wall thickening. 9. Additional findings as above. ACT 112: Negative or not required by law. The above report was generated using voice recognition software. It may contain grammatical, syntax or spelling errors. Electronically signed by: Chris Diaz M.D. 03/06/2020 7:14 PM Dictated: 03/06/201854 Transcribed: 03/06/201854 ECG Data Attestation: I personally reviewed and interpreted this ECG as follows: Indication: + chest pain Rate (beats per minute): 63 Rhythm: + normal sinus ECG Intervals/blocks: + Normal QT-c (433) ECG [place]: + Normal ECG ST segments: no ST depression and no ST elevation Comparison ECG Date: from (10/26/2017) Change: the following changes noted (No pVCs) Additional Comments: Repeat EKG shows a normal sinus rhythm left axis deviation no ST elevation or depression. This is unchanged from the previous EKG. QTC is 448. Ventricular rate is 62. MDM Narrative Patient was seen and evaluated as above in room C11. Review was performed of nursing notes and vital signs. I did review pertinent previous visits and patient history. After obtaining a thorough history and physical examination the above work up was performed. This is an 84-year-old male who presents emergency department complaining of chest pain. Chest pain was relieved by nitro here in the emergency department. Based on the patient's past medical history he was sent for CAT scan of the chest as well as the abdomen pelvis. I did discuss the case with the hospitalist service who did agree to meet the patient. An order was placed for continuous cardiac monitoring. The monitor shows a rate of 60 with Normal SInus rhythm. The patient was evaluated during the global COVID-19 pandemic, and that diagnosis was suspected/considered upon their initial presentation. Their evaluation, treatment and testing was consistent with current guidelines for patients who present with complaints or symptoms that may be related to COVID- 19. Impression & Plan Chest pain, atypical, AAA (abdominal aortic aneurysm), Solitary pulmonary nodule Discharge Plan Visit Data Chief Complaint: Back Injury/Pain Stated Complaint: R SIDE BACK PAIN ED Provider: Willie Beth Discharge Problem: Chest pain, atypical, AAA (abdominal aortic aneurysm), Solitary pulmonary nodule Patient Disposition: Admitted As Inpatient Discharge Instructions Interventions: ED Discharge Assessment Last Done: 03/06/20 21:34 Discharge Problem: AAA (abdominal aortic aneurysm) Qualifiers: Presence of rupture: without rupture Qualified Code(s): I71.4 - Abdominal aortic aneurysm, without rupture
[2020-03-06] MEDS: CEROVITE ADV FORMULA TAB PO SCH (23:30)
[2020-03-07 05:58] LABS: Partial Thromboplastin Ratio 2.2
[2020-03-07 06:11] LABS: Partial Thromboplastin Time 60.4 Seconds (21.0-31.0)
[2020-03-07] MEDS: CEROVITE ADV FORMULA TAB PO SCH (08:03)
[2020-03-07] MEDS ORDERED: ASPIRIN 81 MG ECTAB PO SCH (09:00)
[2020-03-07] MEDS ORDERED: ATORVASTATIN 40 MG TAB PO SCH (09:00)
[2020-03-07] MEDS ORDERED: THEOPHYLLINE 300MG EXTENDED REL TAB PO SCH (09:00)
[2020-03-07] MEDS ORDERED: FLUTICASONE/VILANTEROL 100/25MCG 14 PUFFS/INHALER INH SCH (09:00)
[2020-03-07] MEDS ORDERED: TAMSULOSIN HCL 0.4 MG CAP PO SCH (09:00)
[2020-03-07] MEDS ORDERED: ROFLUMILAST 500 MCG TAB PO SCH (09:00)
[2020-03-07] MEDS ORDERED: PANTOprazole 40 MG TAB PO SCH (09:00)
--- NOTE | 2020-03-07 14:40 | XCELERA ---
[id number] \\[id number]
--- NOTE | 2020-03-07 16:48 | Discharge Summary ---
Date of Service March 07, 2020 Admission HPI Per Admitting Provider Mr. Kameron Henning is an 84 year old man with a past medical history of COPD, AAA, peripheral neuropathy, GERD, HLD and BPH who presents with a one week stretch of intermittent severe neck chest and shoulder pains mostly focused on the right side. He is a difficult historian but tell me that he has been having quite severe pain in his chest shoulder and neck that last for seconds to a few minutes maximum at a time that have been occurring for past week, no history of any similar issues. He tells me they are associated with shortness of breath but then in the next second tells me he is short of breath at all times with his COPD and that is actually stable. He had his worst episode with exertion today while out shopping with and when he stopped and sat down it improved. He has cardiac risk factors, hyperlipidemia, former pipe smoker for many years, age, though he has never had any personal history of heart attack or stroke. Most recent echo from 2013 showing grade I diastolic dysfunction with preserved ejection fraction. On presentation to the emergency department, patient's vitals were WNL labwork significant for an elevated D dimer, An elevated CK and an elevated CK-MB, and a normal troponin. Imaging obtained CTA chest showing 4.5 by 4.5 cm aneurysm without evidence for active dissection as well as two suspicious lesions including one nodule of the right lower lobe measuring up to 1.8 cm with an adjacent 8 mm satellite nodule. Radiology was concerned that this finding is suggestive of primary bronchogenic neoplasm CTA abdomen showing infrarenal Abdominal aortic aneurysm of 3.9 cm by 4.5 cm without evidence of active dissection. Patient tells me he was not aware of his thoracic aneurysm though it was described previously on imaging with some progression. He had two subsequent chest pain episodes while lying in bed in emergency department and was given nitro however patient's pain improved before he ever received his pill. He is currently resting comfortably. was present at bedside for first part of interview but headed home to she could make it before dark. Patient seems to under report his symptoms and is not totally clear on how long they last or what brings them about. he does tell me he had a fall about a week ago right before symptoms started and that he caught himself before falling all the way to the ground no other falls or lifting of any heavy objects. Lives with his and two cats, full code. Principal Diagnosis Chest pain and right shoulder and neck pain-suspect cervical radiculopathy, cervical myelopathy Discharge Exam Constitutional WD/WN, vitals as above Eyes PERRL, conjunctivae normal, anicteric sclerae ENMT external ear and nose normal, oropharynx normal Neck trachea midline, no thyromegaly Respiratory normal respiratory effort, lungs clear to auscultation Cardiovascular RRR, no murmur, no edema Chest (Breasts) Chest: normal inspection of chest Gastrointestinal (Abdomen) normal bowel sounds, soft, nontender, no hepatosplenomegaly Musculoskeletal Extremities: extremities normal to inspection; no cyanosis and no clubbing Skin no rashes, warm and dry Neurologic moves all extremities, + focal motor deficit (4/5 strength in right upper extremity, otherwise 5/5 throughout) and awake; + abnormal deep tendon reflexes (Hyperreflexic in the lower extremities and left upper extremity, hyporeflexic in the right upper extremity) Motor/Sensory: no sensory deficit Psychiatric A+Ox3, euthymic affect Lymphatic no lymphedema Discharge Data Allergies Allergy/AdvReac Type Severity Reaction Status Date / Time erythromycin base Allergy Intermediate HIVES Verified 03/12/20 14:22 pramipexole Allergy Intermediate RASH Verified 03/12/20 14:22 ropinirole Allergy Intermediate RASH Verified 03/12/20 14:22 Cipro Allergy Unknown SWELLING Verified 10/24/17 02:25 ciprofloxacin Allergy Unknown SWELLING Verified 03/12/20 14:22 pantoprazole AdvReac Intermediate GI SYMPTOMS Verified 03/12/20 14:22 lisinopril AdvReac Mild COUGH Verified 03/12/20 14:22 Consultations 03/06/20 19:29 ED Decision to Admit Stat 03/06/20 21:57 Consult Cardiology Routine 03/06/20 22:11 Consult Pulmonology Routine Ordered Studies 03/06/20 17:39 CT angio abdomen pelvis w con Stat CT angio chest dissec wo/w con Stat CT thoracic spine wo con Stat Echocardiogram Hospital Course (1) AAA (abdominal aortic aneurysm): Kameron Henning is an 84 year old man with PMH of COPD, Peripheral Arterial disease, AAA, GERD, HLD, and BPH who presents with atypical chest pain shoulder pain and neck pain. Chest pain Patient certainly with multiple risk factors (Age, peripheral arterial disease, hyperlipidemia, smoking history, calcified arteries on imaging) But pain appears to be somewhat positional (Though non reproducible) has been happening every day multiple times over last week without elevation of troponin (CK-MB elevated), but may be exertional and ECG with possible lateral ST depressions Also possible this is simply a muscle spasm from catching himself falling before symptoms started or GERD Most concerning cause of his symptoms would be a dissection of his ascending aortic aneurysm, though CTA suggests against active dissection No events on telemetry, he was started on heparin drip which was then discontinued, troponins were negative x4 Echocardiogram was normal Suspect cervical radiculopathy as the cause given his focal neurological symptoms -Recommend cervical spine MRI as an outpatient Seen by cardiology-no further cardiac work-up needed AAA and ascending aortic aneurysm Will need follow up with vascular surgery for discussion on stenting once stable CTA does not show evidence of active dissection. CTA nodule finding Suspicious for bronchogenic carcinoma, patient with long smoking history Pulmonology consulted will likely need outpatient workup as this is unlikely causing his symptoms Thickened esophagus finding on cta May need scope at some point to evaluate esophageal thickening COPD Stable O2 as needed for O2 >90 Continuing home inhalers Stable for discharge to home DNR/DNI (2) Chest pain, atypical: (3) Peripheral arterial disease: (4) Oxygen desaturation during sleep: (5) Hypertension: (6) Chronic rhinitis: (7) BPH (benign prostatic hyperplasia): (8) GERD (gastroesophageal reflux disease): (9) HLD (hyperlipidemia): (10) Peripheral neuropathy: (11) COPD (chronic obstructive pulmonary disease): Total Time Total Time Spent Total Time Spent (In Minutes): Greater than 30 minutes Total Time Includes: Examination of the Patient, Discharge Planning, Medication Reconciliation and Communication With Other Providers (Cardiology) Discharge Plan Discharge Items Patient Disposition: Home - Self-Care Reason For Visit: CHEST, SHOULDER NECK PAIN Discharge Diagnosis: Chest and shoulder pain-suspected cervical spine issue Condition on Discharge: Fair Activity: As commented below Lifting: No more than 5 pounds Bathing: No limitations Exercise/Sports: As tolerated Non-emergency contact: Primary Care Provider Call non-emergency contact if: you have any medication questions and your symptoms worsen Follow-up/Referrals: Arnulfo Cleary MD [Primary Care Provider] - Diet: Heart Healthy Addtl Attending Provider Instructions: Your right sided chest pain and shoulder/neck pain is likely 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 Please take the prednisone taper and increase your gabapentin to 600mg at bedtime to help with the pain. Your heart checked out normal and your chest pain is NOT from the heart. Follow up with Dr. Cleary and discuss getting an MRI at the open MRI at [address] of your cervical spine. You were also found to have nodules in your lungs that require further workup. Please follow up with the [facility]. Pending Studies at Discharge: No Stand-Alone Forms: My [facility] Medications and DC Order Prescriptions: Continued theophylline 300 mg tablet extended release 12 hr 300 mg PO DAILY Qty: 60 RF: 2 omeprazole 20 mg capsule,delayed release(DR/EC) 40 mg PO DAILY Qty: 180 RF: 3 duloxetine 60 mg capsule,delayed release(DR/EC) 60 mg PO HS Qty: 90 RF: 3 tamsulosin 0.4 mg capsule 0.4 mg PO DAILY Qty: 30 RF: 5 ipratropium-albuterol 0.5 mg-3 mg(2.5 mg base)/3 mL solution for nebulization 3 ml inhalation Q4H PRN (Reason: shortness of breath or wheezing) Qty: 180 RF: 3 atorvastatin 40 mg tablet 40 mg PO DAILY Qty: 90 RF: 3 azelastine 137 mcg (0.1 %) aerosol,spray 2 sprays INTNAS BID Qty: 3 RF: 1 ipratropium-albuterol 20-100 mcg/actuation mist 1 puffs inhalation Q4H PRN (Reason: as directed) Qty: 1 RF: 0 multivitamin Tablet 1 tab PO QPM RF: 0 Restore Tears 0.5 % Drops 1 drp OPHTHALMIC (EYE) Q6H PRN (Reason: DRYNESS) RF: 0 Restasis 0.05 % Dropperette 1 drp OPHTHALMIC (EYE) Q12H RF: 0 omega 7-dbl-jsw-fish oil [Fish Oil] 1,000 mg (120 mg-180 mg) Capsule 1 cap PO QPM RF: 0 PreserVision AREDS-2 [phone] [id number]-npuh-xd-mg Capsule 1 tab PO BID RF: 0 aspirin 81 mg tablet,delayed release (DR/EC) 81 mg PO DAILY RF: 0 Advair HFA 230-21 mcg/actuation HFA aerosol inhaler 2 puff inhalation BID RF: 0 Daliresp 500 mcg tablet 500 mcg PO DAILY RF: 0 Changed gabapentin 400 mg capsule 600 mg PO QPM Qty: 90 RF: 3 No Action gabapentin 600 mg tablet 600 mg PO DAILY Qty: 90 RF: 3 Discharge Orders: Discharge Order (Routine); Ordered 03/07/20 Ordered By: Lilibeth Ramires Admission Data Admit Date/Time: 03/06/20 20:50 Attending Provider: Lilibeth Ramires Admit Provider: Shawn Cho Primary Care Provider: Arnulfo Cleary Other Providers: Dominik Hopson ; Eric Pulido ; Mary Palacios Other Interventions: Discharge Summary Assessment (RN) Last Done: 03/07/20 17:05 Coding Level of Care Code D/C Day Management >30 mins Diagnoses AAA (abdominal aortic aneurysm) I71.4 Presence of rupture: without rupture Chest pain, atypical R07.89 Peripheral arterial disease I73.9 Oxygen desaturation during sleep G47.34 Hypertension I10 Chronic rhinitis J31.0 BPH (benign prostatic hyperplasia) N40.0 GERD (gastroesophageal reflux disease) K21.9 HLD (hyperlipidemia) E78.5 Peripheral neuropathy G62.9 COPD (chronic obstructive pulmonary disease) J44.9
[2020-03-07] MEDS ORDERED: predniSONE 20 MG TAB PO SCH (17:15)
--- NOTE | 2020-03-07 17:26 | Cardiology Consultation ---
Date of Consultation March 07, 2020 Assessment & Plan (1) Chest pain, atypical: (2) Aneurysm of thoracic aorta: (3) Hypertension: ASSESSMENT/PLAN: 1. Atypical chest pain: His discomfort is along the right lateral chest wall and in his right axilla through to his back. Symptoms occur with movement of his right arm, suggesting possible nerve issue or musculoskeletal. Defer further evaluation and treatment as appropriate to the primary service. Symptoms are not consistent with ischemic heart disease. 2. Thoracic aortic aneurysm: We discussed the diagnosis. He is asymptomatic. It has not changed much in size over the past 5 years per Radiology report. Would generally recommend beta-aubrey but he is on the offline and states that he also has asthma. Recommend adequate blood pressure control. Most recent blood pressure is reasonable. Titrate medications as necessary for optimal blood pressure control. Recommend annual surveillance. It is not likely that he will require surgical intervention in his lifetime. 3. Hypertension: Blood pressure currently well controlled but was hypertensive prior. Treat as necessary to optimize blood pressure control. 4. Disposition: Cardiology will sign off at this time. The patient care and recommendations discussed with Dr. Ramires of the primary hospitalist service. Thank you for allowing me to participate in the care of your patient. Please call for any other questions or concerns. Sincerely, Javed Pulido M.D. History of Present Illness Reason for Consultation: Atypical chest pain Requesting Physician: Dr. Cho Attending Physician: Lilibeth Ramires MD History of Present Illness Mr. 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 He uses supplemental oxygen QHS, 2 L via nasal cannula. He was admitted on 03/06/2020 with intermittent right lateral chest, right axillary, and right-sided back pain. He states that these painful episodes feel like a bolt of lightning. They occur with movement of his arm. Symptoms occur even while sitting on his sofa when his arm is on a pillow and he goes to lift his arm. He notices it outside when he has maneuvering the hose with his right arm. It actually occurred just before I entered the room when he moved his right arm. Symptoms typically last for 30 seconds before spontaneously resolving. He has been noticing the symptoms for the past 1 week. He has chronic but stable dyspnea with exertion which has been attributed to his COPD. He denies shortness of breath at rest, orthopnea, syncope, near-syncope, palpitations, or edema. He does have occasional epistaxis after sneezing episodes. He otherwise denies bleeding such as melena, hematochezia, or hematuria. While here, he had CTA of the chest which demonstrated 4.5 x 4.5 thoracic aortic aneurysm as well as 2 suspicious lesions including a nodule measuring up to 1.8 cm with adjacent 8 mm satellite nodule. He did inquire about his aorta in any questions were answered. Review of systems: As above. Review of systems otherwise negative/unremarkable. Family history: No known premature CAD. Father had CABG in his 80s. Social history: He quit smoking pipe in approximately 2003. No alcohol. He lives at home with his . They have a son and a daughter. His was present at the bedside. Allergies Allergy/AdvReac Type Severity Reaction Status Date / Time erythromycin base Allergy Intermediate HIVES Verified 03/06/20 20:28 pramipexole Allergy Intermediate RASH Verified 03/06/20 20:28 ropinirole Allergy Intermediate RASH Verified 03/06/20 20:28 Cipro Allergy Unknown SWELLING Verified 10/24/17 02:25 ciprofloxacin Allergy Unknown SWELLING Verified 03/06/20 20:28 pantoprazole AdvReac Intermediate GI SYMPTOMS Verified 03/06/20 20:29 lisinopril AdvReac Mild COUGH Verified 03/06/20 20:29 Home Medications Home Medications Medication Instructions Recorded Confirmed Type PreserVision AREDS-2 1 tab PO BID 04/12/18 03/06/20 History Restasis 1 drp OPHTHALMIC (EYE) Q12H 04/12/18 03/06/20 History Restore Tears 1 drp OPHTHALMIC (EYE) Q6H PRN 04/12/18 03/06/20 History multivitamin 1 tab PO QPM 04/12/18 03/06/20 History omega 1-fbf-fvl-fish oil [Fish Oil] 1 cap PO QPM 04/12/18 03/06/20 History aspirin 81 mg tablet,delayed 81 mg PO DAILY tab 01/15/19 03/06/20 History release ipratropium 20 mcg-albuterol 100 1 puffs INHALATION Q4H PRN #1 gm 01/15/19 03/06/20 History mcg/actuation mist for inhalation theophylline 300 mg 300 mg PO DAILY #60 tab 04/22/19 03/06/20 Rx tablet,extended release,12 hr omeprazole 20 mg capsule,delayed 40 mg PO DAILY #180 cap 07/05/19 03/06/20 Rx release duloxetine 60 mg capsule,delayed 60 mg PO HS #90 cap 08/29/19 03/06/20 Rx release ipratropium 0.5 mg-albuterol 3 mg 3 ml INHALATION Q4H PRN #180 ml 08/29/19 03/06/20 Rx (2.5 mg base)/3 mL nebulization soln tamsulosin 0.4 mg capsule 0.4 mg PO DAILY #30 cap 08/29/19 03/06/20 Rx atorvastatin 40 mg tablet 40 mg PO DAILY #90 tab 09/02/19 03/06/20 Rx azelastine 137 mcg (0.1 %) nasal 2 sprays INTNAS BID #3 ea 02/06/20 03/06/20 Rx spray aerosol Advair HFA 2 puff INHALATION BID 03/06/20 03/06/20 History Daliresp 500 mcg PO DAILY 03/06/20 03/06/20 History gabapentin 600 mg PO QPM #90 cap 03/07/20 03/06/20 Rx prednisone 60 mg PO DAILY 3 Days #15 tab 03/07/20 Rx Patient History Medical History AAA (abdominal aortic aneurysm) Abnormal liver CT Aneurysm of thoracic aorta BPH (benign prostatic hyperplasia) Cataracts, both eyes Chronic bronchitis with emphysema Chronic obstructive pulmonary disease Diverticulitis of colon GERD (gastroesophageal reflux disease) Hearing deficit History of basal cell carcinoma Hyperlipidemia Hypertension On home oxygen therapy 2 LPM VIA NC AT NIGHT Poor historian Seborrheic keratosis Surgical History H/O transurethral resection of prostate History of colonoscopy History of eye surgery right eye History of hemorrhoidectomy History of hernia repair History of prostate biopsy History of sinus surgery History of surgery on arm RIGHT Hx of cataract surgery RIGHT Family History Brother Prostate cancer Other Colorectal cancer Social History Smoking Status: Former smoker Tobacco Type: Cigarettes Age Started Using Tobacco: 16; Age Quit Using Tobacco: 78; packs per day: 1; Cigarettes Per Day: 20; Second Hand Exposure: No; Do You Dip or Chew Tobacco: No; Tobacco Cessation Education Requested by Patient: No Hx Alcohol Use: No Hx Substance Use: No Preferred Language: Swazi Communication Ability: Effective Hearing Ability: Hard of Hearing Fittings Finisher Required: No Beliefs That Will Affect Care: None marital status: Current Living Situation: Spouse current occupational status: retired Other Information That Helps Us Care for You: No Feels Safe at Home: Yes Safety Concerns: Feels Safe At This Time Childhood Exposure to Second-Hand Smoke: No caffeine: Yes during the past year weight has: remained stable Dental Care, Regularly: Yes Physical Activity Frequency: Does not Exercise Physical Activity Frequency Comment: not physical well to exercise Seatbelt Use: always Sunscreen Use: No Physical Exam Physical Exam: Gen.: No acute distress. Alert. HEENT: Anicteric sclera. Neck: No JVD. No bruits. Normal carotid upstrokes bilaterally. Cardiac: PMI was nondisplaced. No ventricular heave. Regular. Normal S1-S2. No murmurs, rubs, or gallops. Pulmonary: Decreased breath sounds throughout, but otherwise clear to auscultation bilaterally without wheezes, rales, or rhonchi. Abdomen: Soft, nontender, nondistended, with normoactive bowel sounds. No bruits noted. Extremities: 2+ radial pulses bilaterally. 2+ posterior tibialis pulses bilaterally. No edema or cyanosis. Psychiatric: Affect appears appropriate. Results & Data ([facility]) Vital Signs (Past 12 Hours) Vital Signs Temp Pulse Pulse Resp BP Pulse Ox 03/07/20 17:05 36.8 C 68 18 126/65 93 03/07/20 11:44 36.8 C 68 18 126/65 93 03/07/20 08:49 63 03/07/20 08:00 36.7 C 64 16 147/78 H 93 Intake & Output 03/05/20 03/06/20 03/07/20 03/08/20 06:59 06:59 06:59 06:59 Intake Total 209.533 / 209.533 Output Total 225 / 225 Balance 209.533 / 209.533 -225 / -225 Weight 83.2 kg 83.2 kg Laboratory Results Laboratory Results - last 24 hr 03/06/20 03/06/20 03/06/20 18:00 18:00 18:00 WBC 8.50 RBC 4.34 L Hgb 13.3 L Hct 41.3 L MCV 95.2 MCH 30.6 MCHC 32.2 RDW Std Deviation 48.6 H RDW Coeff of Aravind 13.9 Plt Count 174 MPV 9.7 Immature Gran % (Auto) 0.1 Neut % (Auto) 60.4 Lymph % (Auto) 24.8 [place] % (Auto) 9.4 Eos % (Auto) 4.7 Baso % (Auto) 0.6 Neut # (Auto) 5.13 Lymph # (Auto) 2.11 [place] # (Auto) 0.80 H Eos # (Auto) 0.40 Baso # (Auto) 0.05 Immature Gran # (Auto) 0.01 PT 10.7 INR 1.0 APTT 26.2 PTT Ratio 0.9 POC D-Dimer Sodium 141 Potassium 4.2 Chloride 108 H Carbon Dioxide 28 Anion Gap 5.0 BUN 14 Creatinine 1.08 Est Cr Clr Drug Dosing 52.6 Est GFR ( Amer) 72.7 Est GFR (Non-Af Amer) 62.7 BUN/Creatinine Ratio 12.8 Glucose 87 Calcium 8.8 Total Bilirubin 0.7 AST 29 ALT 43 Alkaline Phosphatase 161 H Total Creatine Kinase 311 H CK-MB (CK-2) 13.5 H CK/CKMB % Calc 4.3 H Troponin I < 0.015 Total Protein 6.9 Albumin 3.8 Globulin 3.1 Albumin/Globulin Ratio 1.2 Lipase 105 03/06/20 03/06/20 03/07/20 18:04 20:48 01:20 WBC RBC Hgb Hct MCV MCH MCHC RDW Std Deviation RDW Coeff of Aravind Plt Count MPV Immature Gran % (Auto) Neut % (Auto) Lymph % (Auto) [place] % (Auto) Eos % (Auto) Baso % (Auto) Neut # (Auto) Lymph # (Auto) [place] # (Auto) Eos # (Auto) Baso # (Auto) Immature Gran # (Auto) PT INR APTT PTT Ratio POC D-Dimer > 450 H* Sodium Potassium Chloride Carbon Dioxide Anion Gap BUN Creatinine Est Cr Clr Drug Dosing Est GFR ( Amer) Est GFR (Non-Af Amer) BUN/Creatinine Ratio Glucose Calcium Total Bilirubin AST ALT Alkaline Phosphatase Total Creatine Kinase CK-MB (CK-2) CK/CKMB % Calc Troponin I < 0.015 < 0.015 Total Protein Albumin Globulin Albumin/Globulin Ratio Lipase 03/07/20 03/07/20 03/07/20 05:14 08:31 13:14 WBC RBC Hgb Hct MCV MCH MCHC RDW Std Deviation RDW Coeff of Aravind Plt Count MPV Immature Gran % (Auto) Neut % (Auto) Lymph % (Auto) [place] % (Auto) Eos % (Auto) Baso % (Auto) Neut # (Auto) Lymph # (Auto) [place] # (Auto) Eos # (Auto) Baso # (Auto) Immature Gran # (Auto) PT INR APTT 60.4 H* PTT Ratio 2.2 POC D-Dimer Sodium Potassium Chloride Carbon Dioxide Anion Gap BUN Creatinine Est Cr Clr Drug Dosing Est GFR ( Amer) Est GFR (Non-Af Amer) BUN/Creatinine Ratio Glucose Calcium Total Bilirubin AST ALT Alkaline Phosphatase Total Creatine Kinase CK-MB (CK-2) CK/CKMB % Calc Troponin I < 0.015 < 0.015 Total Protein Albumin Globulin Albumin/Globulin Ratio Lipase Diagnostic Findings Telemetry personally reviewed: Sinus rhythm. A brief episode of nonsustained atrial tachycardia consisting of 8 beats. Echo 03/07/2020: Normal LV size, wall motion, systolic function. EF 60-65%. No significant valvular abnormalities. Aortic root 4.3 cm. ECGs personally reviewed: ECG 03/06/2020: NSR 62 bpm. Nonspecific T-wave abnormality. ECG 03/06/2020 at 5:54 p.m.: NSR [address] abnormality. CTA 03/06/2020: As per Radiology, ascending thoracic aorta 4.5 x 4.5 cm, only mildly increased from 2015 exam. No dissection. Distal infrarenal AAA 3.9 x 4.5 cm. Extensive atherosclerotic vascular disease. Right lower lobe nodule 1.8 cm without adjacent 8 mm satellite nodule, suggestive of primary bronchogenic neoplasm per Radiology. Suspicious 11 mm solid nodule left lower lobe. Moderate emphysema. Mid and distal esophageal wall thickening thought to be mild and nonspecific. Medications Administered Current Inpatient Medications Acetaminophen (Acetaminophen 325 Mg Tab) 650 mg PO Q4H PRN PRN Reason: Pain or Fever Stop: 04/05/20 21:56 Al Hydrox/Mg Hydrox/Simethicone (Aluminum/Magnesium Susp 30 Ml Udc) 15 ml PO Q4H PRN PRN Reason: Dyspepsia Stop: 04/05/20 21:56 Albuterol (Albuterol Hfa Inhaler 8.5 Gm) 1 puffs INH Q4H PRN PRN Reason: Shortness Of Breath Stop: 04/05/20 22:33 Artificial Tears (Carboxymethylcellulose Sodium 15 Ml) 1 ml OP Q6H PRN PRN Reason: DRYNESS Stop: 04/05/20 22:19 Aspirin (Aspirin 81 Mg Ectab) 81 mg PO DAILY [facility] Stop: 04/06/20 08:59 Last Admin: 03/07/20 08:03 Dose: 81 mg Documented by: Atorvastatin Calcium (Atorvastatin 40 Mg Tab) 40 mg PO DAILY JULIETH Stop: 04/06/20 08:59 Last Admin: 03/07/20 08:03 Dose: 40 mg Documented by: Duloxetine HCl (Duloxetine Hcl 60 Mg Cap) 60 mg PO HS JULIETH Stop: 04/05/20 21:56 Last Admin: 03/06/20 22:41 Dose: 60 mg Documented by: Fish Oil ([place]-3 (Purified Fish Oil) 1 Gm Cap) 1 gm PO QPM JULIETH Stop: 04/05/20 21:56 Last Admin: 03/06/20 22:41 Dose: 1 gm Documented by: Fluticasone/Vilanterol (Fluticasone/Vilanterol 100/25mcg 14 Puffs/Inhaler) 1 puffs INH DAILY [facility]; Protocol Stop: 04/06/20 08:59 Last Admin: 03/07/20 08:03 Dose: 1 puffs Documented by: Gabapentin (Gabapentin 400 Mg Cap) 400 mg PO QPM JULIETH Stop: 04/05/20 21:56 Last Admin: 03/06/20 23:30 Dose: 400 mg Documented by: Ipratropium [place] (Ipratropium [place] Hfa Inhaler) 1 puffs INH Q4H PRN PRN Reason: Shortness Of Breath Stop: 04/05/20 22:31 Miscellaneous (Azelastine: Order Awaiting Action) 1 ea N/A QS JULIETH Stop: 04/06/20 00:00 Last Admin: 03/07/20 08:02 Dose: Not Given Documented by: Miscellaneous (Restasis: Order Awaiting Action) 1 ea N/A QS JULIETH Stop: 04/06/20 00:00 Last Admin: 03/07/20 08:02 Dose: Not Given Documented by: Multivitamins (Multivitamin Tab) 1 tab PO QPM JULIETH Stop: 04/05/20 21:56 Last Admin: 03/06/20 22:41 Dose: 1 tab Documented by: Multivitamins/Minerals (Cerovite Adv Formula Tab) 1 tab PO BID JULIETH Stop: 04/05/20 21:56 Last Admin: 03/07/20 08:03 Dose: 1 tab Documented by: Nitroglycerin (Nitroglycerin Sl 0.4 Mg/Tab Tab) 0.4 mg SL UD PRN PRN Reason: Chest Pain Stop: 04/05/20 21:56 Pantoprazole Sodium (Pantoprazole 40 Mg Tab) 40 mg PO DAILY JULIETH Stop: 04/06/20 08:59 Last Admin: 03/07/20 08:03 Dose: 40 mg Documented by: Polyethylene Glycol (Polyethylene (Miralax) 17 Gm Pack) 17 gm PO DAILY PRN PRN Reason: Constipation Stop: 04/05/20 21:56 Prednisone (Prednisone 20 Mg Tab) 60 mg PO DAILY JULIETH Stop: 04/06/20 17:14 Last Admin: 03/07/20 17:20 Dose: 60 mg Documented by: Roflumilast (Roflumilast 500 Mcg Tab) 500 mcg PO DAILY JULIETH Stop: 04/06/20 08:59 Last Admin: 03/07/20 08:03 Dose: 500 mcg Documented by: Tamsulosin HCl (Tamsulosin Hcl 0.4 Mg Cap) 0.4 mg PO DAILY JULIETH Stop: 04/06/20 08:59 Last Admin: 03/07/20 08:03 Dose: 0.4 mg Documented by: Theophylline (Theophylline 300mg Extended Rel Tab) 300 mg PO DAILY JULIETH Stop: 04/06/20 08:59 Last Admin: 03/07/20 08:03 Dose: 300 mg Documented by: PG Care Time/CCT Total # of Minutes Spent Total Time Spent with Patient: Total time spent is greater than 50% in coordination of care (as documented) at patient's floor/unit and/or counseling patient: Coding Level of Care Code 21771 Initial Inpt Care Lvl 3 Diagnoses Chest pain, atypical R07.89 Aneurysm of thoracic aorta I71.2 Hypertension I10
--- NOTE | 2020-03-07 19:16 | Pulmonary Consultation ---
Date of Consultation March 07, 2020 Assessment & Plan (1) Pulmonary nodule: CT chest 03/06/2020 personally reviewed: Centrilobular emphysema, superior segment of the left lower lobe spiculated nodule, right lower lobe 1.4 x 1.3 x 1.8 cm nodule, there is also a calcified nodule appreciated in the left lower lobe. No mediastinal lymphadenopathy This was compared to CT chest which was done in June 2015. The right lower lobe as well as the spiculated nodule in the superior segment of the left upper lobe is new. --Multiple pulmonary nodule Right lower lobe 1.4 x 1.3 x 1.8 cm. As well as spiculated left-sided superior segment of the left lower lobe. In a patient who is a smoker the likelihood of cancer is very high. I think the next best step would be to have biopsy of 1 of the lesions. Having a PET/CT is also another possibility. This does not need to be done on this admission. What ever his acute issues are could be taken care of and he can follow-up as an outpatient as soon as possible so that the biopsy work-up could be done. Patient's was present bedside during the whole conversation. All questions inquiries were answered in depth. --COPD with emphysema Follows up with allergy On Advair as well as Daliresp at home. Would recommend addition of lama inhaler to Advair. Plan: Close follow-up with pulmonary to get pulmonary function test as well as PET/CT. Patient will ultimately need biopsy of the lesion which could be CT-guided versus navigational bronc. Please note the above document was generated using voice recognition software. It may contain grammatical, syntax or spelling errors. (2) COPD with emphysema: History of Present Illness Attending Physician: Lilibeth Ramires MD History of Present Illness 84-year-old male with past medical history of COPD emphysema, dyslipidemia, BPH, abdominal aortic aneurysm presented to the hospital with atypical right flank right-sided chest pain. Patient had a CTA chest abdomen pelvis done to rule out any dissection. He did not show any signs of dissection. But incidentally pulmonary nodules were identified leading to pulmonary consult. At the time of examination patient states that he is usually short of breath on exertion. He uses an inhaler on a daily basis. He was complaining of mild right-sided flank pain which was nonradiating. It is not associated with breathing (nonpleuritic). Patient does complain of chronic cough especially early in the morning with minimal to clear phlegm. As per the patient mostly it is dry cough. Patient denies any nausea or vomiting. No fever or chills. No recent travel history. Social history: Greater than 30-mdbt-eynd smoking history, quit 40 years ago, used to be a heavy drinker quit 4 years ago, denies any illicit drug use. Pets: 2 dogs. No birds or poultry nearby. Family history of lung cancer in the brother who was also a smoker. Allergies Allergy/AdvReac Type Severity Reaction Status Date / Time erythromycin base Allergy Intermediate HIVES Verified 03/06/20 20:28 pramipexole Allergy Intermediate RASH Verified 03/06/20 20:28 ropinirole Allergy Intermediate RASH Verified 03/06/20 20:28 Cipro Allergy Unknown SWELLING Verified 10/24/17 02:25 ciprofloxacin Allergy Unknown SWELLING Verified 03/06/20 20:28 pantoprazole AdvReac Intermediate GI SYMPTOMS Verified 03/06/20 20:29 lisinopril AdvReac Mild COUGH Verified 03/06/20 20:29 Home Medications Home Medications Medication Instructions Recorded Confirmed Type PreserVision AREDS-2 1 tab PO BID 04/12/18 03/06/20 History Restasis 1 drp OPHTHALMIC (EYE) Q12H 04/12/18 03/06/20 History Restore Tears 1 drp OPHTHALMIC (EYE) Q6H PRN 04/12/18 03/06/20 History multivitamin 1 tab PO QPM 04/12/18 03/06/20 History omega 2-sez-alt-fish oil [Fish Oil] 1 cap PO QPM 04/12/18 03/06/20 History aspirin 81 mg tablet,delayed 81 mg PO DAILY tab 01/15/19 03/06/20 History release ipratropium 20 mcg-albuterol 100 1 puffs INHALATION Q4H PRN #1 gm 01/15/19 03/06/20 History mcg/actuation mist for inhalation theophylline 300 mg 300 mg PO DAILY #60 tab 04/22/19 03/06/20 Rx tablet,extended release,12 hr omeprazole 20 mg capsule,delayed 40 mg PO DAILY #180 cap 07/05/19 03/06/20 Rx release duloxetine 60 mg capsule,delayed 60 mg PO HS #90 cap 08/29/19 03/06/20 Rx release ipratropium 0.5 mg-albuterol 3 mg 3 ml INHALATION Q4H PRN #180 ml 08/29/19 03/06/20 Rx (2.5 mg base)/3 mL nebulization soln tamsulosin 0.4 mg capsule 0.4 mg PO DAILY #30 cap 08/29/19 03/06/20 Rx atorvastatin 40 mg tablet 40 mg PO DAILY #90 tab 09/02/19 03/06/20 Rx azelastine 137 mcg (0.1 %) nasal 2 sprays INTNAS BID #3 ea 02/06/20 03/06/20 Rx spray aerosol Advair HFA 2 puff INHALATION BID 03/06/20 03/06/20 History Daliresp 500 mcg PO DAILY 03/06/20 03/06/20 History gabapentin 600 mg PO QPM #90 cap 03/07/20 03/06/20 Rx prednisone 60 mg PO DAILY 3 Days #15 tab 03/07/20 Rx Patient History Medical History AAA (abdominal aortic aneurysm) Abnormal liver CT Aneurysm of thoracic aorta BPH (benign prostatic hyperplasia) Cataracts, both eyes Chronic bronchitis with emphysema Chronic obstructive pulmonary disease Diverticulitis of colon GERD (gastroesophageal reflux disease) Hearing deficit History of basal cell carcinoma Hyperlipidemia Hypertension On home oxygen therapy 2 LPM VIA NC AT NIGHT Poor historian Seborrheic keratosis Surgical History H/O transurethral resection of prostate History of colonoscopy History of eye surgery right eye History of hemorrhoidectomy History of hernia repair History of prostate biopsy History of sinus surgery History of surgery on arm RIGHT Hx of cataract surgery RIGHT Family History Brother Prostate cancer Other Colorectal cancer Social History Smoking Status: Former smoker Tobacco Type: Cigarettes Age Started Using Tobacco: 16; Age Quit Using Tobacco: 78; packs per day: 1; Cigarettes Per Day: 20; Second Hand Exposure: No; Hx Alcohol Use: No Hx Substance Use: No Preferred Language: Kazakh Communication Ability: Effective Hearing Ability: Hard of Hearing Medical Assistant Float Required: No Beliefs That Will Affect Care: None marital status: Current Living Situation: Spouse current occupational status: retired Feels Safe at Home: Yes Childhood Exposure to Second-Hand Smoke: No caffeine: Yes during the past year weight has: remained stable Dental Care, Regularly: Yes Physical Activity Frequency: Does not Exercise Physical Activity Frequency Comment: not physical well to exercise Seatbelt Use: always Sunscreen Use: No Review of Systems Review of Systems: All systems reviewed & are unremarkable except as noted in HPI & below Physical Exam Physical Exam: Constitutional: No acute distress HEENT: EOMI, PERRLA Respiratory system: Decreased air entry bilaterally, no wheeze, no rhonchi, no crackles CVS: S1-S2 positive, no murmurs or gallops Abdomen: Soft, nontender, nondistended, positive bowel sounds x4 Extremities: +2 pulses bilaterally radialis/ dorsalis pedis, no cyanosis, no edema Neuro: Awake alert oriented x3 Psych: Normal mood and affect G/U: No [place] Skin: no rashes, warm and dry Lymphatic: no cervical or axillary lymphadenopathy Results & Data Results & Data ([facility]) Vital Signs (Past 12 Hours) Vital Signs Temp Pulse Pulse Resp BP Pulse Ox 03/07/20 11:44 36.8 C 68 18 126/65 93 03/07/20 08:49 63 03/07/20 08:00 36.7 C 64 16 147/78 H 93 03/07/20 04:11 37.1 C 65 18 124/66 95 03/06/20 18:00 03/06/20 18:00 PG Care Time/CCT Total # of Minutes Spent Total Time Spent with Patient: Total time spent is greater than 50% in coordination of care (as documented) at patient's floor/unit and/or counseling patient: Coding Level of Care Code 76172 Initial Inpt Care Lvl 3 Diagnoses Pulmonary nodule R91.1 COPD with emphysema J43.9
--- NOTE | 2020-03-08 00:20 | Billing Data ---
Date of Service March 08, 2020 Coding Level of Care Code 46389 OBS Care - Level 3
--- NOTE | 2020-03-08 16:18 | Electrocardiogram Report ---
Test Reason : Blood Pressure : / mmHG Vent. Rate : 063 BPM Atrial Rate : 063 BPM P-R Int : 136 ms QRS Dur : 086 ms QT Int : 424 ms P-R-T Axes : 076 -27 -09 degrees QTc Int : 433 ms Normal sinus rhythm Nonspecific ST abnormality Abnormal ECG When compared with ECG of 26-OCT-2017 08:09, Premature ventricular complexes are no longer Present Premature supraventricular complexes are no longer Present QRS axis Shifted left Confirmed by Eric Pulido ([id number]) on 03/08/2020 4:17:51 PM Referred By: Arnulfo Cleary Confirmed By:Eric Pulido
--- NOTE | 2020-03-08 16:20 | Electrocardiogram Report ---
Test Reason : Blood Pressure : / mmHG Vent. Rate : 062 BPM Atrial Rate : 062 BPM P-R Int : 142 ms QRS Dur : 090 ms QT Int : 442 ms P-R-T Axes : 077 -33 060 degrees QTc Int : 448 ms Normal sinus rhythm Left axis deviation Low voltage QRS Nonspecific T wave abnormality Abnormal ECG When compared with ECG of 06-MAR-2020 17:54, No significant change was found Confirmed by Eric Pulido ([id number] on 03/08/2020 4:19:45 PM Referred By: Arnulfo Cleary Confirmed By:Eric Pulido
== END 2020-03-07 17:39 | disposition home or self-care (01) | DRG 74 ==
LOC: ED 15:53 → 2S 20:50 → SUATTDRO 20:50 → 2S 21:34

== ENCOUNTER 2024-11-17 08:10 | Inpatient (IN) ==
--- NOTE | 2024-11-17 08:23 | Emergency Department Note ---
Impression & Plan COPD exacerbation, Shortness of breath ED Provider Note NAME: HARVINDER HUSAIN AGE: 89 SEX: M : 1935 ARRIVES VIA: Walk-In INFORMANT: Patient ED PROVIDER(S): Gerard Pino DO CHIEF COMPLAINT: Shortness of breath HPI: Patient is an 89-year-old male with a past medical history of squamous cell cancer of the lungs, COPD, diabetes who presents to the ER for cough and congestion and shortness of breath that started on Monday. He notes it has significantly worsened today. He has been using his inhalers with no improvement. He feels very winded. Denies any headache or change in vision. No chest pain. No belly pain. No nausea, vomiting, or diarrhea. No dysuria, urgency, or frequency. No other exacerbating or remitting factors. ADDITIONAL HISTORY OBTAINED: Per HPI Chronic Medical/Social Conditions Affecting Care: Per HPI PAST MEDICAL HISTORY:See Below PAST SURGICAL HISTORY:See Below FAMILY HISTORY:See Below SOCIAL HISTORY:See Below HOME MEDICATIONS:See Below ALLERGIES:See Below VITALS:See Below PHYSICAL EXAMINATION: GENERAL: Sitting up in bed, alert, slightly ill-appearing, poor air movement, EYE EXAM: normal conjunctiva. OROPHARYNX: no exudate, no erythema, lips, buccal mucosa, and tongue normal and mucous membranes are moist NECK: supple, no nuchal rigidity, no adenopathy, non-tender LUNGS: Diffuse wheezing bilaterally with minimal air movement. Normal chest wall mechanics HEART: no murmurs, S1 normal and S2 normal ABDOMEN: abdomen soft, non-tender, normo-active bowel sounds, no masses, no rebound or guarding. UPPER EXTREMITIES: upper extremities are grossly normal. LOWER EXTREMITIES: No pitting edema. NEURO EXAM: Normal sensorium, cranial nerves II-XII grossly intact, normal speech, no gross weakness of arms, no gross weakness of legs. MEDICAL DECISION MAKING: Patient is an 89-year-old male who presents ER for above-stated complaint. IV was established and blood work was obtained. Labs show a leukocytosis of 13,000. No significant anemia. BMP with slightly elevated glucose at 142. LFTs and bilirubin were unremarkable. Lipase was normal. Viral panel was negative. Chest x-ray with an abnormality in the right upper lobe. Patient was given initially an hour-long treatment of DuoNeb in combination with steroids. Symptoms improved but he is still wheezy. He was able to talk and sentences at this point. He was given an hour-long albuterol treatment. He was updated at bedside. Discussed case with the hospitalist for further evaluation management treatment. I did order CT of the chest as it questioned an abnormality in the right upper lobe. CT of the chest was pending upon admission. Please see the hospitalist notes for further disposition management treatment. Consults/Care Managements Discussions: Per MDM Triage Nursing notes reviewed. Limited review of prior medical records performed Vital Signs: reviewed and remarkable for hypoxic Differential diagnosis: Differential diagnoses includes but is not limited to pneumonia, bronchitis, COPD/Asthma exacerbation, pneumothorax, pulmonary embolism, congestive heart failure, acute coronary syndrome ER treatment provided: See below Diagnostics interpreted by me include EKG and cardiac monitoring as listed below: -Cardiac Monitoring: An order was placed for continuous cardiac monitoring. The monitor shows a rate of 101 with sinus rhythm. -ECG: none -Laboratory studies:Interpreted by me as stated above in MDM and shown below. Imaging studies: Xrays: As interpreted by me: Portable AP upright 1 view of the chest showed questionable air-fluid level right upper lung CTs show: CT of the chest pending upon admission Procedures:none Critical Care: I have personally spent 33 minutes of critical care time in the direct management of this patient. This includes bedside care, interpretation of diagnostic studies, and testing, discussion with consultants, patient, and family members, and other required patient management activities. This 33 minutes is in excess of all separately billable procedures. Past Med/Surg History Problem List (Updated 11/17/24 @ 12:02 by Gerard Pino DO) Shortness of breath (Acute) COPD exacerbation (Acute) Pneumonia (Acute) Acute and chronic respiratory failure Abnormal PET scan of colon Abnormal PET scan of lung Squamous cell lung cancer Aortic aneurysm History of anemia of chronic disease Chronic constipation Type 2 diabetes mellitus Per records Calcification of aorta Nocturnal hypoxia 2L O2 HS Aneurysm of thoracic aorta Under annual surveillance CTA Chest 11/06/23: "Mild aneurysmal dilatation of the ascending thoracic aorta is unchanged. 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/23) AAA (abdominal aortic aneurysm) CT abdomen/pelvis 12/08/23: "Very slow interval enlargement of infrarenal aortic aneurysm which measured 45 mm in 2020 and 50 mm on today's exam." On home oxygen therapy 2L at Lung cancer current radiation tx (scheduled 02/26/24 and 02/26/25 "will be finished") Arthritis History of BPH Restless leg syndrome Coronary artery calcification seen on CAT scan Multiple pulmonary nodules COPD with emphysema Hypertension Peripheral arterial disease Peripheral neuropathy Chronic bronchitis with emphysema History of basal cell carcinoma Seborrheic keratosis GERD (gastroesophageal reflux disease) Hearing deficit Poor historian Surgical History History of anesthesia reaction pt states could feel everything with last colonoscopy>done at [place] with Dr. Ryder>was told if every having a future colonoscopy he would need general anesthesia History of lung biopsy Hx of vasectomy History of tonsillectomy History of tooth extraction History of cataract surgery R/L H/O transurethral resection of prostate History of hernia repair History of hemorrhoidectomy History of colonoscopy History of prostate biopsy History of surgery on arm right Family History Brother Prostate cancer Other Colorectal cancer No family history of adverse response to anesthesia Denies family history of Ovarian cancer Myocardial infarction Breast cancer Lung cancer Social History Smoking Status: Former smoker Tobacco Type: Pipe and Smokeless Tobacco (Dip or Chew) Age Started Using Tobacco: 16; Age Quit Using Tobacco: 78; packs per day: 1; Cigarettes Per Day: 20; Second Hand Exposure: No; Do You Dip or Chew Tobacco: Yes (pouch tobacco (advised)); Hx Alcohol Use: No Hx Substance Use: No Preferred Language: Greenlandic Communication Ability: Effective Visual Impairment: Limited Hearing Ability: Hard of Hearing Form Setter Supervisor Required: No Beliefs That Will Affect Care: None marital status: Current Living Situation: Spouse current occupational status: retired current occupation: Retired from [employer] How many Children do You have: 2 Feels Safe at Home: Yes Childhood Exposure to Second-Hand Smoke: No caffeine: Yes during the past year weight has: remained stable Dental Care, Regularly: Yes Physical Activity Frequency: Does not Exercise Physical Activity Frequency Comment: not physically able to exercise due to dyspnea Seatbelt Use: always Sunscreen Use: No Assistive Devices: Denture - Upper, Glasses and Oxygen - at Night Allergies Allergies Allergy/AdvReac Type Severity Reaction Status Date / Time ciprofloxacin Allergy Intermediate Sweling Verified 08/26/24 09:44 erythromycin base Allergy Intermediate Hives Verified 08/26/24 09:44 pramipexole Allergy Intermediate Rash Verified 08/26/24 09:44 ropinirole Allergy Intermediate Rash Verified 08/26/24 09:44 cat dander AdvReac Intermediate Sneezing, Verified 08/26/24 09:44 congestion lisinopril AdvReac Intermediate Cough Verified 08/26/24 09:44 pantoprazole AdvReac Intermediate GI symptoms Verified 08/26/24 09:44 Home Meds Home Medications Medication Instructions Recorded Confirmed carboxymethylcellulose sodium 0.5 1 drp ophthalmic (eye) Q6H PRN 04/12/18 11/17/24 % eye drops (Restore Tears) DRYNESS cyclosporine 0.05 % eye drops in a 1 drp ophthalmic (eye) Q12H 04/12/18 11/17/24 dropperette (Restasis) multivitamin 1 tab PO QPM 04/12/18 11/17/24 aspirin 81 mg tablet,delayed 81 mg PO HS 01/15/19 11/17/24 release polyethylene glycol 3350 17 17 g PO DAILY 12/13/23 11/17/24 gram/dose oral powder (Miralax) psyllium seed (sugar) oral powder 1 tbsp PO DAILY 12/13/23 11/17/24 ferrous sulfate 325 mg (65 mg 325 mg PO Q OTHER DAY 07/11/24 11/17/24 iron) tablet miscellaneous medical supply 11/17/24 11/17/24 Previous Rx's Medication Instructions Recorded tamsulosin 0.4 mg capsule 0.4 mg PO DAILY #90 caps 12/08/23 azelastine 137 mcg (0.1 %) nasal 2 spray intranasal BID #3 ea 03/08/24 spray gabapentin 600 mg tablet 600 mg PO QPM #90 tabs 06/07/24 omeprazole 20 mg capsule,delayed 40 mg (2 x 20 mg) PO QAM #90 caps 06/25/24 release albuterol sulfate 90 mcg/actuation 2 puff inhalation Q6H PRN 08/27/24 aerosol inhaler Shortness Of Breath Or Wheezing #3 Inhalers umeclidinium 62.5 mcg/actuation 1 inh inhalation DAILY #3 Inhalers 08/27/24 blister powder for inhalation (Incruse Ellipta) fluticasone propionate 230 2 puff inhalation BID #36 grams 08/28/24 mcg-salmeterol 21 mcg/actuation HFA inhaler atorvastatin 40 mg tablet 40 mg PO HS #90 tabs 09/04/24 duloxetine 60 mg capsule,delayed 60 mg PO HS #90 caps 09/04/24 release roflumilast 500 mcg tablet 500 mcg PO DAILY #90 tabs 10/16/24 (Daliresp) Results & Data (ED) Vital Signs Vital Signs - 24 hr 11/17/24 08:11 11/17/24 08:30 11/17/24 08:51 Temperature 36.6 C Temperature Source Temporal Artery Scan Pulse Rate 95 H 86 Pulse Rate from SpO2 Sensor 84 Respiratory Rate 18 15 Blood Pressure 123/75 Blood Pressure Mean 91 Pulse Oximetry 93 96 95 Oxygen Delivery Method Room Air Nasal Cannula Oxygen Flow Rate 1 Sepsis Recent Fever Within 48 Hours No Sepsis New/Unexplained Change in Mental Status N/A Sepsis Action Taken by Nursing No Action Required 11/17/24 08:52 11/17/24 09:00 11/17/24 09:01 Temperature Temperature Source Pulse Rate 87 92 H Pulse Rate from SpO2 Sensor 87 Respiratory Rate 18 Blood Pressure 108/64 Blood Pressure Mean 74 Pulse Oximetry 100 Oxygen Delivery Method Oxygen Flow Rate Sepsis Recent Fever Within 48 Hours Sepsis New/Unexplained Change in Mental Status Sepsis Action Taken by Nursing 11/17/24 09:30 11/17/24 09:57 11/17/24 10:00 Temperature Temperature Source Pulse Rate 95 H 98 H Pulse Rate from SpO2 Sensor 96 H Respiratory Rate 19 17 Blood Pressure 135/68 134/86 Blood Pressure Mean 89 101 Pulse Oximetry 94 99 Oxygen Delivery Method Oxygen Flow Rate Sepsis Recent Fever Within 48 Hours Sepsis New/Unexplained Change in Mental Status Sepsis Action Taken by Nursing 11/17/24 10:15 11/17/24 11:01 11/17/24 11:30 Temperature Temperature Source Pulse Rate 98 H 101 H 101 H Pulse Rate from SpO2 Sensor 97 H Respiratory Rate 17 20 20 Blood Pressure 163/76 H 157/74 H Blood Pressure Mean 79 101 Pulse Oximetry 100 95 95 Oxygen Delivery Method Nasal Cannula Nasal Cannula Oxygen Flow Rate 1 1 Sepsis Recent Fever Within 48 Hours Sepsis New/Unexplained Change in Mental Status Sepsis Action Taken by Nursing Laboratory Data 11/17/24 08:30 11/17/24 08:30 Lab Results 11/17/24 Range/Units 08:30 WBC 13.76 H (4.8-10.8) K/ul RBC 4.20 L (4.70-6.10) M/uL Hgb 13.2 L (14.0-18.0) g/dl Hct 40.1 L (42.0-52.0) % MCV 95.5 (80.0-100.0) fL MCH 31.4 (25.0-34.0) pg MCHC 32.9 (32.0-36.0) g/dL RDW Std Deviation 47.9 H (36.4-46.3) fL RDW Coeff of Aravind 13.6 (11.5-14.5) % Plt Count 157 (130-400) K/uL MPV 9.5 (9.4-12.4) fL Immature Gran % (Auto) 0.4 % Neut % (Auto) 84.0 % Lymph % (Auto) 5.7 % Morehouse % (Auto) 9.6 % Eos % (Auto) 0.1 % Baso % (Auto) 0.2 % Neut # (Auto) 11.56 H (1.40-6.50) K/uL Lymph # (Auto) 0.78 L (1.20-3.40) K/uL Morehouse # (Auto) 1.32 H (0.11-0.59) K/uL Eos # (Auto) 0.02 (0.00-0.50) K/uL Baso # (Auto) 0.03 (0.00-0.20) K/uL Immature Gran # (Auto) 0.05 (0.01-0.20) K/uL Sodium 140 (136-145) mmol/L Potassium 4.5 (3.5-5.1) mmol/L Chloride 102 (98-107) mmol/L Carbon Dioxide 30 (21-32) mmol/L Anion Gap 8 (3-11) BUN 24 H (6-23) mg/dl Creatinine 1.18 (0.6-1.4) mg/dl Est Cr Clr Drug Dosing 48.0 ml/min eGFR 58.98 BUN/Creatinine Ratio 20.3 H (10-20) Glucose 142 H (70-99(Fasting)) mg/dl Calcium 9.2 (8.6-10.3) mg/dl Total Bilirubin 1.3 H (0.2-1.0) mg/dl AST 22 (13-39) U/L ALT 22 (7-52) U/L Alkaline Phosphatase 140 H (34-104) U/L Troponin I High Sens 11.7 (0-20) pg/ml Total Protein 7.2 (6.0-8.3) gm/dl Albumin 4.2 (3.4-5.0) gm/dl Globulin 3.0 (2.5-4.0) gm/dl Albumin/Globulin Ratio 1.4 (0.9-2) Lipase 28 (11-82) U/L Adenovirus (PCR) Not Detected (NotDetected) B. pertussis DNA (PCR) Not Detected (NotDetected) B.parapertussis DNA PCR Not Detected (NotDetected) C. pneumoniae DNA (PCR) Not Detected (NotDetected) Coronavirus OC43 (PCR) Not Detected (NotDetected) Coronavirus HKU1 (PCR) Not Detected (NotDetected) Coronavirus 229E (PCR) Not Detected (NotDetected) SARS-CoV-2 (PCR) Not Detected (NotDetected) Coronavirus NL63 (PCR) Not Detected (NotDetected) Human Metapneumovir PCR Not Detected (NotDetected) Influenza Type A (PCR) Not Detected (NotDetected) Influenza Type B (PCR) Not Detected (NotDetected) M. pneumoniae (PCR) Not Detected (NotDetected) Parainfluenza 1 (PCR) Not Detected (NotDetected) Parainfluenza 2 (PCR) Not Detected (NotDetected) Parainfluenza 3 (PCR) Not Detected (NotDetected) Parainfluenza 4 (PCR) Not Detected (NotDetected) RSV (PCR) Not Detected (NotDetected) Entero/Rhino (PCR) Not Detected (NotDetected) Administered Medications Discontinued Medications Albuterol (Albut/Ipratrop 3mg/0.5mg Neb 3 Ml Vial) 9 ml NEB NOW STA; Protocol Stop: 11/17/24 08:22 Last Admin: 11/17/24 08:45 Dose: 9 ml Documented By: GEGE Albuterol (Albuterol 0.083% Nebu Soln 3 Ml Vial) 10 mg NEB NOW STA; Protocol Stop: 11/17/24 09:37 Last Admin: 11/17/24 09:45 Dose: 10 mg Documented By: GEGE Ioversol (Optiray 320 100ml) 92 ml IV ONCE ONE Stop: 11/17/24 11:20 Last Admin: 11/17/24 11:19 Dose: 92 ml Documented By: JULIANK Methylprednisolone (Methylprednisolone 125 Mg/2 Ml Vial) 60 mg IV NOW STA Stop: 11/17/24 08:22 Last Admin: 11/17/24 08:46 Dose: 60 mg Documented By: GEGE Imaging Data Radiologist's Impression: Chest X-Ray 11/17/24 08:21 EXAM: Radiograph of the Chest 1 View INDICATION: Chest pain TECHNIQUE: Frontal view of the chest. COMPARISON: 07/25/2024 FINDINGS: Lungs and pleural spaces: Slight increased groundglass opacity in the left upper lobe. There is a new approximate 6.1 x 4.3 cm oval lucent and soft tissue density projecting over the right apex. The lungs are slightly hyperinflated. There is coarse interstitial scarring. No pleural effusion or pneumothorax. Heart: Prominent cardiac shadow accentuated by technique. Mediastinum: Normal contour. Bones/joints: Degenerative changes noted throughout the spine. No acute osseous abnormality seen. Soft tissues: No abnormality noted. No radiopaque foreign body noted. Upper abdomen: No abnormality noted. IMPRESSION: 1. Oval part air part solid density projects over the right lung apex. It is uncertain whether this is overlying soft tissue density or a new air-fluid collection or cavitary lesion in the right apex. CT would better assess. 2. Increased airspace disease left upper lobe concerning for pneumonia. ACT 112: N/A Electronically signed by Sherri Abad 11-17-2024 10:03 AM Discharge Plan Visit Data Chief Complaint: Abnormal Labs/Diagnostic Testing Stated Complaint: COPD, LOW OX/88 ED Provider: Gerard Pino Discharge Problem: COPD exacerbation, Shortness of breath Discharge Instructions Interventions: ED Discharge Assessment Last Done: 11/17/24 11:47 Forms Stand Alone Forms: OYE! Prescriptions Prescriptions: No Action tamsulosin 0.4 mg capsule 0.4 mg PO DAILY Qty: 90 3RF azelastine 137 mcg (0.1 %) spray,non-aerosol 2 spray INTNAS BID Qty: 3 3RF Rx Instructions: administer into each nostril gabapentin 600 mg tablet 600 mg PO QPM Qty: 90 1RF Rx Instructions: TAKE ONE TABLET BY MOUTH EVERY DAY omeprazole 20 mg capsule,delayed release(DR/EC) 40 mg PO QAM Qty: 90 3RF fluticasone propion-salmeterol 230-21 mcg/actuation HFA aerosol inhaler 2 puff inhalation BID Qty: 36 3RF atorvastatin 40 mg tablet 40 mg PO HS Qty: 90 3RF duloxetine 60 mg capsule,delayed release(DR/EC) 60 mg PO HS Qty: 90 3RF roflumilast [Daliresp] 500 mcg tablet 500 mcg PO DAILY Qty: 90 2RF Rx Instructions: TAKE 1 TABLET BY MOUTH EVERY DAY ferrous sulfate 325 mg (65 mg iron) tablet 325 mg PO Q OTHER DAY Patient Comments: Daily x 1 week and then off 1 week; albuterol sulfate 90 mcg/actuation HFA aerosol inhaler 2 puff inhalation Q6H PRN (Reason: Shortness Of Breath Or Wheezing) Qty: 3 1RF Incruse Ellipta 62.5 mcg/actuation blister with device 1 inh inhalation DAILY Qty: 3 2RF multivitamin Tablet 1 tab PO QPM carboxymethylcellulose sodium [Restore Tears] 0.5 % Drops 1 drp OPHTHALMIC (EYE) Q6H PRN (Reason: DRYNESS) cyclosporine [Restasis] 0.05 % Dropperette 1 drp OPHTHALMIC (EYE) Q12H aspirin 81 mg tablet,delayed release (DR/EC) 81 mg PO HS polyethylene glycol 3350 [Miralax] 17 gram/dose Powder 17 g PO DAILY psyllium seed (sugar) Powder 1 tbsp PO DAILY (DME) miscellaneous medical supply Misc VAGINAL Rx Instructions: 2LPM Referrals Referrals: Sarah Lehman DO [Primary Care Provider] -
[2024-11-17] MEDS: ALBUT/IPRATROP 3MG/0.5MG NEB 3 ML VIAL NEB STA (08:45)
[2024-11-17] MEDS: methylPREDNISolone 125 MG/2 ML VIAL IV STA (08:46)
[2024-11-17 08:48] LABS: Basophils # (auto) 0.03 K/uL (0.00-0.20); Basophils % (auto) 0.2 %; Eosinophils # (auto) 0.02 K/uL (0.00-0.50); Eosinophils % (auto) 0.1 %; Hematocrit (blood only) 40.1 % (42.0-52.0); Hemoglobin 13.2 g/dl (14.0-18.0); Immature Granulocytes # (auto) 0.05 K/uL (0.01-0.20); Immature Granulocytes % (auto) 0.4 %; Lymphocytes # (auto) 0.78 K/uL (1.20-3.40); Lymphocytes % (auto) 5.7 %; Mean Corpuscular Hemoglobin 31.4 pg (25.0-34.0); Mean Corpuscular Hgb Conc 32.9 g/dL (32.0-36.0); Mean Corpuscular Volume 95.5 fL (80.0-100.0); Mean Platelet Volume 9.5 fL (9.4-12.4); Monocytes # (auto) 1.32 K/uL (0.11-0.59); Monocytes % (auto) 9.6 %; Neutrophils # (auto) 11.56 K/uL (1.40-6.50); Platelet Count 157 K/uL (130-400); RDW Coefficient of Variation 13.6 % (11.5-14.5); RDW Standard Deviation 47.9 fL (36.4-46.3); White Blood Count 13.76 K/ul (4.8-10.8)
[2024-11-17 09:10] LABS: Albumin Globulin Ratio 1.4 (0.9-2); Albumin Level 4.2 gm/dl (3.4-5.0); BUN Creatinine Ratio 20.3 (10-20); Bilirubin,Total 1.3 mg/dl (0.2-1.0); Calcium 9.2 mg/dl (8.6-10.3); Potassium 4.5 mmol/L (3.5-5.1); Total Protein 7.2 gm/dl (6.0-8.3)
[2024-11-17 09:17] LABS: Troponin I High Sensitivity 11.7 pg/ml (0-20)
[2024-11-17] MEDS: ALBUTEROL 0.083% NEBU SOLN 3 ML VIAL NEB STA (09:45)
[2024-11-17 09:51] LABS: Adenovirus PCR Not Detected (NotDetected); Bordetella parapertussis PCR Not Detected (NotDetected); Bordetella pertussis PCR Not Detected (NotDetected); Chlamydia pneumoniae PCR Not Detected (NotDetected); Coronavirus 229E PCR Not Detected (NotDetected); Coronavirus CoV-2 (COVID19)PCR Not Detected (NotDetected); Coronavirus HKU1 PCR Not Detected (NotDetected); Coronavirus NL63 PCR Not Detected (NotDetected); Coronavirus OC43PCR Not Detected (NotDetected); Human Metapneumovirus PCR Not Detected (NotDetected); Influenza A PCR Not Detected (NotDetected); Influenza B PCR Not Detected (NotDetected); Mycoplasma pneumoniae PCR Not Detected (NotDetected); Parainfluenza Virus 1 PCR Not Detected (NotDetected); Parainfluenza Virus 2 PCR Not Detected (NotDetected); Parainfluenza Virus 3 PCR Not Detected (NotDetected); Parainfluenza Virus 4 PCR Not Detected (NotDetected); Respiratory Syncytial VirusPCR Not Detected (NotDetected); Rhinovirus/Enterovirus PCR Not Detected (NotDetected)
--- NOTE | 2024-11-17 10:04 | XRay Report ---
EXAM: Radiograph of the Chest 1 View INDICATION: Chest pain TECHNIQUE: Frontal view of the chest. COMPARISON: 07/25/2024 FINDINGS: Lungs and pleural spaces: Slight increased groundglass opacity in the left upper lobe. There is a new approximate 6.1 x 4.3 cm oval lucent and soft tissue density projecting over the right apex. The lungs are slightly hyperinflated. There is coarse interstitial scarring. No pleural effusion or pneumothorax. Heart: Prominent cardiac shadow accentuated by technique. Mediastinum: Normal contour. Bones/joints: Degenerative changes noted throughout the spine. No acute osseous abnormality seen. Soft tissues: No abnormality noted. No radiopaque foreign body noted. Upper abdomen: No abnormality noted. IMPRESSION: 1. Oval part air part solid density projects over the right lung apex. It is uncertain whether this is overlying soft tissue density or a new air-fluid collection or cavitary lesion in the right apex. CT would better assess. 2. Increased airspace disease left upper lobe concerning for pneumonia. ACT 112: N/A Electronically signed by Sherri Abad 11-17-2024 10:03 AM
--- NOTE | 2024-11-17 10:15 | History & Physical Report ---
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 No fevers that he knows of at home, no headache or sore throat, no chest pain or abdominal pain, no nausea/vomiting/diarrhea, rashes or joint pains. Pulse ox was 85-87% on room air and came up to 90% on 1 LNC. He was tachypneic in the ER and received bronchodilator nebs, IV steroids with some improvement. CXR with new 6.1 x 4.3 cm oval lucent soft tissue density projecting over right apex and slight increased groundglass opacity left upper lobe. CT chest pending at time of admission. He will be admitted for an acute COPD exacerbation with acute on chronic respiratory failure with hypoxemia and for further evaluation of abnormal chest x-ray. #COPD exacerbation/squamous cell lung cancer/acute on chronic respiratory failure with hypoxemia/suspected pneumonia-awaiting chest CT at the time of admission but given chills, leukocytosis, will treat for pneumonia. - Admit to medical floor with telemetry for arrhythmia monitoring - Continue supplemental O2 to keep pulse ox greater than 89% - Follow-up with chest CT when available and consider pulmonary consult depending on findings - Start Zosyn and doxycycline for broad-spectrum coverage - Start scheduled DuoNebs, continue home maintenance inhalers for COPD - Check blood cultures, sputum culture - Follow CBC, BMP in the morning - Continue IV Solu-Medrol 60 Mg IV twice daily for COPD exacerbation - Continue home Roflumilast #TAA/AAA/coronary artery calcification/HLD-no acute issues, AAA [address] A/P in 01/2024. He was referred to vascular as an outpatient in 2023 but has not yet received word about scheduling an appointment and has not seen vascular surgery - Needs follow-up with vascular surgery as an outpatient - Continue home aspirin, statin #Chronic anemia-Hgb mildly low but stable from previous at 13.2, normocytic. - Follow CBC, no need for further workup at this time #GERD/colon polyps-no acute issues. Had numerous polyps removed from colonoscopy after PET scan showed FDG avid uptake in the colon. Polyps were char ign - Continue PPI - Follow-up as appropriately for repeat colonoscopy with GI as an outpatient #BPH-no acute issues - Continue tamsulosin #DM2/peripheral neuropathy-no acute issues - Continue home gabapentin, duloxetine DVT prophylaxis-high risk for VTE given underlying cancer and acute illness-SCDs and Lovenox SQ ordered Disposition-admit to medical floor with telemetry, PT/OT evaluations requested. 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 No fevers that he knows of at home, no headache or sore throat, no chest pain or abdominal pain, no nausea/vomiting/diarrhea, rashes or joint pains. Pulse ox was 85-87% on room air and came up to 90% on 1 LNC. He was tachypneic in the ER and received bronchodilator nebs, IV steroids with some improvement. CXR with new 6.1 x 4.3 cm oval lucent soft tissue density projecting over right apex and slight increased groundglass opacity left upper lobe. CT chest pending at time of admission. He will be admitted for an acute COPD exacerbation with acute on chronic respiratory failure with hypoxemia and for further evaluation of abnormal chest x-ray. Allergies Allergy/AdvReac Type Severity Reaction Status Date / Time ciprofloxacin Allergy Intermediate Sweling Verified 08/26/24 09:44 erythromycin base Allergy Intermediate Hives Verified 08/26/24 09:44 pramipexole Allergy Intermediate Rash Verified 08/26/24 09:44 ropinirole Allergy Intermediate Rash Verified 08/26/24 09:44 cat dander AdvReac Intermediate Sneezing, Verified 08/26/24 09:44 congestion lisinopril AdvReac Intermediate Cough Verified 08/26/24 09:44 pantoprazole AdvReac Intermediate GI symptoms Verified 08/26/24 09:44 Home Medications Medication Instructions Recorded Confirmed Type carboxymethylcellulose sodium 0.5 1 drp ophthalmic (eye) Q6H PRN 04/12/18 11/17/24 History % eye drops (Restore Tears) DRYNESS cyclosporine 0.05 % eye drops in a 1 drp ophthalmic (eye) Q12H 04/12/18 11/17/24 History dropperette (Restasis) multivitamin 1 tab PO QPM 04/12/18 11/17/24 History aspirin 81 mg tablet,delayed 81 mg PO HS 01/15/19 11/17/24 History release tamsulosin 0.4 mg capsule 0.4 mg PO DAILY #90 caps 12/08/23 11/17/24 Rx polyethylene glycol 3350 17 17 g PO DAILY 12/13/23 11/17/24 History gram/dose oral powder (Miralax) psyllium seed (sugar) oral powder 1 tbsp PO DAILY 12/13/23 11/17/24 History azelastine 137 mcg (0.1 %) nasal 2 spray intranasal BID #3 ea 03/08/24 11/17/24 Rx spray gabapentin 600 mg tablet 600 mg PO QPM #90 tabs 06/07/24 11/17/24 Rx omeprazole 20 mg capsule,delayed 40 mg (2 x 20 mg) PO QAM #90 caps 06/25/24 11/17/24 Rx release ferrous sulfate 325 mg (65 mg 325 mg PO Q OTHER DAY 07/11/24 11/17/24 History iron) tablet albuterol sulfate 90 mcg/actuation 2 puff inhalation Q6H PRN 08/27/24 11/17/24 Rx aerosol inhaler Shortness Of Breath Or Wheezing #3 Inhalers umeclidinium 62.5 mcg/actuation 1 inh inhalation DAILY #3 Inhalers 08/27/24 11/17/24 Rx blister powder for inhalation (Incruse Ellipta) fluticasone propionate 230 2 puff inhalation BID #36 grams 08/28/24 11/17/24 Rx mcg-salmeterol 21 mcg/actuation HFA inhaler atorvastatin 40 mg tablet 40 mg PO HS #90 tabs 09/04/24 11/17/24 Rx duloxetine 60 mg capsule,delayed 60 mg PO HS #90 caps 09/04/24 11/17/24 Rx release roflumilast 500 mcg tablet 500 mcg PO DAILY #90 tabs 10/16/24 11/17/24 Rx (Daliresp) miscellaneous medical supply 11/17/24 11/17/24 History Past Med/Surg History Problem List (Updated 11/17/24 @ 11:24 by Lilibeth Ramires MD) Pneumonia (Acute) Acute and chronic respiratory failure Abnormal PET scan of colon Abnormal PET scan of lung Squamous cell lung cancer Aortic aneurysm History of anemia of chronic disease Chronic constipation Type 2 diabetes mellitus Per records Calcification of aorta Nocturnal hypoxia 2L O2 HS Aneurysm of thoracic aorta Under annual surveillance CTA Chest 11/06/23: "Mild aneurysmal dilatation of the ascending thoracic aorta is unchanged. 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/23) AAA (abdominal aortic aneurysm) CT abdomen/pelvis 12/08/23: "Very slow interval enlargement of infrarenal aortic aneurysm which measured 45 mm in 2019 and 50 mm on today's exam." On home oxygen therapy 2L at HS Lung cancer current radiation tx (scheduled 02/26/24 and 02/26/25 "will be finished") Arthritis History of BPH Restless leg syndrome Coronary artery calcification seen on CAT scan Multiple pulmonary nodules COPD with emphysema Hypertension Peripheral arterial disease Peripheral neuropathy Chronic bronchitis with emphysema History of basal cell carcinoma Seborrheic keratosis GERD (gastroesophageal reflux disease) Hearing deficit Poor historian Surgical History History of anesthesia reaction pt states could feel everything with last colonoscopy>done at [facility] with Dr. Ryder>was told if every having a future colonoscopy he would need general anesthesia History of lung biopsy Hx of vasectomy History of tonsillectomy History of tooth extraction History of cataract surgery R/L H/O transurethral resection of prostate History of hernia repair History of hemorrhoidectomy History of colonoscopy History of prostate biopsy History of surgery on arm right Family History Brother Prostate cancer Other Colorectal cancer No family history of adverse response to anesthesia Denies family history of Ovarian cancer Myocardial infarction Breast cancer Lung cancer Social History Smoking Status: Former smoker Tobacco Type: Pipe and Smokeless Tobacco (Dip or Chew) Age Started Using Tobacco: 16; Age Quit Using Tobacco: 78; packs per day: 1; Cigarettes Per Day: 20; Second Hand Exposure: No; Do You Dip or Chew Tobacco: Yes (pouch tobacco (advised)); Hx Alcohol Use: No Hx Substance Use: No Preferred Language: Mongolian Communication Ability: Effective Visual Impairment: Limited Hearing Ability: Hard of Hearing Fruit Room Hand Required: No Beliefs That Will Affect Care: None marital status: Current Living Situation: Spouse current occupational status: retired current occupation: Retired from [employer] How many Children do You have: 2 Feels Safe at Home: Yes Childhood Exposure to Second-Hand Smoke: No caffeine: Yes during the past year weight has: remained stable Dental Care, Regularly: Yes Physical Activity Frequency: Does not Exercise Physical Activity Frequency Comment: not physically able to exercise due to dyspnea Seatbelt Use: always Sunscreen Use: No Assistive Devices: Denture - Upper, Glasses and Oxygen - at Night Review of Systems Review of Systems: All systems reviewed & are unremarkable except as noted in HPI & below Physical Exam Constitutional: WD/WN, vitals as above Eyes: PERRL, conjunctivae normal, anicteric sclerae Neck: trachea midline, no thyromegaly Respiratory: normal respiratory effort; no respiratory distress Auscultation: + wheezes (Bilateral) and + bronchial breath sounds (Right upper lung field); no crackles Cardiovascular: RRR, no murmur, no edema Chest (Breasts): Chest: normal inspection of chest Gastrointestinal (Abdomen): normal bowel sounds, soft, nontender, no hepatosplenomegaly Musculoskeletal: Extremities: extremities normal to inspection; no cyanosis and no clubbing Skin: no rashes, warm and dry Neurologic: moves all extremities and awake; no focal motor deficits Psychiatric: A+Ox3, euthymic affect Lymphatic: no lymphedema Results & Data Results & Data Vital Signs (Past 12 Hours) Vital Signs Temp Pulse Resp BP Pulse Ox O2 Del Method O2 Flow Rate 11/17/24 09:30 95 H 19 135/68 94 11/17/24 09:01 108/64 11/17/24 09:00 92 H 18 100 11/17/24 08:52 87 11/17/24 08:51 86 15 95 11/17/24 08:30 96 Nasal Cannula 1 11/17/24 08:11 36.6 C 95 H 18 123/75 93 Room Air Laboratory Results CBC, BMP, LFTs, troponin, lipase, respiratory BioFire panel reviewed Diagnostic Findings Chest x-ray image personally reviewed by me Chest X-Ray 11/17/24 08:21 EXAM: Radiograph of the Chest 1 View INDICATION: Chest pain TECHNIQUE: Frontal view of the chest. COMPARISON: 07/25/2024 FINDINGS: Lungs and pleural spaces: Slight increased groundglass opacity in the left upper lobe. There is a new approximate 6.1 x 4.3 cm oval lucent and soft tissue density projecting over the right apex. The lungs are slightly hyperinflated. There is coarse interstitial scarring. No pleural effusion or pneumothorax. Heart: Prominent cardiac shadow accentuated by technique. Mediastinum: Normal contour. Bones/joints: Degenerative changes noted throughout the spine. No acute osseous abnormality seen. Soft tissues: No abnormality noted. No radiopaque foreign body noted. Upper abdomen: No abnormality noted. IMPRESSION: 1. Oval part air part solid density projects over the right lung apex. It is uncertain whether this is overlying soft tissue density or a new air-fluid collection or cavitary lesion in the right apex. CT would better assess. 2. Increased airspace disease left upper lobe concerning for pneumonia. ACT 112: N/A Electronically signed by Sherri Abad 11-17-2024 10:03 AM ECG Additional Comments: ECG with NSR, rate 89, left axis deviation, RBBB, no ischemic changes, unchanged from previous Code Status & VTE Plan Code Status DNR/DNI VTE Prophylaxis Plan VTE Prophylaxis will be ordered: Yes PG Care Time/CCT Total # of Minutes Spent Total Time Spent with Patient: Total time spent is greater than 50% in coordination of care (as documented) at patient's floor/unit and/or counseling patient: Coding Level of Care Code 76330 INT INP/OBS CARE MIN Diagnoses Squamous cell lung cancer C34.90 COPD with emphysema J43.9 Emphysema type: unspecified Acute and chronic respiratory failure J96.20 Pneumonia J18.9 (2) COPD with emphysema Emphysema type: unspecified Qualified Code(s): J43.9 - Emphysema, unspecified
[2024-11-17] MEDS: OPTIRAY 320 100ml IV ONE (11:19)
--- NOTE | 2024-11-17 12:03 | CT Scan Report ---
EXAM: CT Chest With Intravenous Contrast INDICATION: Abnormal chest x-ray. TECHNIQUE: Axial computed tomography images of the chest with intravenous contrast. Sagittal and coronal reformatted images were created and reviewed. This CT exam was performed using one or more of the following dose reduction techniques: automated exposure control, adjustment of the mA and/or kV according to patient size, and/or use of iterative reconstruction technique. CONTRAST: 92ml of Optiray 320 was administered intravenously. COMPARISON: Chest x-ray the same day and CT chest 11/03/2024 and 04/23/2024 FINDINGS: Limitations: None. Lungs and pleural spaces: Centrilobular emphysema noted with persistent but improved opacity in the posterior left upper lobe and superior segment of the left lower lobe appearing across the apex of the major fissure. Stable right lower lobe pleural and fissural based opacity. Stable noncalcified 8 mm nodule in the right lateral costophrenic sulcus. No bronchiectasis or honeycombing. There is no right apical infiltrate or cavitation. No pleural effusion or pneumothorax. Stable dense granuloma within the medial left lower lobe. Heart: Stable cardiomegaly. No pericardial effusion. Thyroid: No abnormality noted. Bones/joints: Kyphosis with diffuse degenerative change in the spine. No acute osseous abnormality. Soft tissues: No significant abnormality noted. Vasculature: No abnormality noted. No thoracic aortic aneurysm. Lymph nodes: No enlarged lymph nodes. IMPRESSION: 1. Emphysematous disease with persistent but improved left upper and lower lobe infiltrate and coarse pleural and fissural based opacity in the right lower lobe compared to 11/03/2024. 2. Right apical abnormality seen on plain radiograph is artifactual. ACT 112: Positive. There are findings on this exam that require communication between the performing entity and the patient following Patient Test Result Information Act ([place] ACT 112) guidelines. Electronically signed by Sherri Abad 11-17-2024 12:03 PM
[2024-11-17] MEDS ORDERED: ONDANSETRON INJ 2 MG/ML 2 ML VIAL IV PRN (12:12)
[2024-11-17] MEDS ORDERED: MAGNESIUM HYDROXIDE SUSP 30 ML UDC PO PRN (12:12)
[2024-11-17] MEDS ORDERED: NON-FORMULARY MEDICATION (Cyclosporine [Restasis] 0.05 % Dropperette) OP SCH (12:12)
[2024-11-17] MEDS ORDERED: GLUCOSE 10 TAB/TUBE PO PRN (12:12)
[2024-11-17] MEDS ORDERED: ARTIFICIAL TEARS OP PRN (12:12)
[2024-11-17] MEDS ORDERED: GLUCAGON FOR INJ 1 MG VIAL SQ PRN (12:12)
[2024-11-17] MEDS ORDERED: GLUCOSE 40% GEL 15 GM TUBE PO PRN (12:12)
[2024-11-17] MEDS ORDERED: CARBOHYDRATES FOR HYPOGLYCEMIA PO PRN (12:12)
[2024-11-17] MEDS ORDERED: DEXTROSE 50% 50 ML SYRINGE IV PRN (12:12)
[2024-11-17] MEDS ORDERED: ACETAMINOPHEN 325 MG TAB PO PRN (12:12)
[2024-11-17] MEDS: DOXYCYCLINE HYCLATE 100 MG in DEXTROSE 5% MINI-B 100 ML IV STA (12:45)
[2024-11-17] MEDS: POLYETHYLENE (MIRALAX) 17 GM PACK PO SCH (12:58)
[2024-11-17] MEDS: UMECLIDINIUM BROMIDE 62.5MCG/BLISTER 7 PUFFS/INHALER INH SCH (13:16)
[2024-11-17] MEDS: INSULIN ASPART PER UNIT CHARGE SC SCH (13:16)
[2024-11-17] MEDS: ENOXAPARIN INJ 40 MG/0.4 ML SYR SQ SCH (13:17)
[2024-11-17] MEDS: ROFLUMILAST 500 MCG TAB PO SCH (13:17)
--- NOTE | 2024-11-17 13:26 | Electrocardiogram Report ---
Test Reason : Blood Pressure : */* mmHG Vent. Rate : 89 BPM Atrial Rate : 89 BPM P-R Int : 130 ms QRS Dur : 136 ms QT Int : 394 ms P-R-T Axes : 72 -71 67 degrees QTcB Int : 479 ms Normal sinus rhythm Left axis deviation Right bundle branch block Abnormal ECG When compared with ECG of 06-Nov-2023 11:14, Intermittent RBBB is now sustained Confirmed by Chris Hansen ([id number]) on 11/17/2024 1:26:27 PM Referred By: NO PCP Confirmed By: Chris Hansen
[2024-11-17] MEDS: ALBUT/IPRATROP 3MG/0.5MG NEB 3 ML VIAL NEB SCH (13:30)
[2024-11-17] MEDS: FLUTICASONE/VILANTEROL 100/25MCG 14 PUFFS/INHALER INH SCH (13:53)
[2024-11-17] MEDS: PSYLLIUM or GUAR GUM FIBER 4GM PACKET PO SCH (13:53)
[2024-11-17] MEDS: PIPERACILLIN/TAZOBACTAM 4.5 GM/100 ML BAG IV ONE (14:57)
[2024-11-17] MEDS: TAMSULOSIN HCL 0.4 MG CAP PO SCH (14:59)
[2024-11-17] MEDS: FERROUS SULFATE 325 MG TAB PO SCH (15:01)
[2024-11-17] MEDS: LANTUS PER UNIT CHARGE SQ SCH (17:31)
[2024-11-17] MEDS: AZELASTINE HCL 0.1% NASAL 200 SPRAYS/27,400 MCG BTL SCH (20:56)
[2024-11-17] MEDS: methylPREDNISolone 60 MG in SYRINGE 0 ML IV SCH (20:56)
[2024-11-17] MEDS: DULoxetine HCL 60 MG CAP PO SCH (20:57)
[2024-11-17] MEDS: ASPIRIN 81 MG ECTAB PO SCH (20:57)
[2024-11-17] MEDS: ATORVASTATIN 40 MG TAB PO SCH (20:57)
[2024-11-17] MEDS: GABAPENTIN 600 MG TAB PO SCH (20:57)
[2024-11-17] MEDS: MULTIVITAMIN TAB PO SCH (20:57)
[2024-11-17] MEDS ORDERED: methylPREDNISolone 1000 MG/16 ML IV SCH (21:00)
[2024-11-17] MEDS: PIPERACILLIN/TAZOBACTAM 4.5 GM/100 ML BAG IV SCH (21:01)
[2024-11-18] MEDS: DOXYCYCLINE HYCLATE 100 MG in DEXTROSE 5% MINI-B 100 ML IV SCH (00:37)
[2024-11-18 07:06] LABS: Hematocrit (blood only) 36.1 % (42.0-52.0); Hemoglobin 12.1 g/dl (14.0-18.0); Mean Corpuscular Hemoglobin 31.3 pg (25.0-34.0); Mean Corpuscular Hgb Conc 33.5 g/dL (32.0-36.0); Mean Corpuscular Volume 93.5 fL (80.0-100.0); Mean Platelet Volume 10.2 fL (9.4-12.4); Platelet Count 144 K/uL (130-400); RDW Coefficient of Variation 13.6 % (11.5-14.5); RDW Standard Deviation 46.4 fL (36.4-46.3); Red Blood Count 3.86 M/uL (4.70-6.10); White Blood Count 12.89 K/ul (4.8-10.8)
[2024-11-18 07:35] LABS: Echinocytes 1+; Immature Granulocytes # (auto) 0.06 K/uL (0.01-0.20); Immature Granulocytes % (auto) 0.5 %; Lymphocytes # (auto) 0.51 K/uL (1.20-3.40); Monocytes # (auto) 0.51 K/uL (0.11-0.59); Neutrophils # (auto) 11.81 K/uL (1.40-6.50); Neutrophils % (auto) 91.5 %
[2024-11-18 07:40] LABS: Albumin Level 3.8 gm/dl (3.4-5.0); BUN Creatinine Ratio 27.6 (10-20); Bilirubin Direct 0.2 mg/dl (0-0.2); Bilirubin,Total 0.8 mg/dl (0.2-1.0); Calcium 9.2 mg/dl (8.6-10.3); Magnesium 2.3 mg/dl (1.7-2.4); Potassium 4.1 mmol/L (3.5-5.1); Total Protein 6.5 gm/dl (6.0-8.3)
[2024-11-18 07:48] LABS: Estimated Average Glucose 143 mg/dl; Hemoglobin A1C 6.6 % (4.5-5.6)
--- NOTE | 2024-11-18 15:28 | Hospitalist Progress Note ---
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 He will be admitted for an acute COPD exacerbation with acute on chronic respiratory failure with hypoxemia Initial abnormal chest x-ray not supported by new changes on CT chest for progression of cancer, continue treatment for Gram neg pneumonia . #COPD exacerbation/squamous cell lung cancer/acute on chronic respiratory failure with hypoxemia/suspected gram negative pneumonia- - supplemental O2 to keep pulse ox greater than 89% - Zosyn and doxycycline for broad-spectrum coverage of gram negative pneumonia, sputum is haemo.influenza preliminary - Start scheduled DuoNebs, continue home maintenance inhalers for COPD - currently blood cultures, sputum culture - Continue IV Solu-Medrol 60 Mg IV twice daily for COPD exacerbation - Continue home Roflumilast #TAA/AAA/coronary artery calcification/HLD-no acute issues, AAA [address] A/P in 01/2024. He was referred to vascular as an outpatient in 2023 but has not yet received word about scheduling an appointment and has not seen vascular surgery - Needs follow-up with vascular surgery as an outpatient - Continue home aspirin, statin #DM2/peripheral neuropathy-no acute issues, basal bolus insulin - Continue home gabapentin, duloxetine #GERD/colon polyps-no acute issues. Had numerous polyps removed from colonoscopy after PET scan showed FDG avid uptake in the colon. Polyps were benign - Continue PPI #Chronic anemia- stable, normocytic. #BPH-no acute issues - Continue tamsulosin DVT prophylaxis-high risk for VTE given underlying cancer and acute illness-SCDs and Lovenox SQ ordered Admission and Anticipated Discharge Date Admission Date: November 17, 2024 Subjective pt is mildly confused at times accompanied by his daughter nurse in room states did not do well at PT, need walker, is at home for some mild assistance cough with thick green sputum Physical Exam Physical Exam: lung exam with expiratory wheezes and poor air movement prolonged expiratory phase cough is regular Results & Data Results & Data Vital Signs (Past 12 Hours) Vital Signs Temp Pulse Pulse Resp BP Pulse Ox O2 Del Method 11/18/24 15:13 97.2 F L 77 20 149/77 H 97 Nasal Cannula 11/18/24 11:37 72 15 87 L Nasal Cannula 11/18/24 11:27 98.2 F 73 18 125/67 95 Nasal Cannula 11/18/24 08:00 Nasal Cannula 11/18/24 07:21 72 17 89 L Nasal Cannula 11/18/24 07:20 67 11/18/24 07:10 97.5 F L 74 20 129/68 94 Nasal Cannula O2 Flow Rate 11/18/24 15:13 2 11/18/24 11:37 1 11/18/24 11:27 1 11/18/24 08:00 1 11/18/24 07:21 1 11/18/24 07:20 11/18/24 07:10 1 Laboratory Results cardiac is regular lungs are clear PG Care Time/CCT Total # of Minutes Spent Total Time Spent with Patient: Total time spent is greater than 50% in coordination of care (as documented) at patient's floor/unit and/or counseling patient: Coding Level of Care Code 16729 SUB INP/OBS CARE 3/50MIN Diagnoses Squamous cell lung cancer C34.90 COPD with emphysema J43.9 Emphysema type: unspecified Acute and chronic respiratory failure J96.20 Pneumonia J18.9 (2) COPD with emphysema Emphysema type: unspecified Qualified Code(s): J43.9 - Emphysema, unspecified
--- NOTE | 2024-11-19 15:33 | Hospitalist Progress Note ---
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 He will be admitted for an acute COPD exacerbation with acute on chronic respiratory failure with hypoxemia Initial abnormal chest x-ray not supported by new changes on CT chest for progression of cancer, continue treatment for Gram neg pneumonia . #COPD exacerbation/squamous cell lung cancer/acute on chronic respiratory failure with hypoxemia/suspected gram negative pneumonia- - supplemental O2 to keep pulse ox greater than 89% - gram negative pneumonia, sputum is haemo.influenza preliminary, downgrade to doxycycline - DuoNebs, continue home maintenance inhalers for COPD - currently blood cultures negative , -reduce Solumedrol as maybe causing delirium and lungs improving - Continue home Roflumilast #Delerium, check head ct given h/o ca, reduce steroids, seroquel HS to help with sleep, pt states melatonin not effective #TAA/AAA/coronary artery calcification/HLD-no acute issues, AAA [address] A/P in 01/2024. He was referred to vascular as an outpatient in 2023 but has not yet received word about scheduling an appointment and has not seen vascular surgery - Needs follow-up with vascular surgery as an outpatient - Continue home aspirin, statin #DM2/peripheral neuropathy-no acute issues, basal bolus insulin - Continue home gabapentin, duloxetine #GERD/colon polyps-no acute issues. Had numerous polyps removed from colonoscopy after PET scan showed FDG avid uptake in the colon. Polyps were benign - Continue PPI #Chronic anemia- stable, normocytic. #BPH-no acute issues - Continue tamsulosin DVT prophylaxis-high risk for VTE given underlying cancer and acute illness-SCDs and Lovenox SQ ordered Admission and Anticipated Discharge Date Admission Date: November 17, 2024 Subjective pt remains mildly confused and admits to the same sob has improved, but not yet at baseline, still with intermittent oxygen need Physical Exam Physical Exam: less wheezy, sputum lessening cardiac is regular Results & Data Results & Data Vital Signs (Past 12 Hours) Vital Signs Temp Pulse Pulse Resp BP Pulse Ox O2 Del Method 11/19/24 15:28 97.7 F 80 20 143/74 H 96 Room Air 11/19/24 14:31 73 18 98 Nasal Cannula 11/19/24 11:25 97.9 F 75 20 147/74 H 96 Nasal Cannula 11/19/24 10:56 73 20 99 Nasal Cannula 11/19/24 08:00 Room Air 11/19/24 07:43 97.9 F 70 20 108/49 L 96 Nasal Cannula 11/19/24 07:19 72 11/19/24 07:15 69 22 96 Nasal Cannula 11/19/24 03:36 97.5 F L 58 L 18 127/72 92 Nasal Cannula O2 Flow Rate 11/19/24 15:28 11/19/24 14:31 2 11/19/24 11:25 2 11/19/24 10:56 3 11/19/24 08:00 11/19/24 07:43 2 11/19/24 07:19 11/19/24 07:15 2 11/19/24 03:36 2 Laboratory Results reviewed cbc reviewed chemistry PG Care Time/CCT Total # of Minutes Spent Total Time Spent with Patient: Total time spent is greater than 50% in coordination of care (as documented) at patient's floor/unit and/or counseling patient: Coding Level of Care Code 99638 SUB INP/OBS CARE 3/50MIN Diagnoses Squamous cell lung cancer C34.90 COPD with emphysema J43.9 Emphysema type: unspecified Acute and chronic respiratory failure J96.20 Pneumonia J18.9 (2) COPD with emphysema Emphysema type: unspecified Qualified Code(s): J43.9 - Emphysema, unspecified
[2024-11-19] MEDS: OPTIRAY 320 100ml IV ONE (16:12)
--- NOTE | 2024-11-19 17:17 | CT Scan Report ---
EXAM: CT head/brain w con CLINICAL HISTORY: eval for mets, has confusion h/o SCCA TECHNIQUE: An axial contrast-enhanced CT scan of the brain was performed from the skull base to the high parietal region. IV contrast was administered for post-contrast images. One of the following dose reduction techniques was utilized for this exam: Automated exposure control, adjustment of the mA and/or kV according to patient size, and use of iterative reconstruction. (CTDI: 39.03 mGy, DLP: 703.85 mGy*cm) COMPARISON: None. FINDINGS: Brain Parenchyma: Mild involutional age-related grainy changes are evident in the deep sulci and mildly dilated ventricles. Exenterated periventricular hypodensity with scattered tiny ill-defined hypodensities seen at the bilateral centrum semiovale, and the bilateral periventricular area indicating deep white matter microvascular ischemia. Normal attenuation of the cerebral hemispheres, cerebellum, and brainstem. No evidence of acute infarct, hemorrhage, or mass effect. No abnormal areas of enhancement post-contrast. No evidence of hydrocephalus No evidence of subarachnoid hemorrhage or extra-axial fluid collections. Cerebellum and Brainstem: Normal size and signal. No masses, lesions, or areas of abnormal signal. No abnormal enhancement post-contrast. Pituitary Gland: Normal size and morphology. No evidence of pituitary adenoma or other sellar/suprasellar mass. Orbits: Normal appearance of the globes, optic nerves, and extraocular muscles. No evidence of orbital masses or abnormal enhancement. Sinuses: Clear paranasal sinuses. No evidence of sinusitis or mucosal thickening. Mastoid Air Cells: Clear mastoid air cells. No evidence of mastoiditis. Vascular Structures: Normal appearance of major intracranial vessels. No evidence of aneurysm or vascular malformations. Normal enhancement of the visualized vessels post-contrast. Cranial Nerves: Normal appearance of the visualized cranial nerves. No evidence of abnormal enhancement or mass effect. Skull and Meninges: Normal skull morphology. IMPRESSION: 1. No CT Signs of acute infarction, hemorrhage, or masses. If mets are still a clinical concern, Further evaluation with MRI is advised. 2. Mild involution, age-related brain changes with mild deep white matter microvessel ischemia. Electronically signed by Kai Go 11-19-2024 5:17 PM
[2024-11-19] MEDS: QUEtiapine FUMARATE 25 MG TABLET PO ONE (19:48)
[2024-11-20] MEDS: methylPREDNISolone 40 MG in SYRINGE 0 ML IV SCH (08:09)
[2024-11-20 12:15] VITALS: BP 129/74; TEMP 97.5
[2024-11-20 15:25] VITALS: PULSE 70; RESP 16; O2SAT 98
--- NOTE | 2024-11-20 15:52 | Discharge Summary ---
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 He will be admitted for an acute COPD exacerbation with acute on chronic respiratory failure with hypoxemia Initial abnormal chest x-ray not supported by new changes on CT chest for progression of cancer, continue treatment for Gram neg pneumonia with 7 days of antibiotics, dc on doxycycline. #COPD exacerbation/squamous cell lung cancer/acute on chronic respiratory failure with hypoxemia/suspected gram negative pneumonia- - supplemental O2 to keep pulse ox greater than 89% - gram negative pneumonia, sputum is haemo.influenza preliminary, downgrade to doxycycline - DuoNebs, continue home maintenance inhalers for COPD - currently blood cultures negative , -home on prednisone - Continue home Roflumilast #Delerium, check head ct given h/o ca, reduce steroids, seroquel HS to help with sleep, pt states melatonin not effective #TAA/AAA/coronary artery calcification/HLD-no acute issues, AAA [address] A/P i n 01/2024. He was referred to vascular as an outpatient in 2023 but has not yet received word about scheduling an appointment and has not seen vascular surgery - Needs follow-up with vascular surgery as an outpatient - Continue home aspirin, statin #DM2/peripheral neuropathy-no acute issues, - Continue home gabapentin, duloxetine #GERD/colon polyps-no acute issues. Had numerous polyps removed from colonoscopy after PET scan showed FDG avid uptake in the colon. Polyps were benign - Continue PPI #Chronic anemia- stable, normocytic. 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 No fevers that he knows of at home, no headache or sore throat, no chest pain or abdominal pain, no nausea/vomiting/diarrhea, rashes or joint pains. Pulse ox was 85-87% on room air and came up to 90% on 1 LNC. He was tachypneic in the ER and received bronchodilator nebs, IV steroids with some improvement. CXR with new 6.1 x 4.3 cm oval lucent soft tissue density projecting over right apex and slight increased groundglass opacity left upper lobe. CT chest pending at time of admission. He will be admitted for an acute COPD exacerbation with acute on chronic respiratory failure with hypoxemia and for further evaluation of abnormal chest x-ray. Discharge Exam Patient's lungs are clear without wheezes or crackles his confusion is improved. Discharge Plan Discharge Items Patient Disposition: Home - Self-Care Reason For Visit: COPD EXACERBATION, HYOXIA Discharge Diagnosis: copd exacerbation Activity: Resume your previous activity Non-emergency contact: Primary Care Provider Call non-emergency contact if: your symptoms worsen Follow-up/Referrals: Sarah Lehman DO [Primary Care Provider] - 11/26/24 3:00 pm (Hospital follow up scheduled November 26 at 3:00) Diet: Regular Addtl Attending Provider Instructions: you were admitted with a flareup of your COPD and pneumonia. You need to still rest and recover. Please complete your tapering doses of prednisone therapy and a few more days of antibiotics. Pending Studies at Discharge: No Stand-Alone Forms: My Rapid RMS, Smoking Cessation Medications and DC Order Prescriptions: New prednisone 10 mg tablet 10 mg PO DIRECTED Qty: 40 0RF Rx Instructions: 4 a day x 4 d>3 a day x 4 d>2 a day x 4 d>1 a day doxycycline hyclate 100 mg capsule 100 mg PO BID 4 Days Qty: 8 0RF quetiapine [Seroquel] 25 mg tablet 25 mg PO HS PRN (Reason: insomna) Qty: 20 0RF Rx Instructions: please do not use more than 5 times in a week please do not take past Midnight Continued tamsulosin 0.4 mg capsule 0.4 mg PO DAILY Qty: 90 3RF azelastine 137 mcg (0.1 %) spray,non-aerosol 2 spray INTNAS BID Qty: 3 3RF Rx Instructions: administer into each nostril gabapentin 600 mg tablet 600 mg PO QPM Qty: 90 1RF Rx Instructions: TAKE ONE TABLET BY MOUTH EVERY DAY omeprazole 20 mg capsule,delayed release(DR/EC) 40 mg PO QAM Qty: 90 3RF fluticasone propion-salmeterol 230-21 mcg/actuation HFA aerosol inhaler 2 puff inhalation BID Qty: 36 3RF atorvastatin 40 mg tablet 40 mg PO HS Qty: 90 3RF duloxetine 60 mg capsule,delayed release(DR/EC) 60 mg PO HS Qty: 90 3RF roflumilast [Daliresp] 500 mcg tablet 500 mcg PO DAILY Qty: 90 2RF Rx Instructions: TAKE 1 TABLET BY MOUTH EVERY DAY ferrous sulfate 325 mg (65 mg iron) tablet 325 mg PO Q OTHER DAY Patient Comments: Daily x 1 week and then off 1 week; albuterol sulfate 90 mcg/actuation HFA aerosol inhaler 2 puff inhalation Q6H PRN (Reason: Shortness Of Breath Or Wheezing) Qty: 3 1RF Incruse Ellipta 62.5 mcg/actuation blister with device 1 inh inhalation DAILY Qty: 3 2RF multivitamin Tablet 1 tab PO QPM carboxymethylcellulose sodium [Restore Tears] 0.5 % Drops 1 drp OPHTHALMIC (EYE) Q6H PRN (Reason: DRYNESS) cyclosporine [Restasis] 0.05 % Dropperette 1 drp OPHTHALMIC (EYE) Q12H aspirin 81 mg tablet,delayed release (DR/EC) 81 mg PO HS polyethylene glycol 3350 [Miralax] 17 gram/dose Powder 17 g PO DAILY psyllium seed (sugar) Powder 1 tbsp PO DAILY (DME) miscellaneous medical supply Misc VAGINAL Rx Instructions: 2LPM Discharge Orders: Discharge Order (Routine); Ordered 11/20/24 Ordered By: Filippo Boone/Other Patient Handouts: Type 2 Diabetes Admission Data Admit Date/Time: 11/17/24 10:49 Attending Provider: Filippo Man Admit Provider: Lilibeth Ramires Primary Care Provider: Sarah Lehman Other Providers: Lilibeth Ramires Hospital Stay Data Consultations 11/17/24 09:38 ED Decision to Admit Stat Diagnostic Imagining Performed 11/17/24 10:22 CT chest diagnostic w con Stat 11/19/24 15:26 CT head/brain w con Routine Pending Results Patient Have Any Pending Studies at Discharge: No Discharge Instructions Given to Patient (Per Discharging Provider) you were admitted with a flareup of your COPD and pneumonia. You need to still rest and recover. Please complete your tapering doses of prednisone therapy and a few more days of antibiotics. Total Time Total Time Spent Total Time Spent (In Minutes): It required greater than 30 minutes to prepare this patient for discharge. Coding Level of Care Code 96201 INP/OBS DISCH >30 MIN Diagnoses Squamous cell lung cancer C34.90 COPD with emphysema J43.9 Emphysema type: unspecified Acute and chronic respiratory failure J96.20 Pneumonia J18.9
== END 2024-11-20 16:49 | disposition home or self-care (01) | DRG 177 ==
LOC: ED 08:10 → 2N 10:49 → SUATTDRO 10:49 → 2N 11:47
DX: E11.40 Type 2 diabetes mellitus with diabetic neuropathy, unspecified; C34.90 Malignant neoplasm of unspecified part of unspecified bronchus or lung; J44.1 Chronic obstructive pulmonary disease with (acute) exacerbation; R41.0 Disorientation, unspecified; Z92.3 Personal history of irradiation; I50.22 Chronic systolic (congestive) heart failure; Z87.891 Personal history of nicotine dependence; J15.69 Pneumonia due to other Gram-negative bacteria; I25.10 Atherosclerotic heart disease of native coronary artery without angina pectoris; N40.0 Benign prostatic hyperplasia without lower urinary tract symptoms; E11.51 Type 2 diabetes mellitus with diabetic peripheral angiopathy without gangrene; D64.9 Anemia, unspecified; Z99.81 Dependence on supplemental oxygen; J96.21 Acute and chronic respiratory failure with hypoxia; J44.0 Chronic obstructive pulmonary disease with (acute) lower respiratory infection

== ENCOUNTER 2025-02-06 08:08 | Observation (INO) ==
--- NOTE | 2025-02-06 08:26 | Pre Anesthesia Assessment ---
Date of Service February 06, 2025 Pre Sedation Assessment Cardiovascular + regular rate Respiratory + respiratory effort normal Pre-Sedation Airway Assessment Smoking Status: Former smoker Hx Sleep Apnea: No Hx Difficult Intubation: No Short, Thick Neck: No Thyromental Distance: < 3.5 Finger Breadths Oral Cavity: + Dental Abnormalities Mallampati Class: III ASA: ASA3 Procedure Planning Contraindications for Sedation: none Current Medications Reviewed: Yes Notes The planned sedation has been discussed with the patient. Informed Consent was obtained. I have identified the patient, determined the appropriateness of sedation and have assessed the patient immediately prior to the procedure. All medicine(s) and interventions are by my order.
--- NOTE | 2025-02-06 08:26 | History & Physical Bridge Note ---
Date of Service February 06, 2025 History & Physical Bridge Note I have examined the patient, reviewed the History & Physical and in the interval since the performance of the History & Physical I have noted the following changes of clinical significance: no changes noted
[2025-02-06] MEDS: NITROGLYCERIN/D5W 100MCG/ML 20ML SYR ONE (11:45)
[2025-02-06] MEDS: IODIXANOL (VISIPAQUE) 320 MG/ML 100ML IV ONE (11:45)
[2025-02-06] MEDS: niCARdipine 2,000 MCG/20 ML SYR ONE (11:45)
[2025-02-06] MEDS: CLOPIDOGREL BISULFATE 300 MG TAB ONE (12:55)
[2025-02-06] MEDS: NOREPINEPHRINE/D5W 4 MG/250 ML IV ONE (12:56)
[2025-02-06] MEDS: ONDANSETRON INJ 2 MG/ML 2 ML VIAL ONE (12:56)
[2025-02-06] MEDS: HEPARIN (PORCINE) 1000 UNIT/ML 10 ML (CATH LAB USE ONLY) ONE ×2 (12:56→12:57)
[2025-02-06] MEDS: MIDAZOLAM HCL 1 MG/ML 2ML VIAL ONE (12:56)
[2025-02-06] MEDS: OPTIRAY 350 ONE (12:56)
--- NOTE | 2025-02-06 13:02 | Post Anesthesia Assessment ---
Date of Service February 06, 2025 Post Sedation Assessment Vital Signs Temp Pulse Resp BP Pulse Ox O2 Del Method 02/06/25 08:30 98.4 F 70 18 157/104 H 94 Room Air Recovery Score Activity: Moves 4 extremities Respiration: Deep Breath/Cough Circulation: +/-20% PreAnes Value Consciousness: Fully Awake Oxygen Saturation: O2 needed for >90% Discharge Sedation Level of Care: Fast Track Phase II
--- NOTE | 2025-02-06 14:57 | Electrocardiogram Report ---
Test Reason : Blood Pressure : */* mmHG Vent. Rate : 72 BPM Atrial Rate : 72 BPM P-R Int : 138 ms QRS Dur : 130 ms QT Int : 460 ms P-R-T Axes : 59 -73 28 degrees QTcB Int : 503 ms Normal sinus rhythm Left axis deviation Right bundle branch block Abnormal ECG When compared with ECG of 17-Nov-2024 08:30, Nonspecific T wave abnormality now evident in Inferior leads Nonspecific T wave abnormality, worse in Anterolateral leads Confirmed by Rommel Kitchen ([id number]) on 02/06/2025 2:56:51 PM Referred By: Tiara Cleary Confirmed By: Rommel Kitchen
[2025-02-06] MEDS ORDERED: NITROGLYCERIN SL 0.4 MG/TAB TAB SL PRN (16:23)
[2025-02-06] MEDS ORDERED: ONDANSETRON INJ 2 MG/ML 2 ML VIAL IV PRN (16:23)
[2025-02-06] MEDS ORDERED: ALBUTEROL HFA 8 GM INHALER INH PRN (16:28)
[2025-02-06] MEDS ORDERED: ARTIFICIAL TEARS OP PRN (16:42)
--- NOTE | 2025-02-06 16:43 | Cardiac Catheterization ---
[facility] Data: Maintenance Equipment Operator Cardiac Status Clinical evaluation leading to the procedure CAD Presenation: Positive Stress Test Diagnostic Physicians Name: Bryan Farmer MD Closure Device Recommendations: PCI without planned CABG Cardiac Cath Procedure Full Procedure Date February 06, 2025 Pre-Procedure Diagnosis Pre-Procedure Diagnosis: Positive Stress Test AUC Score AUC Score: 7 Post-Procedure Diagnosis Post-Procedure Diagnosis: Successful PCI and Normal Intracardiac Pressures Procedure(s) Performed Procedure(s) Performed: Coronary Angiography, Left Heart Cath, Drug Eluting Stent and Procedure (Shockwave intravascular lithotripsy) Pourer Buggy Ladle Bryan Farmer MD Elevator Erector(s) [place] Estimated Blood Loss Estimated Blood Loss: 10 Medication(s) Medication(s): Clopidogrel, Fentanyl, Heparin, Lidocaine 1%, Nicardipine, Nitroglycerin and Versed Summary of Findings Indication: Exertional dyspnea, abnormal stress test Access: 6 Fr slender right radial artery Catheters: [place] Findings: LM -mildly calcified, 20-30% distal LAD -small caliber, calcified, diffuse proximal to mid disease with 40-50% stenosis just prior to bifurcation with diagonal. Remainder of mid to distal vessel without significant disease and tapers prior to apex. Medium diagonal with luminal irregularities. Circumflex -small caliber, 30% proximal disease, remainder AV groove circumflex without significant disease. Medium OM with 20-30% proximal to mid disease. RCA -dominant, large caliber, superior (tilley's crook takeoff) with calcified 95% proximal stenosis, calcified mid segment disease up to 70%. Distal vessel/RPDA/posterior AV branch without significant disease. LVEDP -10 -- PCI -- Antithrombotic therapy: Heparin, clopidogrel Procedure: RCA cannulated with AR-1 guide and guideliner placed for support Pre-procedure flow LU 3 Long whisper wire passed across lesion into distal vessel Injection through OTW balloon confirmed intraluminal position Wire exchanged for long mailman wire Proximal to mid RCA dilated with 2.0 OTW balloon Proximal lesion further dilated with shockwave intravascular lithotripsy (3.0 balloon, 40 pulses) With aid of GuideLiner dilated lesion stented with 3.5 x 18 mm [place] GEOFF extending from proximal segment into mid segment Residual stenosis noted in mid segment and second GEOFF placed (3.5 x 18 mm [place]) overlapping distal aspect of initial stent. Stents post-dilated with 4.0 noncompliant balloon IC vasodilators administered for spasm Post procedure LU 3 flow, stents well expanded with minimal residual stenosis. Kink at proximal aspect of stent but no significant stenosis. No other apparent complications. Arterial Closure: TR band Summary: 1. Multivessel coronary artery disease -95% calcified proximal RCA, 70% mid RCA 20-30% distal left main Diffuse proximal to mid LAD with 40-50% mid stenosis 2. Normal intracardiac filling pressure 3. Successful PCI of proximal to mid RCA with 2 overlapping drug-eluting stents (3.5 x 18, 3.5 x 18 mm [place]; postdilated with 4.0 NC). Recommendations: To PCU for continued monitoring Loaded with clopidogrel 600 mg in Maintenance Equipment Operator Continue dual-antiplatelet therapy for at least 6 months Continue statin, and ASCVD risk factor modification Hemodynamics Rest Ao:: 169/79/120 Final Ao: 93/58/83 LV: 139/10 Recommendations Recommendations: PCI without planned CABG Radiation Exposure (mGy) 3145 Contrast (mls) 100 Anesthesia Moderate 4850-6974 Procedural Complication(s) None Disposition PCU I attest to the content of the Intraoperative Record and any orders documented therein. Any exceptions are noted below. [facility] Card Cath Procedure Codes Cardiac Catheterization Procedure 1: Cardiovascular Cath Procedures: 16477 Coronaries and LHC (+/-LV) Moderate Sedation Procedure 1: Sedation/Anesthesia: 37806 Mod Sedation by the same physician;Init15 Min Child Age 5 & Up Procedure 2: Sedation/Anesthesia: 25096 Mod Sedation by the same physician; Ea [id number] Minutes Angioplasty Procedure 1: Cardiovascular Angioplasty Procedures: 92637 Perq Trluml Coronry Lithotrp Stenting Procedure 1: Cardiovascular Stent Procedures: 95238 Perc transcatheter placement of i ntracoronary stent(s), with ang PG Care Time/CCT Total # of Minutes Spent Total Time Spent with Patient: Total time spent is greater than 50% in coordination of care (as documented) at patient's floor/unit and/or counseling patient:
[2025-02-06] MEDS: LANSOPRAZOLE 15 MG SOLTAB PO SCH (20:26)
[2025-02-06] MEDS: ATORVASTATIN 40 MG TAB PO SCH (20:26)
[2025-02-06] MEDS: UMECLIDINIUM BROMIDE 62.5MCG/BLISTER 7 PUFFS/INHALER INH SCH (20:27)
[2025-02-06] MEDS: GABAPENTIN 600 MG TAB PO SCH (20:27)
[2025-02-06] MEDS: FLUTICASONE/VILANTEROL 100/25MCG 14 PUFFS/INHALER INH SCH (20:28)
[2025-02-06] MEDS: ARTIFICIAL TEARS OP SCH (20:28)
[2025-02-07 07:11] LABS: Hematocrit (blood only) 39.5 % (42.0-52.0); Hemoglobin 13.1 g/dl (14.0-18.0); Immature Granulocytes # (auto) 0.02 K/uL (0.01-0.20); Immature Granulocytes % (auto) 0.2 %; Mean Corpuscular Hemoglobin 31.0 pg (25.0-34.0); Mean Corpuscular Volume 93.6 fL (80.0-100.0); Platelet Count 158 K/uL (130-400); RDW Standard Deviation 46.2 fL (36.4-46.3); Red Blood Count 4.22 M/uL (4.70-6.10); White Blood Count 8.15 K/ul (4.8-10.8)
[2025-02-07 07:45] LABS: Anion Gap 6.0 (3-11); Blood Urea Nitrogen 14.0 mg/dl (6-23); Calcium 8.7 mg/dl (8.6-10.3); Carbon Dioxide 29.0 mmol/L (21-32); Chloride 105.0 mmol/L (98-107); Creatinine Clr Calc Pharmacy 57.5 ml/min; Glucose 109.0 mg/dl (70-99(Fasting)); Potassium 4.5 mmol/L (3.5-5.1); Sodium 140.0 mmol/L (136-145)
[2025-02-07] MEDS: CLOPIDOGREL BISULFATE 75 MG TAB PO SCH (10:24)
[2025-02-07] MEDS: ASPIRIN 81 MG ECTAB PO SCH (10:24)
[2025-02-07] MEDS: ROFLUMILAST 500 MCG TAB PO SCH (10:25)
[2025-02-07] MEDS: TAMSULOSIN HCL 0.4 MG CAP PO SCH (10:25)
[2025-02-07 11:02] VITALS: BP 119/75; PULSE 74; RESP 21; TEMP 97.3; O2SAT 94
--- NOTE | 2025-02-07 11:49 | Discharge Summary ---
Date of Service February 07, 2025 Admission HPI Per Admitting Provider Mr. Henning is a pleasant 89-year-old man who presented for left heart catheterization in the setting of abnormal stress test. He is followed by Tiara Cleary and Dr. Liu.. Recently underwent evaluation for AAA repair. As part of workup had stress test which suggested multivessel disease and had inferior wall motion abnormality at rest. He has a history of severe COPD. Has had gradually progressive exertional dyspnea for years. Discharge Data Procedures Performed Operation Date: 02/06/25 09:30 Actual Procedures p Cineradiography w/Routine Exam - Bryan Farmer MD p Cath, Left with Cors and Vent - Bryan Farmer MD p Drug Eluting Stent SGl Vessel - Bryan Farmer MD Hospital Course (1) CAD (coronary artery disease): Underwent cardiac catheterization via right radial artery on 02/06/2025. Findings: 1. Multivessel coronary artery disease -95% calcified proximal RCA, 70% mid RCA 20-30% distal left main Diffuse proximal to mid LAD with 40-50% mid stenosis 2. Normal intracardiac filling pressure 3. Successful PCI of proximal to mid RCA with 2 overlapping drug-eluting stents (3.5 x 18, 3.5 x 18 mm [place]; postdilated with 4.0 NC). Patient tolerated procedure well and following procedure he was admitted for observation in the setting of his age and comorbidities. Overnight he had no significant chest pain. Electrically stable on telemetry. Hemodynamically stable. Postprocedure labs stable. Today he is feeling well and at his baseline. No apparent access site complications. Discharged home on DAPT with aspirin and clopidogrel. PPI switched to lansoprazole. He will follow-up with Tiara Cleary in 2 weeks. Discharge Instructions Home Medications carboxymethylcellulose sodium 0.5 % eye drops (Restore Tears) 1 drp ophthalmic (eye) Q6H PRN DRYNESS 04/12/18 [History Confirmed 02/03/25] cyclosporine 0.05 % eye drops in a dropperette (Restasis) 1 drp ophthalmic (eye) Q12H 04/12/18 [History Confirmed 02/03/25] multivitamin 1 tab PO QPM 04/12/18 [History Confirmed 02/03/25] aspirin 81 mg tablet,delayed release 81 mg PO HS 06/25/19 [History Confirmed 02/03/25] polyethylene glycol 3350 17 gram/dose oral powder (Miralax) 17 g PO DAILY 12/13/23 [History Confirmed 02/03/25] psyllium seed (sugar) oral powder 1 tbsp PO DAILY 12/13/23 [History Confirmed 02/03/25] azelastine 137 mcg (0.1 %) nasal spray 2 spray intranasal BID #3 ea 03/08/24 [Rx Confirmed 02/03/25] gabapentin 600 mg tablet 600 mg PO QPM #90 tabs 06/07/24 [Rx Confirmed 02/03/25] omeprazole 20 mg capsule,delayed release 40 mg (2 x 20 mg) PO QAM #90 caps 06/25/24 [Rx Confirmed 02/03/25] albuterol sulfate 90 mcg/actuation aerosol inhaler 2 puff inhalation Q6H PRN Shortness Of Breath Or Wheezing #3 Inhalers 08/27/24 [Rx Confirmed 02/03/25] fluticasone propionate 230 mcg-salmeterol 21 mcg/actuation HFA inhaler 2 puff inhalation BID #36 grams 08/28/24 [Rx Confirmed 02/03/25] atorvastatin 40 mg tablet 40 mg PO HS #90 tabs 09/04/24 [Rx Confirmed 02/03/25] duloxetine 60 mg capsule,delayed release 60 mg PO HS #90 caps 09/04/24 [Rx Confirmed 02/03/25] miscellaneous medical supply 11/17/24 [History Confirmed 02/03/25] prednisone 10 mg tablet 10 mg PO DIRECTED #40 tabs 11/20/24 [Rx Confirmed 02/03/25] quetiapine 25 mg tablet (Seroquel) 25 mg PO HS PRN insomna #20 tabs 11/20/24 [Rx Confirmed 02/03/25] roflumilast 500 mcg tablet (Daliresp) 500 mcg PO QAM 01/16/25 [History Confirmed 02/03/25] tamsulosin 0.4 mg capsule 0.4 mg PO QAM 01/16/25 [History Confirmed 02/03/25] umeclidinium 62.5 mcg/actuation blister powder for inhalation (Incruse Ellipta) 1 inh inhalation PM 01/16/25 [History Confirmed 02/03/25] ferrous sulfate 325 mg (65 mg iron) tablet 325 mg PO Q OTHER DAY #90 tabs 02/04/25 [Rx] clopidogrel 75 mg tablet 75 mg PO QAM #30 tabs 02/07/25 [Rx] lansoprazole 15 mg delayed release,disintegrating tablet (Prevacid SoluTab) 15 mg PO DAILY #30 tabs 02/07/25 [Rx] nitroglycerin 0.4 mg sublingual tablet (Nitrostat) 0.4 mg sublingual Q5M PRN chest pain #30 tabs 02/07/25 [Rx] Coding Level of Care Code 66630 IN/OBS DISCH 30 MIN/LESS Diagnoses CAD (coronary artery disease) I25.10
[2025-02-08] MEDS ORDERED: FERROUS SULFATE 325 MG TAB PO SCH (09:00)
== END 2025-02-07 13:07 | disposition home or self-care (01) | DRG 324 ==
LOC: CC 08:08 → 2S 12:48 → INTOOBSV 12:48

== ENCOUNTER 2025-03-19 08:46 | Inpatient (IN) ==
--- NOTE | 2025-03-17 11:10 | Communication Note ---
Date of Service: March 17, 2025 - Dr. Pratt advised patient can take daliresp am [facility] RN made aware who notified patient.
--- NOTE | 2025-03-17 12:37 | Anesthesiology Consultation ---
Date of Service March 17, 2025 Assessment & Plan (1) Encounter for pre-operative examination: - Soraya with surgeon's office requested coags be ordered for DOS and T&S will not be done as surgeon ordered type and cross for DOS. - vascular surgery note 02/24/25: "...he will need to remain on his Plavix and aspirin throughout his periprocedural time..." - PCP office note 02/21/25 [place]: "...tolerating procedure well, will follow-up with cardiology this coming Monday. Will discuss with them timeline of AAA repair. Oxygen supplies sent..." - cardiology office note 02/18/25: "...follow up his cardiac catheterization...2 overlapping drug-eluting stents...shortness of breath is about the same...pulse ox on the lower end today at 88 to 90%...will need to be on aspirin and Plavix for a year without interruption and that he should not stop these medications for any reason without discussing with us first..." - Per paperboard boxes estimator on 03/17/25: No known infectious disease contacts, current infectious disease symptoms in past 10 days or COVID positive test result in the past 30 days. Chart Review Chart Review: Acceptable Risk for Surgery and Patient NOT seen in Pre Admission Testing History Surgery Operation Date: 01/28/25 12:00 Proposed Procedures p Endovascular Repair of Abdominal Aortic Aneurysm - Billy Zapata MD Operation Date: 03/19/25 10:10 Proposed Procedures p Endovascular Repair of Abdominal Aortic Aneurysm - Billy Zapata MD Height/Weight Height: 5 ft 10 in Weight: 90.718 kg Allergies Allergy/AdvReac Type Severity Reaction Status Date / Time ciprofloxacin Allergy Intermediate Sweling Verified 03/19/25 09:01 erythromycin base Allergy Intermediate Hives Verified 03/19/25 09:01 pramipexole Allergy Intermediate Rash Verified 03/19/25 09:01 ropinirole Allergy Intermediate Rash Verified 03/19/25 09:01 cat dander AdvReac Intermediate Sneezing, Verified 03/19/25 09:01 congestion lisinopril AdvReac Intermediate Cough Verified 03/19/25 09:01 pantoprazole AdvReac Intermediate GI symptoms Verified 03/19/25 09:01 Medications Home Medications Medication Instructions Recorded Confirmed Last Taken carboxymethylcellulose sodium 0.5 1 drp ophthalmic (eye) Q6H PRN 04/12/18 03/19/25 03/19/25 07:30 % eye drops (Restore Tears) DRYNESS cyclosporine 0.05 % eye drops in a 1 drp ophthalmic (eye) Q12H 04/12/18 03/19/25 03/19/25 07:30 dropperette (Restasis) multivitamin 1 tab PO QPM 04/12/18 03/19/25 03/18/25 21:00 aspirin 81 mg tablet,delayed 81 mg PO HS 01/15/19 03/19/25 03/18/25 21:00 release polyethylene glycol 3350 17 17 g PO DAILY PRN Constipation 12/13/23 03/19/25 03/17/25 09:00 gram/dose oral powder (Miralax) duloxetine 60 mg capsule,delayed 60 mg PO HS #90 caps 09/04/24 03/19/25 03/18/25 21:00 release miscellaneous medical supply 11/17/24 02/21/25 Unknown prednisone 10 mg tablet 10 mg PO DIRECTED #40 tabs 11/20/24 03/19/25 03/19/25 07:30 1 tab daily now quetiapine 25 mg tablet (Seroquel) 25 mg PO HS PRN insomna #20 tabs 11/20/24 03/19/25 Unknown tamsulosin 0.4 mg capsule 0.4 mg PO QAM 01/16/25 03/19/25 03/19/25 07:30 umeclidinium 62.5 mcg/actuation 1 inh inhalation PM 01/16/25 03/19/25 03/18/25 21:00 blister powder for inhalation (Incruse Ellipta) lansoprazole 15 mg delayed 15 mg PO DAILY #30 tabs 02/07/25 03/19/25 03/19/25 07:30 release,disintegrating tablet (Prevacid SoluTab) nitroglycerin 0.4 mg sublingual 0.4 mg sublingual Q5M PRN chest 02/07/25 03/19/25 Unknown tablet (Nitrostat) pain #30 tabs roflumilast 500 mcg tablet 500 mcg PO QAM #30 tabs 02/12/25 03/19/25 03/19/25 07:30 (Daliresp) albuterol sulfate 90 mcg/actuation 2 puff inhalation Q6H PRN 02/18/25 03/19/25 03/19/25 07:30 aerosol inhaler Shortness Of Breath Or Wheezing #3 Inhalers gabapentin 600 mg tablet 600 mg PO QPM #90 tabs 02/25/25 03/19/25 03/18/25 21:00 azelastine 137 mcg (0.1 %) nasal 2 spray intranasal BID #3 ea 02/26/25 03/19/25 03/18/25 21:00 spray atorvastatin 40 mg tablet (Lipitor) 40 mg PO HS 03/19/25 03/19/25 03/18/25 21:00 clopidogrel 75 mg tablet (Plavix) 75 mg PO QAM 03/19/25 03/19/25 03/19/25 07:30 ferrous sulfate 325 mg (65 mg 325 mg PO QAM 03/19/25 03/19/25 03/19/25 07:30 iron) tablet fluticasone propionate 230 2 puff inhalation BID 03/19/25 03/19/25 03/19/25 07:30 mcg-salmeterol 21 mcg/actuation HFA inhaler (Advair HFA) Active Medications Generic Name Dose Route Start Last Admin Trade Name Freq PRN Reason Stop Dose Admin Sodium Chloride 1,000 mls @ 50 mls/hr 03/19/25 06:00 03/19/25 09:25 Nss IV 03/19/25 18:00 50 mls/hr .Q20H JULIETH Administration Past Medical History Medical History CAD (coronary artery disease) s/p 2 stents RCA 02/06/25 History of pneumonia Hyperlipidemia Chronic constipation History of anemia of chronic disease History of Mohs micrographic surgery for skin cancer Type 2 diabetes mellitus diet controlled per pt 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/23) AAA (abdominal aortic aneurysm) 4.7 x 5.3 cm infrarenal abdominal aortic aneurysm On home oxygen therapy 2L at HS Lung cancer finished with radiation for now Arthritis History of BPH Restless leg syndrome Multiple pulmonary nodules COPD with emphysema denies recent exacerbation Hypertension Peripheral arterial disease Peripheral neuropathy Chronic bronchitis with emphysema History of basal cell carcinoma Seborrheic keratosis GERD (gastroesophageal reflux disease) Hearing deficit Poor historian Past Family History Family History Brother Prostate cancer Other Colorectal cancer No family history of adverse response to anesthesia Denies family history of Ovarian cancer Myocardial infarction Breast cancer Lung cancer Past Surgical History Surgical History S/P cardiac cath 01/2025-chest pain, 2 stents, [place] Hx of vitrectomy right History of anesthesia reaction pt states could feel everything with last colonoscopy>done at [place] with Dr. Ryder>was told if every having a future colonoscopy he would need general anesthesia History of lung biopsy Hx of vasectomy History of tonsillectomy History of tooth extraction History of cataract surgery R/L H/O transurethral resection of prostate History of hernia repair History of hemorrhoidectomy History of colonoscopy History of prostate biopsy History of surgery on arm right Social History Smoking Status: Former smoker tobacco type: pipe Smoking cigarettes per day: 20 Do You Dip or Chew Tobacco: Yes (nicotine pouch - advised npo) Smoking End Date: quit smoking ~7 yrs ago Hx Alcohol Use: No Hx Substance Use: No substance use type: does not use Physical Exam Vital Signs Last Vital Signs Temp 36.5 C 03/19/25 09:11 Pulse 70 03/19/25 09:11 Resp 20 03/19/25 09:11 BP 159/76 H 03/19/25 09:11 Pulse Ox 96 03/19/25 09:11 O2 Del Method Room Air 03/19/25 09:11 Lab Results Anesthesia Preop Results Results Anesthesia Widget: 2 WBC 8.15 K/ul (4.8-10.8) 02/07/25 Hgb 13.1 g/dl (14.0-18.0) L 02/07/25 Hct 39.5 % (42.0-52.0) L 02/07/25 Plt 158 K/uL (130-400) 02/07/25 Na 140 mmol/L (136-145) 03/19/25 K 4.4 mmol/L (3.5-5.1) 03/19/25 Cl 103 mmol/L (98-107) 03/19/25 CO2 31 mmol/L (21-32) 03/19/25 BUN 11 mg/dl (6-23) 03/19/25 Creat 1.04 mg/dl (0.6-1.4) 03/19/25 Glucose Level 131 mg/dl (70-99(Fasting)) H 03/19/25 POC Glucose 126 mg/dl (70-99) H 03/19/25 HA1c 6.6 % (4.5-5.6) H 02/03/25 Urine Color Yellow 02/03/25 Urine Appearance Clear (Clear) 02/03/25 Urine pH 7.0 (4.5-7.5) 02/03/25 Urine Specific [place] 1.014 (1.000-1.030) 02/03/25 Urine Protein Negative (Negative) 02/03/25 Urine Glucose (UA) Negative (Negative) 02/03/25 Urine Ketones Negative (Negative) 02/03/25 Urine Blood Negative (Negative) 02/03/25 Urine Nitrite Negative (Negative) 02/03/25 Urine Bilirubin Negative (Negative) 02/03/25 Urine Urobilinogen Negative (Negative) 02/03/25 Urine Leukocyte Esterase Trace (Negative) H 02/03/25 Urine WBC (Auto) 0-5 /hpf (0-5) 02/03/25 Urine RBC (Auto) 0-2 /hpf (0-2) 02/03/25 Urine Hyaline Casts (Auto) 0-2 /lpf (0-2) 02/03/25 Urine Epithelial Cells (Auto) 0-2 /hpf (0-2) 02/03/25 Urine Bacteria (Auto) None Seen (None Seen) 02/03/25 Blood Type O Positive 03/19/25 Antibody Screen NEGATIVE 03/19/25 Testing Laboratory Results 03/19/25 08:47 Blood Type O Positive 03/19/25 08:47 Antibody Screen NEGATIVE 03/19/25 08:47 03/19/25 08:51 POC Glucose 126 H Electrocardiogram Date: 02/06/25 NSR, rate 72 bpm Left axis deviation RBBB When compared with 11/17/24 EKG, Nonspecific T wave abnormality now evident in inferior leads Nonspecific T wave abnormality worse in anterolateral leads Chest X-Ray Date: 11/17/24 *1 view* 1. Oval part air part solid density projects over the right lung apex. It is uncertain whether this is overlying soft tissue density or a new air-fluid collection or cavitary lesion in the right apex. CT would better assess. 2. Increased airspace disease left upper lobe concerning for pneumonia. Echocardiogram Date: 02/29/24 EF 45-50% Mild global hypokinesis Mild cLVH No significant valvular abnormalities Mildly dilated aortic root 4.6 cm Mildly dilated ascending aorta 4.4 cm Normal estimated RVSP 26 mmHg Stress Test Date: 01/22/25 MPHR 90% Normal stress EKG Positive stress echo with a combination of ischemia and scar in what appears to be 2 coronary territories with marked ALLEN with exercise and frequent ventricular ectopy EF 55% Inferior wall, basal inferoseptum and distal LAD territory are abnormal at rest Cardiac Catheterization Date: 02/06/25 LM -mildly calcified, 20-30% distal LAD -small caliber, calcified, diffuse proximal to mid disease with 40-50% stenosis just prior to bifurcation with diagonal. Remainder of mid to distal vessel without significant disease and tapers prior to apex. Medium diagonal with luminal irregularities. Circumflex -small caliber, 30% proximal disease, remainder AV groove circumflex without significant disease. Medium OM with 20-30% proximal to mid disease. RCA -dominant, large caliber, superior (tilley's crook takeoff) with calcified 95% proximal stenosis, calcified mid segment disease up to 70%. Distal vessel/RPDA/posterior AV branch without significant disease. 1. Multivessel coronary artery disease -95% calcified proximal RCA, 70% mid RCA 20-30% distal left main Diffuse proximal to mid LAD with 40-50% mid stenosis 2. Normal intracardiac filling pressure 3. Successful PCI of proximal to mid RCA with 2 overlapping drug-eluting stents (3.5 x 18, 3.5 x 18 mm Gervais; postdilated with 4.0 NC). Other Testing Abdomen pelvis CTA 02/04/25 1. No acute infectious or inflammatory findings are identified in the pelvis. 2. There is a 4.7 x 5.3 cm infrarenal abdominal aortic aneurysm. This is similar appearance to the 12/11/2004 examination. There is no evidence of rupture. Nonemergent vascular surgical follow-up is advised. 3. Cardiomegaly and emphysema. 4. Colonic diverticulosis without CT evidence of acute diverticulitis. 5. Additional findings as above. Head CT 11/19/[address] Signs of acute infarction, hemorrhage, or masses. If mets are still a clinical concern, Further evaluation with MRI is advised. 2. Mild involution, age-related brain changes with mild deep white matter microvessel ischemia. Chest CT 11/17/24 1. Emphysematous disease with persistent but improved left upper and lower lobe infiltrate and coarse pleural and fissural based opacity in the right lower lobe compared to 11/03/2024. 2. Right apical abnormality seen on plain radiograph is artifactual.
--- NOTE | 2025-03-19 07:30 | History & Physical Report ---
Date of Service March 19, 2025 History of Present Illness Primary Care Provider: Sarah Lehman DO Name: HARVINDER HUSAIN Patient Number: [id number] : 1935 Date of Service: 02/24/2025 Chief Complaint: _Follow-up appointment to discuss P EVAR HPI: _Mr. Andujar is an elderly male who presents to Dr. Zapata vascular surgery clinic today for appointment to once again discuss his endovascular aortic aneurysm repair. Patient was initially seen here about 2 months ago for a 5.3 cm AAA, and advised to undergo P EVAR. He was sent for a stress test, which then proceeded to a cardiac catheterization with GEOFF x 2 which was completed a few weeks ago. Patient states he is feeling well since his procedure. He says he is prepared and ready to undergo his aneurysm repair. He denies any headache, fever, chest pain, shortness of breath, abdominal pain, nausea, vomiting, rest pain, claudication, nonhealing wounds, other complaints. Current Home Meds: (Last Updated 02/24 14:23) DULoxetine (DULoxetine 60 mg oral delayed release capsule) TAKE 1 CAPSULE BY MOUTH AT BEDTIME QUEtiapine (QUEtiapine 25 mg oral tablet) 25 mg PO Daily aspirin (Aspirin Low Dose 81 mg oral delayed release tablet) 81 mg PO Daily atorvastatin (atorvastatin 40 mg oral tablet) TAKE 1 TABLET BY MOUTH EVERY DAY azelastine nasal (Astelin 137 mcg/inh nasal spray) 1 spray each nostril bid PRN: as needed for allergy symptoms clopidogrel (clopidogrel 75 mg oral tablet) 75 mg PO Daily cycloSPORINE ophthalmic (cycloSPORINE 0.05% ophthalmic emulsion) cycloSPORINE ophthalmic (Restasis 0.05% ophthalmic emulsion) INSTILL 1 DROP BOTH EYES TWICE A DAY (DISP DAY SUPPLY) fluticasone-salmeterol (Advair HFA 230 mcg-21 mcg) INHALE 2 PUFFS BY MOUTH TWICE A DAY gabapentin (gabapentin 600 mg oral tablet) 600 mg PO Daily lansoprazole (lansoprazole 15 mg oral delayed release capsule) 15 mg PO Daily multivitamin with minerals (Multi-Lana) polyethylene glycol 3350 (MiraLax oral powder for reconstitution) 17 g PO Daily prednisoLONE ophthalmic (prednisoLONE acetate 1% ophthalmic suspension) PLEASE SEE ATTACHED FOR DETAILED DIRECTIONS psyllium roflumilast (Daliresp 500 mcg oral tablet) TAKE 1 TABLET BY MOUTH EVERY DAY tamsulosin (tamsulosin 0.4 mg oral capsule) 0.4 mg umeclidinium-vilanterol (Anoro Ellipta 62.5 mcg-25 mcg/inh inhalation powder) umeclidinium (Incruse Ellipta) q24h unlisted medication 2 L of 02 at hs unlisted medication (MAGNESIUM 400 MG SOFTGEL) TAKE 1 SOFTGEL BY MOUTH EVERY MORNING Allergies and Sensitivities: lisinopril(cough) pantoprazole(GI symptoms) rOPINIRole(rash) ciprofloxacin(swelling in throat) pramipexole(rash) erythromycin(hives) Past Medical History: Problems: AAA (abdominal aortic aneurysm) Lung cancer Skin lesions COPD (chronic obstructive pulmonary disease) Nevus Tobacco user OBJECTIVE Vitals: Last Updated 02/24/25 14:28 Date Temp BP Location Pulse RR SpO2 Pain 02/24/25 122/64 Left Arm 74 94 02/24/25 120/72 Right Arm 02/18/25 90 Vital Signs are the last 3 documented. No Orthostatic Data Available Height and Weight: Last Updated 02/24/25 14:28 Date BMI Wt(kg) Wt(lb) Method Ht(cm) (ft-in) Method 02/24/25 87 191 Standing Scale 02/18/25 86.7 191 Standing Scale 01/28/25 87 191 Standing Scale Heights and Weights are the last 3 documented. Physical Exam Constitutional: In general patient is a healthy-appearing well-nourished well-developed elderly male in no distress. Is alert and oriented without any focal deficits. His heart is regular, lungs are decreased throughout significantly but clear. His abdomen is soft nontender with normoactive bowel sounds in all 4 quadrants. The edges of the 5 cm aneurysm are palpable. Femoral pulses are +3. Lower extremity distal pulses are +1. ASSESSMENT: _ PLAN: _ 1 ) _abdominal aortic aneurysm The procedure of percutaneous endovascular aneurysm repair was discussed at length with the patient and his by myself. All of their questions regarding the procedure were answered to their satisfaction. Patient would like to proceed with his aneurysm repair as soon as it can be scheduled. The benefits and alternatives and expectations of the hospital stay were discussed with the patient by myself. The risks of the procedure including but not limited to bleeding, infection, improper placement of the graft necessitating open repair, bowel or limb ischemia leading to further surgery or limb loss, worsening kidney damage, heart attack, , were discussed at length with the patient by myself at Dr. Zapata's request. Patient expressed understanding and agreement to proceed. This will occur in the next 2 weeks at the patient's convenience. He is advised to call with any questions or concerns. He is aware that he will need to remain on his Plavix and aspirin throughout his periprocedural time. Thank you for letting us participate in the care of this patient. I have personally [id number]___ minutes performing [id number] and [id number] activities on this date of service.Time does not include separately reported services. Activities Include: _x_ review of the medical record _x_ obtaining a history _x_ physical exam/evaluation __ review labs x_ review radiology reports _x_ counseling/educating patient/family/caregiver __ discussion/referral to other healthcare professional _x_ documenting care in the medical record __ independent interpretation of results _x_ communication of results to patient/family/caregiver _x_ coordination of care Signature Line Electronic Signature on File CC: Josafat Liu DO [address] [place] [address] 1 [place] [address] CC: Sarah Lehman DO [facility] [place] [address] * Electronically Reviewed/Signed by: Leatha Joshi PA-C Author Signature Dt/Tm:02/24/2025 04:24 PM [facility] [place] [place] [address] LM Result Type: HVI Outpt Note Date of Service: February 24, 2025 16:18 EDT Authorization Status: Final Author or Import Date: MANDY Joshi Lynn on February 24, 2025 16:24 EDT Verified By: MANDY Joshi Lynn on February 24, 2025 16:24 EDT Encounter info: [id number], [facility], Clinic, 02/24/2025 - 02/24/2025 Allergies Allergy/AdvReac Type Severity Reaction Status Date / Time ciprofloxacin Allergy Intermediate Sweling Verified 03/17/25 10:57 erythromycin base Allergy Intermediate Hives Verified 03/17/25 10:57 pramipexole Allergy Intermediate Rash Verified 03/17/25 10:57 ropinirole Allergy Intermediate Rash Verified 03/17/25 10:57 cat dander AdvReac Intermediate Sneezing, Verified 03/17/25 10:57 congestion lisinopril AdvReac Intermediate Cough Verified 03/17/25 10:57 pantoprazole AdvReac Intermediate GI symptoms Verified 03/17/25 10:57 Home Medications Medication Instructions Recorded Confirmed Type carboxymethylcellulose sodium 0.5 1 drp ophthalmic (eye) Q6H PRN 04/12/18 03/17/25 History % eye drops (Restore Tears) DRYNESS cyclosporine 0.05 % eye drops in a 1 drp ophthalmic (eye) Q12H 04/12/18 03/17/25 History dropperette (Restasis) multivitamin 1 tab PO QPM 04/12/18 03/17/25 History aspirin 81 mg tablet,delayed 81 mg PO HS 01/15/19 03/17/25 History release polyethylene glycol 3350 17 17 g PO DAILY 12/13/23 03/17/25 History gram/dose oral powder (Miralax) fluticasone propionate 230 2 puff inhalation BID #36 grams 08/28/24 03/17/25 Rx mcg-salmeterol 21 mcg/actuation HFA inhaler atorvastatin 40 mg tablet 40 mg PO HS #90 tabs 09/04/24 03/17/25 Rx duloxetine 60 mg capsule,delayed 60 mg PO HS #90 caps 09/04/24 03/17/25 Rx release miscellaneous medical supply 11/17/24 02/21/25 History prednisone 10 mg tablet 10 mg PO DIRECTED #40 tabs 11/20/24 03/17/25 Rx quetiapine 25 mg tablet (Seroquel) 25 mg PO HS PRN insomna #20 tabs 11/20/24 03/17/25 Rx tamsulosin 0.4 mg capsule 0.4 mg PO QAM 01/16/25 03/17/25 History umeclidinium 62.5 mcg/actuation 1 inh inhalation PM 01/16/25 03/17/25 History blister powder for inhalation (Incruse Ellipta) ferrous sulfate 325 mg (65 mg 325 mg PO Q OTHER DAY #90 tabs 02/04/25 03/17/25 Rx iron) tablet clopidogrel 75 mg tablet 75 mg PO QAM #30 tabs 02/07/25 03/17/25 Rx lansoprazole 15 mg delayed 15 mg PO DAILY #30 tabs 02/07/25 03/17/25 Rx release,disintegrating tablet (Prevacid SoluTab) nitroglycerin 0.4 mg sublingual 0.4 mg sublingual Q5M PRN chest 02/07/25 03/17/25 Rx tablet (Nitrostat) pain #30 tabs roflumilast 500 mcg tablet 500 mcg PO QAM #30 tabs 02/12/25 03/17/25 Rx (Daliresp) albuterol sulfate 90 mcg/actuation 2 puff inhalation Q6H PRN 02/18/25 03/17/25 Rx aerosol inhaler Shortness Of Breath Or Wheezing #3 Inhalers gabapentin 600 mg tablet 600 mg PO QPM #90 tabs 02/25/25 03/17/25 Rx azelastine 137 mcg (0.1 %) nasal 2 spray intranasal BID #3 ea 02/26/25 03/17/25 Rx spray Past Med/Surg History Problem List (Updated 03/17/25 @ 12:24 by Misty Diaz PA-C) Abnormal PET scan of colon Abnormal PET scan of lung Squamous cell lung cancer Aortic aneurysm History of anemia of chronic disease Chronic constipation Type 2 diabetes mellitus Per records Calcification of aorta Nocturnal hypoxia 2L O2 HS Aneurysm of thoracic aorta Under annual surveillance CTA Chest 11/06/23: "Mild aneurysmal dilatation of the ascending thoracic aorta is unchanged. 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/23) AAA (abdominal aortic aneurysm) 4.7 x 5.3 cm infrarenal abdominal aortic aneurysm On home oxygen therapy 2L at HS Lung cancer finished with radiation for now Arthritis History of BPH Restless leg syndrome Multiple pulmonary nodules COPD with emphysema denies recent exacerbation Hypertension Peripheral arterial disease Peripheral neuropathy Chronic bronchitis with emphysema History of basal cell carcinoma Seborrheic keratosis GERD (gastroesophageal reflux disease) Hearing deficit Poor historian Surgical History S/P cardiac cath 01/2025-chest pain, 2 stents, [place] Hx of vitrectomy right History of anesthesia reaction pt states could feel everything with last colonoscopy>done at [place] with Dr. Ryder>was told if every having a future colonoscopy he would need general anesthesia History of lung biopsy Hx of vasectomy History of tonsillectomy History of tooth extraction History of cataract surgery R/L H/O transurethral resection of prostate History of hernia repair History of hemorrhoidectomy History of colonoscopy History of prostate biopsy History of surgery on arm right Family History Brother Prostate cancer Other Colorectal cancer No family history of adverse response to anesthesia Denies family history of Ovarian cancer Myocardial infarction Breast cancer Lung cancer Social History Smoking Status: Former smoker Tobacco Type: Smokeless Tobacco (Dip or Chew) Age Started Using Tobacco: 16; Age Quit Using Tobacco: 78; packs per day: 1; Cigarettes Per Day: 20; Smoking End Date: quit smoking ~7 yrs ago; Second Hand Exposure: No; Do You Dip or Chew Tobacco: Yes (nicotine pouch - advised npo); Tobacco Cessation Education Requested by Patient: No Hx Alcohol Use: No Hx Substance Use: No Preferred Language: Slovak Communication Ability: Effective Visual Impairment: Limited Hearing Ability: Hard of Hearing Pediatric Medical Assistant Required: No Beliefs That Will Affect Care: None marital status: Current Living Situation: Spouse current occupational status: retired current occupation: Retired from [employer] How many Children do You have: 2 Other Information That Helps Us Care for You: No Feels Safe at Home: Yes Safety Concerns: Feels Safe At This Time Childhood Exposure to Second-Hand Smoke: No caffeine: Yes during the past year weight has: remained stable Dental Care, Regularly: Yes Physical Activity Frequency: Does not Exercise Physical Activity Frequency Comment: not physically able to exercise due to dyspnea Seatbelt Use: always Sunscreen Use: No Assistive Devices: Cane, Denture - Upper, Glasses, Oxygen - at Night and Walker Assistive Devices Comment: cane/walker prn
[2025-03-19 09:23] LABS: Anion Gap 6.0 (3-11); Blood Urea Nitrogen 11.0 mg/dl (6-23); Calcium 9.3 mg/dl (8.6-10.3); Carbon Dioxide 31.0 mmol/L (21-32); Chloride 103.0 mmol/L (98-107); Creatinine Clr Calc Pharmacy 54.5 ml/min; Glucose 131.0 mg/dl (70-99(Fasting)); Potassium 4.4 mmol/L (3.5-5.1); Sodium 140.0 mmol/L (136-145)
[2025-03-19] MEDS: SODIUM CHLORIDE 0.9% 1,000 ML IV SCH ×2 (09:25→15:48)
--- NOTE | 2025-03-19 10:16 | History & Physical Bridge Note ---
Date of Service March 19, 2025 History & Physical Bridge Note I have examined the patient, reviewed the History & Physical and in the interval since the performance of the History & Physical I have noted the following changes of clinical significance: no changes noted
[2025-03-19] MEDS ORDERED: ONDANSETRON INJ 2 MG/ML 2 ML VIAL IV PRN ×2 (10:21→15:20)
[2025-03-19] MEDS ORDERED: NALOXONE HCL 0.4 MG/1 ML VIAL/CARP IV PRN (10:21)
[2025-03-19] MEDS ORDERED: PROMETHAZINE HCL 6.25 MG in SODIUM CHLORIDE 0.9% 50 ML IV PRN (10:21)
[2025-03-19] MEDS ORDERED: FLUMAZENIL 0.1 MG/1 ML 10 ML VIAL IV PRN (10:21)
[2025-03-19] MEDS ORDERED: ATROPINE SULFATE 0.1 MG/ML 10ML SYR IV PRN (10:21)
[2025-03-19] MEDS ORDERED: PROPOFOL IV EMULSION 10 MG/ML 20 ML VIAL IV ONE (10:28)
[2025-03-19] MEDS ORDERED: MIDAZOLAM HCL 1 MG/ML 2ML VIAL ONE (10:29)
[2025-03-19] MEDS ORDERED: CISATRACURIUM BESYLATE IV SOLN 2 MG/ML 10 ML VIAL IV ONE (10:30)
[2025-03-19] MEDS ORDERED: ETOMIDATE 2 MG/ML 20 ML VIAL IV ONE (10:31)
[2025-03-19] MEDS ORDERED: HEPARIN SOD (PORCINE) 1000 UNIT/ML ONE (10:31)
[2025-03-19] MEDS ORDERED: GLYCOPYRROLATE 0.2 MG/ML VIAL ONE (10:33)
[2025-03-19] MEDS ORDERED: VISIPAQUE IV PRN (11:04)
[2025-03-19] MEDS: CEFAZOLIN 2,000 MG/15 ML SYR IV SCH (11:47)
[2025-03-19] MEDS ORDERED: ePHEDrine sulfate 50 MG/5 ML SYR ONE (12:20)
[2025-03-19] MEDS ORDERED: VASOPRESSIN 20 UNIT/ML VIAL ONE (13:03)
--- NOTE | 2025-03-19 13:23 | Post Operative Brief Note ---
Immediate Post Op Note Date of Surgery March 19, 2025 Pre & Post Diagnosis Operation Date: 03/19/25 10:10 Pre-Op Diagnosis: Abdominal Aortic Aneurysm Post-Op Diagnosis: Abdominal Aortic Aneurysm I identified the patient and participated in the time-out.: Yes Procedure Operation Date: 03/19/25 10:10 Actual Procedures p Percutaneous Endovascular Aortic Aneursym Repair, Mechanical Closure of Right Femoral Artery, Open Repair Left Common Femoral Artery - Billy Zapata MD Surgeon Billy Zapata MD Greenhouse Laborer MD Fransico ZunigaMinarchick,PAC Estimated Blood Loss 550 Findings Consistent with Post-Op Diagnosis Drains Mahoney Catheter Anesthesia Type General Complications none Disposition Accompanied Patient To Recovery: No Disposition: Recovery Room
--- NOTE | 2025-03-19 13:34 | Operative Report ---
Post Operative Report Pre & Post Diagnosis Operation Date: 03/19/25 10:10 Pre-Op Diagnosis: Asymptomatic, infrarenal abdominal aortic aneurysm Post-Op Diagnosis: Asymptomatic, infrarenal abdominal aortic aneurysm I identified the patient and participated in the time-out.: Yes Procedure Operation Date: 03/19/25 10:10 Actual Procedures p Percutaneous Endovascular Aortic Aneursym Repair, Mechanical Closure of Right Femoral Artery, Open Repair Left Common Femoral Artery - Billy Zapata MD Surgeon Billy Zapata MD Staff Toxicologist MD Sena Vernon,PAC Estimated Blood Loss 550 Findings See Below Patient with successful coverage of infrarenal abdominal aortic aneurysm on completion angiogram. Bilateral renal arteries and hypogastric arteries were patent on completion angiogram. There was no evidence of endoleak on completion angiogram. Patient had DP and PT signals bilaterally at conclusion of the case. Specimens None Anesthesia Type General Complications None immediately evident Indications 89 year old male with history of asymptomatic infrarenal abdominal aortic aneurysm. Given the size of the aneurysm, he met criteria for repair. After discussion of risks and benefits, patient provided informed consent for endovascular aortic aneurysm repair (EVAR). Description of Procedure Patient was brought into the operating room and placed in supine position. General anesthesia was achieved and the patient intubated by the anesthesia team. An arterial line was placed by the anesthesia team. A Mahoney catheter was inserted. Patient's abdomen, groins and bilateral legs to the knees were prepped and draped in the usual sterile fashion. Surgical timeout was performed and the correct patient and procedure to be done were confirmed. Next, ultrasound guided access of the right common femoral artery was obtained using an 18G access needle. A short 0.035" J wire was inserted through the needle into the artery. A skin incision was made at the level of the puncture site to accommodate an 18F sheath. The 8F Manta closure measuring dilator was inserted over the wire until there was backbleeding.We obtained the measurement at the level of the skin and the dilator was removed. We then placed an 8F sheath over the J wire. The wire was then removed and the sheath flushed easily. In the same manner, we obtained ultrasound guided percutaneous access of the left common femoral artery, made a skin incision to accommodate a 12F sheath over our needle and removed the needle. We then obtained our measurement once the Manta dilator was inserted and then placed our 8F sheath over the J wire. Then, we put an 0.035" soft glidewire up into the distal thoracic aorta through the 8F sheath on the left groin. Next, we placed a Kumpe catheter into the aorta over the glidewire and exchanged the wire for a Sarah wire. We then exchanged our 8F sheath for a 12F sheath on the left. We then turned our attention to the right side. Through the right 8F sheath, we put an 0.035" soft glidewire up into the distal thoracic aorta. Next, we placed a Kumpe catheter into the aorta over the glidewire and exchanged the wire for a Sarah wire. We then exchanged our 8F sheath for an 18F sheath. We then put a pigtail up the left groin and removed the Sarah wire. The pigtail was connected to a power injector. We then turned our attention to the right groin again. We put in a 28.5mm x 14.5mm x 12cm [place] Excluder Conformable main body device into the abdominal aorta. We then obtained an aortoiliac angiogram to identify the location of the renal arteries. We then marked the location of the renal arteries and adjusted the main body device to be just below the origin of the renal arteries. We deployed the device until the contralateral gate opened. Then, we pulled back our pigtail catheter from behind the main body and exchanged the catheter for a Kumpe. Then, we cannulated the gate from the left femoral access with the help of the Kumpe catheter. Successful cannulation was confirmed by rotating the Kumpe catheter into the aortic main body. Then, we finished deploying the main body graft through the right groin access. The deployment system was removed through the right femoral access. We then inserted a marking pigtail through the left sheath and obtained a left iliac arteriogram through the sheath to visualize the origin of the hypogastric artery. We then m arked the position of the hypogastric artery, replaced the dilator for the sheath and pushed the sheath up to the level of the distal aorta. We then removed the dilator and put up the [id number] contralateral iliac limb up to the intended position. We then pulled back our sheath to uncover the iliac limb and deployed it, taking care to visualize the distal landing zone, proximal to the hypogastric artery. We then removed the deployment system from the left groin. Next, we obtained a retrograde iliac arteriogram on the right side through the sheath to identify the location of the right hypogastric artery. After identifying and marking the origin of the right hypogastric artery, we placed the right [id number] right iliac graft limb through the sheath. We then deployed it from the graft to the common iliac artery taking care to visualize the distal landing zone, proximal to the hypogastric origin. We then performed balloon insufflation of the proximal, overlap and distal landing zones of the graft as well as throughout the extent of the iliac limb on the right. We then obtained a completion arteriogram which showed successful coverage of the aneurysm with patent bilateral renal arteries as well as patent bilateral hypogastric arteries. There was no evidence of endoleaks on completion angiogram. We then turned our attention back to the left groin. We removed our 12F sheath and replaced it with the 14F Manta closure device over the wire. We deployed the Manta closure device but upon removal of the deployment system, it was not hemostatic. Multiple attempts were made to obtain hemostasis and manual pressure was held. We were unable to achieve hemostasis and removed the wire and converted to an open cutdown of the left femoral access. A longitudinal incision was made with a #15 blade. We then dissected down to the common femoral artery with a combination of electrocautery and sharp dissection. We then identified the common femoral artery and obtained proximal and distal control while attempting to maintain hemostasis over the puncture site. We then clamped the proximal and distal common femoral artery. They were briefly unclamped to confirm the patient had excellent inflow and backbleeding. These were again clamped and the arterial defect was repaired with 2 interrupted 5-0 Prolene sutures. There was an area next to the site where the adventitia was bleeding and this was repaired with a single 6-0 Prolene suture. Surgicel was held over the repair site until hemostasis was achieved. Patient had an easily palpable femoral pulse. Doppler was used to confirm patient had a strong and multiphasic signal proximal and distal to the repair. The incision was irrigated copiously with antibiotic solution. Soft tissue hemostasis was achieved with a combination of electrocautery and hemostatic agents. We turned our attention back to the right groin. We removed the 18F sheath and deployed the 18F Manta closure device over the wire. After ensuring it was hemostatic, the deployment system and wire were removed. The skin alexis site was hemostatic after placement of Sun in the tunnel and holding manual pressure. A sterile pressure dressing was placed. We turned our attention back to the left groin. The femoral sheath was re- approximated with interrupted 2-0 Vicryl sutures. The overlying soft tissue was closed in multiple layers of 2-0 and 3-0 Vicryl. The skin was approximated with jorgito. Patient tolerated the procedure well, was extubated in the operating room and brought to recovery in stable condition. All counts were correct at the end of the case. Patient had DP and PT signals bilaterally at the end of the case, unchanged from prior. Fluoroscopy time was 11.3 min, contrast dose was 108 cc and radiation dose was [address] Zapata was present and participated for all critical portions of the case. I attest to the content of the Intraoperative Record and any orders documented therein. Any exceptions are noted below.
[2025-03-19] MEDS: ceFAZolin 330 MG/ML 1 GM VIAL ONE (13:37)
[2025-03-19] MEDS: LIDOCAINE 1% LOCAL 20 ML VIAL ONE (13:37)
[2025-03-19] MEDS: BUPIVACAINE/EPINEPHRINE 0.5% MPF 1:200,000 30 ML VIAL ONE (13:37)
[2025-03-19] MEDS ORDERED: HYDROmorphone INJ 0.5 MG/0.5 ML SYR IV PRN (14:38)
[2025-03-19] MEDS: HYDROmorphone INJ 1 MG/ML SYRINGE ONE (14:38)
--- NOTE | 2025-03-19 14:40 | Anesthesiology Progress Note ---
Date of Service March 19, 2025 Anesthesia Post Procedure Vital Signs Vital Signs: Temp Pulse Pulse Resp BP BP Pulse Ox 03/19/25 14:25 69 18 118/51 L 100 03/19/25 14:15 66 18 116/48 L 100 03/19/25 14:05 66 18 130/75 100 03/19/25 13:59 36.1 C L 69 18 141/72 H 100 03/19/25 09:11 36.5 C 70 20 159/76 H 96 O2 Del Method O2 Flow Rate 03/19/25 14:25 Oxymask 5 03/19/25 14:15 Oxymask 5 03/19/25 14:05 Oxymask 5 03/19/25 13:59 Oxymask 5 03/19/25 09:11 Room Air Transfer of Care Handoff Completed per policy Notes Mental Status: alert / awake / arousable Patient Amnestic to Procedure: Yes Nausea / Vomiting: adequately controlled Pain: adequately controlled Airway Patency, RR, SpO2: stable & adequate BP & HR: stable & adequate Hydration State: stable & adequate Anesthetic Complications: no major complications apparent Notes: critical , but stable
[2025-03-19 14:44] LABS: Hematocrit (blood only) 35.5 % (42.0-52.0); Hemoglobin 11.8 g/dl (14.0-18.0)
[2025-03-19] MEDS ORDERED: POLYETHYLENE (MIRALAX) 17 GM PACK PO PRN (15:20)
[2025-03-19] MEDS ORDERED: ALBUTEROL HFA 8 GM INHALER INH PRN (15:20)
[2025-03-19] MEDS ORDERED: NITROGLYCERIN SL 0.4 MG/TAB TAB SL PRN (15:20)
[2025-03-19] MEDS: VISIPAQUE IV ONE (15:23)
[2025-03-19] MEDS: FLOSEAL HEMOSTATIC MATRIX 5ML TOP ONE (15:23)
[2025-03-19] MEDS ORDERED: ARTIFICIAL TEARS OP PRN (15:33)
[2025-03-19] MEDS: ARTIFICIAL TEARS OP SCH (15:48)
[2025-03-19] MEDS: MoRPHine SULFATE 4 MG/ML 1 ML CARP\\VIAL IV PRN (17:22)
--- NOTE | 2025-03-19 18:47 | Critical Care Consultation ---
Date of Consultation March 19, 2025 Assessment & Plan (1) Squamous cell lung cancer: (2) Type 2 diabetes mellitus: (3) Nocturnal hypoxia: (4) Lung cancer: (5) Multiple pulmonary nodules: (6) COPD with emphysema: (7) CAD (coronary artery disease): (8) Hyperlipidemia: Plan CT chest 07/25/2024 personally reviewed: Centrilobular and paraseptal emphysema appreciated bilaterally Right lower lobe 3 cm nodularity with surrounding scarring Left lower lobe superior segment nodularity with surrounding scarring Left lower lobe calcified granuloma No significant mediastinal lymphadenopathy PFT 01/31/2024 personally reviewed: Severe obstructive lung dysfunction with significant bronchodilator response, normal TLC with air trapping, mild decrease in DLCO (Decrease in FVC by 490 mL, no significant change in FEV1, decrease in TLC 101--> 93%, no significant change in DLCO compared to 07/13) FVC 2.17 L 59%, FEV1 1.24 L 49%, FEV1/FVC 57%, RV 142%, TLC 93%, RV/TLC 146%, DLCO 65% -- Peripheral vascular disease S/p TEVAR 03/19/[address] 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 It was discontinued Patient did follow-up with [facility] regarding pulmonary valve placement, and they deemed that he is not a candidate. Which I do think is right decision 6MWT 11/19/21: Patient walked 700 feet, he was able to maintain his saturation of 92% on room air. He did get severely tired and he was not able to complete last lap Labs 10/21/2021: IgE 29, AEC as high as 400 on 03/06/2020 --Multiple pulmonary nodules --> squamous cell carcinoma left lower lobe Largest one right lower lobe 1.4 x 1.3 x 1.8 cm. New compared to CT chest done in June 2015 --> Decrease in size to 8 mm on CAT scan 01/05/2021 As well as spiculated left-sided superior segment of the left lower lobe --> Unchanged on the CAT scan 01/05/2021 --> Patient had CT-guided biopsy done 04/14/2020 which was nondiagnostic --> Patient has finished SBRT. Left lower lobe nodule increasing in size on CT chest 11/06/2023 --> s/p robotic navigational bronchoscopy 12/22/2023 squamous cell carcinoma --> s/p SBRT EBUS 12/22/2023: Station 10L and station 7 negative for malignancy PET/CT 04/01/2020: 1.8 cm spiculated right lower lobe nodule with FDG uptake. No evidence of FDG avid metastatic disease. MRI brain 01/18/2024 negative --Nocturnal hypoxia Uses 2 L oxygen at night --Prophylaxis VTE: IPC GI: Pantoprazole Lines: Left radial Diet: Cardiac Plan: Strict ins and outs Monitor H&H Perioperative antibiotics as per vascular surgery Continue with bronchodilator inhalers along with Roflumilast for his underlying COPD Please note the above document was generated using voice recognition software. It may contain grammatical, syntax or spelling errors.Any formal questions or concerns about the content, text or information contained within the body of this dictation should be directly addressed to the provider for clarification. History of Present Illness Attending Physician: Billy Zapata MD History of Present Illness 89-year-old male came to the hospital to have TEVAR. Sent to ICU for further care Past medical history: Dyslipidemia, BPH, abdominal aortic aneurysm, squamous cell carcinoma of the left lower lobe diagnosed 12/14 Patient was last seen by me on August 2024 As per the nurse the signout was given the patient approximate 5 mL of blood loss during the OR. He got 2 units of PRBC in the OR At the time of examination patient had just gotten morphine. His systolic blood pressure was in the mid to high 100s. MAP in the low 70s. Heart rate in the high 80s. He was saturating 95-96% on 1 L nasal cannula He complained of discomfort in the left lower quadrant in the left incision site. Denied any issues when it comes to his breathing He is compliant with his inhalers at home Denied any unusual headache or blurry vision No dizziness Social history: Greater than [id number] smoking history, quit 2017, used to be a heavy drinker quit 4 years ago, denies any illicit drug use. Pets: 2 dogs. No birds or poultry nearby. Allergies: None No family history of lung cancer. Allergies Allergy/AdvReac Type Severity Reaction Status Date / Time ciprofloxacin Allergy Intermediate Sweling Verified 03/19/25 09:01 erythromycin base Allergy Intermediate Hives Verified 03/19/25 09:01 pramipexole Allergy Intermediate Rash Verified 03/19/25 09:01 ropinirole Allergy Intermediate Rash Verified 03/19/25 09:01 cat dander AdvReac Intermediate Sneezing, Verified 03/19/25 09:01 congestion lisinopril AdvReac Intermediate Cough Verified 03/19/25 09:01 pantoprazole AdvReac Intermediate GI symptoms Verified 03/19/25 09:01 Home Medications Medication Instructions Recorded Confirmed Type carboxymethylcellulose sodium 0.5 1 drp ophthalmic (eye) Q6H PRN 04/12/18 03/19/25 History % eye drops (Restore Tears) DRYNESS cyclosporine 0.05 % eye drops in a 1 drp ophthalmic (eye) Q12H 04/12/18 03/19/25 History dropperette (Restasis) multivitamin 1 tab PO QPM 04/12/18 03/19/25 History aspirin 81 mg tablet,delayed 81 mg PO HS 01/15/19 03/19/25 History release polyethylene glycol 3350 17 17 g PO DAILY PRN Constipation 12/13/23 03/19/25 History gram/dose oral powder (Miralax) duloxetine 60 mg capsule,delayed 60 mg PO HS #90 caps 09/04/24 03/19/25 Rx release miscellaneous medical supply 11/17/24 02/21/25 History prednisone 10 mg tablet 10 mg PO DIRECTED #40 tabs 11/20/24 03/19/25 Rx quetiapine 25 mg tablet (Seroquel) 25 mg PO HS PRN insomna #20 tabs 11/20/24 03/19/25 Rx tamsulosin 0.4 mg capsule 0.4 mg PO QAM 01/16/25 03/19/25 History umeclidinium 62.5 mcg/actuation 1 inh inhalation PM 01/16/25 03/19/25 History blister powder for inhalation (Incruse Ellipta) lansoprazole 15 mg delayed 15 mg PO DAILY #30 tabs 02/07/25 03/19/25 Rx release,disintegrating tablet (Prevacid SoluTab) nitroglycerin 0.4 mg sublingual 0.4 mg sublingual Q5M PRN chest 02/07/25 03/19/25 Rx tablet (Nitrostat) pain #30 tabs roflumilast 500 mcg tablet 500 mcg PO QAM #30 tabs 02/12/25 03/19/25 Rx (Daliresp) albuterol sulfate 90 mcg/actuation 2 puff inhalation Q6H PRN 02/18/25 03/19/25 Rx aerosol inhaler Shortness Of Breath Or Wheezing #3 Inhalers gabapentin 600 mg tablet 600 mg PO QPM #90 tabs 02/25/25 03/19/25 Rx azelastine 137 mcg (0.1 %) nasal 2 spray intranasal BID #3 ea 02/26/25 03/19/25 Rx spray atorvastatin 40 mg tablet (Lipitor) 40 mg PO HS 03/19/25 03/19/25 History clopidogrel 75 mg tablet (Plavix) 75 mg PO QAM 03/19/25 03/19/25 History ferrous sulfate 325 mg (65 mg 325 mg PO QAM 03/19/25 03/19/25 History iron) tablet fluticasone propionate 230 2 puff inhalation BID 03/19/25 03/19/25 History mcg-salmeterol 21 mcg/actuation HFA inhaler (Advair HFA) Patient History Medical History CAD (coronary artery disease) s/p 2 stents RCA 02/06/25 History of pneumonia Hyperlipidemia Chronic constipation History of anemia of chronic disease History of Mohs micrographic surgery for skin cancer Type 2 diabetes mellitus diet controlled per pt 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/23) AAA (abdominal aortic aneurysm) 4.7 x 5.3 cm infrarenal abdominal aortic aneurysm On home oxygen therapy 2L at HS Lung cancer finished with radiation for now Arthritis History of BPH Restless leg syndrome Multiple pulmonary nodules COPD with emphysema denies recent exacerbation Hypertension Peripheral arterial disease Peripheral neuropathy Chronic bronchitis with emphysema History of basal cell carcinoma Seborrheic keratosis GERD (gastroesophageal reflux disease) Hearing deficit Poor historian Surgical History S/P cardiac cath 01/2025-chest pain, 2 stents, [place] Hx of vitrectomy right History of anesthesia reaction pt states could feel everything with last colonoscopy>done at [place] with Dr. Ryder>was told if every having a future colonoscopy he would need general anesthesia History of lung biopsy Hx of vasectomy History of tonsillectomy History of tooth extraction History of cataract surgery R/L H/O transurethral resection of prostate History of hernia repair History of hemorrhoidectomy History of colonoscopy History of prostate biopsy History of surgery on arm right Family History Brother Prostate cancer Other Colorectal cancer No family history of adverse response to anesthesia Denies family history of Ovarian cancer Myocardial infarction Breast cancer Lung cancer Social History Smoking Status: Former smoker Tobacco Type: Smokeless Tobacco (Dip or Chew) Age Started Using Tobacco: 16; Age Quit Using Tobacco: 78; packs per day: 1; Cigarettes Per Day: 20; Smoking End Date: quit smoking ~7 yrs ago; Second Hand Exposure: No; Do You Dip or Chew Tobacco: Yes (nicotine pouch - advised npo); Tobacco Cessation Education Requested by Patient: No Hx Alcohol Use: No Hx Substance Use: No Preferred Language: Ug[place] Communication Ability: Effective Visual Impairment: Limited Hearing Ability: Hard of Hearing Spool Cleaner Hand Required: No Beliefs That Will Affect Care: None marital status: Current Living Situation: Spouse current occupational status: retired current occupation: Retired from [employer] How many Children do You have: 2 Other Information That Helps Us Care for You: No Feels Safe at Home: Yes Safety Concerns: Feels Safe At This Time Childhood Exposure to Second-Hand Smoke: No caffeine: Yes during the past year weight has: remained stable Dental Care, Regularly: Yes Physical Activity Frequency: Does not Exercise Physical Activity Frequency Comment: not physically able to exercise due to dyspnea Seatbelt Use: always Sunscreen Use: No Assistive Devices: Cane, Denture - Upper, Glasses, Oxygen - at Night and Walker Assistive Devices Comment: cane/walker prn Review of Systems 2 Review of Systems: All systems reviewed & are unremarkable except as noted in HPI & below Physical Exam 2 Physical Exam: Constitutional: No acute distress HEENT: EOMI, PERRLA Respiratory system: Decreased air entry bilaterally, no wheeze, no rhonchi, mild crackles bilateral lower lobe CVS: S1-S2 positive, no murmurs or gallops Abdomen: Soft, nontender, nondistended, positive bowel sounds x4 Extremities: +2 pulses bilaterally radialis/decreased pulses bilateral dorsalis pedis, no cyanosis, minimal pitting edema bilateral lower extremity Neuro: Awake alert oriented x3 Psych: Normal mood and affect G/U: Positive Mahoney Right groin and left incision dressing clean. Skin: no rashes, warm and dry Lymphatic: no cervical or axillary lymphadenopathy Results & Data Results & Data Vital Signs (Past 12 Hours) Vital Signs Temp Pulse Pulse Pulse Resp BP BP 03/19/25 18:03 89 18 03/19/25 18:00 99/83 L 03/19/25 18:00 99/83 L 03/19/25 18:00 99/83 L 03/19/25 17:51 88 12 03/19/25 17:33 84 20 03/19/25 17:00 114/61 03/19/25 16:42 81 14 03/19/25 16:30 81 22 03/19/25 16:24 81 17 03/19/25 16:15 79 15 03/19/25 16:00 03/19/25 16:00 110/62 03/19/25 16:00 110/62 03/19/25 16:00 75 20 03/19/25 15:51 78 15 03/19/25 15:45 76 14 03/19/25 15:36 75 03/19/25 15:33 75 10 L 03/19/25 15:27 71 12 03/19/25 15:16 75 118/64 03/19/25 14:55 36.2 C L 64 14 110/54 L 03/19/25 14:45 36.2 C L 68 15 107/50 L 03/19/25 14:35 69 15 120/53 L 03/19/25 14:25 69 18 118/51 L 03/19/25 14:15 66 18 116/48 L 03/19/25 14:05 66 18 03/19/25 13:59 36.1 C L 69 18 03/19/25 09:11 36.5 C 70 20 BP Pulse Ox O2 Del Method O2 Flow Rate 03/19/25 18:03 92 03/19/25 18:00 03/19/25 18:00 03/19/25 18:00 03/19/25 17:51 93 03/19/25 17:33 92 Room Air 03/19/25 17:00 03/19/25 16:42 03/19/25 16:30 93 03/19/25 16:24 91 Room Air 03/19/25 16:15 97 03/19/25 16:00 Nasal Cannula 3 03/19/25 16:00 03/19/25 16:00 03/19/25 16:00 96 03/19/25 15:51 97 03/19/25 15:45 97 03/19/25 15:36 03/19/25 15:33 99 03/19/25 15:27 100 03/19/25 15:16 99 03/19/25 14:55 98 Nasal Cannula 4 03/19/25 14:45 99 Nasal Cannula 4 03/19/25 14:35 100 Nasal Cannula 4 03/19/25 14:25 100 Oxymask 5 03/19/25 14:15 100 Oxymask 5 03/19/25 14:05 130/75 100 Oxymask 5 03/19/25 13:59 141/72 H 100 Oxymask 5 03/19/25 09:11 159/76 H 96 Room Air Laboratory Results 03/19/25 14:02 03/19/25 08:47 Coding Level of Care Code 54470 INT INP/OBS CARE 2MIN Diagnoses Squamous cell lung cancer C34.90 Type 2 diabetes mellitus E11.9 Nocturnal hypoxia G47.34 Lung cancer C34.90 Multiple pulmonary nodules R91.8 COPD with emphysema J43.9 Emphysema type: unspecified CAD (coronary artery disease) I25.10 Hyperlipidemia E78.5 (6) COPD with emphysema Emphysema type: unspecified Qualified Code(s): J43.9 - Emphysema, unspecified
[2025-03-19] MEDS: GABAPENTIN 600 MG TAB PO SCH (19:59)
[2025-03-19] MEDS: ATORVASTATIN 40 MG TAB PO SCH (19:59)
[2025-03-19] MEDS: ASPIRIN 81 MG ECTAB PO SCH (20:00)
[2025-03-19] MEDS: UMECLIDINIUM BROMIDE 62.5MCG/BLISTER 7 PUFFS/INHALER INH SCH (20:01)
[2025-03-19] MEDS: AZELASTINE HCL 0.1% NASAL 200 SPRAYS/27,400 MCG BTL NS SCH (20:01)
[2025-03-19] MEDS: MULTIVITAMIN TAB PO SCH (20:02)
[2025-03-20 04:50] LABS: Hematocrit (blood only) 34.5 % (42.0-52.0); Hemoglobin 11.4 g/dl (14.0-18.0); Immature Granulocytes # (auto) 0.05 K/uL (0.01-0.20); Immature Granulocytes % (auto) 0.4 %; Mean Corpuscular Hemoglobin 29.5 pg (25.0-34.0); Mean Corpuscular Volume 89.4 fL (80.0-100.0); Platelet Count 140 K/uL (130-400); RDW Standard Deviation 51.9 fL (36.4-46.3); Red Blood Count 3.86 M/uL (4.70-6.10); White Blood Count 12.51 K/ul (4.8-10.8)
[2025-03-20 05:04] LABS: Anion Gap 6.0 (3-11); Blood Urea Nitrogen 16.0 mg/dl (6-23); Calcium 8.1 mg/dl (8.6-10.3); Carbon Dioxide 26.0 mmol/L (21-32); Chloride 107.0 mmol/L (98-107); Creatinine Clr Calc Pharmacy 60.3 ml/min; Glucose 146.0 mg/dl (70-99(Fasting)); Potassium 4.2 mmol/L (3.5-5.1); Sodium 139.0 mmol/L (136-145)
--- NOTE | 2025-03-20 07:46 | Critical Care Progress Note ---
Date of Service March 20, 2025 Assessment & Plan (1) Squamous cell lung cancer: (2) Type 2 diabetes mellitus: (3) Nocturnal hypoxia: (4) Lung cancer: (5) Multiple pulmonary nodules: (6) COPD with emphysema: (7) CAD (coronary artery disease): (8) Hyperlipidemia: (9) Ileus: (10) Abdominal pain: Plan CT chest 07/25/2024 personally reviewed: Centrilobular and paraseptal emphysema appreciated bilaterally Right lower lobe 3 cm nodularity with surrounding scarring Left lower lobe superior segment nodularity with surrounding scarring Left lower lobe calcified granuloma No significant mediastinal lymphadenopathy PFT 01/31/2024 personally reviewed: Severe obstructive lung dysfunction with significant bronchodilator response, normal TLC with air trapping, mild decrease in DLCO (Decrease in FVC by 490 mL, no significant change in FEV1, decrease in TLC 101--> 93%, no significant change in DLCO compared to 07/13) FVC 2.17 L 59%, FEV1 1.24 L 49%, FEV1/FVC 57%, RV 142%, TLC 93%, RV/TLC 146%, DLCO 65% -- Abdominal pain with ileus KUB from today shows gaseous distention of bowel suggesting ileus. No evidence of high-grade obstruction Try to avoid opioids if possible. -- Peripheral vascular disease S/p TEVAR 03/19/[address] 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 It was discontinued Patient did follow-up with [facility] regarding pulmonary valve placement, and they deemed that he is not a candidate. Which I do think is right decision 6MWT 11/19/21: Patient walked 700 feet, he was able to maintain his saturation of 92% on room air. He did get severely tired and he was not able to complete last lap Labs 10/21/2021: IgE 29, AEC as high as 400 on 03/06/2020 --Multiple pulmonary nodules --> squamous cell carcinoma left lower lobe Largest one right lower lobe 1.4 x 1.3 x 1.8 cm. New compared to CT chest done in June 2015 --> Decrease in size to 8 mm on CAT scan 01/05/2021 As well as spiculated left-sided superior segment of the left lower lobe --> Unchanged on the CAT scan 01/05/2021 --> Patient had CT-guided biopsy done 04/14/2020 which was nondiagnostic --> Patient has finished SBRT. Left lower lobe nodule increasing in size on CT chest 11/06/2023 --> s/p robotic navigational bronchoscopy 12/22/2023 squamous cell carcinoma --> s/p SBRT EBUS 12/22/2023: Station 10L and station 7 negative for malignancy PET/CT 04/01/2020: 1.8 cm spiculated right lower lobe nodule with FDG uptake. No evidence of FDG avid metastatic disease. MRI brain 01/18/2024 negative --Nocturnal hypoxia Uses 2 L oxygen at night --Prophylaxis VTE: IPC GI: Pantoprazole Lines: Left radial Diet: Cardiac Plan: In/out: +1.1 L, urine output 2195 Patient's belly is distended and still diffuse mild tenderness, no rebound. KUB does show ileus. Patient unsure if he is passing gas. If there is any worsening then NG tube will be inserted to suction. Will consider CAT scan of the abdomen DC Percocet, will give Toradol 15 mg every 6 as needed for pain Morphine for moderate to severe pain. Aim is to avoid opioids as much as possible. Will keep the patient n.p.o. Decrease IV fluids to 75 mL an hour DC A-line Out of the bed to chair Hemoglobin is trending down elevated but patient is also 1.1 L positive. Continue to monitor H&H Continue with bronchodilator inhalers along with Roflumilast for his underlying COPD I spent more than 50 minutes looking in the chart, images, discussing the plan of care with the patient, RN as well as primary team Please note the above document was generated using voice recognition software. It may contain grammatical, syntax or spelling errors.Any formal questions or concerns about the content, text or information contained within the body of this dictation should be directly addressed to the provider for clarification. Admission and Anticipated Discharge Date Admission Date: March 19, 2025 Subjective Patient seen and examined at bedside. Still complaining of abdominal discomfort The belly seems to be distended. Has good bowel sounds Denies any nausea or vomiting Appetite is poor. Systolic blood pressure was in the 130s, he was saturating 93% on room air Was oriented to self and place Review of Systems 2 Review of Systems: All systems reviewed & are unremarkable except as noted in Subjective Physical Exam 2 Physical Exam: Constitutional: No acute distress HEENT: EOMI, PERRLA Respiratory system: Decreased air entry bilaterally, no wheeze, no rhonchi, mild crackles bilateral lower lobe CVS: S1-S2 positive, no murmurs or gallops Abdomen: Soft, distended, diffuse abdominal tenderness, no rebound, hyperactive bowel sounds Extremities: +2 pulses bilaterally radialis/decreased pulses bilateral dorsalis pedis, no cyanosis, minimal pitting edema bilateral lower extremity Neuro: Awake alert oriented to self and place Psych: Normal mood and affect G/U: Positive Mahoney Right groin and left incision dressing clean. Skin: no rashes, warm and dry Lymphatic: no cervical or axillary lymphadenopathy Results & Data Results & Data Vital Signs (Past 12 Hours) Vital Signs Temp Pulse Resp BP Pulse Ox 03/20/25 03:41 37.2 C 03/20/25 03:36 91 H 20 98 03/20/25 03:15 96 H 18 96 03/20/25 03:00 128/78 03/20/25 02:57 105 H 22 95 03/20/25 02:00 108/75 03/20/25 01:51 107 H 15 98 03/20/25 01:48 100 H 17 97 03/20/25 01:09 99 H 17 96 03/20/25 01:00 124/84 03/20/25 00:57 100 H 18 98 03/20/25 00:36 103 H 15 98 03/20/25 00:00 37.1 C 03/20/25 00:00 99 H 21 97 03/19/25 23:59 101 H 03/19/25 23:39 102 H 19 92 03/19/25 23:00 100 H 19 96 03/19/25 23:00 133/85 08/27/25 23:00 133/85 03/19/25 23:00 133/85 03/19/25 22:51 101 H 16 96 03/19/25 22:00 100 H 21 96 03/19/25 21:30 97 H 18 98 03/19/25 21:06 96 H 22 97 03/19/25 21:00 127/96 03/19/25 21:00 127/96 03/19/25 20:57 91 H 20 95 03/19/25 20:33 90 20 93 03/19/25 20:03 86 15 93 03/19/25 20:00 127/79 03/19/25 19:51 82 17 93 Laboratory Results 03/20/25 04:08 03/20/25 04:08 Coding Level of Care Code 63967 SUB INP/OBS CARE 350MIN Diagnoses Squamous cell lung cancer C34.90 Type 2 diabetes mellitus E11.9 Nocturnal hypoxia G47.34 Lung cancer C34.90 Multiple pulmonary nodules R91.8 COPD with emphysema J43.9 Emphysema type: unspecified CAD (coronary artery disease) I25.10 Hyperlipidemia E78.5 Ileus K56.7 Abdominal pain R10.9 (6) COPD with emphysema Emphysema type: unspecified Qualified Code(s): J43.9 - Emphysema, unspecified
[2025-03-20 08:22] LABS: Magnesium 1.9 mg/dl (1.7-2.4)
[2025-03-20] MEDS: CALCIUM GLUCONATE 1,000 MG/60 ML BAG IV STA (08:41)
[2025-03-20] MEDS: CLOPIDOGREL BISULFATE 75 MG TAB PO SCH (08:42)
[2025-03-20] MEDS: FLUTICASONE/VILANTEROL 100/25MCG 14 PUFFS/INHALER INH SCH (08:42)
[2025-03-20] MEDS: FERROUS SULFATE 325 MG TAB PO SCH (08:42)
[2025-03-20] MEDS: TAMSULOSIN HCL 0.4 MG CAP PO SCH (08:43)
[2025-03-20] MEDS: ROFLUMILAST 500 MCG TAB PO SCH (08:43)
--- NOTE | 2025-03-20 09:03 | XRay Report ---
KUB CLINICAL HISTORY: Generalized abdominal pain. Distention. FINDINGS: 3 AP, portable, supine abdominal radiographs are correlated with abdominal CT dated 02/05/20 25. Skin clips project over the left groin. There is mild gaseous distention of the small bowel loops . There is no evidence of high-grade obstruction. Gas is seen throughout the colon. No evidence of in traperitoneal free air is identified on the supine images. There are no abnormal abdominal calcificat ions. An aortobiiliac stent graft is new from previous. There is atherosclerotic calcification of the abdominal aorta and femoral arteries. The skeletal structures are osteopenic and appear intact. Ther e is moderate lumbosacral spondylosis. IMPRESSION: 1. There is gaseous distention of the bowel suggesting ileus. Clinical correlation will be required. 2. There is no radiographic evidence of high-grade obstruction. 3. An aortobiiliac stent graft is new from previous. Electronically signed by: Andrea Deluna M.D. 03/20/2025 8:56 AM
[2025-03-20] MEDS: KETOROLAC TROMETHAMINE 15 MG/ML VIAL IM PRN (11:09)
--- NOTE | 2025-03-20 13:28 | Surgery Progress Note ---
Date of Service March 20, 2025 Assessment & Plan (1) Aortic aneurysm: Plan: Patient is POD 1 from an endovascular aortic aneurysm repair. He is doing well from the surgery. Will remove castaneda. (2) Ileus, postoperative: Plan: He does have moderate intestinal distension on previous ct scans. He also had distension on his angio films from yesterday. Maybe slightly worse today. Agree with npo for now. Ordered suppository. Will need to get OOB and ambulate. Admission and Anticipated Discharge Date Admission Date: March 19, 2025 Subjective Patient complaining of burning of his feet which is chronic. He is complaining of mild abdominal discomfort but is chronically distended on previous ct scans. Unsure if passing flatus. Physical Exam Constitutional: WD/WN, vitals as above Respiratory: normal respiratory effort; no respiratory distress Cardiovascular: Rate/Rhythm: regular rate and regular rhythm Vessels: femoral pulses present Extremities: normal capillary refill Gastrointestinal (Abdomen): Inspection/Auscultation: + abdomen distended Percussion/Palpation: + abdomen tender (mild diffused tenderness on deep palpation) and abdomen soft; no guarding Skin: + incision (dressing intact) Neurologic: CN's II-XI intact bilaterally and moves all extremities Results & Data Vital Signs (Past 12 Hours) Vital Signs Temp Pulse Resp BP Pulse Ox O2 Del Method 03/20/25 12:09 37.0 C 03/20/25 12:00 126/65 03/20/25 12:00 89 16 93 03/20/25 11:18 82 21 93 03/20/25 11:00 131/70 03/20/25 10:09 90 16 93 03/20/25 09:06 99 H 18 92 03/20/25 09:00 146/65 H 03/20/25 08:01 128/72 03/20/25 08:00 84 22 93 03/20/25 08:00 37.0 C 03/20/25 08:00 85 03/20/25 07:00 86 22 97 Room Air 03/20/25 07:00 145/83 H 03/20/25 03:41 37.2 C 03/20/25 03:36 91 H 20 98 03/20/25 03:15 96 H 18 96 03/20/25 03:00 128/78 03/20/25 02:57 105 H 22 95 03/20/25 02:00 108/75 03/20/25 01:51 107 H 15 98 03/20/25 01:48 100 H 17 97
[2025-03-20] MEDS: MAGNESIUM SULFATE / D5W 1 GM/100 ML BAG IV SCH (13:33)
[2025-03-20] MEDS: ATROPINE SULFATE 0.1 MG/ML 10ML SYR IV ONE (13:50)
[2025-03-20] MEDS: KETOROLAC TROMETHAMINE 15 MG/ML VIAL IV PRN (21:51)
[2025-03-21 05:17] LABS: Hematocrit (blood only) 32.7 % (42.0-52.0); Hemoglobin 10.9 g/dl (14.0-18.0); Immature Granulocytes # (auto) 0.03 K/uL (0.01-0.20); Immature Granulocytes % (auto) 0.3 %; Mean Corpuscular Hemoglobin 30.7 pg (25.0-34.0); Mean Corpuscular Volume 92.1 fL (80.0-100.0); Platelet Count 111 K/uL (130-400); RDW Standard Deviation 52.4 fL (36.4-46.3); Red Blood Count 3.55 M/uL (4.70-6.10); White Blood Count 10.53 K/ul (4.8-10.8)
[2025-03-21 05:40] LABS: Anion Gap 6.0 (3-11); Blood Urea Nitrogen 27.0 mg/dl (6-23); Calcium 8.6 mg/dl (8.6-10.3); Carbon Dioxide 26.0 mmol/L (21-32); Chloride 109.0 mmol/L (98-107); Creatinine Clr Calc Pharmacy 53.4 ml/min; Glucose 123.0 mg/dl (70-99(Fasting)); Potassium 4.1 mmol/L (3.5-5.1); Sodium 141.0 mmol/L (136-145)
[2025-03-21 05:41] LABS: INR 1.0 (0.9-1.1); Partial Thromboplastin Time 28 Seconds (21-31); Prothrombin Time 11.1 Seconds (9.0-12.0)
--- NOTE | 2025-03-21 06:35 | Electrocardiogram Report ---
Test Reason : Blood Pressure : */* mmHG Vent. Rate : 66 BPM Atrial Rate : 66 BPM P-R Int : 136 ms QRS Dur : 126 ms QT Int : 470 ms P-R-T Axes : 66 -77 -68 degrees QTcB Int : 492 ms Normal sinus rhythm Left axis deviation Right bundle branch block T wave abnormality, consider lateral ischemia Abnormal ECG When compared with ECG of 06-Feb-2025 13:22, T wave inversion now evident in Anterolateral leads Confirmed by Eric Pulido ([id number]) on 03/21/2025 6:35:24 AM Referred By: Billy Zapata Confirmed By: Eric Pulido
--- NOTE | 2025-03-21 07:56 | Critical Care Progress Note ---
Date of Service March 21, 2025 Assessment & Plan (1) Squamous cell lung cancer: (2) Type 2 diabetes mellitus: (3) Nocturnal hypoxia: (4) Lung cancer: (5) Multiple pulmonary nodules: (6) COPD with emphysema: (7) CAD (coronary artery disease): (8) Hyperlipidemia: (9) Ileus: (10) Abdominal pain: Plan CT chest 07/25/2024 personally reviewed: Centrilobular and paraseptal emphysema appreciated bilaterally Right lower lobe 3 cm nodularity with surrounding scarring Left lower lobe superior segment nodularity with surrounding scarring Left lower lobe calcified granuloma No significant mediastinal lymphadenopathy PFT 01/31/2024 personally reviewed: Severe obstructive lung dysfunction with significant bronchodilator response, normal TLC with air trapping, mild decrease in DLCO (Decrease in FVC by 490 mL, no significant change in FEV1, decrease in TLC 101--> 93%, no significant change in DLCO compared to 07/13) FVC 2.17 L 59%, FEV1 1.24 L 49%, FEV1/FVC 57%, RV 142%, TLC 93%, RV/TLC 146%, DLCO 65% -- Abdominal pain with ileus --> improving KUB 03/20/2025: Gaseous distention of bowel suggesting ileus. No evidence of high-grade obstruction Did have minimal bowel movements 03/21/2025 Try to avoid opioids if possible. -- Peripheral vascular disease S/p TEVAR 03/19/[address] 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 It was discontinued Patient did follow-up with [facility] regarding pulmonary valve placement, and they deemed that he is not a candidate. Which I do think is right decision 6MWT 11/19/21: Patient walked 700 feet, he was able to maintain his saturation of 92% on room air. He did get severely tired and he was not able to complete last lap Labs 10/21/2021: IgE 29, AEC as high as 400 on 03/06/2020 --Multiple pulmonary nodules --> squamous cell carcinoma left lower lobe Largest one right lower lobe 1.4 x 1.3 x 1.8 cm. New compared to CT chest done in June 2015 --> Decrease in size to 8 mm on CAT scan 01/05/2021 As well as spiculated left-sided superior segment of the left lower lobe --> Unchanged on the CAT scan 01/05/2021 --> Patient had CT-guided biopsy done 04/14/2020 which was nondiagnostic --> Patient has finished SBRT. Left lower lobe nodule increasing in size on CT chest 11/06/2023 --> s/p robotic navigational bronchoscopy 12/22/2023 squamous cell carcinoma --> s/p SBRT EBUS 12/22/2023: Station 10L and station 7 negative for malignancy PET/CT 04/01/2020: 1.8 cm spiculated right lower lobe nodule with FDG uptake. No evidence of FDG avid metastatic disease. MRI brain 01/18/2024 negative --Nocturnal hypoxia Uses 2 L oxygen at night --Prophylaxis VTE: Heparin GI: Pantoprazole Lines: Peripheral Diet: Cardiac Plan: In/out: +1.7 L, urine output 427 ml Patient urine output is trending down, IV fluids have been increased to 100 mL an hour BUN and creatinine trending up, will order urine lites Will discontinue ketorolac although he got only 2 doses of 15 mg. Did have minimal bowel movements earlier today Will get official swallow eval Start DVT prophylaxis given that we are not able to get him Plavix for the time being Out of the bed to chair Continue with bronchodilator inhalers along with Roflumilast for his underlying COPD Case was discussed with surgery team. Disposition as per vascular surgery Please note the above document was generated using voice recognition software. It may contain grammatical, syntax or spelling errors.Any formal questions or concerns about the content, text or information contained within the body of this dictation should be directly addressed to the provider for clarification. Admission and Anticipated Discharge Date Admission Date: March 19, 2025 Subjective Patient seen and examined at bedside. No acute distress, no adverse events overnight He was more alert today. Answering questions appropriately He was saturating 96% on 2 L nasal cannula. Blood pressure was 152/79 with heart rate of 82. Still complains of some abdominal discomfort in the left lower quadrant. Denies any nausea or vomiting. Has been afebrile Review of Systems 2 Review of Systems: All systems reviewed & are unremarkable except as noted in Subjective Physical Exam 2 Physical Exam: Constitutional: No acute distress HEENT: EOMI, PERRLA Respiratory system: Decreased air entry bilaterally, no wheeze, no rhonchi, mild crackles bilateral lower lobe CVS: S1-S2 positive, no murmurs or gallops Abdomen: Soft, distended, left lower quadrant tenderness, no rebound, positive bowel sounds Extremities: +2 pulses bilaterally radialis, decreased pulses bilateral dorsalis pedis, no cyanosis, positive pitting edema bilateral lower extremity, more on the left side, cold lower extremities Neuro: Awake alert oriented to self and place Psych: Normal mood and affect G/U: No Mahoney Right groin and left incision dressing clean. Skin: no rashes, warm and dry Lymphatic: no cervical or axillary lymphadenopathy Results & Data Results & Data Vital Signs (Past 12 Hours) Vital Signs Temp Pulse Resp BP Pulse Ox O2 Del Method O2 Flow Rate 03/21/25 07:38 Nasal Cannula 2 03/21/25 06:11 85 22 95 03/21/25 06:00 159/99 H 03/21/25 05:48 84 16 97 03/21/25 05:00 134/69 03/21/25 05:00 84 27 H 134/69 97 03/21/25 04:06 89 24 96 03/21/25 04:00 155/95 H 03/21/25 03:36 88 22 90 03/21/25 03:09 37.4 C 03/21/25 03:00 89 29 H 135/65 92 03/21/25 02:21 85 17 100 03/21/25 02:00 141/74 H 03/21/25 01:45 76 26 H 95 03/21/25 01:00 91 H 18 144/75 H 93 03/21/25 00:15 86 23 123/75 96 03/21/25 00:00 82 03/20/25 23:57 92 H 20 94 03/20/25 23:36 81 17 95 03/20/25 23:00 124/65 03/20/25 22:45 87 14 95 03/20/25 22:03 88 15 97 03/20/25 22:01 144/79 H 03/20/25 22:00 90 16 97 03/20/25 21:42 94 H 17 94 03/20/25 21:18 94 H 18 94 03/20/25 20:30 94 H 18 95 03/20/25 20:01 150/77 H 03/20/25 20:00 92 H 18 97 Laboratory Results 03/21/25 04:24 03/21/25 04:24 Coding Level of Care Code 14570 SUB INP/OBS CARE MIN Diagnoses Squamous cell lung cancer C34.90 Type 2 diabetes mellitus E11.9 Nocturnal hypoxia G47.34 Lung cancer C34.90 Multiple pulmonary nodules R91.8 COPD with emphysema J43.9 Emphysema type: unspecified CAD (coronary artery disease) I25.10 Hyperlipidemia E78.5 Ileus K56.7 Abdominal pain R10.9 (6) COPD with emphysema Emphysema type: unspecified Qualified Code(s): J43.9 - Emphysema, unspecified
[2025-03-21 08:22] LABS: Magnesium 2.3 mg/dl (1.7-2.4)
--- NOTE | 2025-03-21 09:04 | Surgery Progress Note ---
Date of Service March 21, 2025 Assessment & Plan (1) Aortic aneurysm: Plan: Patient is POD#2 after endovascular aortic aneurysm repair with L femoral artery open repair. He is doing well from the surgery, however, is weak and unable to transfer without significant assistance. Pt lives at home with his and will likely require physical therapy for strengthing prior to returning home. Will place case management consult and PT/OT for eval. (2) Ileus, postoperative: Plan: He does have moderate intestinal distension on previous ct scans. He also had distension on his angio films from yesterday. Maybe slightly worse today. Agree with npo for now. Ordered suppository. Will need to get OOB and ambulate. (3) Postoperative urinary retention: Plan: Pt unable to urinate since procedure. Castaneda removed yesterday, but pt required straight cath as has not urinated since castaneda removal. Consideration for castaneda placement with leg bag if further retention noted. Admission and Anticipated Discharge Date Admission Date: March 19, 2025 Subjective 89 yo m POD #2 after EVAR with L groin femoral artery repair, seen in f/u today. Pt admits pain L groin incision, and mild abd pain. No N/V. Per RN, pt has had some BM and is passing flatus. Pt was assist of 2 to get to bedside chair. Review of Systems Review of Systems: All systems reviewed & are unremarkable except as noted in HPI & below Physical Exam Constitutional: WD/WN, vitals as above + frail appearing Respiratory: normal respiratory effort; no respiratory distress Auscultation: + diminished lung sounds Cardiovascular: Rate/Rhythm: regular rate and regular rhythm Vessels: femoral pulses present Extremities: normal capillary refill Gastrointestinal (Abdomen): Inspection/Auscultation: + abdomen distended Percussion/Palpation: + abdomen tender (mild diffuse tenderness on deep palpation, abd firm, + BS); no guarding Skin: + incision (L groin C/D/I with jorgito e cchymosis, no erythema.) R groin puncture clean, intact. Neurologic: CN's II-XI intact bilaterally and moves all extremities Psychiatric: Orientation: alert and oriented x 3 Affect: + flat affect Results & Data Vital Signs (Past 12 Hours) Vital Signs Temp Pulse Resp BP Pulse Ox O2 Del Method O2 Flow Rate 03/21/25 08:00 85 03/21/25 07:38 Nasal Cannula 2 03/21/25 07:00 147/88 H 03/21/25 06:56 91 H 23 93 03/21/25 06:11 85 22 95 03/21/25 06:00 159/99 H 03/21/25 05:48 84 16 97 03/21/25 05:00 134/69 03/21/25 05:00 84 27 H 134/69 97 03/21/25 04:06 89 24 96 03/21/25 04:00 155/95 H 03/21/25 03:36 88 22 90 03/21/25 03:09 37.4 C 03/21/25 03:00 89 29 H 135/65 92 03/21/25 02:21 85 17 100 03/21/25 02:00 141/74 H 03/21/25 01:45 76 26 H 95 03/21/25 01:00 91 H 18 144/75 H 93 03/21/25 00:15 86 23 123/75 96 03/21/25 00:00 82 03/20/25 23:57 92 H 20 94 03/20/25 23:36 81 17 95 03/20/25 23:00 124/65 03/20/25 22:45 87 14 95 03/20/25 22:03 88 15 97 03/20/25 22:01 144/79 H 03/20/25 22:00 90 16 97 03/20/25 21:42 94 H 17 94 03/20/25 21:18 94 H 18 94
[2025-03-21] MEDS: HEPARIN SOD 5,000 UNIT/0.5 ML VIAL SQ SCH (09:45)
--- NOTE | 2025-03-21 15:44 | Ultrasound Report ---
RENAL ULTRASOUND CLINICAL HISTORY: Rule out hydronephrosis. COMPARISON STUDY: KUB March 20, 2025. CTA of the abdomen and pelvis February 04, 2025. TECHNIQUE: Sonography of the kidneys and the urinary bladder was performed. FINDINGS: The right kidney measures 10.3 x 5.4 x 5.6 cm and the left kidney measures 11.7 x 6.6 x 5.2 cm. There is no hydronephrosis. There is mild bilateral renal cortical thinning. A 1.6 cm anechoic r ight renal lesion represents a cyst. No solid renal lesion is identified. The prostate is enlarged. T he bladder is suboptimally assessed but no significant abnormalities is identified. IMPRESSION: 1. No hydronephrosis. 2. Enlarged prostate. ACT 112: Negative or not required by law. Electronically signed by: Dimitri Reyes M.D. 03/21/2025 3:43 PM
[2025-03-22 07:09] LABS: Anion Gap 6.0 (3-11); Blood Urea Nitrogen 26.0 mg/dl (6-23); Calcium 8.1 mg/dl (8.6-10.3); Carbon Dioxide 24.0 mmol/L (21-32); Chloride 111.0 mmol/L (98-107); Creatinine Clr Calc Pharmacy 70.6 ml/min; Glucose 94.0 mg/dl (70-99(Fasting)); Potassium 3.5 mmol/L (3.5-5.1); Sodium 141.0 mmol/L (136-145)
[2025-03-22 07:15] LABS: Hematocrit (blood only) 28.1 % (42.0-52.0); Hemoglobin 9.4 g/dl (14.0-18.0); Mean Corpuscular Hemoglobin 30.8 pg (25.0-34.0); Mean Corpuscular Volume 92.1 fL (80.0-100.0); Platelet Count 96 K/uL (130-400); RDW Standard Deviation 50.5 fL (36.4-46.3); Red Blood Count 3.05 M/uL (4.70-6.10); White Blood Count 7.54 K/ul (4.8-10.8)
[2025-03-22 07:37] LABS: Dohle Bodies 1+; Immature Granulocytes # (auto) 0.04 K/uL (0.01-0.20); Immature Granulocytes % (auto) 0.5 %; Ovalocytes 1+
--- NOTE | 2025-03-22 08:41 | Surgery Progress Note ---
Date of Service March 22, 2025 Assessment & Plan (1) Aortic aneurysm: Plan: Patient is POD#3 after endovascular aortic aneurysm repair with L femoral artery open repair. He is doing well from the surgery. Awaiting SNF bed. Can be d\c once bed is available. Increase oral intake and continue pt/ot. (2) Ileus, postoperative: Plan: Had 2 bm's yesterday. Clinically improving. He does appear to have chronic constipation. Will stop iv fluids. (3) Postoperative urinary retention: Plan: Mahoney in place. He does have an enlarged prostate. Admission and Anticipated Discharge Date Admission Date: March 19, 2025 Subjective 89 yo m POD #3 after EVAR with L groin femoral artery repair, seen in f/u today. Awake but slightly confused. Physical Exam Constitutional: WD/WN, vitals as above Respiratory: normal respiratory effort; no respiratory distress Cardiovascular: Rate/Rhythm: regular rate and regular rhythm Vessels: femoral pulses present Extremities: normal capillary refill Gastrointestinal (Abdomen): Inspection/Auscultation: + abdomen distended Percussion/Palpation: + abdomen tender (mild diffused tenderness on deep palpation) and abdomen soft; no guarding Musculoskeletal: Knee: + surgical incision (dry and clean) Neurologic: CN's II-XI intact bilaterally and moves all extremities Results & Data Vital Signs (Past 12 Hours) Vital Signs Temp Pulse Pulse Pulse Pulse Resp BP 03/22/25 08:24 36.8 C 87 20 115/62 03/22/25 03:38 36.7 C 87 18 116/74 03/21/25 22:39 37.4 C 112 H 24 165/80 H 03/21/25 21:58 88 Pulse Ox O2 Del Method O2 Flow Rate 03/22/25 08:24 95 Nasal Cannula 1 03/22/25 03:38 94 Room Air 2 03/21/25 22:39 91 Room Air 03/21/25 21:58
--- NOTE | 2025-03-23 10:02 | Surgery Progress Note ---
Date of Service March 23, 2025 Assessment & Plan (1) Aortic aneurysm: Plan: Patient is POD#4 after endovascular aortic aneurysm repair with L femoral artery open repair. He is doing well from the surgery. Awaiting SNF bed. (2) Ileus, postoperative: Plan: resolved (3) Postoperative urinary retention: Plan: follow up with urology Admission and Anticipated Discharge Date Admission Date: March 19, 2025 Subjective 89 yo m POD #4 after EVAR with L groin femoral artery repair, seen in f/u today. Much more alert today. No complaints. Physical Exam Constitutional: WD/WN, vitals as above Respiratory: normal respiratory effort; no respiratory distress Cardiovascular: Rate/Rhythm: regular rate and regular rhythm Vessels: femoral pulses present Extremities: normal capillary refill Gastrointestinal (Abdomen): Inspection/Auscultation: + abdomen distended Percussion/Palpation: + abdomen tender (mild diffused tenderness on deep palpation) and abdomen soft; no guarding Musculoskeletal: Knee: + surgical incision (dry and clean) Skin: + incision (dressing intact) Neurologic: CN's II-XI intact bilaterally and moves all extremities Results & Data Vital Signs (Past 12 Hours) Vital Signs Temp Pulse Pulse Pulse Resp BP Pulse Ox 03/23/25 08:00 81 03/23/25 07:51 37.0 C 84 18 135/69 95 03/23/25 04:00 36.6 C 79 20 157/78 H 95 03/22/25 23:11 36.4 C L 76 18 148/79 H 97 O2 Del Method O2 Flow Rate 03/23/25 08:00 03/23/25 07:51 Room Air 03/23/25 04:00 Nasal Cannula 2 03/22/25 23:11 Nasal Cannula 2
[2025-03-24 07:30] LABS: Hematocrit (blood only) 30.1 % (42.0-52.0); Hemoglobin 9.8 g/dl (14.0-18.0); Immature Granulocytes # (auto) 0.02 K/uL (0.01-0.20); Immature Granulocytes % (auto) 0.3 %; Mean Corpuscular Hemoglobin 29.6 pg (25.0-34.0); Mean Corpuscular Volume 90.9 fL (80.0-100.0); Platelet Count 121 K/uL (130-400); RDW Standard Deviation 48.2 fL (36.4-46.3); Red Blood Count 3.31 M/uL (4.70-6.10); White Blood Count 5.79 K/ul (4.8-10.8)
[2025-03-24 07:54] LABS: Anion Gap 6.0 (3-11); Blood Urea Nitrogen 16.0 mg/dl (6-23); Calcium 8.2 mg/dl (8.6-10.3); Carbon Dioxide 27.0 mmol/L (21-32); Chloride 109.0 mmol/L (98-107); Creatinine Clr Calc Pharmacy 81.6 ml/min; Glucose 118.0 mg/dl (70-99(Fasting)); Potassium 3.3 mmol/L (3.5-5.1); Sodium 142.0 mmol/L (136-145)
--- NOTE | 2025-03-24 09:32 | Surgery Progress Note ---
Date of Service March 24, 2025 Assessment & Plan (1) Aortic aneurysm: Plan: Patient is POD#5 after endovascular aortic aneurysm repair with L femoral artery open repair. He is doing well from the surgery. Awaiting SNF bed. Admission and Anticipated Discharge Date Admission Date: March 19, 2025 Subjective 89 yo m POD #5 after EVAR with L groin femoral artery repair, seen in f/u today. Much more alert today. No complaints. Oriented today. Physical Exam Constitutional: WD/WN, vitals as above Respiratory: normal respiratory effort; no respiratory distress Cardiovascular: Rate/Rhythm: regular rate and regular rhythm Vessels: femoral pulses present Extremities: normal capillary refill Gastrointestinal (Abdomen): Inspection/Auscultation: + abdomen distended Percussion/Palpation: + abdomen tender (mild diffused tenderness on deep palpation) and abdomen soft; no guarding Musculoskeletal: Knee: + surgical incision (dry and clean) Skin: + incision (dressing intact) Neurologic: CN's II-XI intact bilaterally and moves all extremities Psychiatric: Orientation: alert and oriented x 3 Results & Data Vital Signs (Past 12 Hours) Vital Signs Temp Pulse Pulse Pulse Resp BP Pulse Ox 03/24/25 07:53 36.7 C 72 16 156/79 H 95 03/24/25 03:21 36.6 C 88 17 137/57 L 96 03/23/25 23:18 36.8 C 76 16 120/57 L 95 03/23/25 22:18 82 O2 Del Method O2 Flow Rate 03/24/25 07:53 Nasal Cannula 2 03/24/25 03:21 Nasal Cannula 2 03/23/25 23:18 Nasal Cannula 2 03/23/25 22:18
[2025-03-24] MEDS: POTASSIUM CHLORIDE CRTAB 20 MEQ TABCR PO SCH (10:01)
--- NOTE | 2025-03-25 09:52 | Surgery Progress Note ---
Date of Service March 25, 2025 Assessment & Plan (1) Aortic aneurysm: Plan: Patient is POD#6 after endovascular aortic aneurysm repair with L femoral artery open repair. He is doing well from the surgery. OK for d/c to rehab when placed. Admission and Anticipated Discharge Date Admission Date: March 19, 2025 Subjective 89 yo m POD #6 after EVAR with L groin femoral artery repair, seen in f/u today. Pt states feeling well today. No new complaints. Review of Systems Review of Systems: All systems reviewed & are unremarkable except as noted in HPI & below Physical Exam Constitutional: WD/WN, vitals as above + frail appearing Respiratory: normal respiratory effort; no respiratory distress Auscultation: + diminished lung sounds Cardiovascular: Rate/Rhythm: regular rate and regular rhythm Vessels: femoral pulses present Extremities: normal capillary refill Gastrointestinal (Abdomen): Inspection/Auscultation: + abdomen distended Percussion/Palpation: abdomen nontender and no guarding Skin: + incision (L groin C/D/I with jorgito e cchymosis, no erythema.) Neurologic: CN's II-XI intact bilaterally and moves all extremities Psychiatric: Orientation: alert and oriented x 3 Affect: + flat affect Results & Data Vital Signs (Past 12 Hours) Vital Signs Temp Pulse Resp BP Pulse Ox O2 Del Method 03/25/25 07:00 36.7 C 73 16 163/80 H 94 Nasal Cannula
--- NOTE | 2025-03-26 14:58 | Surgery Progress Note ---
Date of Service March 26, 2025 Assessment & Plan (1) Aortic aneurysm: Plan: Patient is POD#7 after endovascular aortic aneurysm repair with L femoral artery open repair. He is doing well from the surgery. OK for d/c to rehab when placed. Admission and Anticipated Discharge Date Admission Date: March 19, 2025 Subjective 89 yo m POD #7 after EVAR with L groin femoral artery repair, seen in f/u today. Pt states feeling well today. No new complaints, but is ready to go to rehab. Review of Systems Review of Systems: All systems reviewed & are unremarkable except as noted in HPI & below Physical Exam Constitutional: WD/WN, vitals as above + frail appearing Respiratory: normal respiratory effort; no respiratory distress Auscultation: + diminished lung sounds Cardiovascular: Rate/Rhythm: regular rate and regular rhythm Vessels: femoral pulses present Extremities: normal capillary refill Gastrointestinal (Abdomen): Inspection/Auscultation: + abdomen distended Percussion/Palpation: abdomen nontender and no guarding Skin: + incision (L groin C/D/I with jorgito e cchymosis, no erythema.) Neurologic: CN's II-XI intact bilaterally and moves all extremities Psychiatric: Orientation: alert and oriented x 3 Affect: + flat affect Results & Data Vital Signs (Past 12 Hours) Vital Signs Temp Pulse Resp BP Pulse Ox O2 Del Method 03/26/25 14:38 37.1 C 61 16 152/79 H 97 Room Air 03/26/25 07:35 Room Air 03/26/25 07:21 36.7 C 91 H 16 135/78 93 Room Air
[2025-03-27 07:45] VITALS: BP 148/71; PULSE 68; RESP 20; TEMP 98.4; O2SAT 92
--- NOTE | 2025-03-27 12:59 | Surgery Progress Note ---
Date of Service March 27, 2025 Assessment & Plan (1) Aortic aneurysm: Plan: Patient is POD#8 after endovascular aortic aneurysm repair with L femoral artery open repair. He is doing well from the surgery. Ambulating in [place] with walker. Appears back to baseline. Will D\C with home health. (2) Postoperative urinary retention: Plan: Will go home with castaneda in place. He has an appointment with urology on the 8th. Admission and Anticipated Discharge Date Admission Date: March 19, 2025 Subjective 89 yo m POD #8 after EVAR with L groin femoral artery repair, seen in f/u today. Patient ambulating in hallway with use of a walker. No complaints. Physical Exam Constitutional: WD/WN, vitals as above Respiratory: normal respiratory effort; no respiratory distress Cardiovascular: Rate/Rhythm: regular rate and regular rhythm Vessels: femoral pulses present Extremities: normal capillary refill Gastrointestinal (Abdomen): Inspection/Auscultation: abdomen normal to inspection Percussion/Palpation: + abdomen tender (mild diffused tenderness on deep palpation) and abdomen soft Musculoskeletal: Knee: + surgical incision (dry and clean) Skin: + incision (dry and clean) Neurologic: CN's II-XI intact bilaterally and moves all extremities Psychiatric: A+Ox3, euthymic affect Results & Data Vital Signs (Past 12 Hours) Vital Signs Temp Pulse Resp BP Pulse Ox O2 Del Method 03/27/25 07:50 Room Air, Nasal Cannula 03/27/25 07:44 36.9 C 68 20 148/71 H 92 Room Air
--- NOTE | 2025-03-27 13:02 | Discharge Summary ---
Date of Service March 27, 2025 Admission HPI Per Admitting Provider Name: HARVINDER HUSAIN Patient Number: [id number] : 1935 Date of Service: 02/24/2025 Chief Complaint: _Follow-up appointment to discuss P EVAR HPI: _Mr. Andujar is an elderly male who presents to Dr. Zapata vascular surgery clinic today for appointment to once again discuss his endovascular aortic aneurysm repair. Patient was initially seen here about 2 months ago for a 5.3 cm AAA, and advised to undergo P EVAR. He was sent for a stress test, which then proceeded to a cardiac catheterization with GEOFF x 2 which was completed a few weeks ago. Patient states he is feeling well since his procedure. He says he is prepared and ready to undergo his aneurysm repair. He denies any headache, fever, chest pain, shortness of breath, abdominal pain, nausea, vomiting, rest pain, claudication, nonhealing wounds, other complaints. Current Home Meds: (Last Updated 02/24 14:23) DULoxetine (DULoxetine 60 mg oral delayed release capsule) TAKE 1 CAPSULE BY MOUTH AT BEDTIME QUEtiapine (QUEtiapine 25 mg oral tablet) 25 mg PO Daily aspirin (Aspirin Low Dose 81 mg oral delayed release tablet) 81 mg PO Daily atorvastatin (atorvastatin 40 mg oral tablet) TAKE 1 TABLET BY MOUTH EVERY DAY azelastine nasal (Astelin 137 mcg/inh nasal spray) 1 spray each nostril bid PRN: as needed for allergy symptoms clopidogrel (clopidogrel 75 mg oral tablet) 75 mg PO Daily cycloSPORINE ophthalmic (cycloSPORINE 0.05% ophthalmic emulsion) cycloSPORINE ophthalmic (Restasis 0.05% ophthalmic emulsion) INSTILL 1 DROP BOTH EYES TWICE A DAY (DISP DAY SUPPLY) fluticasone-salmeterol (Advair HFA 230 mcg-21 mcg) INHALE 2 PUFFS BY MOUTH TWICE A DAY gabapentin (gabapentin 600 mg oral tablet) 600 mg PO Daily lansoprazole (lansoprazole 15 mg oral delayed release capsule) 15 mg PO Daily multivitamin with minerals (Multi-Lana) polyethylene glycol 3350 (MiraLax oral powder for reconstitution) 17 g PO Daily prednisoLONE ophthalmic (prednisoLONE acetate 1% ophthalmic suspension) PLEASE SEE ATTACHED FOR DETAILED DIRECTIONS psyllium roflumilast (Daliresp 500 mcg oral tablet) TAKE 1 TABLET BY MOUTH EVERY DAY tamsulosin (tamsulosin 0.4 mg oral capsule) 0.4 mg umeclidinium-vilanterol (Anoro Ellipta 62.5 mcg-25 mcg/inh inhalation powder) umeclidinium (Incruse Ellipta) q24h unlisted medication 2 L of 02 at hs unlisted medication (MAGNESIUM 400 MG SOFTGEL) TAKE 1 SOFTGEL BY MOUTH EVERY MORNING Allergies and Sensitivities: lisinopril(cough) pantoprazole(GI symptoms) rOPINIRole(rash) ciprofloxacin(swelling in throat) pramipexole(rash) erythromycin(hives) Past Medical History: Problems: AAA (abdominal aortic aneurysm) Lung cancer Skin lesions COPD (chronic obstructive pulmonary disease) Nevus Tobacco user OBJECTIVE Vitals: Last Updated 02/24/25 14:28 Date Temp BP Location Pulse RR SpO2 Pain 02/24/25 122/64 Left Arm 74 94 02/24/25 120/72 Right Arm 02/18/25 90 Vital Signs are the last 3 documented. No Orthostatic Data Available Height and Weight: Last Updated 02/24/25 14:28 Date BMI Wt(kg) Wt(lb) Method Ht(cm) (ft-in) Method 02/24/25 87 191 Standing Scale 02/18/25 86.7 191 Standing Scale 01/28/25 87 191 Standing Scale Heights and Weights are the last 3 documented. Physical Exam Constitutional: In general patient is a healthy-appearing well-nourished well- developed elderly male in no distress. Is alert and oriented without any focal deficits. His heart is regular, lungs are decreased throughout significantly but clear. His abdomen is soft nontender with normoactive bowel sounds in all 4 quadrants. The edges of the 5 cm aneurysm are palpable. Femoral pulses are +3. Lower extremity distal pulses are +1. ASSESSMENT: _ PLAN: _ 1 ) _abdominal aortic aneurysm The procedure of percutaneous endovascular aneurysm repair was discussed at length with the patient and his by myself. All of their questions regarding the procedure were answered to their satisfaction. Patient would like to proceed with his aneurysm repair as soon as it can be scheduled. The benefits and alternatives and expectations of the hospital stay were discussed with the patient by myself. The risks of the procedure including but not limited to bleeding, infection, improper placement of the graft necessitating open repair, bowel or limb ischemia leading to further surgery or limb loss, worsening kidney damage, heart attack, , were discussed at length with the patient by myself at Dr. Zapata's request. Patient expressed understanding and agreement to proceed. This will occur in the next 2 weeks at the patient's convenience. He is advised to call with any questions or concerns. He is aware that he will need to remain on his Plavix and aspirin throughout his periprocedural time. Thank you for letting us participate in the care of this patient. I have personally [id number]___ minutes performing [id number] and [id number] activities on this date of service.Time does not include separately reported services. Activities Include: _x_ review of the medical record _x_ obtaining a history _x_ physical exam/evaluation __ review labs x_ review radiology reports _x_ counseling/educating patient/family/caregiver __ discussion/referral to other healthcare professional _x_ documenting care in the medical record __ independent interpretation of results _x_ communication of results to patient/family/caregiver _x_ coordination of care Signature Line Electronic Signature on File CC: Josafat Liu [address] [id number] CC: Sarah Lehman DO [facility] [address] [place] [address] * Electronically Reviewed/Signed by: Leatha Joshi PA-C Author Signature Dt/Tm:02/24/2025 04:24 PM [facility] [address] [facility] [address] [place] [address] LM Result Type: HVI Outpt Note Date of Service: February 24, 2025 16:18 EDT Authorization Status: Final Author or Import Date: MANDY Joshi Lynn on February 24, 2025 16:24 EDT Verified By: MANDY Joshi Lynn on February 24, 2025 16:24 EDT Encounter info: [id number], [facility], Clinic, 02/24/2025 - 02/24/2025 Admission Exam Per Admitting Provider Constitutional: In general patient is a healthy-appearing well-nourished well- developed elderly male in no distress. Is alert and oriented without any focal deficits. His heart is regular, lungs are decreased throughout significantly but clear. His abdomen is soft nontender with normoactive bowel sounds in all 4 quadrants. The edges of the 5 cm aneurysm are palpable. Femoral pulses are +3. Lower extremity distal pulses are +1. Principal Diagnosis Abdominal aortic aneuysm Discharge Exam Constitutional WD/WN, vitals as above Respiratory normal respiratory effort; no respiratory distress Cardiovascular Rate/Rhythm: regular rate and regular rhythm Vessels: femoral pulses present Extremities: normal capillary refill Gastrointestinal (Abdomen) Inspection/Auscultation: abdomen normal to inspection Percussion/Palpation: abdomen soft Skin + incision (dry and clean) Neurologic CN's II-XI intact bilaterally and moves all extremities Psychiatric A+Ox3, euthymic affect Orientation: alert and oriented x 3 Discharge Data Allergies Allergy/AdvReac Type Severity Reaction Status Date / Time ciprofloxacin Allergy Intermediate Sweling Verified 03/19/25 09:01 erythromycin base Allergy Intermediate Hives Verified 03/19/25 09:01 pramipexole Allergy Intermediate Rash Verified 03/19/25 09:01 ropinirole Allergy Intermediate Rash Verified 03/19/25 09:01 cat dander AdvReac Intermediate Sneezing, Verified 03/19/25 09:01 congestion lisinopril AdvReac Intermediate Cough Verified 03/19/25 09:01 pantoprazole AdvReac Intermediate GI symptoms Verified 03/19/25 09:01 Procedures Performed Operation Date: 03/19/25 10:10 Actual Procedures p Percutaneous Endovascular Aortic Aneursym Repair, Mechanical Closure of Right Femoral Artery, Open Repair Left Common Femoral Artery - Billy Zapata MD Ordered Studies 03/19/25 07:03 EV Angio Abdomen Aorta Routine US EV guide vascular access Routine 03/21/25 11:56 US Renal Bladder [US renal/blad retro comp] Routine Hospital Course (1) Aortic aneurysm: Patient is POD#7 after endovascular aortic aneurysm repair with L femoral artery open repair. He is doing well from the surgery. OK for d/c to rehab when placed. Total Time Total Time Spent Total Time Spent (In Minutes): x Discharge Plan Discharge Items Patient Disposition: Home - Self-Care Reason For Visit: Abdominal Aortic Aneurysm Discharge Diagnosis: Abdominal aortic aneurysm Activity: Per Instructions section Non-emergency contact: Surgeon Call non-emergency contact if: your temperature is above 101.5, your wound has increased redness, your wound has increased drainage and your wound pain has increased Follow-up/Referrals: Sarah Lehman DO [Primary Care Provider] - Billy Zapata MD [Physician] - Diet: Carb Consistent or DM2 and Heart Healthy Addtl Attending Provider Instructions: ACTIVITY RECOMMENDATIONS: May shower. SPECIAL CARE INSTRUCTIONS: Call your doctor if: * Temperature above 101 degrees * Pain not relieved by pain medicine ordered * There is increased drainage or redness from any incision * You have any unanswered questions or concerns. Call [phone] to schedule a follow up appointment if one not already scheduled. Pending Studies at Discharge: No Stand-Alone Forms: My [facility] [employer], Smoking Cessation Medications and DC Order Prescriptions: New tramadol 50 mg Tablet 50 mg PO Q6H PRN (Reason: pain) Qty: 20 0RF Continued duloxetine 60 mg capsule,delayed release(DR/EC) 60 mg PO HS Qty: 90 3RF roflumilast [Daliresp] 500 mcg tablet 500 mcg PO QAM Qty: 30 3RF Rx Instructions: TAKE 1 TABLET BY MOUTH EVERY DAY albuterol sulfate 90 mcg/actuation HFA aerosol inhaler 2 puff inhalation Q6H PRN (Reason: Shortness Of Breath Or Wheezing) Qty: 3 1RF gabapentin 600 mg tablet 600 mg PO QPM Qty: 90 1RF Rx Instructions: TAKE ONE TABLET BY MOUTH EVERY DAY azelastine 137 mcg (0.1 %) spray,non-aerosol 2 spray INTNAS BID Qty: 3 3RF Rx Instructions: administer into each nostril multivitamin Tablet 1 tab PO QPM carboxymethylcellulose sodium [Restore Tears] 0.5 % Drops 1 drp OPHTHALMIC (EYE) Q6H PRN (Reason: DRYNESS) cyclosporine [Restasis] 0.05 % Dropperette 1 drp OPHTHALMIC (EYE) Q12H aspirin 81 mg tablet,delayed release (DR/EC) 81 mg PO HS polyethylene glycol 3350 [Miralax] 17 gram/dose Powder 17 g PO DAILY PRN (Reason: Constipation) (DME) miscellaneous medical supply Misc VAGINAL Rx Instructions: 2LPM prednisone 10 mg tablet 10 mg PO DIRECTED Qty: 40 0RF Patient Comments: finished with this 01/16/25 Rx Instructions: 4 a day x 4 d>3 a day x 4 d>2 a day x 4 d>1 a day quetiapine [Seroquel] 25 mg tablet 25 mg PO HS PRN (Reason: insomna) Qty: 20 0RF Rx Instructions: please do not use more than 5 times in a week please do not take past Midnight tamsulosin 0.4 mg capsule 0.4 mg PO QAM Incruse Ellipta 62.5 mcg/actuation blister with device 1 inh inhalation PM atorvastatin [Lipitor] 40 mg tablet 40 mg PO HS clopidogrel [Plavix] 75 mg tablet 75 mg PO QAM ferrous sulfate 325 mg (65 mg iron) tablet 325 mg PO QAM fluticasone propion-salmeterol [Advair HFA] 230-21 mcg/actuation HFA aerosol inhaler 2 puff inhalation BID nitroglycerin [Nitrostat] 0.4 mg Tablet, Sublingual 0.4 mg sublingual Q5M PRN (Reason: chest pain) Qty: 30 1RF lansoprazole [Prevacid SoluTab] 15 mg Tablet,Disintegrat, Delay Rel 15 mg PO DAILY Qty: 30 6RF Patient Comments: [facility] Discharge Orders: Discharge Order (Routine); Ordered 03/27/25 Ordered By: Billy Zapata Admission Data Admit Date/Time: 03/19/25 10:16 Attending Provider: Billy Zapata Admit Provider: Billy Zapata Primary Care Provider: Sarah Lehman Other Providers: [facility]Care; [facility],Home Healthcare; [facility]
--- NOTE | 2025-03-28 07:33 | Coding Query ---
ANEMIA To promote full compliance with coding requirements relating to patient care, physician participation is requested in all cases of chlorinator operator uncertainty. Please assist us with the question(s) below: Coding Question(s): The record reflects the following clinical findings:Pt transfused 2 UPC. Baseline hgb 13.1, postop 11.8/11.4 . If these findings are indicative of anemia, please specify the known or suspected type by placing an "X" within the parenthesis (x). If other, please document type. Examples are: ( ) Acute blood loss anemia (x ) Acute Postoperative blood loss anemia ( ) Acute postoperative anemia due to dilutional fluids ( ) Chronic blood loss anemia ( ) Anemia of chronic disease ( ) Aplastic anemia ( ) Anemia due to renal disease ( ) Anemia in neoplastic disease ( ) Iron deficient anemia ( ) Anemia, unspecified or other ( ) Other: (please specify) Thank you LAN Diaz CCS
--- NOTE | 2025-03-28 07:34 | Coding Query ---
Your help is needed for correct coding of this account; please clarify if the patients Post-operative Ileus was: ( x) expected out of the surgery ( ) unexpected complication from the surgery ( )other please specify Thank you LAN Diaz CCS
== END 2025-03-27 14:45 | disposition home health service (06) | DRG 269 ==
LOC: ASU 08:46 → 1E 10:16 → 2S 03-21 18:09 → 3N 03-24 21:33